=== PATIENT | female | born 1960 | race African-American/Black ===

== ENCOUNTER 2016-11-07 15:07 | Emergency (ER) | payer OTHER ==
[~2016-11-07] VITALS: Ht 157.5 cm; Wt 90.7 kg
[~2016-11-07 15:07] MED LIST: PANT40T PO
[2016-11-07 15:57] VITALS: BP 128/78
[2016-11-07] MEDS ORDERED: methylPREDNISolone SOD SUCC 125 MG/2 ML VL IM ONE (16:45)
[2016-11-07] MEDS ORDERED: KETOROLAC TROMETH 60MG/2ML VIAL IM ONE (16:45)
== END 2016-11-07 17:49 | disposition home or self-care (01) ==
LOC: ER 15:11
DX: M54.16 Radiculopathy, lumbar region (principal); G89.29 Other chronic pain; Z88.1 Allergy status to other antibiotic agents
CPT/HCPCS: 96372; 99284; J1885; J2930

== ENCOUNTER 2016-11-17 03:59 | Emergency (ER) | payer OTHER ==
[~2016-11-17] VITALS: Ht 157.5 cm; Wt 88.5 kg
[2016-11-17] MEDS ORDERED: ACETAMINOPHEN 325 MG TAB PO ONE (04:30)
[2016-11-17] MEDS ORDERED: SODIUM CHLORIDE 0.9% 1,000 ML IV ONE (07:03)
[2016-11-17] MEDS ORDERED: METOCLOPRAMIDE HCL 5MG/ml INJ 2ml VIAL IV ONE (07:15)
[2016-11-17] MEDS ORDERED: KETOROLAC TROMETH 30 MG/ML 1ML VIAL IV ONE (07:15)
[2016-11-17 07:16] LABS: Basophils # (auto) 0.1 uL; Eosinophils # (auto) 0.2 uL; Eosinophils % (auto) 1.8 % (0.0-7.0); Hematocrit 38.5 % (36.0-46.0); Hemoglobin 12.5 g/dL (12.2-16.2); Lymphocytes # (auto) 1.7 uL; Lymphocytes % (auto) 16.2 % (10.0-50.0); Mean Corpuscular Hemoglobin 27.7 pg (28.0-32.0); Mean Corpuscular Hgb Conc. 32.4 g/dL (32.0-36.0); Mean Corpuscular Volume 85.6 fL (80.0-100.0); Mean Platelet Volume 8.7 fL (6.9-10.8); Monocytes # (auto) 1.3 uL; Neutrophils # (auto) 7.3 uL; Platelet Count (auto) 283 10^3/uL (140-450); Red Cell Distribution Width 16.2 % (11.8-14.3); White Blood Cell 10.5 10^3/uL (4.4-10.8)
[2016-11-17 07:27] LABS: Albumin 3.4 g/dL (3.4-5.0); BUN/Creatinine Ratio 22.4; Calcium 9.7 mg/dL (8.5-10.1); Magnesium 2.4 mg/dL (1.6-2.6)
[2016-11-17 07:31] LABS: Bilirubin, Total 0.3 mg/dL (0.2-1.0); Total Protein 7.7 g/dL (6.4-8.2)
[2016-11-17 08:34] LABS: Urine Bilirubin Negative (Negative); Urine Blood Negative /uL (Negative); Urine Color Yellow (Yellow); Urine Glucose Normal (Normal); Urine Ketone Negative (Negative); Urine Nitrite Negative (Negative); Urine RBC <1 /hpf (0 - 4); Urine Squamous Epithelial Cell FEW /hpf (<5); Urine Urobilinogen Normal (Negative)
[2016-11-17 11:17] VITALS: BP 120/77
== END 2016-11-17 12:24 | disposition home or self-care (01) ==
LOC: EDBD 03:59 → ER 03:59 → EDSEX 03:59 → ER 12:24
DX: G89.29 Other chronic pain (principal); M54.5 Low back pain; Z87.442 Personal history of urinary calculi; K21.9 Gastro-esophageal reflux disease without esophagitis; Z88.1 Allergy status to other antibiotic agents
CPT/HCPCS: 36415; 71020; 80053; 81001; 83735; 84443; 85025; 94761; 96361; 96374; 96375; 99285; J1885; J2765

== ENCOUNTER 2017-08-09 23:51 | Emergency (ER) | payer OTHER ==
[~2017-08-09] VITALS: Ht 157.5 cm; Wt 92.5 kg
[2017-08-10 00:58] LABS: Basophils # (auto) 0 uL; Basophils % (auto) 0.4 % (0.0-2.0); Eosinophils # (auto) 0.1 uL; Eosinophils % (auto) 0.5 % (0.0-7.0); Hematocrit 37.2 % (36.0-46.0); Hemoglobin 12.1 g/dL (12.2-16.2); Lymphocytes # (auto) 2.1 uL; Lymphocytes % (auto) 18.1 % (10.0-50.0); Mean Corpuscular Hgb Conc. 32.5 g/dL (32.0-36.0); Mean Corpuscular Volume 86.2 fL (80.0-100.0); Monocytes # (auto) 0.8 uL; Monocytes % (auto) 6.9 % (0.0-12.0); Neutrophils # (auto) 8.5 uL; Neutrophils % (auto) 74.1 % (37.0-80.0); Nucleated Red Blood Cells % 0.1 %; Platelet Count (auto) 356 10^3/uL (140-450); Red Blood Cells 4.32 10^6/uL (4.0-5.20); White Blood Cell 11.5 10^3/uL (4.4-10.8)
[2017-08-10 01:14] LABS: Potassium 3.7 mmol/L (3.5-5.1)
[2017-08-10 01:17] LABS: Albumin 3.5 g/dL (3.4-5.0); BUN/Creatinine Ratio 14.6; Calcium 9.3 mg/dL (8.5-10.1)
[2017-08-10 01:20] LABS: Bilirubin, Total 0.2 mg/dL (0.2-1.0); Total Protein 8.1 g/dL (6.4-8.2)
[2017-08-10 02:28] LABS: Urine Bacteria FEW /hpf (None Seen); Urine Blood Negative /uL (Negative); Urine Mucus FEW (None Seen); Urine Specific Gravity 1.029 (1.001-1.035); Urine WBC 5 /hpf (0 - 5)
[2017-08-10] MEDS ORDERED: MORPHINE SULFATE 4 MG/ML SYR/VIAL IV ONE (02:30)
[2017-08-10] MEDS ORDERED: SODIUM CHLORIDE 0.9% 1,000 ML IV ONE (02:30)
[2017-08-10] MEDS ORDERED: ONDANSETRON HCL 4 MG/2 ML VIAL IV ONE (02:30)
[2017-08-10] MEDS ORDERED: LORazepam 2MG/ML-1ML VIAL IV ONE (02:45)
[2017-08-10 04:59] VITALS: BP 107/69
== END 2017-08-10 03:47 | disposition home or self-care (01) ==
LOC: ER 23:51
DX: N39.0 Urinary tract infection, site not specified (principal); N20.0 Calculus of kidney; M54.9 Dorsalgia, unspecified; G89.29 Other chronic pain; E66.01 Morbid (severe) obesity due to excess calories; Z68.37 Body mass index [BMI] 37.0-37.9, adult; Z79.899 Other long term (current) drug therapy
CPT/HCPCS: 36415; 74176; 80053; 81001; 82150; 83690; 85025; 96361; 96374; 96375; 99285; J2060; J2270; J2405; J7030

== ENCOUNTER → 2018-06-30 | Outpatient (CLI) | payer OTHER | END | disposition home or self-care (01) | LOC: LAB 07:20 | PROVIDERS: ATTEND Urology | DX: N39.0 Urinary tract infection, site not specified (principal) | CPT/HCPCS: 87086 ==

== ENCOUNTER 2018-11-30 13:33 | Emergency (ER) | payer OTHER ==
[~2018-11-30] VITALS: Ht 167.6 cm; Wt 93.0 kg
[2018-11-30 15:46] LABS: Urine Bacteria NONE SEEN /hpf (None Seen); Urine Blood Negative /uL (Negative); Urine Mucus FEW (None Seen); Urine Specific Gravity 1.027 (1.001-1.035); Urine WBC <1 /hpf (0 - 5)
[2018-11-30] MEDS ORDERED: ONDANSETRON HCL 4 MG/2 ML VIAL IV ONE (20:15)
[2018-11-30] MEDS ORDERED: cefTRIAXone 1GM/50ML D5W 50 ML IV ONE (20:15)
[2018-11-30] MEDS ORDERED: PIPERACILLIN-TAZOB 3.375GM 100 ML IV ONE (20:15)
[2018-11-30] MEDS ORDERED: SODIUM CHLORIDE 0.9% 1,000 ML IV ONE (20:15)
[2018-11-30] MEDS ORDERED: MORPHINE SULFATE 4 MG/ML SYR/VIAL IV ONE (20:15)
[2018-11-30 20:33] LABS: Basophils # (auto) 0 uL; Basophils % (auto) 0.3 % (0.0-2.0); Eosinophils # (auto) 0.1 uL; Eosinophils % (auto) 0.6 % (0.0-7.0); Hematocrit 38.7 % (36.0-46.0); Hemoglobin 12.4 g/dL (12.2-16.2); Lymphocytes # (auto) 1.9 uL; Lymphocytes % (auto) 13.7 % (10.0-50.0); Mean Corpuscular Hemoglobin 27.4 pg (28.0-32.0); Mean Corpuscular Volume 85.5 fL (80.0-100.0); Monocytes # (auto) 0.7 uL; Monocytes % (auto) 5.2 % (0.0-12.0); Neutrophils # (auto) 11.3 uL; Neutrophils % (auto) 80.2 % (37.0-80.0); Platelet Count (auto) 313 10^3/uL (140-450); Red Blood Cells 4.52 10^6/uL (4.0-5.20); Red Cell Distribution Width 15.3 % (11.8-14.3); White Blood Cell 14.1 10^3/uL (4.4-10.8)
[2018-11-30 20:56] LABS: Alanine Aminotransferase 14 U/L (13-56); Albumin 3.3 g/dL (3.4-5.0); Anion Gap 5 (5-15); Aspartate Aminotransferase 26 U/L (15-37); BUN/Creatinine Ratio 20.6; Blood Urea Nitrogen 13 mg/dL (7-18); Calcium 9.3 mg/dL (8.5-10.1); Carbon Dioxide 27 mmol/L (21-32); Chloride 103 mmol/L (98-107); GFR African American 126 mL/min; GFR Non-African American 104 mL/min; Glucose 79 mg/dL (74-106); Potassium 4.3 mmol/L (3.5-5.1); Sodium 135 mmol/L (136-145)
[2018-11-30 20:57] LABS: Alkaline Phosphatase 154 U/L (45-117); Bilirubin, Total 0.4 mg/dL (0.2-1.0); Total Protein 8.1 g/dL (6.4-8.2)
[2018-11-30 22:00] VITALS: BP 119/73
== END 2018-12-01 01:09 | disposition home or self-care (01) ==
LOC: ER 13:33
DX: S63.501A Unspecified sprain of right wrist, initial encounter (principal); N20.0 Calculus of kidney; L02.411 Cutaneous abscess of right axilla; Z88.1 Allergy status to other antibiotic agents; W45.8XXA Other foreign body or object entering through skin, initial encounter; Y93.89 Activity, other specified; Y92.89 Other specified places as the place of occurrence of the external cause; Y99.8 Other external cause status
CPT/HCPCS: 36415; 73110; 74176; 80053; 81001; 85025; 96365; 96366; 96367; 96375; 99284; J0696; J2270; J2405; J2543; J7030

== ENCOUNTER 2019-12-20 19:25 | Emergency (ER) | payer MEDICAID, OTHER ==
[~2019-12-20] VITALS: Ht 157.5 cm; Wt 93.0 kg
[2019-12-20 22:19] LABS: Basophils # (auto) 0 10 ^3/uL (0-0.2); Basophils % (auto) 0.4 % (0.0-2.0); Eosinophils # (auto) 0.1 10 ^3/uL (0-0.8); Mean Corpuscular Volume 84.3 fL (80.0-100.0); Nucleated Red Blood Cells % 0.1 %
[2019-12-20 22:21] LABS: Hematocrit 39.3 % (36.0-46.0); Hemoglobin 12.6 g/dL (12.2-16.2); Lymphocytes # (auto) 2.7 10 ^3/uL (0.4-5.4); Lymphocytes % (auto) 24.7 % (10.0-50.0); Mean Corpuscular Hemoglobin 26.9 pg (28.0-32.0); Monocytes # (auto) 0.7 10 ^3/uL (0-1.3); Monocytes % (auto) 6.1 % (0.0-12.0); Neutrophils # (auto) 7.5 10 ^3/uL (1.6-8.6); Neutrophils % (auto) 67.8 % (37.0-80.0); Platelet Count (auto) 318 10^3/uL (140-450); Red Blood Cells 4.66 10^6/uL (4.0-5.20); Red Cell Distribution Width 15.5 % (11.8-14.3); White Blood Cell 11.1 10^3/uL (4.4-10.8)
[2019-12-20 22:27] LABS: Urine Bacteria FEW /hpf (None Seen); Urine Blood Negative /uL (Negative); Urine Specific Gravity 1.021 (1.001-1.035); Urine WBC 4 /hpf (0 - 5)
[2019-12-20 22:38] LABS: Albumin 3.9 g/dL (3.4-5.0); BUN/Creatinine Ratio 19.5; Calcium 9.9 mg/dL (8.5-10.1)
[2019-12-20 22:41] LABS: Bilirubin, Total 0.3 mg/dL (0.2-1.0); Total Protein 8.4 g/dL (6.4-8.2)
[2019-12-20 22:46] LABS: INR 0.97 (0.9-1.15); Partial Thromboplastin Time 29.6 sec (23.0-31.2)
[2019-12-21] MEDS ORDERED: CIPROFLOXACIN 400MG/200ML 200 ML IV ONE (01:45)
[2019-12-21] MEDS ORDERED: MORPHINE SULFATE 4 MG/ML SYR/VIAL IV ONE (01:45)
[2019-12-21] MEDS ORDERED: ONDANSETRON HCL 4 MG/2 ML VIAL IV ONE (01:45)
[2019-12-21] MEDS ORDERED: SODIUM CHLORIDE 0.9% 1,000 ML IV ONE (01:45)
[2019-12-21 02:00] VITALS: BP 97/51
== END 2019-12-21 04:15 | disposition home or self-care (01) ==
LOC: ER 19:25
DX: N20.0 Calculus of kidney (principal); N39.0 Urinary tract infection, site not specified; K80.20 Calculus of gallbladder without cholecystitis without obstruction; T39.1X5A Adverse effect of 4-Aminophenol derivatives, initial encounter; Y92.9 Unspecified place or not applicable
CPT/HCPCS: 36415; 74176; 76705; 80053; 81001; 83690; 84702; 85025; 85610; 85730; 96365; 96375; 99285; J0744; J2270; J2405; J7030

== ENCOUNTER 2020-05-23 13:34 | Emergency (ER) | payer MEDICAID ==
[~2020-05-23] VITALS: Ht 162.6 cm; Wt 88.5 kg
[2020-05-23] MEDS ORDERED: ONDANSETRON HCL 4 MG/2 ML VIAL IV ONE (14:15)
[2020-05-23] MEDS ORDERED: HYDROmorphone HCL 2 MG/ML VL IV ONE (14:15)
[2020-05-23 15:50] LABS: Basophils # (auto) 0 10 ^3/uL (0-0.2); Basophils % (auto) 0.3 % (0.0-2.0); Eosinophils # (auto) 0 10 ^3/uL (0-0.8); Eosinophils % (auto) 0.4 % (0.0-7.0); Hematocrit 36.3 % (36.0-46.0); Hemoglobin 11.8 g/dL (12.2-16.2); Lymphocytes # (auto) 1.3 10 ^3/uL (0.4-5.4); Lymphocytes % (auto) 13.1 % (10.0-50.0); Mean Corpuscular Hemoglobin 27.6 pg (28.0-32.0); Mean Corpuscular Hgb Conc. 32.5 g/dL (32.0-36.0); Mean Corpuscular Volume 85.1 fL (80.0-100.0); Monocytes # (auto) 0.5 10 ^3/uL (0-1.3); Monocytes % (auto) 5.4 % (0.0-12.0); Neutrophils % (auto) 80.8 % (37.0-80.0); Nucleated Red Blood Cells % 0.1 %; Platelet Count (auto) 318 10^3/uL (140-450); Red Blood Cells 4.26 10^6/uL (4.0-5.20); Red Cell Distribution Width 15.5 % (11.8-14.3)
[2020-05-23 16:01] LABS: Albumin 3.6 g/dL (3.4-5.0); Calcium 9.6 mg/dL (8.5-10.1); Potassium 3.7 mmol/L (3.5-5.1)
[2020-05-23 16:02] LABS: Urine Bacteria NONE SEEN /hpf (None Seen); Urine Blood Negative /uL (Negative); Urine Mucus FEW (None Seen); Urine Specific Gravity 1.011 (1.001-1.035); Urine WBC 1 /hpf (0 - 5)
[2020-05-23 16:06] LABS: BUN/Creatinine Ratio 16.4; Bilirubin, Total 0.4 mg/dL (0.2-1.0)
[2020-05-23 18:00] VITALS: BP 113/62
== END 2020-05-23 16:25 | disposition home or self-care (01) ==
LOC: EDBD 13:34 → ER 13:34
DX: R10.31 Right lower quadrant pain (principal); F41.9 Anxiety disorder, unspecified; Z87.442 Personal history of urinary calculi; Z87.440 Personal history of urinary (tract) infections; Z86.2 Personal history of diseases of the blood and blood-forming organs and certain disorders involving the immune mechanism; Z98.890 Other specified postprocedural states; Z79.899 Other long term (current) drug therapy; Z88.1 Allergy status to other antibiotic agents
CPT/HCPCS: 36415; 74176; 80053; 81001; 83690; 85025; 93005; 96374; 96375; 99285; J1170; J2405

== ENCOUNTER 2020-07-08 23:29 | Emergency (ER) | payer MEDICAID ==
[~2020-07-08] VITALS: Ht 167.6 cm; Wt 90.7 kg
[2020-07-09] MEDS ORDERED: ACETAMINOPHEN 500 MG TAB PO ONE (00:15)
[2020-07-09] MEDS ORDERED: SODIUM CHLORIDE 0.9% 1,000 ML IV ONE ×2 (00:15→07:00)
[2020-07-09] MEDS ORDERED: ONDANSETRON HCL 4 MG/2 ML VIAL IV ONE ×2 (00:15→07:00)
[2020-07-09 00:38] LABS: Basophils # (auto) 0 10 ^3/uL (0-0.2); Basophils % (auto) 0.2 % (0.0-2.0); Eosinophils # (auto) 0 10 ^3/uL (0-0.8); Eosinophils % (auto) 0.2 % (0.0-7.0); Hematocrit 40.9 % (36.0-46.0); Lymphocytes # (auto) 0.5 10 ^3/uL (0.4-5.4); Lymphocytes % (auto) 4.4 % (10.0-50.0); Mean Corpuscular Hemoglobin 26.9 pg (28.0-32.0); Mean Corpuscular Hgb Conc. 31.7 g/dL (32.0-36.0); Monocytes # (auto) 0.3 10 ^3/uL (0-1.3); Monocytes % (auto) 2.8 % (0.0-12.0); Neutrophils # (auto) 10.9 10 ^3/uL (1.6-8.6); Neutrophils % (auto) 92.4 % (37.0-80.0); Red Blood Cells 4.82 10^6/uL (4.0-5.20); Red Cell Distribution Width 15.6 % (11.8-14.3); White Blood Cell 11.8 10^3/uL (4.4-10.8)
[2020-07-09 00:55] LABS: Albumin 3.8 g/dL (3.4-5.0); BUN/Creatinine Ratio 18.7; Potassium 3.4 mmol/L (3.5-5.1)
[2020-07-09 00:57] LABS: Bilirubin, Total 0.6 mg/dL (0.2-1.0); Total Protein 8.5 g/dL (6.4-8.2)
[2020-07-09] MEDS ORDERED: IOHEXOL 300 MG/ML 100ML BOTTLE IJ ONE (02:22)
[2020-07-09 06:00] VITALS: BP 127/78
[2020-07-09 06:45] LABS: Urine Bacteria NONE SEEN /hpf (None Seen); Urine Blood Negative /uL (Negative); Urine Mucus FEW (None Seen); Urine WBC 4 /hpf (0 - 5)
[2020-07-09 06:46] LABS: Urine Specific Gravity > 1.050 (1.001-1.035)
== END 2020-07-09 07:37 | disposition home or self-care (01) ==
LOC: EDBD 23:29 → ER 23:29
DX: K52.9 Noninfective gastroenteritis and colitis, unspecified (principal); R11.2 Nausea with vomiting, unspecified; I10 Essential (primary) hypertension; F41.9 Anxiety disorder, unspecified; Z87.442 Personal history of urinary calculi; Z88.1 Allergy status to other antibiotic agents; Z79.899 Other long term (current) drug therapy; Z98.890 Other specified postprocedural states
CPT/HCPCS: 36415; 74177; 80053; 81001; 83605; 83690; 84484; 85025; 87040; 93005; 96361; 96374; 96376; 99285; J2405; J7030; Q9967

== ENCOUNTER 2021-04-07 23:42 | Emergency (ER) | payer MEDICAID ==
[~2021-04-07] VITALS: Ht 157.5 cm; Wt 97.5 kg
[2021-04-08] MEDS ORDERED: KETOROLAC TROMETH 30 MG/ML 1ML VIAL IV ONE
[2021-04-08] MEDS ORDERED: ONDANSETRON HCL 4 MG/2 ML VIAL IV ONE
[2021-04-08] MEDS ORDERED: SODIUM CHLORIDE 0.9% 1,000 ML IV ONE
[2021-04-08 01:43] LABS: Basophils # (auto) 0 10 ^3/uL (0-0.2); Basophils % (auto) 0.4 % (0.0-2.0); Eosinophils # (auto) 0.2 10 ^3/uL (0-0.8); Eosinophils % (auto) 1.8 % (0.0-7.0); Hematocrit 33.5 % (36.0-46.0); Hemoglobin 10.7 g/dL (12.2-16.2); Lymphocytes # (auto) 2.1 10 ^3/uL (0.4-5.4); Lymphocytes % (auto) 23.8 % (10.0-50.0); Mean Corpuscular Hemoglobin 27.6 pg (28.0-32.0); Mean Corpuscular Hgb Conc. 31.9 g/dL (32.0-36.0); Mean Corpuscular Volume 86.4 fL (80.0-100.0); Monocytes # (auto) 0.7 10 ^3/uL (0-1.3); Monocytes % (auto) 7.9 % (0.0-12.0); Neutrophils # (auto) 5.9 10 ^3/uL (1.6-8.6); Neutrophils % (auto) 66.1 % (37.0-80.0); Red Blood Cells 3.88 10^6/uL (4.0-5.20); Red Cell Distribution Width 14.8 % (11.8-14.3); White Blood Cell 8.9 10^3/uL (4.4-10.8)
[2021-04-08 01:55] LABS: Albumin 3.2 g/dL (3.4-5.0); BUN/Creatinine Ratio 18.9; Calcium 9.7 mg/dL (8.5-10.1); Potassium 3.9 mmol/L (3.5-5.1)
[2021-04-08 01:58] LABS: Bilirubin, Total 0.2 mg/dL (0.2-1.0); Total Protein 7.3 g/dL (6.4-8.2)
[2021-04-08 02:26] LABS: Urine Bacteria FEW /hpf (None Seen); Urine Blood Negative /uL (Negative); Urine Mucus FEW (None Seen); Urine WBC 3 /hpf (0 - 5)
[2021-04-08 03:01] VITALS: BP 103/54
[2021-04-08] MEDS ORDERED: NITR-87 PO (18:35)
== END 2021-04-08 05:36 | disposition home or self-care (01) ==
LOC: ER 23:42
DX: N39.0 Urinary tract infection, site not specified (principal); Z88.1 Allergy status to other antibiotic agents
CPT/HCPCS: 36415; 80053; 81001; 83690; 85025; 96361; 96374; 96375; 99284; J1885; J2405; J7030

== ENCOUNTER 2022-01-25 21:29 | Emergency (ER) | payer MEDICAID ==
[~2022-01-25] VITALS: Ht 157.5 cm; Wt 94.6 kg
[~2022-01-25 21:29] MED LIST changes: +NITR-87 PO
[2022-01-25 22:58] LABS: Urine Bacteria NONE SEEN /hpf (None Seen); Urine Blood Negative /uL (Negative); Urine Mucus FEW (None Seen); Urine Specific Gravity 1.031 (1.001-1.035); Urine WBC 4 /hpf (0 - 5)
[2022-01-26 06:49] VITALS: BP 113/66
[2022-01-26] MEDS ORDERED: PHENAZOPYRIDINE HCL 100 MG TAB PO ONE (07:00)
[2022-01-26] MEDS ORDERED: PHEN200T16 PO ×2 (07:21→07:33)
[2022-01-26] MEDS ORDERED: BACDST PO ×2 (07:21→07:33)
== END 2022-01-26 07:36 | disposition home or self-care (01) ==
LOC: ER 21:29
DX: N39.0 Urinary tract infection, site not specified (principal); Z87.442 Personal history of urinary calculi; Z88.1 Allergy status to other antibiotic agents
CPT/HCPCS: 81001

== ENCOUNTER 2022-07-24 18:16 | Emergency (ER) | payer MEDICAID ==
[~2022-07-24] VITALS: Ht 157.5 cm; Wt 95.5 kg
[~2022-07-24 18:16] MED LIST changes: +BACDST PO; +PHEN-922 PO
[2022-07-24 19:23] LABS: Basophils # (auto) 0 10 ^3/uL (0-0.2); Basophils % (auto) 0.5 % (0.0-2.0); Eosinophils # (auto) 0.1 10 ^3/uL (0-0.8); Eosinophils % (auto) 0.9 % (0.0-7.0); Hematocrit 36.8 % (36.0-46.0); Hemoglobin 11.8 g/dL (12.2-16.2); Lymphocytes # (auto) 1.7 10 ^3/uL (0.4-5.4); Lymphocytes % (auto) 17.5 % (10.0-50.0); Mean Corpuscular Hemoglobin 27.1 pg (28.0-32.0); Mean Corpuscular Volume 84.8 fL (80.0-100.0); Monocytes # (auto) 0.6 10 ^3/uL (0-1.3); Monocytes % (auto) 5.8 % (0.0-12.0); Neutrophils # (auto) 7.3 10 ^3/uL (1.6-8.6); Neutrophils % (auto) 75.3 % (37.0-80.0); Nucleated Red Blood Cells % 0.1 %; Red Blood Cells 4.34 10^6/uL (4.0-5.20); Red Cell Distribution Width 14.7 % (11.8-14.3); White Blood Cell 9.7 10^3/uL (4.4-10.8)
[2022-07-24 19:33] LABS: Potassium 4.3 mmol/L (3.5-5.1)
[2022-07-24 19:40] LABS: Albumin 3.7 g/dL (3.4-5.0); BUN/Creatinine Ratio 21.2 (10.0-20.0); Bilirubin, Total 0.3 mg/dL (0.2-1.0); Calcium 9.3 mg/dL (8.5-10.1); Total Protein 7.4 g/dL (6.4-8.2)
[2022-07-25 05:48] VITALS: BP 118/73
== END 2022-07-25 02:07 | disposition home or self-care (01) ==
LOC: ER 18:16 → EDBD 18:16 → ER 07-25 02:07
DX: R10.11 Right upper quadrant pain (principal); M25.572 Pain in left ankle and joints of left foot; Z87.442 Personal history of urinary calculi; Z88.1 Allergy status to other antibiotic agents
CPT/HCPCS: 36415; 73600; 74176; 80053; 83605; 83690; 85025; 93005

== ENCOUNTER 2022-12-28 01:02 | Emergency (ER) | payer MEDICAID ==
[~2022-12-28] VITALS: Ht 157.5 cm; Wt 93.8 kg
[2022-12-28] MEDS ORDERED: MUPI2OIN2 EX (03:26)
[2022-12-28] MEDS ORDERED: CEPH500C PO (03:26)
[2022-12-28] MEDS ORDERED: BACDST PO (03:26)
[2022-12-28] MEDS ORDERED: HYDROcodone-ACET 5/325MG TAB PO ONE (03:30)
[2022-12-28] MEDS ORDERED: cefTRIAXone SOD 1,000 MG VL IM ONE (03:30)
[2022-12-28] MEDS ORDERED: KETOROLAC TROMETH 60MG/2ML VIAL IM ONE (03:30)
[2022-12-28 04:15] VITALS: BP 132/76; PULSE 68; RESP 16; TEMP 97.4; O2SAT 97
== END 2022-12-28 04:30 | disposition home or self-care (01) ==
LOC: ER 01:02
DX: G89.29 Other chronic pain (principal); L60.0 Ingrowing nail; M54.2 Cervicalgia; M25.512 Pain in left shoulder; M79.671 Pain in right foot
CPT/HCPCS: 96372; 99284; J0696; J1885

== ENCOUNTER 2023-11-20 13:46 | Inpatient (IN) | payer MEDICAID ==
[~2023-11-20] VITALS: Ht 157.5 cm; Wt 91.2 kg
[~2023-11-20 13:46] MED LIST changes: +CEPH500C PO; +MUPI2OIN2 EX
[2023-11-20 15:09] LABS: Basophils # (auto) 0.1 10 ^3/uL (0-0.2); Basophils % (auto) 0.5 % (0.0-2.0); Eosinophils # (auto) 0.1 10 ^3/uL (0-0.8); Eosinophils % (auto) 1.1 % (0.0-7.0); Hematocrit 37.6 % (36.0-46.0); Hemoglobin 11.9 g/dL (12.2-16.2); Lymphocytes # (auto) 1.9 10 ^3/uL (0.4-5.4); Lymphocytes % (auto) 17.9 % (10.0-50.0); Mean Corpuscular Hemoglobin 27.5 pg (28.0-32.0); Mean Corpuscular Hgb Conc. 31.7 g/dL (32.0-36.0); Mean Corpuscular Volume 86.9 fL (80.0-100.0); Monocytes # (auto) 0.6 10 ^3/uL (0-1.3); Neutrophils # (auto) 7.9 10 ^3/uL (1.6-8.6); Neutrophils % (auto) 74.5 % (37.0-80.0); Platelet Count (auto) 320 10^3/uL (140-450); Red Blood Cells 4.32 10^6/uL (4.0-5.20); Red Cell Distribution Width 15.8 % (11.8-14.3); White Blood Cell 10.5 10^3/uL (4.4-10.8)
[2023-11-20 15:18] LABS: Urine Bacteria None Seen /hpf (None Seen)
[2023-11-20 15:28] LABS: Alanine Aminotransferase 11 U/L (7-40); Alkaline Phosphatase 137 U/L (46-116); Anion Gap 7 (5-15); Aspartate Aminotransferase 20 U/L (13-40); BUN/Creatinine Ratio 11.2 (10.0-20.0); Blood Urea Nitrogen 10 mg/dL (9-23); Calcium 10.3 mg/dL (8.7-10.4); Carbon Dioxide 24 mmol/L (20-31); Chloride 109 mmol/L (98-107); Glucose 110 mg/dL (74-106); Sodium 140 mmol/L (136-145)
[2023-11-20 15:29] LABS: Albumin 4.3 g/dL (3.2-4.8)
[2023-11-20 15:30] LABS: Bilirubin, Total 0.3 mg/dL (0.2-1.0); Total Protein 7.5 g/dL (5.7-8.2)
[2023-11-20 15:41] LABS: Urine Blood Negative /uL (Negative); Urine Clarity Ex.Turbid (Clear); Urine Color Yellow (Yellow); Urine Mucus FEW (None Seen); Urine Protein, UAD TRACE (Negative); Urine Specific Gravity 1.031 (1.001-1.035); Urine Urobilinogen Normal (Negative); Urine WBC 4 /hpf (0 - 5); Urine pH 5.5 (5.0-9.0)
[2023-11-21] VITALS (7 sets, daily range): BP systolic 100–109; BP diastolic 54–73; PULSE 58–79; RESP 16–18; TEMP 97.8–98; O2SAT 95–100
[2023-11-21] MEDS: SODIUM CHLORIDE 0.9% 1,000 ML IV ONE (00:40)
[2023-11-21] MEDS: levoFLOXacin 500MG 100 ML IV ONE (00:46)
[2023-11-21] MEDS: KETOROLAC TROMETH 30 MG/ML 1ML VIAL IV ONE (00:46)
[2023-11-21] MEDS ORDERED: cefTRIAXone 1GM/50ML D5W 50 ML IV ONE (01:15)
[2023-11-21] MEDS ORDERED: SODIUM CHLORIDE 0.9% 1,000 ML IV SCH (01:15)
[2023-11-21] MEDS ORDERED: hydrALAZINE HCL 20 MG/ML VL IV PRN (04:00)
[2023-11-21] MEDS ORDERED: ONDANSETRON HCL 4 MG/2 ML VIAL IV PRN (04:00)
[2023-11-21] MEDS: LACTATED RINGER'S 1,000 ML IV SCH (06:34)
[2023-11-21 08:12] LABS: Chloride 108 mmol/L (98-107); Potassium 4.2 mmol/L (3.5-5.1); Sodium 137 mmol/L (136-145)
[2023-11-21 08:13] LABS: Anion Gap 6 (5-15); Calcium 9.7 mg/dL (8.7-10.4); Carbon Dioxide 23 mmol/L (20-31)
[2023-11-21 08:17] LABS: Basophils # (auto) 0 10 ^3/uL (0-0.2); Basophils % (auto) 0.5 % (0.0-2.0); Eosinophils # (auto) 0.1 10 ^3/uL (0-0.8); Eosinophils % (auto) 1.4 % (0.0-7.0); Hematocrit 30.7 % (36.0-46.0); Lymphocytes # (auto) 1.3 10 ^3/uL (0.4-5.4); Lymphocytes % (auto) 16.5 % (10.0-50.0); Mean Corpuscular Hemoglobin 28.8 pg (28.0-32.0); Mean Corpuscular Hgb Conc. 32.7 g/dL (32.0-36.0); Mean Corpuscular Volume 87.9 fL (80.0-100.0); Monocytes # (auto) 0.5 10 ^3/uL (0-1.3); Monocytes % (auto) 5.6 % (0.0-12.0); Neutrophils # (auto) 6.2 10 ^3/uL (1.6-8.6); Platelet Count (auto) 224 10^3/uL (140-450); Red Blood Cells 3.49 10^6/uL (4.0-5.20); Red Cell Distribution Width 15.7 % (11.8-14.3); White Blood Cell 8.1 10^3/uL (4.4-10.8)
[2023-11-21 08:18] LABS: BUN/Creatinine Ratio 14.3 (10.0-20.0); Blood Urea Nitrogen 12 mg/dL (9-23); Glucose 95 mg/dL (74-106)
[2023-11-21] MEDS: KETOROLAC TROMETH 30 MG/ML 1ML VIAL IV PRN (10:36)
[2023-11-21 11:35] LABS: Folate (Folic Acid) 15.17 ng/mL (>5.38)
[2023-11-21 11:36] LABS: Ferritin 68.9 ng/mL (10-291)
[2023-11-21 11:46] LABS: % Iron Saturation 25.4 % (15-50)
[2023-11-21] MEDS: PANTOPRAZOLE 40 MG TAB PO SCH (17:15)
[2023-11-21 21:52] LABS: Amphetamine Screen, Urine Neg (NEGATIVE); Barbiturate Scree,Urine Neg (NEGATIVE); Benzodiazephine Screen, Urine Neg (NEGATIVE); Cannabinoid Screen, Urine Neg (NEGATIVE); Cocaine Screen, Urine Neg (NEGATIVE); Opiate Scree,Urine Neg (NEGATIVE); Phencyclidine Screen, Urine Neg (NEGATIVE)
[2023-11-22 01:00] VITALS: BP 121/67; PULSE 60; RESP 17; TEMP 98.2; O2SAT 100
[2023-11-22 05:00] VITALS: BP 107/58; PULSE 69; RESP 17; TEMP 98; O2SAT 99
[2023-11-22 08:24] VITALS: TEMP 36.7
[2023-11-22 09:00] VITALS: BP 107/73; PULSE 76; RESP 18; TEMP 98.1; O2SAT 95
[2023-11-22] MEDS: cefTRIAXone 1GM/50ML D5W 50 ML IV SCH (09:00)
[2023-11-22 12:51] VITALS: BP 123/69; PULSE 80; RESP 16; TEMP 97.8; O2SAT 97
[2023-11-23] MEDS ORDERED: PHEN1TAB38 PO (09:54)
[2023-11-23] MEDS ORDERED: PANT40TA2 PO (09:54)
[2023-11-23] MEDS ORDERED: MUPI2CRE17 EX (09:54)
== END 2023-11-22 15:00 | disposition home or self-care (01) | DRG 463 ==
LOC: ER 13:51 → OVERFLOW 23:57 → CENTRAL 11-21 05:26
PROVIDERS: ADMIT Internal Medicine; ATTEND Internal Medicine
DX: N30.00 Acute cystitis without hematuria (principal); D64.9 Anemia, unspecified; E66.9 Obesity, unspecified; K42.9 Umbilical hernia without obstruction or gangrene; K57.30 Diverticulosis of large intestine without perforation or abscess without bleeding; N20.0 Calculus of kidney; N28.1 Cyst of kidney, acquired; J34.2 Deviated nasal septum; Z87.442 Personal history of urinary calculi; Z68.36 Body mass index [BMI] 36.0-36.9, adult; Z79.899 Other long term (current) drug therapy
CPT/HCPCS: 36415; 71045; 74176; 76775; 80048; 80053; 80307; 80320; 81001; 82306; 82607; 82728; 82746; 83036; 83540; 83550; 83605; 83880; 84443; 84484; 84550; 85025; 87081; 87086; 93005; G0378; J1885; J1956

== ENCOUNTER 2023-12-25 00:43 | Emergency (ER) | payer MEDICAID ==
[~2023-12-25] VITALS: Ht 157.5 cm; Wt 94.7 kg
[~2023-12-25 00:43] MED LIST changes: -BACDST PO; -CEPH500C PO; +MUPI2CRE17 EX; -MUPI2OIN2 EX; -NITR-87 PO; -PANT40T PO; +PANT40TA2 PO; -PHEN-922 PO; +PHEN1TAB38 PO
[2023-12-25 01:00] VITALS: BP 122/78; PULSE 88; RESP 16; O2SAT 97
--- NOTE | 2023-12-25 04:07 | DVH ---
Exam: CT CT AB PEL WO CON-NO ORAL OR IV History: flank pain Comparison Study: 11-20-23 TECHNIQUE: Multidetector CT of the abdomen and pelvis without contrast. Axial, coronal and sagittal multiplanar reformats were performed by the technologist on a separate workstation. Radiation Dose Information: CT Dose: CTDI volume is 22.81 mGy. Dose-length product is 1096.16 mGy*cm FINDINGS: Bibasilar atelectasis. Partially visualized heart is unremarkable. Liver, spleen, gallbladder, pancreas and adrenal glands unremarkable. 1 cm left renal cyst. Additional punctate hypodense left renal upper pole lesion that is too small to characterize. Punctate nonobstructing right renal calculi. Ureters and urinary bladder are unremark able. Uterus and adnexa are unremarkable. Stomach is unremarkable. Small bowel loops are unremarkable. Appendix is unremarkable. Descending co jaswinder diverticulosis without diverticulitis. No evidence of aortic aneurysm. No significant lymphadenopathy. Moderate fat containing periumbilical hernia. Nonspecific 1.5 cm soft tissue density within the left ventral mid to lower abdominal soft tissue. 1.8 cm hemangioma within the right vertebral body of L3. Sclerotic focus of the right superior pubic ramus which may represent a bone island with a blastic lesion not excluded. No destructive osseous le sions are noted. Findings: Lung Bases: No acute or significant lung base finding. Normal heart size. No pleural or pericardial effusion. Liver: The liver is normal in size. No focal lesions. Gallbladder and Biliary Tree: Unremarkable Spleen: Unremarkable Pancreas: The pancreas is grossly normal in appearance. Adrenal Glands: Unremarkable Kidneys: Kidneys are grossly normal without calculi or hydronephrosis. Bladder: Grossly unremarkable for degree of distention. Bowel: The stomach is grossly normal in appearance. Small bowel and colon are normal in caliber and d istribution. The appendix is not visualized; however, no secondary findings of acute appendicitis id entified. Ascites: Absent Lymphadenopathy: No mesenteric, retroperitoneal or periportal lymphadenopathy. Abdominal Wall and Mesentery: Unremarkable. Vasculature: The visualized abdominal aorta is normal in size and caliber. Evaluation of abdominal a nd pelvic vessels is limited due to lack of intravenous contrast. Pelvic Organs: Unremarkable Musculoskeletal: No aggressive focal bony lesions, acute fractures or dislocation. Soft tissues: Unremarkable IMPRESSION: No evidence of acute abdominopelvic abnormalities. 1 cm left renal cysts with additional punctate hypodense left renal lesion that is too small to edgar cterize. Descending colon and sigmoid diverticulosis without diverticulitis. Moderate fat containing periumbilical hernia. Nonobstructing right renal calculi. Nonspecific 1.5 cm soft tissue density within the left ventral mid to lower abdominal soft tissue. Additional findings as above.
[2023-12-25 04:09] LABS: Urine Bacteria FEW /hpf (None Seen); Urine Blood Negative /uL (Negative); Urine Clarity Turbid (Clear); Urine Color Yellow (Yellow); Urine Mucus FEW (None Seen); Urine Protein, UAD TRACE (Negative); Urine Specific Gravity 1.033 (1.001-1.035); Urine Urobilinogen Normal (Negative); Urine WBC 12 /hpf (0 - 5); Urine pH 5.5 (5.0-9.0)
[2023-12-25] MEDS ORDERED: HYDR-4798 PO (04:12)
[2023-12-25] MEDS ORDERED: LEVO500T91 PO (04:19)
--- NOTE | 2023-12-25 04:26 | ED.PDOC ---
General HPI Comments A 63 year old female presents to the ED with a chief complaint of RT flank pain onset today. Patient states she began experiencing RT flank pain that radiates to her back as well as hematuria. Patient was recently seen at Urgent Care, was prescribed Cipro but has not taken it. She has a past medical history of UTI's, kidney stones, anemia and anxiety. No other symptoms or modifying factors present at this time. Chief Complaint: Flank Pain Time Seen by MD: 04:14 Primary Care Provider: JERAD Chaparro notes: Medications, Allergies Allergies: Coded Allergies: Erythromycin (Verified Allergy, Unknown, 05/23/20) Tetracyclines & Related (Verified Allergy, Unknown, 05/23/20) SKIN RASH Home Meds Active Scripts Hydrocodone-Acetaminophen (Hydrocodone Bitartrate/AC 10-325 mg) 1 Tab Tab, 1 TAB PO QIDPRN, #20 TAB Prov:BROOKLYNN YOUNG MD 12/25/23 Phenazopyridine HCl (Phenazopyridine Hydrochlo 100 mg) 1 Tab Tab, 1 TAB PO TID for 3 Days, #9 TAB Prov:FINA BRITO RESIDENT 11/23/23 Pantoprazole Sodium Sesquihydr (Protonix) 40 Mg Tab, 40 MG PO BID for 30 Days, #60 TAB Prov:FINA BRITO 11/23/23 Mupirocin Calcium (Topical) (MUPIROCIN) 2 % Cre, 2 % EX BID for 7 Days, #1 CRE Prov:FINA BRITO RESIDENT 11/23/23 Information Source: Patient Mode of Arrival: Ambulatory Severity: Moderate Timing: Days Duration: Since onset Prehospital treatment: None Symptoms: Hematuria History of: UTI, Kidney stone associated signs and symptoms: Flank Pain, Back Pain, Hematuria Past Medical History PAST MEDICAL HISTORY: Anemia, Anxiety, Kidney Stones, Liver, UTI'S 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 History: 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: No Pertinent TURF 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 Family History Family History: Reviewed,noncontributory to illness Social History Smoker: Non-Smoker Alcohol: Denies ETOH Use Drugs: Denies Drug Use Lives In: Home Constitutional: denies: chills, diaphoresis, fatigue, fever, malaise, sweats, weakness, others EENTM: denies: blurred vision, double vision, ear bleeding, ear discharge, ear drainage, ear pain, ear ringing, eye pain, eye redness, hearing loss, mouth pain, mouth swelling, nasal discharge, nose bleeding, nose congestion, nose pain, photophobia, tearing, throat pain, throat swelling, voice changes, others Respiratory: denies: cough, hemoptysis, orthopnea, SOB at rest, shortness of breath, SOB with excertion, stridor, wheezing, others Cardiovascular: denies: chest pain, dizzy spells, diaphoresis, Dyspnea on exertion, edema, irregular heart beat, left arm pain, lightheadedness, palpitations, PND, syncope, others Gastrointestinal: denies: abdomen distended, abdominal pain, blood streaked bowels, constipated, diarrhea, dysphagia, difficulty swallowing, hematemesis, melena, nausea, poor appetite, poor fluid intake, rectal bleeding, rectal pain, vomiting, others Genitourinary: reports: flank pain, hematuria; denies: abnormal vagina bleeding , burning, dyspareunia, dysuria, frequency, incontinence, pain, , vagina discharge, urgency, others Neurological: denies: dizziness, fainting, headache, left sided numbness, left sided weakness, numbness, paresthesia, pre-existing deficit, right sided numbness, right sided weakness, seizure, speech problems, tingling, tremors, weakness, others Musculoskeletal: reports: back pain; denies: gout, joint pain, joint swelling, muscle pain, muscle stiffness, neck pain, others Integumetry: denies: bruises, change in color, change in hair/nails, dryness, laceration, lesions, lumps, rash, wounds, others Allergic/Immunocompromised: denies: Difficulty Healing, Frequent Infections, Hives, Itching, others Hematologic/Lymphatic: denies: anemia, blood clots, easy bleeding, easy bruising, swollen glands, others Endocrine: denies: excessive hunger, excessive sweating, excessive thirst, excessive urination, flushing, intolerance to cold, intolerance to heat, unexplained weight gain, unexplained weight loss, others Psychiatric: denies: anxiety, bipolar disorder, depression, hopeless, panic disorder, schizophrenia, sleepless, suicidal, others All Other Systems: Reviewed and Negative Physical Exam General Appearance: Mild Distress, Normal HEENT: Normal ENT Inspection, Pharynx Normal, TMs Normal Neck: Full Range of Motion, Non-Tender, Normal, Normal Inspection Respiratory: Chest Non-Tender, Lungs Clear, No Accessory Muscle Use, No Respiratory Distress, Normal Breath Sounds Cardiovascular: No Edema, No JVD, No Murmur, No Gallop, Normal Peripheral Pulses, Regular Rate/Rhythm Breast Exam: Deferred Gastrointestinal: No Organomegaly, Non Tender, No Pulsatile Mass, Normal Bowel Sounds, Soft Genitalia: Deferred Pelvic: Deferred Rectal: Deferred Extremities: No calf tenderness, Normal capillary refill, Normal inspection, Normal range of motion, Non-tender, No pedal edema Musculoskeletal : Apperance: Normal Neurologic: Alert, management consulting II-XII nml as Tested, No Motor Deficits, Normal Affect, Normal Mood, No Sensory Deficits Cerebellar Function: Normal Reflexes: Normal Skin: Dry, Normal Color, Warm Lymphatic: No Adenopathy Was a procedure done? Was a procedure done?: No Differential Diagnosis Kidney stone (Female): Urinary obstruction, Urolithiasis, Other (UTI) X-Ray, Labs, Meds, VS Vital Signs Date Time Temp Pulse Resp B/P (MAP) Pulse Ox O2 Delivery O2 Flow Rate FiO2 12/25/23 01:00 98.0 88 16 122/78 (93) 97 Lab Test 12/25/23 01:04 Range/Units Urine Color Yellow Yellow Urine Clarity Turbid H Clear Urine pH 5.5 5.0-9.0 Urine Specific [place] 1.033 1.001-1.035 Urine Protein Trace H Negative Urine Ketones Trace Negative Urine Blood Negative Negative /uL Urine Nitrite Negative Negative Urine Bilirubin Negative Negative Urine Urobilinogen Normal Negative mg/dL Urine Leukocyte Esterase 2+ Negative /uL Urine RBC 4 0 - 4 /hpf Urine WBC 12 0 - 5 /hpf Urine Squamous Epithelial Cells Many <5 /hpf Urine Calcium Oxalate Crystals Mod None Seen Urine Bacteria Few H None Seen /hpf Urine Mucus Few None Seen Urine Glucose Normal Normal mg/dL [address] [address] Ph: [phone] DIAGNOSTIC IMAGING Diagnostic Imaging Report : [id number] Signed PATIENT: DANIELA OMNTAGUE ACCT: [id number] UNIT: [id number] : 1960 LOC: ER ROOM / BED: / AGE / SEX: 63 / F ADM STATUS: REG ER SERVICE [id number] ORDERING PHYSICIAN: BROOKLYNN YOUNG MD PROCEDURE(s): ABPL - CT AB PEL WO CON-NO ORAL OR IV REASON: flank pain ORDER NUMBER(s): [id number], ACCESSION NUMBER(s): [id number] Exam: CT CT AB PEL WO CON-NO ORAL OR IV History: flank pain Comparison Study: 11-20-23 TECHNIQUE: Multidetector CT of the abdomen and pelvis without contrast. Axial, coronal and sagittal multiplanar reformats were performed by the technologist on a separate workstation. Radiation Dose Information: CT Dose: CTDI volume is 22.81 mGy. Dose-length product is 1096.16 mGy*cm FINDINGS: Bibasilar atelectasis. Partially visualized heart is unremarkable. Liver, spleen, gallbladder, pancreas and adrenal glands unremarkable. 1 cm left renal cyst. Additional punctate hypodense left renal upper pole lesion that is too small to characterize. Punctate nonobstructing right renal calculi. Ureters and urinary bladder are unremarkable. Uterus and adnexa are unremarkable. Stomach is unremarkable. Small bowel loops are unremarkable. Appendix is unremarkable. Descending colon diverticulosis without diverticulitis. No evidence of aortic aneurysm. No significant lymphadenopathy. Moderate fat containing periumbilical hernia. Nonspecific 1.5 cm soft tissue density within the left ventral mid to lower abdominal soft tissue. 1.8 cm hemangioma within the right vertebral body of L3. Sclerotic focus of the right superior pubic ramus which may represent a bone island with a blastic lesion not excluded. No destructive osseous lesions are noted. Findings: Lung Bases: No acute or significant lung base finding. Normal heart size. No pleural or pericardial effusion. Liver: The liver is normal in size. No focal lesions. Gallbladder and Biliary Tree: Unremarkable Spleen: Unremarkable Pancreas: The pancreas is grossly normal in appearance. Adrenal Glands: Unremarkable Kidneys: Kidneys are grossly normal without calculi or hydronephrosis. Bladder: Grossly unremarkable for degree of distention. Bowel: The stomach is grossly normal in appearance. Small bowel and colon are normal in caliber and distribution. The appendix is not visualized; however, no secondary findings of acute appendicitis identified. Ascites: Absent Lymphadenopathy: No mesenteric, retroperitoneal or periportal lymphadenopathy. Abdominal Wall and Mesentery: Unremarkable. Vasculature: The visualized abdominal aorta is normal in size and caliber. Evaluation of abdominal and pelvic vessels is limited due to lack of intravenous contrast. Pelvic Organs: Unremarkable Musculoskeletal: No aggressive focal bony lesions, acute fractures or dislocation. Soft tissues: Unremarkable IMPRESSION: No evidence of acute abdominopelvic abnormalities. 1 cm left renal cysts with additional punctate hypodense left renal lesion that is too small to characterize. Descending colon and sigmoid diverticulosis without diverticulitis. Moderate fat containing periumbilical hernia. Nonobstructing right renal calculi. Nonspecific 1.5 cm soft tissue density within the left ventral mid to lower abdominal soft tissue. Additional findings as above. ATED BY: RHIANNA MILLER MD DICTATED DATE/TIME: 12/25/23404 SIGNED BY: RHIANNA MILLER MD SIGNED DATE/TIME: 12/25/23404 CC: UA reveals urinary tract infection. The patient will be discharged with [place] and Levaquin. Time of 1ST Reevaluation: 04:44 Reevaluation 1ST: Unchanged Patient Education/Counseling: Diagnosis, Treatment, Prognosis Family Education/Counseling: No Family Present Departure 1 Departure Time of Disposition: 04:43 Impression: Primary Impression: Acute UTI (urinary tract infection) Additional Impressions: Calculus of right kidney Diverticulosis of sigmoid colon Renal cysts and diabetes syndrome Periumbilical hernia Disposition: 01 HOME / SELF CARE / HOMELESS Condition: Stable Additional Instructions: Reassessed patient, vital signs stable. Denies any new symptoms. Patient is able to tolerate PO and ambulate/be mobile at their baseline without concern. Risks and benefits of all medications given or prescribed, if any, discussed. All lab work, imaging and diagnostic studies were reviewed by me. The patient was counseled extensively on my clinical impression, diagnosis, expected course of the disease, and plan, including their follow-up care. Will discharge patient. Patient instructed to follow up with Primary Care Physician within 24-48 hours. Strict return precautions given for further exacerbation of symptoms or for new symptoms. The patient was given the opportunity to ask questions and all questions were answered by myself and the nursing/tech staff. Patient is in agreement with the care plan. The patient verbally expressed understanding of the discharge instructions, including the reasons to return to the Emergency Department. e-Prescriptions Levofloxacin Hemihydrate (LEVAQUIN 500 MG) 500 Mg Tab 500 MG PO DAILY for 7 Days, #7 TAB Prov: BROOKLYNN YOUNG MD 12/25/23 Hydrocodone-Acetaminophen (Hydrocodone Bitartrate/AC 10-325 mg) 1 Tab Tab 1 TAB PO QIDPRN, #20 TAB Prov: BROOKLYNN YOUNG MD 12/25/23 Critical Care Note Critical Care Time?: No Stability Stability form required: No I personally scribed for BROOKLYNN YOUNG MD ([email or web address]) on 12/25/23 at 04:26. Electronically submitted by Sultana Villela ([email or web address]). I personally scribed for BROOKLYNN YOUNG MD ([email or web address]) on 12/25/23 at 04:27. Electronically submitted by Sultana Villela ([email or web address]). BROOKLYNN YOUNG MD Dec 25, 2023 04:26
== END 2023-12-25 06:17 | disposition home or self-care (01) ==
LOC: ER 00:43
DX: N20.0 Calculus of kidney (principal); K57.30 Diverticulosis of large intestine without perforation or abscess without bleeding; N39.0 Urinary tract infection, site not specified; K42.9 Umbilical hernia without obstruction or gangrene; E11.9 Type 2 diabetes mellitus without complications; Z88.1 Allergy status to other antibiotic agents
CPT/HCPCS: 74176; 81001

== ENCOUNTER 2024-01-06 19:53 | Emergency (ER) | payer MEDICAID ==
[~2024-01-06] VITALS: Ht 157.5 cm; Wt 95.0 kg
[~2024-01-06 19:53] MED LIST changes: +HYDR-4798 PO; +LEVO500T91 PO
[2024-01-06 20:19] LABS: Basophils # (auto) 0 10 ^3/uL (0-0.2); Basophils % (auto) 0.4 % (0.0-2.0); Eosinophils # (auto) 0.1 10 ^3/uL (0-0.8); Eosinophils % (auto) 1.1 % (0.0-7.0); Hematocrit 38.8 % (36.0-46.0); Hemoglobin 12.6 g/dL (12.2-16.2); Lymphocytes # (auto) 1.9 10 ^3/uL (0.4-5.4); Lymphocytes % (auto) 20.6 % (10.0-50.0); Mean Corpuscular Hemoglobin 27.8 pg (28.0-32.0); Mean Corpuscular Hgb Conc. 32.4 g/dL (32.0-36.0); Monocytes # (auto) 0.6 10 ^3/uL (0-1.3); Monocytes % (auto) 6.8 % (0.0-12.0); Neutrophils # (auto) 6.7 10 ^3/uL (1.6-8.6); Neutrophils % (auto) 71.1 % (37.0-80.0); Nucleated Red Blood Cells % 0.1 %; Platelet Count (auto) 300 10^3/uL (140-450); Red Blood Cells 4.52 10^6/uL (4.0-5.20); Red Cell Distribution Width 15.2 % (11.8-14.3); White Blood Cell 9.4 10^3/uL (4.4-10.8)
[2024-01-06 20:37] LABS: Albumin 4.6 g/dL (3.2-4.8); Alkaline Phosphatase 126 U/L (46-116); Anion Gap 6 (5-15); Aspartate Aminotransferase 16 U/L (13-40); BUN/Creatinine Ratio 14.9 (10.0-20.0); Blood Urea Nitrogen 10 mg/dL (9-23); Calcium 10.3 mg/dL (8.7-10.4); Carbon Dioxide 28 mmol/L (20-31); Chloride 106 mmol/L (98-107); Glucose 90 mg/dL (74-106); Lipase 30 U/L (12-53); Sodium 140 mmol/L (136-145)
[2024-01-06 20:38] LABS: Bilirubin, Total 0.3 mg/dL (0.2-1.0); Total Protein 7.4 g/dL (5.7-8.2)
[2024-01-06 20:39] LABS: Alanine Aminotransferase < 9 U/L (7-40)
[2024-01-06 20:50] LABS: Urine Bacteria None Seen /hpf (None Seen)
--- NOTE | 2024-01-06 20:55 | DVH ---
Exam: CT CT AB PEL WO CON-NO ORAL OR IV History: flank pain Comparison Study: None available at time of dictation. TECHNIQUE: Multidetector CT of the abdomen was performed from lung bases to pubic symphysis. Imaging was performed without IV contrast. Axial, coronal and sagittal multiplanar reformats were obtained fr om the axial data set by the technologist. Radiation Dose Information: CT Dose: CTDI volume is 21.62 mGy. Dose-length product is 1070.74 mGy*cm FINDINGS: Evaluation of solid organs is limited due to lack of intravenous contrast use. Findings: Lung Bases: No acute or significant lung base finding. Normal heart size. No pleural or pericardial effusion. Liver: The liver is normal in size. No focal lesions. Gallbladder and Biliary Tree: Unremarkable Spleen: Unremarkable Pancreas: The pancreas is grossly normal in appearance. Adrenal Glands: Unremarkable Kidneys: Several nonobstructing right renal calculi largest measures 4 mm.. . No significant change from 12/15/2023 Bladder: Grossly unremarkable for degree of distention. Bowel: The stomach is grossly normal in appearance. Small bowel and colon are normal in caliber and d istribution. The appendix is not visualized; however, no secondary findings of acute appendicitis id entified. Ascites: Absent Lymphadenopathy: No mesenteric, retroperitoneal or periportal lymphadenopathy. Abdominal Wall and Mesentery: 3.2 cm fat containing umbilical hernia unchanged from 12/25/2023 Vasculature: The visualized abdominal aorta is normal in size and caliber. Evaluation of abdominal a nd pelvic vessels is limited due to lack of intravenous contrast. Pelvic Organs: Unremarkable Musculoskeletal: No aggressive focal bony lesions, acute fractures or dislocation. Stable osseous hem angioma of L3. Soft tissues: Unremarkable IMPRESSION: 1. 4 mm right renal calculus unchanged from prior study of December 25, 2023 2. Fat containing ventral hernia unchanged from 12/25/2023 3. Pelvic calcifications unchanged from 12/25/2023 Radiation optimization: All CT scans at this facility use at least one of these dose optimization colleen hniques: automated exposure control mA and/or kV adjustment per patient size (includes targeted exam s where dose is matched to clinical indication) or iterative reconstruction.
[2024-01-06 20:57] LABS: Urine Blood Negative /uL (Negative); Urine Clarity Clear (Clear); Urine Color Light-Yellow (Yellow); Urine Mucus FEW (None Seen); Urine Protein, UAD Negative (Negative); Urine Specific Gravity 1.023 (1.001-1.035); Urine Urobilinogen Normal (Negative); Urine WBC 1 /hpf (0 - 5); Urine pH 5.5 (5.0-9.0)
--- NOTE | 2024-01-06 21:52 | ED.PDOC ---
General HPI Comments 63-year-old female presented for complaints of burning micturition and concerns for sepsis. Patient was recently in [facility] ED for UTI, was discharged with antibiotics but still has burning pain and is concerned that she might have sepsis. She finished her course of antibiotics. She denied any symptoms of fever, chills, chest pain, shortness of breath, diarrhea, nausea, vomiting, headache, dizziness. Past medical history Chronic neck pain, chronic back pain, multiple UTIs, umbilical hernia, kidney stones, diverticulosis, periumbilical hernia, nasal septal deviation, nasal polyps, postnasal drip, IBS, GERD, bulging spinal disc Past surgical history C6-C7 fusion Surgery for spine lumbar spine surgery Family history Noncontributory Social history Denied smoking, alcohol, marijuana, any other drug intake Medication history pain medication including Percocet, Robaxin, pantoprazole, tamsulosin Allergic history Erythromycin, tetracyclines ROS Constitutional: No: Fever, Chills, Sweats, Weakness, Malaise, Other Eyes: No: Pain, Vision change, Conjunctivae inflammation, Eyelid inflammation, Other, Redness Respiratory: No: Cough, Dry, Shortness of breath, SOB with excertion, Wheezing, Hemoptysis, Pleuritic Pain, Sputum, Wheezing, Other Cardiovascular: No: Chest Pain, Palpitations, Orthopnea, Paroxysmal Noc. Dyspnea, Edema, Lt Headedness, Other Gastrointestinal: No: Nausea, Vomiting, Abdominal Pain, Diarrhea, Constipation, Melena, Hematochezia, Other Neurological:; No: Weakness, Numbness, Incoordination, Change in speech, Confusion, Seizures Examination General Appearance: Alert, Oriented X3, Cooperative, No acute distress, patient is on wheelchair but uses cane at home, was able to walk with a cane without any distress/motor deficit. oral cavity : no erythema, no swelling Respiratory: Clear to auscultation, Normal air movement, no wheezing, crackles Cardiovascular: Regular rate, Normal S1, Normal S2, no S3, no S4, no murmurs Abdominal: Normal bowel sounds, brace present for ventral hernia per patient, no guarding, no rigidity Extremities: No cyanosis, No edema, Normal pulses, No tenderness/swelling Skin: No rashes, No breakdown Musculoskeletal : no central cervical spinal tenderness, no neck erythema. no neck pain on changing neck posture. mild bilateral tenderness left greater than right over trapezius muscle and mild bilateral lumbosacral tenderness left greater than right, mild lumbar spine central tenderness. pt was wearing an abdominal brace. Neuro: Normal gait, Normal speech, Normal tone, Sensation intact, no motor deficit on walking, no feeling of tingling sensation/numbness in the extremities on walking, no cauda equina like symptoms, no signs of any neurological deficits Attestation note: Dr. Dee: I was the supervising attending for this ED encounter. Please see the resident's notes. I was available for questions and consultations. Differential diagnosis: DDX included but not limited to Cauda Equina syndrome, lumbar radiculopathy, arthritis, disk herniation, sciatica, muscle strain, epidural abscess, transverse myelitis. Cord compression, spinal foraminal stenosis, spinal fractures, spondylosis, central canal stenosis, trauma, muscle sprain/strain, aneurysm/dissection, kidney stones, shingles, arthritis, Gu[place]an [place], neoplasm. MDM: Patient presented with the above HPI.---urinary symptoms---workup was initiated. patient was found with the above mentioned diagnosis. pt was given IM dexamethasone 20mg once and norco 5/325 mg once Patient ED course and VS have been stabilized. Patient has been reassessed in the ED and remained in a stable condition. Pertinent incidental findings were discussed with the patient and/or family. Patient/family voices understanding and is agreeable with plan. Patient has been observed in the ED adequate length of time to insure improvement/stability. patient was discharged home in a stable condition. All the reports of any imaging studies that were ordered by myself were reviewed by myself. Patient stated having chronic neck pain and back pain. Patient wanted evaluation for her neck pain as well. No abnormal emergent findings on physical exam of her neck. Chief Complaint: Flank Pain Time Seen by MD: 20:10 Primary Care Provider: JERAD Reviewed notes: Nurses Notes, Allergies Allergies: Coded Allergies: Erythromycin (Verified Allergy, Unknown, 05/23/20) Tetracyclines & Related (Verified Allergy, Unknown, 05/23/20) SKIN RASH Home Meds Active Scripts Levofloxacin Hemihydrate (LEVAQUIN 500 MG) 500 Mg Tab, 500 MG PO DAILY for 7 Days, #7 TAB Prov:BROOKLYNN YOUNG MD 12/25/23 Levofloxacin Hemihydrate (LEVAQUIN 500 MG) 500 Mg Tab, 500 MG PO DAILY for 7 Days, #7 TAB Prov:BROOKLYNN YOUNG MD 12/25/23 Hydrocodone-Acetaminophen (Hydrocodone Bitartrate/AC 10-325 mg) 1 Tab Tab, 1 TAB PO QIDPRN, #20 TAB Prov:BROOKLYNN YOUNG MD 12/25/23 Phenazopyridine HCl (Phenazopyridine Hydrochlo 100 mg) 1 Tab Tab, 1 TAB PO TID for 3 Days, #9 TAB Prov:FINA BRITO RESIDENT 11/23/23 Pantoprazole Sodium Sesquihydr (Protonix) 40 Mg Tab, 40 MG PO BID for 30 Days, #60 TAB Prov:FINA BRITO RESIDENT 11/23/23 Mupirocin Calcium (Topical) (MUPIROCIN) 2 % Cre, 2 % EX BID for 7 Days, #1 CRE Prov:FINA BRITO RESIDENT 11/23/23 Information Source: Patient Mode of Arrival: Ambulatory Was a procedure done? Was a procedure done?: No Differential Diagnosis Kidney stone (Female): Appendicitis, Cholelithiasis, Musculoskeletal pain, Pyelonephritis, Urinary obstruction, Urolithiasis Kidney stone (Male): Pyelonephritis Urinary Problem (Male): N/A Urinary Problem (Female): Post-op complication, Pyelonephritis, Urinary retention, Urolithiasis, UTI, Vaginitis X-Ray, Labs, Meds, VS Vital Signs Date Time Temp Pulse Resp B/P (MAP) Pulse Ox O2 Delivery O2 Flow Rate FiO2 01/06/24 22:50 90 16 98 Room Air* 0 21 01/06/24 22:49 98.1 90 18 132/71 (91) 98 98.1 01/06/24 20:07 98.1 90 16 120/71 (87) 98 Lab Test 01/06/24 20:11 01/06/24 20:09 Range/Units Urine Color Light-yellow Yellow Urine Clarity Clear Clear Urine pH 5.5 5.0-9.0 Urine Specific [place] 1.023 1.001-1.035 Urine Protein Negative Negative Urine Ketones Negative Negative Urine Blood Negative Negative /uL Urine Nitrite Negative Negative Urine Bilirubin Negative Negative Urine Urobilinogen Normal Negative mg/dL Urine Leukocyte Esterase Negative Negative /uL Urine RBC <1 0 - 4 /hpf Urine WBC 1 0 - 5 /hpf Urine Squamous Epithelial Cells Few <5 /hpf Urine Bacteria None seen None Seen /hpf Urine Mucus Few None Seen Urine Glucose Normal Normal mg/dL White Blood Count 9.4 4.4-10.8 10^3/uL Red Blood Count 4.52 4.0-5.20 10^6/uL Hemoglobin 12.6 12.2-16.2 g/dL Hematocrit 38.8 36.0-46.0 % Mean Corpuscular Volume 86.0 80.0-100.0 fL Mean Corpuscular Hemoglobin 27.8 L 28.0-32.0 pg Mean Corpuscular Hemoglobin Concent 32.4 32.0-36.0 g/dL Red Cell Distribution Width 15.2 H 11.8-14.3 % Platelet Count 300 140-450 10^3/uL Mean Platelet Volume 8.2 6.9-10.8 fL Neutrophils (%) (Auto) 71.1 37.0-80.0 % Lymphocytes (%) (Auto) 20.6 10.0-50.0 % Monocytes (%) (Auto) 6.8 0.0-12.0 % Eosinophils (%) (Auto) 1.1 0.0-7.0 % Basophils (%) (Auto) 0.4 0.0-2.0 % Neutrophils # (Auto) 6.7 1.6-8.6 10 ^3/uL Lymphocytes # (Auto) 1.9 0.4-5.4 10 ^3/uL Monocytes # (Auto) 0.6 0-1.3 10 ^3/uL Eosinophils # (Auto) 0.1 0-0.8 10 ^3/uL Basophils # (Auto) 0 0-0.2 10 ^3/uL Nucleated Red Blood Cells 0.1 % Sodium Level 140 136-145 mmol/L Potassium Level 4.0 3.5-5.1 mmol/L Chloride Level 106 98-107 mmol/L Carbon Dioxide Level 28 20-31 mmol/L Anion Gap 6 5-15 Blood Urea Nitrogen 10 9-23 mg/dL Creatinine 0.67 0.550-1.02 mg/dL Glomerular Filtration Rate Calc 99 >90 mL/min BUN/Creatinine Ratio 14.9 10.0-20.0 Serum Glucose 90 74-106 mg/dL Lactic Acid Level 0.9 0.4-2.0 mmol/L Calcium Level 10.3 8.7-10.4 mg/dL Total Bilirubin 0.3 0.2-1.0 mg/dL Aspartate Amino Transferase (AST) 16 13-40 U/L Alanine Aminotransferase (ALT) < 9 7-40 U/L Alkaline Phosphatase 126 H 46-116 U/L Troponin I High Sensitivity < 3 L </=34 ng/L Total Protein 7.4 5.7-8.2 g/dL Albumin 4.6 3.2-4.8 g/dL Lipase 30 12-53 U/L Current Medications Medications (Trade) Dose Ordered Sig/Miguel Route Start Time Stop Time Status Last Admin Dexamethasone Sodium Phosphate (Decadron Injection) 20 mg ONCE ONCE IM 01/06/24 23:00 01/06/24 23:01 DC 01/06/24 22:57 Acetaminophen/ Hydrocodone Bitart ([place] 5/325MG Tab) 1 tab ONCE ONCE PO 01/06/24 23:00 01/06/24 23:01 DC 01/06/24 22:58 [place] [address] Ph: [phone] DIAGNOSTIC IMAGING Diagnostic Imaging Report : [id number] Signed PATIENT: DANIELA MONTAGUE ACCT: [id number] UNIT: [id number] : 1960 LOC: ER ROOM / BED: / AGE / SEX: 63 / F ADM STATUS: REG ER SERVICE 02 ORDERING PHYSICIAN: GENNY DEE DO PROCEDURE(s): ABPL - CT AB PEL WO CON-NO ORAL OR IV REASON: flank pain ORDER NUMBER(s): [id number], ACCESSION NUMBER(s): [id number] Exam: CT CT AB PEL WO CON-NO ORAL OR IV History: flank pain Comparison Study: None available at time of dictation. TECHNIQUE: Multidetector CT of the abdomen was performed from lung bases to pubic symphysis. Imaging was performed without IV contrast. Axial, coronal and sagittal multiplanar reformats were obtained from the axial data set by the technologist. Radiation Dose Information: CT Dose: CTDI volume is 21.62 mGy. Dose-length product is 1070.74 mGy*cm FINDINGS: Evaluation of solid organs is limited due to lack of intravenous contrast use. Findings: Lung Bases: No acute or significant lung base finding. Normal heart size. No pleural or pericardial effusion. Liver: The liver is normal in size. No focal lesions. Gallbladder and Biliary Tree: Unremarkable Spleen: Unremarkable Pancreas: The pancreas is grossly normal in appearance. Adrenal Glands: Unremarkable Kidneys: Several nonobstructing right renal calculi largest measures 4 mm.. . No significant change from 12/15/2023 Bladder: Grossly unremarkable for degree of distention. Bowel: The stomach is grossly normal in appearance. Small bowel and colon are normal in caliber and distribution. The appendix is not visualized; however, no secondary findings of acute appendicitis identified. Ascites: Absent Lymphadenopathy: No mesenteric, retroperitoneal or periportal lymphadenopathy. Abdominal Wall and Mesentery: 3.2 cm fat containing umbilical hernia unchanged from 12/25/2023 Vasculature: The visualized abdominal aorta is normal in size and caliber. E valuation of abdominal and pelvic vessels is limited due to lack of intravenous contrast. Pelvic Organs: Unremarkable Musculoskeletal: No aggressive focal bony lesions, acute fractures or dislocation. Stable osseous hemangioma of L3. Soft tissues: Unremarkable IMPRESSION: 1. 4 mm right renal calculus unchanged from prior study of December 25, 2023 2. Fat containing ventral hernia unchanged from 12/25/2023 3. Pelvic calcifications unchanged from 12/25/2023 Radiation optimization: All CT scans at this facility use at least one of these dose optimization techniques: automated exposure control mA and/or kV adjustment per patient size (includes targeted exams where dose is matched to clinical indication) or iterative reconstruction. ATED BY: SHARONDA JULIO Jr., DO DICTATED DATE/TIME: 01/06/242052 SIGNED BY: SHARONDA JULIO Jr., DO SIGNED DATE/TIME: 01/06/242052 CC: Time of 1ST Reevaluation: 22:10 Reevaluation 1ST: Unchanged Patient Education/Counseling: Diagnosis, Treatment Family Education/Counseling: No Family Present Departure 1 Departure Time of Disposition: 22:10 Impression: Primary Impression: Dysuria Additional Impressions: Chronic neck pain Low back pain Disposition: HOME / SELF CARE / HOMELESS Condition: Stable Additional Instructions: Additional discharge instructions: You MUST follow-up with your primary care/family doctor in 1 to 2 days. If you are unable to see your primary care/family doctor, please return to our emergency room for re-assessment and re-evaluation in 1 to 2 days. Return to the emergency room here in our facility or to the nearest ER [facility] if your symptoms change or worsen. CONSULTATIONS: you MUST Follow-up for consultation as soon as possible with: -urology in 1-2 days. Please call for appointment. Follow up with your spine doctor regarding your chronic back and neck pain. You MUST call the consultants office yourself to make an appointment. You may need to arrange that through your insurance and/or your primary/family doctor. If you are unable to see the healthcare consultant in 1 to 2 days, you must return to our emergency room (or any other ER of your choice) for re-assessment and re- evaluation. Adequate fluid hydration. You have opiates and Robaxin at home for your chronic low back pain. Please use it carefully. Below is a copy of your radiological report for follow up: [place] [address] Ph: [phone] DIAGNOSTIC IMAGING Diagnostic Imaging Report : [id number] Signed PATIENT: DANIELA MONTAGUE ACCT: [id number] UNIT: [id number] : 1960 LOC: ER ROOM / BED: / AGE / SEX: 63 / F ADM STATUS: REG ER SERVICE 02 ORDERING PHYSICIAN: GENNY DEE DO PROCEDURE(s): ABPL - CT AB PEL WO CON-NO ORAL OR IV REASON: flank pain ORDER NUMBER(s): [id number], ACCESSION NUMBER(s): [id number] Exam: CT CT AB PEL WO CON-NO ORAL OR IV History: flank pain Comparison Study: None available at time of dictation. TECHNIQUE: Multidetector CT of the abdomen was performed from lung bases to pubi c symphysis. Imaging was performed without IV contrast. Axial, coronal and sagittal multiplanar reformats were obtained from the axial data set by the technologist. Radiation Dose Information: CT Dose: CTDI volume is 21.62 mGy. Dose-length product is 1070.74 mGy*cm FINDINGS: Evaluation of solid organs is limited due to lack of intravenous contrast use. Findings: Lung Bases: No acute or significant lung base finding. Normal heart size. No pleural or pericardial effusion. Liver: The liver is normal in size. No focal lesions. Gallbladder and Biliary Tree: Unremarkable Spleen: Unremarkable Pancreas: The pancreas is grossly normal in appearance. Adrenal Glands: Unremarkable Kidneys: Several nonobstructing right renal calculi largest measures 4 mm.. . No significant change from 12/15/2023 Bladder: Grossly unremarkable for degree of distention. Bowel: The stomach is grossly normal in appearance. Small bowel and colon are normal in caliber and distribution. The appendix is not visualized; however, no secondary findings of acute appendicitis identified. Ascites: Absent Lymphadenopathy: No mesenteric, retroperitoneal or periportal lymphadenopathy. Abdominal Wall and Mesentery: 3.2 cm fat containing umbilical hernia unchanged from 12/25/2023 Vasculature: The visualized abdominal aorta is normal in size and caliber. Evaluation of abdominal and pelvic vessels is limited due to lack of intravenous contrast. Pelvic Organs: Unremarkable Musculoskeletal: No aggressive focal bony lesions, acute fractures or dislocation. Stable osseous hemangioma of L3. Soft tissues: Unremarkable IMPRESSION: 1. 4 mm right renal calculus unchanged from prior study of December 25, 2023 2. Fat containing ventral hernia unchanged from 12/25/2023 3. Pelvic calcifications unchanged from 12/25/2023 Radiation optimization: All CT scans at this facility use at least one of these dose optimization techniques: automated exposure control mA and/or kV adjustment per patient size (includes targeted exams where dose is matched to clinical indication) or iterative reconstruction. ATED BY: SHARONDA JULIO Jr., DO DICTATED DATE/TIME: 01/06/242052 SIGNED BY: SHARONDA JULIO Jr., DO SIGNED DATE/TIME: 01/06/242052 CC: Discharged With: Self Critical Care Note Critical Care Time?: No I personally scribed for GENNY DEE DO ([email or web address]) on 01/06/24 at 22:15. Electronically submitted by Ariel Ruiz ([email or web address]). SB BADILLO Jan 06, 2024 21:52 GENNY DEE DO Jan 06, 2024 22:15
[2024-01-06 22:49] VITALS: TEMP 98.1
[2024-01-06 22:50] VITALS: PULSE 90; RESP 16; O2SAT 98
[2024-01-06] MEDS: DexAMETHasone SOD PHOS 10MG/1ML VIAL INJ IM ONE (22:57)
[2024-01-06] MEDS: HYDROcodone-ACET 5/325MG TAB PO ONE (22:58)
--- NOTE | 2024-01-07 00:22 | DVH ---
CT OF THE CERVICAL SPINE WITHOUT CONTRAST HISTORY: right sided paraspinal lower neck pain COMPARISON: none TECHNIQUE: Helical images through the cervical spine were obtained without contrast. Sagittal and cor onal reformats were obtained. One or more of the following radiation dose reduction techniques were u sed for this examination: automated exposure control, adjustment of the mA and/or kV according to pat ient size, use of iterative reconstruction technique. FINDINGS: Straightening of the cervical curvature. Patient is status post anterior fusion at C6-C7. No definit e evidence of hardware displacement. No grossly displaced fractures or subluxations are evident. Vertebral body heights are maintained. T he bony spinal canal is grossly patent. Prevertebral soft tissues appear within normal limits. IMPRESSION: No grossly displaced fractures or subluxations identified. Status post anterior fusion at C6-C7 with grossly intact appearing orthopedic hardware. Straightening of the cervical curvature may be in part related to patient positioning and/or muscular spasm. HS:Y
[2024-01-07 00:48] VITALS: BP 128/70; PULSE 88; RESP 16; O2SAT 98
== END 2024-01-07 00:52 | disposition home or self-care (01) ==
LOC: ER 19:53
DX: R30.0 Dysuria (principal); G89.29 Other chronic pain; M54.2 Cervicalgia; M54.50 Low back pain, unspecified; K21.9 Gastro-esophageal reflux disease without esophagitis; Z79.899 Other long term (current) drug therapy; Z87.440 Personal history of urinary (tract) infections; Z88.1 Allergy status to other antibiotic agents; Z88.8 Allergy status to other drugs, medicaments and biological substances
CPT/HCPCS: 36415; 72125; 74176; 80053; 81001; 83605; 83690; 84484; 85025; 96372; 99285; J1100

== ENCOUNTER 2024-01-21 02:23 | Emergency (ER) | payer MEDICAID ==
[~2024-01-21] VITALS: Ht 157.5 cm; Wt 95.0 kg
[2024-01-21] MEDS ORDERED: PRED20TA2 PO (03:11)
[2024-01-21] MEDS ORDERED: AMOX875T4 PO (03:11)
--- NOTE | 2024-01-21 03:12 | ED.PDOC ---
SOB-HPI HPI Comments 63-year-old female presents to ER with complaints of cough x 1.5 weeks. Patient reports she has been experiencing productive cough with yellow phlegm, intermittent frontal headache and sinus congestion x 1.5 weeks. Denies any current pain. Reports she has been using [id number] "cold and flu medications" without relief. States that others in her household have also been experiencing similar symptoms. Patient presents to ER afebrile, in no distress. Denies fever, body aches, chills, chest pain, hemoptysis, shortness of breath, sore throat or any further symptoms/complaints Chief Complaint: Cough Time Seen by MD: 02:42 Primary Care Provider: JERAD Reviewed notes: Nurses Notes, Medications, Allergies Information Source: Patient Past Medical History PAST MEDICAL HISTORY: Anemia, Anxiety, Kidney Stones, Liver, UTI'S Past Medical History (Other): Chronic back pain Surgical History: Surgical History (Other): Cervical spinal surgery RECREATION ENGINEER History: No Pertinent RECREATION ENGINEER History Family History Family History: Unknown Social History Smoker: Non-Smoker Alcohol: Denies ETOH Use Drugs: Denies Drug Use Lives In: Home Constitutional: denies: chills, diaphoresis, fatigue, fever, malaise, sweats, weakness, others EENTM: reports: others (As stated in HPI) Respiratory: reports: others (As stated in HPI) Cardiovascular: denies: chest pain, dizzy spells, diaphoresis, Dyspnea on exertion, edema, irregular heart beat, left arm pain, lightheadedness, palpitations, PND, syncope, others Gastrointestinal: denies: abdomen distended, abdominal pain, blood streaked bowels, constipated, diarrhea, dysphagia, difficulty swallowing, hematemesis, melena, nausea, poor appetite, poor fluid intake, rectal bleeding, rectal pain, vomiting, others Genitourinary: denies: abnormal vagina bleeding, burning, dyspareunia, dysuria, flank pain, frequency, hematuria, incontinence, pain, , vagina discharge, urgency, others Neurological: reports: others (As stated in HPI) Musculoskeletal: denies: back pain, gout, joint pain, joint swelling, muscle pain, muscle stiffness, neck pain, others Integumetry: denies: bruises, change in color, change in hair/nails, dryness, laceration, lesions, lumps, rash, wounds, others Allergic/Immunocompromised: denies: Difficulty Healing, Frequent Infections, Hives, Itching, others Hematologic/Lymphatic: denies: anemia, blood clots, easy bleeding, easy bruising, swollen glands, others Endocrine: denies: excessive hunger, excessive sweating, excessive thirst, excessive urination, flushing, intolerance to cold, intolerance to heat, unexplained weight gain, unexplained weight loss, others Psychiatric: denies: anxiety, bipolar disorder, depression, hopeless, panic disorder, schizophrenia, sleepless, suicidal, others Physical Exam General Appearance: No Apparent Distress HEENT: Normal ENT Inspection, PERRL/EOMI, Pharynx Normal, TMs Normal Neck: Full Range of Motion, Non-Tender, Normal Respiratory: Chest Non-Tender, Lungs Clear, No Accessory Muscle Use, No Respiratory Distress, Normal Breath Sounds Cardiovascular: No Murmur, No Gallop, Regular Rate/Rhythm Breast Exam: Deferred Gastrointestinal: Non Tender, No Pulsatile Mass, Soft Genitalia: Deferred Pelvic: Deferred Rectal: Deferred Extremities: Normal capillary refill, Normal range of motion Neurologic: Alert, balancing machine set up worker II-XII nml as Tested, No Motor Deficits, Normal Affect, Normal Mood, No Sensory Deficits Cerebellar Function: Normal Reflexes: Normal Skin: Dry, Normal Color, Warm Peripheral Pulses: 2+ Radial (R), 2+ Radial (L), 2+ Brachial (R), 2+ Brachial (L) Lymphatic: No Adenopathy Was a procedure done? Was a procedure done?: No Sedation Sedation?: No Differential Dx Differential Diagnosis: Pneumonia, Pulmonary Embolism, Respiratory Distress, Other (covid-19, influenza) X-Ray, Labs, Meds, VS Vital Signs Date Time Temp Pulse Resp B/P (MAP) Pulse Ox O2 Delivery O2 Flow Rate FiO2 01/21/24 02:59 98.5 79 18 121/26 (57) 98 Lab Test 01/21/24 03:07 Range/Units Influenza Type A Antigen Negative Negative Influenza Type B Antigen Negative Negative SARS-CoV-2 Antigen (Rapid) Negative NEGATIVE PATIENT: DANIELA MONTAGUE ACCT: [id number] UNIT: [id number] : 1960 LOC: ER ROOM / BED: / AGE / SEX: 63 / F ADM STATUS: REG ER SERVICE 0300 ORDERING PHYSICIAN: CHRIS DIXON PROCEDURE(s): CXR1 - CHEST XRAY 1 VIEW REASON: cough ORDER NUMBER(s): [id number], ACCESSION NUMBER(s): [id number] CHEST RADIOGRAPH Indication: cough Technique: Single frontal view of the chest was obtained Comparison: XY CHEST PORTABLE on DOS: 11/20/23 IMPRESSION: Low lung volumes. Cardiomediastinal silhouette appears unremarkable. Hkhc-rx-njjgwjwu pulmonary vascular congestion. No focal airspace opacity, effusion, or pneumothorax. Cervical fusion hardware. ATED BY: WERNER ACUÑA MD DICTATED DATE/TIME: 01/21/24401 SIGNED BY: WERNER ACUÑA MD SIGNED DATE/TIME: 01/21/24401 CC: Influenza a and B reviewed-negative Kay reviewed-negative Chest x-ray reviewed Patient in no distress during ER visit/prior to discharge Advised to drink plenty of fluids Advised to follow up with PCP in 1-2 days Patient verbalized understanding and agreeable with current plan of care Advised to return to ER immediately if symptoms worsen Images Reviewed?: Images reviewed and evaluated by me Time of 1ST Reevaluation: 02:44 Reevaluation 1ST: N/A Patient Education/Counseling: Diagnosis, Treatment, Prognosis, Need For Follow Up Family Education/Counseling: No Family Present Departure 1 Departure Time of Disposition: 03:02 Impression: Primary Impression: Acute bronchitis Qualified Codes: J20.9 - Acute bronchitis, unspecified Disposition: 01 HOME / SELF CARE / HOMELESS Condition: Stable e-Prescriptions Prednisone (Prednisone) 20 Mg Tab 20 MG PO BID for 5 Days, #10 TAB 0 Refills Prov: CHRIS DIXON 01/21/24 Amoxicillin & Pot Clavulanate (Amoxicillin/Potassium Cla) 875 Mg Tab 1 TAB PO BID for 7 Days, #14 TAB 0 Refills Prov: CHRIS DIXON 01/21/24 Discharged With: Self Critical Care Note Critical Care Time?: No Stability Stability form required: No Heart Score Heart Score: Heart Score Response (Comments) Value History N/A 0 EKG N/A 0 Age N/A 0 Risk Factors N/A 0 Troponin N/A 0 Total 0 CHRIS DIXON Jan 21, 2024 03:12
--- NOTE | 2024-01-21 04:02 | DVH ---
CHEST RADIOGRAPH Indication: cough Technique: Single frontal view of the chest was obtained Comparison: XY CHEST PORTABLE on DOS: 11/20/23 IMPRESSION: Low lung volumes. Cardiomediastinal silhouette appears unremarkable. Aqyx-[id number]-bauvyqmw pulmonary vasc ular congestion. No focal airspace opacity, effusion, or pneumothorax. Cervical fusion hardware.
[2024-01-21 04:10] LABS: Rapid Influenza A Negative (Negative); Rapid Influenza B Negative (Negative)
[2024-01-21 04:11] LABS: COVID19 ANTIGEN SOFIA FIA NEGATIVE (NEGATIVE)
[2024-01-21 04:20] VITALS: BP 123/68; PULSE 78; RESP 18; TEMP 98.4; O2SAT 96
[2024-01-21] MEDS ORDERED: METH4PAK PO (10:40)
== END 2024-01-21 04:30 | disposition home or self-care (01) ==
LOC: ER 02:23
DX: J20.9 Acute bronchitis, unspecified (principal); Z87.442 Personal history of urinary calculi; Z98.890 Other specified postprocedural states; Z20.822 Contact with and (suspected) exposure to COVID-19
CPT/HCPCS: 36415; 71045; 87426; 87804

== ENCOUNTER 2024-01-21 08:18 | Emergency (ER) | payer MEDICAID ==
[~2024-01-21] VITALS: Ht 157.5 cm; Wt 95.2 kg
[~2024-01-21 08:18] MED LIST changes: +AMOX875T4 PO; +PRED20TA2 PO
[2024-01-21 08:55] VITALS: TEMP 98.2
--- NOTE | 2024-01-21 09:32 | ED.PDOC ---
Back pain HPI HPI Comments 63-year-old female complaining of neck pain and mid and lower back pain. Patient reports a history of prior fusion in his cervical spine. States two weeks ago she was at a automotive shop when the cartilage came down hitting her in the back. Patient states her chronic pain has been much worse over the last two weeks to the injury at the car shop. She also noticed some mild swelling in bilateral feet. Patient denies any loss of weakness in her legs. Denies any paresthesia in her upper extremities. Patient states she was currently on OxyContin and Robaxin for her chronic pain. Chief Complaint: Neck Pain Time Seen by MD: 09:05 Primary Care Provider: JERAD Reviewed Notes: Nurses Notes Allergies: Coded Allergies: Erythromycin (Verified Allergy, Unknown, 05/23/20) Tetracyclines & Related (Verified Allergy, Unknown, 05/23/20) SKIN RASH Home Meds Active Scripts Prednisone (Prednisone) 20 Mg Tab, 20 MG PO BID for 5 Days, #10 TAB 0 Refills Prov:CHRIS DIXON 01/21/24 Amoxicillin & Pot Clavulanate (Amoxicillin/Potassium Cla) 875 Mg Tab, 1 TAB PO BID for 7 Days, #14 TAB 0 Refills Prov:CHRIS DIXON 01/21/24 Levofloxacin Hemihydrate (LEVAQUIN 500 MG) 500 Mg Tab, 500 MG PO DAILY for 7 Days, #7 TAB Prov:BROOKLYNN YOUNG MD 12/25/23 Levofloxacin Hemihydrate (LEVAQUIN 500 MG) 500 Mg Tab, 500 MG PO DAILY for 7 Days, #7 TAB Prov:BROOKLYNN YOUNG MD 12/25/23 Hydrocodone-Acetaminophen (Hydrocodone Bitartrate/AC 10-325 mg) 1 Tab Tab, 1 TAB PO QIDPRN, #20 TAB Prov:BROOKLYNN YOUNG MD 12/25/23 Phenazopyridine HCl (Phenazopyridine Hydrochlo 100 mg) 1 Tab Tab, 1 TAB PO TID for 3 Days, #9 TAB Prov:FINA BRITO 11/23/23 Pantoprazole Sodium Sesquihydr (Protonix) 40 Mg Tab, 40 MG PO BID for 30 Days, #60 TAB Prov:FINA BRITO RESIDENT 11/23/23 Mupirocin Calcium (Topical) (MUPIROCIN) 2 % Cre, 2 % EX BID for 7 Days, #1 CRE Prov:JOY REICHQUIRINO SULLIVANIS RESIDENT 11/23/23 Information Source: Patient Mode of Arrival: Ambulatory Past Medical History PAST MEDICAL HISTORY: Anemia, Anxiety, Kidney Stones, Liver, UTI'S Surgical History: MOBILE THERAPIST History: No Pertinent MOBILE THERAPIST History Family History Family History: Unknown Social History Smoker: Non-Smoker Alcohol: Denies ETOH Use Drugs: Denies Drug Use Lives In: Home Constitutional: denies: chills, diaphoresis, fatigue, fever, malaise, sweats, weakness, others EENTM: denies: blurred vision, double vision, ear bleeding, ear discharge, ear drainage, ear pain, ear ringing, eye pain, eye redness, hearing loss, mouth pain, mouth swelling, nasal discharge, nose bleeding, nose congestion, nose pain, photophobia, tearing, throat pain, throat swelling, voice changes, others Respiratory: denies: cough, hemoptysis, orthopnea, SOB at rest, shortness of breath, SOB with excertion, stridor, wheezing, others Cardiovascular: denies: chest pain, dizzy spells, diaphoresis, Dyspnea on exertion, edema, irregular heart beat, left arm pain, lightheadedness, palpitations, PND, syncope, others Gastrointestinal: denies: abdomen distended, abdominal pain, blood streaked bowels, constipated, diarrhea, dysphagia, difficulty swallowing, hematemesis, melena, nausea, poor appetite, poor fluid intake, rectal bleeding, rectal pain, vomiting, others Genitourinary: denies: abnormal vagina bleeding, burning, dyspareunia, dysuria, flank pain, frequency, hematuria, incontinence, pain, , vagina discharge, urgency, others Neurological: denies: dizziness, fainting, headache, left sided numbness, left sided weakness, numbness, paresthesia, pre-existing deficit, right sided numbness, right sided weakness, seizure, speech problems, tingling, tremors, weakness, others Musculoskeletal: reports: back pain, muscle pain, muscle stiffness, neck pain; denies: gout, joint pain, joint swelling, others Integumetry: denies: bruises, change in color, change in hair/nails, dryness, laceration, lesions, lumps, rash, wounds, others Allergic/Immunocompromised: denies: Difficulty Healing, Frequent Infections, Hives, Itching, others Hematologic/Lymphatic: denies: anemia, blood clots, easy bleeding, easy bruising, swollen glands, others Endocrine: denies: excessive hunger, excessive sweating, excessive thirst, excessive urination, flushing, intolerance to cold, intolerance to heat, unexplained weight gain, unexplained weight loss, others Physical Exam General Appearance: Moderate Distress, Normal HEENT: Normal ENT Inspection, Pharynx Normal, TMs Normal Neck: Full Range of Motion, Non-Tender, Normal, Normal Inspection Respiratory: Chest Non-Tender, Lungs Clear, No Accessory Muscle Use, No Respiratory Distress, Normal Breath Sounds Cardiovascular: No Edema, No JVD, No Murmur, No Gallop, Normal Peripheral Pulses, Regular Rate/Rhythm Breast Exam: Deferred Gastrointestinal: No Organomegaly, Non Tender, No Pulsatile Mass, Normal Bowel Sounds, Soft Genitalia: Deferred Pelvic: Deferred Rectal: Deferred Extremities: No calf tenderness, Normal capillary refill, Normal inspection, Normal range of motion, Non-tender, No pedal edema Musculoskeletal : Location: Bilateral Extremity Location: Other (Cervical thoracic and lumbar paraspinous muscles tender to palpation, patient able to stand bear weight on her own. 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 Was a procedure done?: No Back Pain Differential Dx Differential Diagnosis: Fracture, Musculoskeletal Pain X-Ray, Labs, Meds, VS Vital Signs Date Time Temp Pulse Resp B/P (MAP) Pulse Ox O2 Delivery O2 Flow Rate FiO2 01/21/24 10:35 80 18 115/61 (79) 96 01/21/24 08:55 96 18 98 Room Air 01/21/24 08:55 98.2 96 18 105/70 (82) 98 98.2 01/21/24 08:35 98.2 96 18 105/70 (82) 98 Current Medications Medications (Trade) Dose Ordered Sig/Miguel Route Start Time Stop Time Status Last Admin Methylprednisolone Sodium Succinate (Solu Medrol) 125 mg ONCE ONCE IM 01/21/24 09:15 01/21/24 09:16 DC 12/11/24 09:39 Ketorolac Tromethamine (Toradol Injection) 30 mg ONCE ONCE IM 01/21/24 09:15 01/21/24 09:16 DC 01/21/24 09:39 X-Ray, Labs, Meds, VS Comment Imaging: X-rays and CT scans were reviewed and interpreted by this provider, imaging shows no fractures and no pathological disease. Pending radiology review. Laboratory: Labs reviewed and interpreted by this provider. No significant abnormalities noted. Patient has prior medical visits reviewed. Med reconciliation performed Vital signs reviewed Time of 1ST Reevaluation: :31 Reevaluation 1ST: Improved Patient Education/Counseling: Diagnosis, Treatment, Need For Follow Up (Patient advised to follow-up in the emergency room in the next 24 to 48 hours if symptoms do not improve. Advised follow-up with PCP in the next 3 to 5 days. Patient verbalized understanding. ) Family Education/Counseling: Diagnosis, No Family Present Departure 1 Departure Time of Disposition: :31 Impression: Primary Impression: Cervical pain (neck) Additional Impression: Back pain Qualified Codes: M54.50 - Low back pain, unspecified Disposition: HOME / SELF CARE / HOMELESS Condition: Stable e-Prescriptions Methylprednisolone (Medrol Dosepak) 4 Mg Malcolm 4 MG PO UD, #21 TAB UAD Prov: DAVID SARAH 01/21/24 Discharged With: Self Critical Care Note Critical Care Time?: No Stability Stability form required: No Heart Score Heart Score: Heart Score Response (Comments) Value History N/A 0 EKG N/A 0 Age N/A 0 Risk Factors N/A 0 Troponin N/A 0 Total 0 DAVID SARAH Jan 21, 2024 09:32
[2024-01-21] MEDS: KETOROLAC TROMETH 30 MG/ML 1ML VIAL IM ONE (09:39)
[2024-01-21] MEDS: methylPREDNISolone SOD SUCC 125 MG/2 ML VL IM ONE (09:39)
--- NOTE | 2024-01-21 10:21 | DVH ---
INDICATION: Pain COMPARISON: None TECHNIQUE: 3 views of the lumbar spine were obtained. FINDINGS: The lumbar vertebral alignment is normal. The intervertebral disc spaces are well-maintained. No significant facet arthropathy is noted. No acute fracture, vertebral compression deformity or aggressive osseous lesions. The paravertebral soft tissues are grossly unremarkable. IMPRESSION: No acute fracture.
--- NOTE | 2024-01-21 10:22 | DVH ---
INDICATION: Pain COMPARISON: None TECHNIQUE:4 views of the thoracic spine were obtained. FINDINGS: The thoracic vertebral alignment is normal. The intervertebral disc spaces are well-maintained. No significant facet arthropathy is noted. No acute fracture, vertebral compression deformity or aggressive osseous lesions. The imaged thorax and abdomen are grossly unremarkable. IMPRESSION: No acute fracture.
--- NOTE | 2024-01-21 10:24 | DVH ---
INDICATION: Pain COMPARISON: None TECHNIQUE: 3 views of the cervical spine were obtained. FINDINGS: The cervical vertebral alignment is normal. The predental space is normal. Anterior cervical hardware at C6-C7.. No acute fracture, vertebral compression deformity or aggressive osseous lesions. The imaged lung apices are unremarkable. IMPRESSION: No acute fracture.
[2024-01-21 10:35] VITALS: BP 115/61; PULSE 80; RESP 18; O2SAT 96
[2024-01-21] MEDS ORDERED: METH4PAK PO (10:40)
== END 2024-01-21 10:50 | disposition home or self-care (01) ==
LOC: ER 08:18
DX: M54.2 Cervicalgia (principal); M54.50 Low back pain, unspecified; M54.6 Pain in thoracic spine; G89.29 Other chronic pain; Z79.52 Long term (current) use of systemic steroids; Z87.440 Personal history of urinary (tract) infections; Z88.1 Allergy status to other antibiotic agents; Z98.1 Arthrodesis status
CPT/HCPCS: 72040; 72070; 72100; 96372; 99284; J1885; J2919

== ENCOUNTER 2024-03-13 02:18 | Emergency (ER) | payer MEDICAID ==
[~2024-03-13] VITALS: Ht 157.5 cm; Wt 96.6 kg
[~2024-03-13 02:18] MED LIST changes: +METH4PAK PO
--- NOTE | 2024-03-13 04:06 | DVH ---
CLINICAL INDICATION: great toe injury TECHNIQUE: XY L FOOT 3 VIEW XRAY Comparison: None FINDINGS/IMPRESSION: : 1. No acute fracture or dislocation of the left foot. 2. 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 3. Incidental findings include plantar calcaneal bone spur, Achilles insertion enthesophyte, os peron eum, and os trigonum.
[2024-03-13 04:18] VITALS: BP 118/75; PULSE 102; RESP 7; TEMP 98.2; O2SAT 97
--- NOTE | 2024-03-13 04:18 | ED.PDOC ---
Back pain HPI HPI Comments Pt reports to the ER due to lft foot pain. Pt reports after being discharged from this facility she was walking and "hit her toe on the wheelchair." Pt states she hit her lft great big toe and now "puss is oozing from it." Pt noted to have redness and flakey skin to lft great big toe, no puss noted from site. CSM intact. Pt ambulatory with steady gait. Chief Complaint: Lower Extremity Time Seen by MD: 02:53 Primary Care Provider: Dr. Maria Reviewed Notes: Nurses Notes, Medications, Allergies Allergies: Coded Allergies: Erythromycin (Verified Allergy, Unknown, 05/23/20) Tetracyclines & Related (Verified Allergy, Unknown, 05/23/20) SKIN RASH Home Meds Active Scripts Methylprednisolone (Medrol Dosepak) 4 Mg Malcolm, 4 MG PO UD, #21 TAB UAD Prov:DAVID SARAH 01/21/24 Prednisone (Prednisone) 20 Mg Tab, 20 MG PO BID for 5 Days, #10 TAB 0 Refills Prov:CHRIS DIXON 01/21/24 Amoxicillin & Pot Clavulanate (Amoxicillin/Potassium Cla) 875 Mg Tab, 1 TAB PO BID for 7 Days, #14 TAB 0 Refills Prov:CHRIS DIXON 01/21/24 Levofloxacin Hemihydrate (LEVAQUIN 500 MG) 500 Mg Tab, 500 MG PO DAILY for 7 Days, #7 TAB Prov:BROOKLYNN YOUNG MD 12/25/23 Levofloxacin Hemihydrate (LEVAQUIN 500 MG) 500 Mg Tab, 500 MG PO DAILY for 7 Days, #7 TAB Prov:BROOKLYNN YOUNG MD 12/25/23 Hydrocodone-Acetaminophen (Hydrocodone Bitartrate/AC 10-325 mg) 1 Tab Tab, 1 TAB PO QIDPRN, #20 TAB Prov:BROOKLYNN YOUNG MD 12/25/23 Phenazopyridine HCl (Phenazopyridine Hydrochlo 100 mg) 1 Tab Tab, 1 TAB PO TID for 3 Days, #9 TAB Prov:FINA BRITO RESIDENT 11/23/23 Pantoprazole Sodium Sesquihydr (Protonix) 40 Mg Tab, 40 MG PO BID for 30 Days, #60 TAB Prov:FINA BRITO RESIDENT 11/23/23 Mupirocin Calcium (Topical) (MUPIROCIN) 2 % Cre, 2 % EX BID for 7 Days, #1 CRE Prov:QUIRINO BRITOIS RESIDENT 11/23/23 Mode of Arrival: Ambulatory Past Medical History Immunizations: Current Medical History: Denies Operations: Denies Family History Family History: Unknown Social History Smoking: Non-Smoker Alcohol: Denies ETOH Use Drugs: Denies Drug Use Lives In: Home Constitutional: denies: chills, diaphoresis, fatigue, fever, malaise, sweats, weakness, others EENTM: denies: blurred vision, double vision, ear bleeding, ear discharge, ear drainage, ear pain, ear ringing, eye pain, eye redness, hearing loss, mouth pain, mouth swelling, nasal discharge, nose bleeding, nose congestion, nose pain, photophobia, tearing, throat pain, throat swelling, voice changes, others Respiratory: denies: cough, hemoptysis, orthopnea, SOB at rest, shortness of breath, SOB with excertion, stridor, wheezing, others Cardiovascular: denies: chest pain, dizzy spells, diaphoresis, Dyspnea on exertion, edema, irregular heart beat, left arm pain, lightheadedness, palpit ations, PND, syncope, others Gastrointestinal: denies: abdomen distended, abdominal pain, blood streaked b owels, constipated, diarrhea, dysphagia, difficulty swallowing, hematemesis, melena, nausea, poor appetite, poor fluid intake, rectal bleeding, rectal pain, vomiting, others Genitourinary: denies: abnormal vagina bleeding, burning, dyspareunia, dysuria, flank pain, frequency, hematuria, incontinence, pain, , vagina discharge, urgency, others Neurological: denies: dizziness, fainting, headache, left sided numbness, left sided weakness, numbness, paresthesia, pre-existing deficit, right sided numbness, right sided weakness, seizure, speech problems, tingling, tremors, weakness, others Musculoskeletal: denies: back pain, gout, joint pain, joint swelling, muscle pain, muscle stiffness, neck pain, others Integumetry: reports: wounds (left great toe); denies: bruises, change in color, change in hair/nails, dryness, laceration, lesions, lumps, rash, others Allergic/Immunocompromised: denies: Difficulty Healing, Frequent Infections, Hives, Itching, others Hematologic/Lymphatic: denies: anemia, blood clots, easy bleeding, easy bruising, swollen glands, others Endocrine: denies: excessive hunger, excessive sweating, excessive thirst, excessive urination, flushing, intolerance to cold, intolerance to heat, unexplained weight gain, unexplained weight loss, others Psychiatric: denies: anxiety, bipolar disorder, depression, hopeless, panic disorder, schizophrenia, sleepless, suicidal, others Physical Exam General Appearance: No Apparent Distress, Normal HEENT: Pharynx Normal Neck: Full Range of Motion, Non-Tender Respiratory: Chest Non-Tender, Lungs Clear, No Accessory Muscle Use, No Respiratory Distress, Normal Breath Sounds Cardiovascular: No Edema, No JVD, No Murmur, No Gallop, Normal Peripheral Pulses, Regular Rate/Rhythm Breast Exam: Deferred Gastrointestinal: No Organomegaly, Non Tender, No Pulsatile Mass, Normal Bowel Sounds, Soft Genitalia: Deferred Pelvic: Deferred Rectal: Deferred Extremities: Normal capillary refill, Normal inspection, Normal range of motion, Non-tender, No pedal edema Musculoskeletal : Location: Left Extremity Location: Great Toe (Without edema, ecchymosis, lesions, abrasions or lacerations no noted open wounds or drainage strength sensory and motion intact cap refill greater than 3 seconds.) Apperance: Normal 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 Was a procedure done?: No Back Pain Differential Dx Differential Diagnosis: Fracture X-Ray, Labs, Meds, VS Vital Signs Date Time Temp Pulse Resp B/P (MAP) Pulse Ox O2 Delivery O2 Flow Rate FiO2 03/13/24 02:52 97.6 103 16 110/73 (85) 96 X-Ray, Labs, Meds, VS Comment FINDINGS/IMPRESSION: : 1. No acute fracture or dislocation of the left foot. 2. 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 3. Incidental findings include plantar calcaneal bone spur, Achilles insertion enthesophyte, os peroneum, and os trigonum Advised patient to rest elevate ice [id number] Tylenol or Motrin no noted acute findings to left toe without signs and symptoms of infection or open wounds. Follow up with her PCP in 2-3 days as necessary ER return precautions given patient agrees with discharge plan of care. Time of 1ST Reevaluation: 04:17 Reevaluation 1ST: Improved Patient Education/Counseling: Diagnosis, Treatment, Prognosis, Need For Follow Up Family Education/Counseling: No Family Present Departure 1 Departure Time of Disposition: 04:17 Impression: Primary Impression: Contusion of great toe of left foot Qualified Codes: S90.112A - Contusion of left great toe without damage to nail, initial encounter Disposition: HOME / SELF CARE / HOMELESS Condition: Stable Discharged With: Self Critical Care Note Critical Care Time?: No Stability Stability form required: CLARE Tee Mar 13, 2024 04:18
[2024-03-13] MEDS ORDERED: AUG875T PO (04:35)
[2024-03-13] MEDS ORDERED: CLOTCRE3 EX (04:35)
== END 2024-03-13 04:45 | disposition home or self-care (01) ==
LOC: ER 02:18
DX: S90.112A Contusion of left great toe without damage to nail, initial encounter (principal); Z88.1 Allergy status to other antibiotic agents; Z79.52 Long term (current) use of systemic steroids; Z79.899 Other long term (current) drug therapy; W22.8XXA Striking against or struck by other objects, initial encounter; Y93.01 Activity, walking, marching and hiking; Y92.89 Other specified places as the place of occurrence of the external cause; Y99.8 Other external cause status
CPT/HCPCS: 73630

== ENCOUNTER 2024-03-22 01:46 | Inpatient (IN) | payer MEDICAID ==
[~2024-03-22] VITALS: Ht 157.5 cm; Wt 104.2 kg
--- NOTE | 2024-03-22 04:09 | ED.PDOC ---
History of Present Illness HPI Comments 63 y/o F presents with c/o right-sided flank and back pain, blood-streaked stools, and diarrhea, today. Patient is a poor historian and endorses on noticing blood in her stool, earlier, this morning, after dealing with flank pain that wraps around to her back and diarrhea for 4 day and 1 week, respectively. Patient comments on pain being burning and stabbing in quality and having a history of kidney stones, diverticulosis, and hernia. She reports no recent injuries, strenuous activities, spoiled food intake, or other relevant history at time of assessment. Patient denies having any nausea, vomiting, weakness, lightheadedness, fever, chills, or other associated symptoms or modifiers at this time. Chief Complaint: Flank Pain Time Seen by MD: 03:20 Primary Care Provider: LAINE MONTEZ Reviewed Notes: Nurses Notes, Medications, Allergies Allergies: Coded Allergies: Erythromycin (Verified Allergy, Unknown, 05/23/20) Tetracyclines & Related (Verified Allergy, Unknown, 05/23/20) SKIN RASH Home Meds Active Scripts Methylprednisolone (Medrol Dosepak) 4 Mg Malcolm, 4 MG PO UD, #21 TAB UAD Prov:DAVID SARAH 01/21/24 Prednisone (Prednisone) 20 Mg Tab, 20 MG PO BID for 5 Days, #10 TAB 0 Refills Prov:CHRIS DIXON 01/21/24 Amoxicillin & Pot Clavulanate (Amoxicillin/Potassium Cla) 875 Mg Tab, 1 TAB PO BID for 7 Days, #14 TAB 0 Refills Prov:CHRIS DIXON 01/21/24 Levofloxacin Hemihydrate (LEVAQUIN 500 MG) 500 Mg Tab, 500 MG PO DAILY for 7 Days, #7 TAB Prov:BROOKLYNN YOUNG MD 12/25/23 Levofloxacin Hemihydrate (LEVAQUIN 500 MG) 500 Mg Tab, 500 MG PO DAILY for 7 Days, #7 TAB Prov:BROOKLYNN YOUNG MD 12/25/23 Hydrocodone-Acetaminophen (Hydrocodone Bitartrate/AC 10-325 mg) 1 Tab Tab, 1 TAB PO QIDPRN, #20 TAB Prov:BROOKLYNN YOUNG MD 12/25/23 Phenazopyridine HCl (Phenazopyridine Hydrochlo 100 mg) 1 Tab Tab, 1 TAB PO TID for 3 Days, #9 TAB Prov:FINA BRITO RESIDENT 11/23/23 Pantoprazole Sodium Sesquihydr (Protonix) 40 Mg Tab, 40 MG PO BID for 30 Days, #60 TAB Prov:FINA BRITO RESIDENT 11/23/23 Mupirocin Calcium (Topical) (MUPIROCIN) 2 % Cre, 2 % EX BID for 7 Days, #1 CRE Prov:FINA BRITO 11/23/23 Discontinued Scripts Clotrimazole W/ Betamethasone (Clotrimazole/Betamethason 1-0.05 %) 1 Cre Cre, 1 CRE EX BID for 7 Days, #28 GRAMS Prov:CLARE WALL SECURITY INTERN 03/13/24 Amoxicillin & Pot Clavulanate (AUGMENTIN TABLET) 875 Mg Tb, 875 MG PO BID for 7 Days, #14 TAB Prov:CLARE WALL SECURITY INTERN 03/13/24 Information Source: Patient Mode of Arrival: Ambulatory Severity: Moderate Timing: Days Duration: Since onset Prehospital treatment: None Vital Signs Vital Signs Date Time Temp Pulse Resp B/P (MAP) Pulse Ox O2 Delivery O2 Flow Rate FiO2 03/22/24 05:55 84 18 130/90 03/22/24 05:27 97 Room Air* 0 21 03/22/24 05:27 98.0 98.0 Physical Exam General: Awake, alert and oriented. No acute distress. Skin: Skin in warm, dry and intact. Appropriate color for ethnicity. HEENT: The head is normocephalic and atraumatic. Conjunctivae are clear without exudates or hemorrhage. Sclera is non-icteric. EOM are intact. No signs of nystagmus. Eyelids are normal in appearance without swelling or lesions. Oral mucosa is pink and moist Neck: The neck is supple with normal range of motion. No JVD. Cardiac: Heart rate and rhythm are normal. No murmurs, gallops, or rubs are auscultated. Respiratory: No signs of respiratory distress. Lung sounds are clear in all lobes bilaterally without rales, ronchi, or wheezes. Abdominal: Abdomen is soft, generalized tenderness without distention. Bowel sounds are present and normoactive in all four quadrants. Extremities: Upper and lower extremities are atraumatic in appearance without deformity or edema. Neurological: The patient is awake, alert and oriented to person, place, and time with normal speech. Speech is clear. There is no facial asymmetry. Psychiatric: Appropriate mood and affect. Good judgement and insight. No visual or auditory hallucinations. Past Medical History PAST MEDICAL HISTORY: Anemia, Anxiety, Arthritis, Kidney Stones, Liver, UTI'S Surgical History: ELEVATORS INSPECTOR History: No Pertinent ELEVATORS INSPECTOR History Family History Family History: Unknown Social History Smoker: Non-Smoker Alcohol: Denies ETOH Use Drugs: Denies Drug Use Lives In: Home Was a procedure done? Was a procedure done?: No Differential Dx Considerations may include: diverticulitis, bowel obstruction, nephrolithiasis, pyelonephritis, cystitis, gastritis, gastroenteritis, viral syndrome, spoiled food X-Ray, Labs, Meds, VS Vital Signs Date Time Temp Pulse Resp B/P (MAP) Pulse Ox O2 Delivery O2 Flow Rate FiO2 03/22/24 05:55 84 18 130/90 03/22/24 05:27 90 18 97 Room Air* 0 21 03/22/24 05:27 98.0 90 16 137/96 (110) 97 98.0 03/22/24 02:05 98.0 94 18 106/67 (80) 98 03/22/24 02:05 94 18 Lab Test 03/22/24 04:26 03/22/24 03:47 Range/Units White Blood Count 9.5 4.4-10.8 10^3/uL Red Blood Count 4.46 4.0-5.20 10^6/uL Hemoglobin 12.2 12.2-16.2 g/dL Hematocrit 38.0 36.0-46.0 % Mean Corpuscular Volume 85.3 80.0-100.0 fL Mean Corpuscular Hemoglobin 27.5 L 28.0-32.0 pg Mean Corpuscular Hemoglobin Concent 32.2 32.0-36.0 g/dL Red Cell Distribution Width 15.4 H 11.8-14.3 % Platelet Count 270 140-450 10^3/uL Mean Platelet Volume 8.8 6.9-10.8 fL Neutrophils (%) (Auto) 71.9 37.0-80.0 % Lymphocytes (%) (Auto) 20.1 10.0-50.0 % Monocytes (%) (Auto) 6.3 0.0-12.0 % Eosinophils (%) (Auto) 1.1 0.0-7.0 % Basophils (%) (Auto) 0.6 0.0-2.0 % Neutrophils # (Auto) 6.8 1.6-8.6 10 ^3/uL Lymphocytes # (Auto) 1.9 0.4-5.4 10 ^3/uL Monocytes # (Auto) 0.6 0-1.3 10 ^3/uL Eosinophils # (Auto) 0.1 0-0.8 10 ^3/uL Basophils # (Auto) 0.1 0-0.2 10 ^3/uL Nucleated Red Blood Cells 0.0 % Prothrombin Time 10.2 9.3-11.8 sec Prothrombin Time INR 0.96 0.9-1.15 Sodium Level 138 136-145 mmol/L Potassium Level 3.6 3.5-5.1 mmol/L Chloride Level 104 98-107 mmol/L Carbon Dioxide Level 24 20-31 mmol/L Anion Gap 10 5-15 Blood Urea Nitrogen 8 L 9-23 mg/dL Creatinine 0.61 0.550-1.02 mg/dL Glomerular Filtration Rate Calc 102 >90 mL/min BUN/Creatinine Ratio 13.1 10.0-20.0 Serum Glucose 94 74-106 mg/dL Lactic Acid Level 1.0 0.4-2.0 mmol/L Calcium Level 10.6 H 8.7-10.4 mg/dL Total Bilirubin 0.4 0.2-1.0 mg/dL Aspartate Amino Transferase (AST) 18 13-40 U/L Alanine Aminotransferase (ALT) < 9 7-40 U/L Alkaline Phosphatase 119 H 46-116 U/L Total Protein 7.4 5.7-8.2 g/dL Albumin 4.6 3.2-4.8 g/dL Lipase 33 12-53 U/L Urine Color Yellow Yellow Urine Clarity Clear Clear Urine pH 5.5 5.0-9.0 Urine Specific Lindsay 1.029 1.001-1.035 Urine Protein Negative Negative Urine Ketones Negative Negative Urine Blood Negative Negative /uL Urine Nitrite Negative Negative Urine Bilirubin Negative Negative Urine Urobilinogen Normal Negative mg/dL Urine Leukocyte Esterase 1+ Negative /uL Urine RBC 3 0 - 4 /hpf Urine Microscopic WBC 3 0-5 /HPF Urine Squamous Epithelial Cells Few <5 /hpf Urine Bacteria Few H None Seen /hpf Urine Mucus Few None Seen Urine Glucose Normal Normal mg/dL Current Medications Medications (Trade) Dose Ordered Sig/Miguel Route Start Time Stop Time Status Last Admin Morphine Sulfate 4 mg ONCE ONCE IM 03/22/24 03:30 03/22/24 03:31 DC 03/22/24 05:55 Time of 1ST Reevaluation: 03:50 Reevaluation 1ST: Unchanged Patient Education/Counseling: Diagnosis, Treatment Family Education/Counseling: No Family Present Departure 1 Departure Time of Disposition: 05:57 Impression: Primary Impression: Abdominal pain Additional Impression: Blood in stool Disposition: 30 STILL A PATIENT Condition: Stable Comments 63-year-old female who presents to the emergency department with right flank pain and bloody diarrhea. Signed out to oncoming provider pending lab and imaging results and disposition. Critical Care Note Critical Care Time?: No Stability Stability form required: No Heart Score Heart Score: Heart Score Response (Comments) Value History N/A 0 EKG N/A 0 Age N/A 0 Risk Factors N/A 0 Troponin N/A 0 Total 0 I personally scribed for BALJIT LEZAMA MD ([email or web address]) on 03/22/24 at 04:09. Electronically submitted by Theodore Arshad ([email or web address]). BALJIT LEZAMA MD Mar 22, 2024 04:09
[2024-03-22 04:19] LABS: Urine Bacteria FEW /hpf (None Seen); Urine Blood Negative /uL (Negative); Urine Clarity Clear (Clear); Urine Color Yellow (Yellow); Urine Mucus FEW (None Seen); Urine Protein, UAD Negative (Negative); Urine Specific Gravity 1.029 (1.001-1.035); Urine Squamous Epithelial Cell FEW /hpf (<5); Urine Urobilinogen Normal (Negative); Urine WBC 3 /HPF (0-5); Urine pH 5.5 (5.0-9.0)
[2024-03-22 04:58] LABS: Basophils # (auto) 0.1 10 ^3/uL (0-0.2); Basophils % (auto) 0.6 % (0.0-2.0); Eosinophils # (auto) 0.1 10 ^3/uL (0-0.8); Eosinophils % (auto) 1.1 % (0.0-7.0); Hemoglobin 12.2 g/dL (12.2-16.2); Lymphocytes # (auto) 1.9 10 ^3/uL (0.4-5.4); Lymphocytes % (auto) 20.1 % (10.0-50.0); Mean Corpuscular Hemoglobin 27.5 pg (28.0-32.0); Mean Corpuscular Hgb Conc. 32.2 g/dL (32.0-36.0); Mean Corpuscular Volume 85.3 fL (80.0-100.0); Monocytes # (auto) 0.6 10 ^3/uL (0-1.3); Monocytes % (auto) 6.3 % (0.0-12.0); Neutrophils # (auto) 6.8 10 ^3/uL (1.6-8.6); Neutrophils % (auto) 71.9 % (37.0-80.0); Platelet Count (auto) 270 10^3/uL (140-450); Red Blood Cells 4.46 10^6/uL (4.0-5.20); Red Cell Distribution Width 15.4 % (11.8-14.3); White Blood Cell 9.5 10^3/uL (4.4-10.8)
[2024-03-22 05:12] LABS: INR 0.96 (0.9-1.15); Prothrombin Time 10.2 sec (9.3-11.8)
[2024-03-22 05:16] LABS: Anion Gap 10 (5-15); Aspartate Aminotransferase 18 U/L (13-40); BUN/Creatinine Ratio 13.1 (10.0-20.0); Carbon Dioxide 24 mmol/L (20-31); Chloride 104 mmol/L (98-107); Glucose 94 mg/dL (74-106); Lipase 33 U/L (12-53); Potassium 3.6 mmol/L (3.5-5.1); Sodium 138 mmol/L (136-145)
[2024-03-22 05:17] LABS: Albumin 4.6 g/dL (3.2-4.8); Total Protein 7.4 g/dL (5.7-8.2)
[2024-03-22 05:21] LABS: Alanine Aminotransferase < 9 U/L (7-40); Alkaline Phosphatase 119 U/L (46-116); Blood Urea Nitrogen 8 mg/dL (9-23); Calcium 10.6 mg/dL (8.7-10.4)
[2024-03-22 05:27] VITALS: PULSE 90; RESP 18; O2SAT 97
[2024-03-22 05:36] LABS: Bilirubin, Total 0.4 mg/dL (0.2-1.0)
[2024-03-22] MEDS: MORPHINE SULFATE 4 MG/ML SYR/VIAL IM ONE (05:55)
--- NOTE | 2024-03-22 09:19 | DVH ---
Exam: CT CT AB PEL WO CON-NO ORAL OR IV History: Right flank pain, diarrhea, blood in stool Comparison Study: 01/06/2024. Technique: Multidetector spiral CT of the abdomen was performed from lung bases to pubic symphysis. Imaging was performed without IV contrast. Axial, coronal and sagittal multiplanar reformats were ob tained from the axial data set by the technologist. Radiation Dose : 1. Abdomen/Pelvis: CTDIvol 24.8 mGy, DLP 1339.28 mGy*cm. Findings: Evaluation of solid organs is limited due to lack of intravenous contrast use. Lung Bases: Rockwell dependent change is noted. Liver: The liver is normal in size. No focal lesions. Gallbladder and Biliary Tree: Partially contracted gallbladder. Spleen: Unremarkable Pancreas: The pancreas is grossly normal in appearance. Adrenal Glands: Unremarkable Kidneys: The kidneys are normal in overall size and general contour without hydronephrosis. Nonobstr ucting right nephrolithiasis is noted measuring up to 4 mm in the anterior midportion. A cortical cys t is noted in the lateral left upper midportion measuring 10 x 12 mm. Bladder: Contracted. Bowel: The stomach is grossly normal in appearance. No evidence for small bowel obstruction. Stool an d diverticula are noted in the colon. The appendix is not visualized; however, no secondary findings of acute appendicitis identified. Ascites: Absent Lymphadenopathy: No mesenteric, retroperitoneal or periportal lymphadenopathy. Abdominal Wall and Mesentery: There is a small complex fat containing umbilical hernia. No free intra peritoneal air. Vasculature: The visualized abdominal aorta is normal in size and caliber. Evaluation of abdominal a nd pelvic vessels is limited due to lack of intravenous contrast. Pelvic Organs: Unremarkable Musculoskeletal: A hemangioma is noted within the L3 vertebral body. IMPRESSION: 1. Nonobstructing right nephrolithiasis. No hydronephrosis. 2. Diverticulosis. 3. Left renal cyst for which no further imaging follow-up is necessary. 4. Small complex fat containing umbilical hernia. Radiation optimization: All CT scans at this facility use at least one of these dose optimization colleen hniques: automated exposure control mA and/or kV adjustment per patient size (includes targeted exam s where dose is matched to clinical indication) or iterative reconstruction.
--- NOTE | 2024-03-22 09:30 | ED.PDOC ---
Departure 1 Departure Time of Disposition: 09:29 Impression: Primary Impression: Abdominal pain Qualified Codes: R10.84 - Generalized abdominal pain Additional Impressions: Blood in stool Renal colic Bright red blood per rectum Disposition: ADMITTED INPATIENT Admit to: Med Surg Condition: Serious NIKOLAS TOPETE MD Mar 22, 2024 09:30
[2024-03-22] MEDS ORDERED: ONDANSETRON HCL 4 MG/2 ML VIAL IV PRN (15:00)
[2024-03-22] MEDS ORDERED: ACETAMINOPHEN 325 MG TAB PO PRN (15:00)
--- NOTE | 2024-03-22 16:25 | DVHHP2 ---
History of Present Illness Reason for Visit: Abdominal pain History of Present Illness The patient is a 63-year-old female with multiple past medical history including kidney stones, liver disease, and anemia who presented to [facility] ED with complaint of right-sided flank pain. Patient reports symptoms progress ively get worse with blood-streaked stool, diarrhea, radiating pain to her back, rating 7/10 numeric scale, getting worse that prompted this visit. Patient was seen and evaluated in the ED, laboratory data shows WBC 9.5, platelets 270, sodium 138, potassium 3.6, BUN 8, creatinine 0.61, GFR 102, glucose 94, calcium 10.6, lipase 33. Abdomen/pelvis CT revealing nonobstructing right ne phrolithiasis, no hydronephrosis, small complex fat containing umbilical hernia. Patient was given IV morphine sulfate 4 mg x 1, please see medication orders section in the computer. On my assessment, patient denied chest pain, no headache, no dizziness, no nausea, no vomiting, no fever, no chills. Patient was admitted for further evaluation and medical management. Past Medical History Anemia, Anxiety, Arthritis, Kidney Stones, Liver, UTI'S Past Surgical History Family History Reviewed, noncontributory to the management of this case. Past Social History The patient lives at home, denies smoking, alcohol or illicit drugs abuse. Review of Systems Constitutional: No: Fever, Chills, Sweats, Weakness, Malaise, Other Eyes: No: Pain, Vision change, Conjunctivae inflammation, Eyelid inflammation, Other, Redness ENT: No: Ear pain, Ear discharge, Nose pain, Nose discharge, Nose congestion, Mouth pain, Mouth swelling, Throat pain, Throat swelling, Other Respiratory: No: Cough, Dry, Shortness of breath, SOB with excertion, Wheezing, Hemoptysis, Pleuritic Pain, Sputum, Wheezing, Other Cardiovascular: No: Chest Pain, Palpitations, Orthopnea, Paroxysmal Noc. Dyspnea, Edema, Lt Headedness, Other Gastrointestinal: Nausea, Vomiting, Abdominal Pain, Diarrhea; No: Constipation, Melena, Hematochezia, Other Genitourinary: No Dysuria, No Frequency, No Incontinence, No Hematuria, No Retention, No Other Musculoskeletal: No: other, neck pain, shoulder pain, arm pain, back pain, hand pain, leg pain, foot pain Skin: No: Rash, Lesions, Jaundice, Bruising, Other Neurological: No: Weakness, Numbness, Incoordination, Change in speech, Confusion, Seizures, Other Allergies: Coded Allergies: Erythromycin (Verified Allergy, Unknown, 05/23/20) Tetracyclines & Related (Verified Allergy, Unknown, 05/23/20) SKIN RASH Medications Current Medications Medications Dose Ordered Sig/Miguel Route Start Time Stop Time Status Last Admin Dose Admin Pantoprazole Sodium 40 mg DAILY IV 03/23/24 10:00 Ceftriaxone Sodium 50 ml @ 100 mls/hr DAILY@09 IV 03/23/24 09:00 Sodium Chloride 1,000 ml @ 60 mls/hr [id number] IV 03/22/24 15:00 Acetaminophen/ Hydrocodone Bitart 1 tab Q4HP PRN PO 03/22/24 15:00 Ondansetron HCl 4 mg Q4HP PRN IV 03/22/24 15:00 Docusate Sodium 100 mg BIDPRN PRN PO 03/22/24 15:00 Acetaminophen 650 mg Q6HP PRN PO 03/22/24 15:00 Morphine Sulfate 2 mg Q4HPRN PRN IV 03/22/24 15:00 Exam Vital Signs Vital Signs Date Time Temp Pulse Resp B/P (MAP) Pulse Ox O2 Delivery O2 Flow Rate FiO2 03/22/24 12:35 97.3 92 18 118/63 (81) 97 97.3 03/22/24 08:37 Room Air 03/22/24 05:27 0 21 General Appearance: Alert, Oriented X3, Cooperative, No acute distress HEENT: Atraumatic, PERRLA, EOMI, Mucous membr. moist/pink Respiratory: Clear to auscultation, Normal air movement Cardiovascular: Regular rate, Normal S1, Normal S2, No murmurs Abdominal: Normal bowel sounds, Soft, No hepatospenomegaly, No masses, Other (Reports tenderness) Extremities: No clubbing, No cyanosis, No edema, Normal pulses, No tenderness/swelling Skin: No rashes, No breakdown, No significant lesion Neuro: Normal gait, Normal speech, Strength at 5/5 X4 ext, Normal tone, Sensation intact, Cranial nerves 3-12 NL, Reflexes 2+ Psych/Mental Status: Mental status NL, Mood NL Labs/Xrays Labs Test 03/22/24 08:27 03/22/24 04:26 03/22/24 03:47 Range/Units Stool Occult Blood Sample #3 Negative Negative White Blood Count 9.5 4.4-10.8 10^3/uL Red Blood Count 4.46 4.0-5.20 10^6/uL Hemoglobin 12.2 12.2-16.2 g/dL Hematocrit 38.0 36.0-46.0 % Mean Corpuscular Volume 85.3 80.0-100.0 fL Mean Corpuscular Hemoglobin 27.5 L 28.0-32.0 pg Mean Corpuscular Hemoglobin Concent 32.2 32.0-36.0 g/dL Red Cell Distribution Width 15.4 H 11.8-14.3 % Platelet Count 270 140-450 10^3/uL Mean Platelet Volume 8.8 6.9-10.8 fL Neutrophils (%) (Auto) 71.9 37.0-80.0 % Lymphocytes (%) (Auto) 20.1 10.0-50.0 % Monocytes (%) (Auto) 6.3 0.0-12.0 % Eosinophils (%) (Auto) 1.1 0.0-7.0 % Basophils (%) (Auto) 0.6 0.0-2.0 % Neutrophils # (Auto) 6.8 1.6-8.6 10 ^3/uL Lymphocytes # (Auto) 1.9 0.4-5.4 10 ^3/uL Monocytes # (Auto) 0.6 0-1.3 10 ^3/uL Eosinophils # (Auto) 0.1 0-0.8 10 ^3/uL Basophils # (Auto) 0.1 0-0.2 10 ^3/uL Nucleated Red Blood Cells 0.0 % Prothrombin Time 10.2 9.3-11.8 sec Prothrombin Time INR 0.96 0.9-1.15 Sodium Level 138 136-145 mmol/L Potassium Level 3.6 3.5-5.1 mmol/L Chloride Level 104 98-107 mmol/L Carbon Dioxide Level 24 20-31 mmol/L Anion Gap 10 5-15 Blood Urea Nitrogen 8 L 9-23 mg/dL Creatinine 0.61 0.550-1.02 mg/dL Glomerular Filtration Rate Calc 102 >90 mL/min BUN/Creatinine Ratio 13.1 10.0-20.0 Serum Glucose 94 74-106 mg/dL Lactic Acid Level 1.0 0.4-2.0 mmol/L Calcium Level 10.6 H 8.7-10.4 mg/dL Total Bilirubin 0.4 0.2-1.0 mg/dL Aspartate Amino Transferase (AST) 18 13-40 U/L Alanine Aminotransferase (ALT) < 9 7-40 U/L Alkaline Phosphatase 119 H 46-116 U/L Total Protein 7.4 5.7-8.2 g/dL Albumin 4.6 3.2-4.8 g/dL Lipase 33 12-53 U/L Urine Color Yellow Yellow Urine Clarity Clear Clear Urine pH 5.5 5.0-9.0 Urine Specific Evans 1.029 1.001-1.035 Urine Protein Negative Negative Urine Ketones Negative Negative Urine Blood Negative Negative /uL Urine Nitrite Negative Negative Urine Bilirubin Negative Negative Urine Urobilinogen Normal Negative mg/dL Urine Leukocyte Esterase 1+ Negative /uL Urine RBC 3 0 - 4 /hpf Urine Microscopic WBC 3 0-5 /HPF Urine Squamous Epithelial Cells Few <5 /hpf Urine Bacteria Few H None Seen /hpf Urine Mucus Few None Seen Urine Glucose Normal Normal mg/dL PATIENT: DANIELA ST DACCT: [id number] UNIT: [id number] : 1960 LOC: ER ROOM / BED: / AGE / SEX: 63 / F ADM STATUS: REG ER SERVICE ORDERING PHYSICIAN: BALJIT LEZAMA MD PROCEDURE(s): ABPL - CT AB PEL WO CON-NO ORAL OR IV REASON: Right flank pain, diarrhea, blood in stool ORDER NUMBER(s): [id number], ACCESSION NUMBER(s): [id number] Exam: CT CT AB PEL WO CON-NO ORAL OR IV History: Right flank pain, diarrhea, blood in stool Comparison Study: 01/06/2024. Technique: Multidetector spiral CT of the abdomen was performed from lung bases to pubic symphysis. Imaging was performed without IV contrast. Axial, coronal and sagittal multiplanar reformats were obtained from the axial data set by the technologist. Radiation Dose : 1. Abdomen/Pelvis: CTDIvol 24.8 mGy, DLP 1339.28 mGy*cm. Findings: Evaluation of solid organs is limited due to lack of intravenous contrast use. Lung Bases: Evans dependent change is noted. Liver: The liver is normal in size. No focal lesions. Gallbladder and Biliary Tree: Partially contracted gallbladder. Spleen: Unremarkable Pancreas: The pancreas is grossly normal in appearance. Adrenal Glands: Unremarkable Kidneys: The kidneys are normal in overall size and general contour without hyd ronephrosis. Nonobstructing right nephrolithiasis is noted measuring up to 4 mm in the anterior midportion. A cortical cyst is noted in the lateral left upper midportion measuring 10 x 12 mm. Bladder: Contracted. Bowel: The stomach is grossly normal in appearance. No evidence for small bowel obstruction. Stool and diverticula are noted in the colon. The appendix is not visualized; however, no secondary findings of acute appendicitis identified. Ascites: Absent Lymphadenopathy: No mesenteric, retroperitoneal or periportal lymphadenopathy. Abdominal Wall and Mesentery: There is a small complex fat containing umbilical hernia. No free intraperitoneal air. Vasculature: The visualized abdominal aorta is normal in size and caliber. Evaluation of abdominal and pelvic vessels is limited due to lack of intravenous contrast. Pelvic Organs: Unremarkable Musculoskeletal: A hemangioma is noted within the L3 vertebral body. IMPRESSION: 1. Nonobstructing right nephrolithiasis. No hydronephrosis. 2. Diverticulosis. 3. Left renal cyst for which no further imaging follow-up is necessary. 4. Small complex fat containing umbilical hernia. Assessment/Plan Assessment/Plan Acute abdominal pain Blood in stool Flank pain Urinary tract infection Plan 1. Admit to med surge unit 2. Breathing treatment 3. Pain control management 4. IV antibiotic management 5. Management of fluids and electrolytes 6. Consultation for hospitalist 7. Diagnostic test abdomen/pelvis CT 8. DVT prophylaxis-on SCDs 9. Repeat labs CBC, CMP in a.m. 10. Home medication reviewed and reconciled 11. Continue with current medical management 12. Treatment plan discussed with patient and RN. Patient verbalized understanding. Plan discussed with: Patient, Other (RN) My Orders Orders - SHELBY SIDHU DNP Procedure Category Date Status Time Pantoprazole PHA 03/23/24 In Process (Protonix) 10:00 Ceftriaxone 1gm/50ml PHA 03/23/24 In Process D5w (Rocephin) 09:00 Allergies LOIS 03/22/24 In Process 14:59 Code Status CODE 03/22/24 Transmitted 14:59 Sodium Chloride 0.9% PHA 03/22/24 In Process 15:00 Oxygen Per Hour RT 03/22/24 Transmitted 14:59 Hydrocodone-Acet PHA 03/22/24 In Process 5/325mg Tab ([place] 15:00 Ondansetron Hcl PHA 03/22/24 In Process (Zofran) 15:00 Docusate Sodium PHA 03/22/24 In Process Capsule (Colace 15:00 Complete Blood Count LAB 03/23/24 Verified 04:00 Comprehensive LAB 03/23/24 Verified Metabolic Panel 04:00 Cardiac DIET 03/22/24 Transmitted Diet-2gna,Lofat,Lochol Dinner Condition: Serious LOIS 03/22/24 In Process 14:59 Acetaminophen Tablet PHA 03/22/24 In Process (Tylenol Tablet) 15:00 Bedrest With Bathroom LOIS 03/22/24 In Process Privileg 14:59 Morphine Sulfate PHA 03/22/24 In Process Injection 15:00 Sequential LOIS 03/22/24 In Process Compression Device Urine Bacterial NEREYDA 03/22/24 In Process Culture 15:30 Admit ADMIT 03/22/24 Verified 16:24 Nitroglycerin PHA 03/22/24 Verified Sublingual (Ntrostat 16:30 Morphine Sulfate PHA 03/22/24 Verified Injection 16:30 Notify Md Of Changes LOIS 03/22/24 Verified From Base 16:24 Tamale Maker For LOIS 03/22/24 Verified 24 Hours 16:24 Emergency Dysrhythmia LOIS 03/22/24 Verified Protocol 16:24 Rhythm Strips Once LOIS 03/22/24 Verified Every Shift 16:24 Oxygen By Nasal RT 03/22/24 Verified Cannula 16:24 Problem List: (1) Acute abdominal pain (2) Flank pain (3) Blood in stool (4) Urinary tract infection Date of Service: Mar 22, 2024 Billing Provider: SHELBY SIDHU DNP Common Visit Codes: [id number] INP/OBS CARE (HIGH) SHELBY SIDHU DNP Mar 22, 2024 16:25
[2024-03-22] MEDS ORDERED: MORPHINE SULFATE INJ 2 MG/ml SYRG IV PRN (16:30)
[2024-03-22] MEDS ORDERED: NITROGLYCERIN 0.4 MG SL TAB SL PRN (16:30)
[2024-03-22 18:30] VITALS: BP 140/80; PULSE 83; RESP 22; TEMP 97.5; O2SAT 97
[2024-03-22] MEDS: cefTRIAXone 1GM/50ML D5W 50 ML IV ONE (20:30)
[2024-03-22] MEDS: SODIUM CHLORIDE 0.9% 1,000 ML IV SCH (20:33)
[2024-03-22 21:00] VITALS: BP 117/75; PULSE 100; RESP 21; TEMP 97.3; O2SAT 97
[2024-03-23] MEDS: MORPHINE SULFATE INJ 2 MG/ml SYRG IV PRN (01:03)
[2024-03-23 01:25] VITALS: BP 104/60; PULSE 82; RESP 19; TEMP 98.2; O2SAT 95
[2024-03-23 05:00] VITALS: BP 99/53; PULSE 80; RESP 19; TEMP 98.2; O2SAT 96
[2024-03-23] MEDS ORDERED: METH-1181 PO (06:23)
[2024-03-23] MEDS ORDERED: PANT40T PO (06:23)
[2024-03-23] MEDS ORDERED: TAMS0.4C39 PO (06:23)
[2024-03-23] MEDS ORDERED: HYDR-3682 PO (06:23)
[2024-03-23 09:00] VITALS: BP 98/48; PULSE 76; RESP 18; TEMP 98.3; O2SAT 95
[2024-03-23] MEDS: cefTRIAXone 1GM/50ML D5W 50 ML IV SCH (10:44)
[2024-03-23] MEDS: PANTOPRAZOLE 40 MG/10 ML VIAL INJ IV SCH (10:44)
[2024-03-23 10:45] LABS: Basophils # (auto) 0 10 ^3/uL (0-0.2); Basophils % (auto) 0.3 % (0.0-2.0); Eosinophils # (auto) 0.1 10 ^3/uL (0-0.8); Eosinophils % (auto) 0.9 % (0.0-7.0); Hematocrit 39.1 % (36.0-46.0); Hemoglobin 12.8 g/dL (12.2-16.2); Lymphocytes # (auto) 1.4 10 ^3/uL (0.4-5.4); Lymphocytes % (auto) 15.7 % (10.0-50.0); Mean Corpuscular Hemoglobin 27.8 pg (28.0-32.0); Mean Corpuscular Hgb Conc. 32.8 g/dL (32.0-36.0); Mean Corpuscular Volume 84.9 fL (80.0-100.0); Monocytes # (auto) 0.4 10 ^3/uL (0-1.3); Monocytes % (auto) 4.1 % (0.0-12.0); Neutrophils # (auto) 6.8 10 ^3/uL (1.6-8.6); Platelet Count (auto) 295 10^3/uL (140-450); Red Blood Cells 4.61 10^6/uL (4.0-5.20); Red Cell Distribution Width 15.1 % (11.8-14.3); White Blood Cell 8.7 10^3/uL (4.4-10.8)
[2024-03-23] MEDS: HYDROcodone-ACET 5/325MG TAB PO PRN (11:00)
[2024-03-23 11:38] LABS: Anion Gap 7 (5-15); BUN/Creatinine Ratio 11.7 (10.0-20.0); Carbon Dioxide 26 mmol/L (20-31); Chloride 106 mmol/L (98-107); Potassium 3.8 mmol/L (3.5-5.1); Sodium 139 mmol/L (136-145)
[2024-03-23 11:39] LABS: Aspartate Aminotransferase 18 U/L (13-40)
[2024-03-23 11:40] LABS: Albumin 4.6 g/dL (3.2-4.8); Bilirubin, Total 0.3 mg/dL (0.2-1.0)
[2024-03-23 11:41] LABS: Total Protein 7.3 g/dL (5.7-8.2)
[2024-03-23 11:42] LABS: Alanine Aminotransferase < 9 U/L (7-40); Blood Urea Nitrogen 7 mg/dL (9-23); Calcium 10.5 mg/dL (8.7-10.4); Glucose 112 mg/dL (74-106)
[2024-03-23 12:28] LABS: Alkaline Phosphatase 108 U/L (46-116)
[2024-03-23 13:00] VITALS: BP 106/53; PULSE 76; RESP 18; TEMP 98.2; O2SAT 96
[2024-03-23] MEDS: TAMSULOSIN HYDROCHLORIDE 0.4 MG CAP PO ONE (15:00)
[2024-03-23] MEDS: SODIUM CHLORIDE 0.9% 1,000 ML IV SCH (15:45)
--- NOTE | 2024-03-23 16:04 | DVHPNRES ---
Progress Note Date Seen: Mar 23, 2024 Resident Creating Document: AMY CRENSHAW RESIDENT Medical Necessity Reason Pt with a Central, PICC or Fol: No Subjective Review of Systems Shanell Sutton is a 63 year old female who presented to the ED with chief complaints persistent stabbing abdominal pain predominantly umbilical area, right upper and lower quadrant and right flank consider which started the day of her admission, associated with nausea, vomiting, chills and soft stools with red blood seen after wiping. Patient reports similar symptoms when she had nephrolithiasis. Denies palpitation, syncope, chest pain, dyspnea, fever, constipation, recent travel, sick contacts and motor or sensory deficits. Past medical history: Obesity, Multiple UTIs, umbilical hernia (planning eventual repair surgery), nephrolithiasis status post lithotripsy, diverticulosis, anemia, IBS, bulging disc status postop from C6-C7 fusion currently with chronic back pain evaluated by pain management doctor, sinus polyp. Surgical history: Lithotripsy Family history: Noncontributory Social history: Denies current tobacco, alcohol and other drug abuse Allergies: Erythromycin, tetracycline Home medication: Hydroxyzine, methocarbamol, med pantoprazole, tamsulosin, Patient seen and examined at bedside. Currently presents exquisite abdominal pain and umbilical and right upper and lower quadrant, and also right flank tenderness. Objective vital signs Vital Sign Date Time Temp Pulse Resp B/P (MAP) Pulse Ox O2 Delivery O2 Flow Rate FiO2 03/23/24 13:00 98.2 76 18 106/53 (70) 96 98.2 03/23/24 08:00 Room Air* 0 21 Total Intake and Output 03/22/24 03/22/24 03/23/24 15:00 23:00 07:00 Intake Total 725 ml Balance 725 ml medications Current Medications Medications Dose Ordered Sig/Miguel Route Start Time Stop Time Status Last Admin Dose Admin Pantoprazole Sodium 40 mg DAILY IV 03/23/24 10:00 03/23/24 10:44 40 MG Ceftriaxone Sodium 50 ml @ 100 mls/hr DAILY@09 IV 03/23/24 09:00 03/23/24 10:44 100 MLS/HR Sodium Chloride 1,000 ml @ 60 mls/hr [id number] IV 03/22/24 15:00 03/23/24 07:40 60 MLS/HR Acetaminophen/ Hydrocodone Bitart 1 tab Q4HP PRN PO 03/22/24 15:00 03/23/24 11:00 1 TAB Ondansetron HCl 4 mg Q4HP PRN IV 03/22/24 15:00 Docusate Sodium 100 mg BIDPRN PRN PO 03/22/24 15:00 Acetaminophen 650 mg Q6HP PRN PO 03/22/24 15:00 Morphine Sulfate 2 mg Q4HPRN PRN IV 03/22/24 15:00 03/23/24 01:03 2 MG Nitroglycerin 0.4 mg Q5MINP PRN SL 03/22/24 16:30 Morphine Sulfate 2 mg Q30M PRN IV 03/22/24 16:30 Tamsulosin HCl 0.4 mg QPM PO 03/23/24 18:00 Examination Patient lying in bed, in no acute distress General: Lucid, afebrile, mucosae are moist Cardiovascular: Normal S1 and S2. No murmurs, gallops or rubs Respiratory: Normal ventilation mechanics. Clear lung sounds on auscultation Abdomen: Soft, severe tenderness with superficial palpation, no organomegaly, normal bowel sounds MSK/skin: Mobilizes 4 limbs. Skin is dry and warm : Right costovertebral tenderness. Neurological: Oriented in 3 spheres. No motor no sensitive deficits. Pupils are isocoric and reactive laboratory and microbiology Laboratory Tests 03/23/24 10:00 Test 03/23/24 10:00 Range/Units Serum Glucose 112 H 74-106 mg/dL Problem List/Assessment/Plan Problem List/Assessment/Plan # Probable nephrolithiasis Indicated IV fluids and tamsulosin Completed abdomen and pelvis CT which evidence nonobstructive nephrolithiasis with no hydronephrosis. Diverticulosis. Left renal cyst. Small complex fat containing umbilical hernia Manage pain with IV analgesics # Lower GI bleed Describes observing blood after wiping, with no associated pain. Probably secondary to hemorrhoids. Patient has never completed colonoscopy, was planning to completed as outpatient. #Questionable UTI - history of multiple UTIs Urine analysis presents few bacteria and esterase +1 Currently under empiric IV antibiotic (ceftriaxone) # Morbid obesity Gave her advice on healthy lifestyle habits # Diverticulosis Patient was noncompliant with colonoscopy completion as outpatient. # Umbilical hernia Completed abdomen and pelvis CT which evidence nonobstructive nephrolithiasis with no hydronephrosis. Diverticulosis. Left renal cyst. Small complex fat containing umbilical hernia Patient is planning on eventual elective surgery as outpatient. Goals of care discussed with patient for over 23 minutes: Full code status Discussed plan with Dr. Broussard, patient and nurses: Laboratory findings and imaging showed no acute abnormalities. Patient was treated for probable nephrolithiasis and UTI, indicating pain management, IV fluids, empiric IV antibiotics and tamsulosin at this point. Patient persists admitted due to intractable abdominal pain. Plan discussed with: Patient, Other (Nurses) My Orders My Orders Orders - AMY CRENSHAW Procedure Category Date Status Time Tamsulosin PHA 03/23/24 In Process Hydrochloride (Flomax) 18:00 Date of Service: Mar 23, 2024 Billing Provider: HEIDI BROUSSARD MD Common Visit Codes: [id number] INP/OBS CARE(HIGH) AMY CRENSHAW RESIDENT Mar 23, 2024 16:04 HEIDI BROUSSARD MD Mar 24, 2024 15:41
[2024-03-23 17:00] VITALS: BP 110/65; PULSE 74; RESP 18; TEMP 98.8; O2SAT 97
[2024-03-23] MEDS: TAMSULOSIN HYDROCHLORIDE 0.4 MG CAP PO SCH (18:17)
[2024-03-23 21:00] VITALS: BP 92/53; PULSE 82; RESP 19; TEMP 97.5; O2SAT 99
[2024-03-23] MEDS: SIMETHICONE 80 MG CHEWABLE TABLET PO PRN (21:26)
[2024-03-23] MEDS ORDERED: SIMETHICONE 80 MG CHEWABLE TABLET PO SCH (22:00)
[2024-03-24] VITALS (7 sets, daily range): BP systolic 99–120; BP diastolic 55–76; PULSE 69–101; RESP 16–20; TEMP 97.5–98.3; O2SAT 95–99
[2024-03-24 06:19] LABS: Basophils # (auto) 0 10 ^3/uL (0-0.2); Basophils % (auto) 0.5 % (0.0-2.0); Eosinophils # (auto) 0.1 10 ^3/uL (0-0.8); Eosinophils % (auto) 1.3 % (0.0-7.0); Hematocrit 36.5 % (36.0-46.0); Hemoglobin 11.8 g/dL (12.2-16.2); Lymphocytes # (auto) 1.7 10 ^3/uL (0.4-5.4); Mean Corpuscular Hemoglobin 27.5 pg (28.0-32.0); Mean Corpuscular Hgb Conc. 32.3 g/dL (32.0-36.0); Mean Corpuscular Volume 85.1 fL (80.0-100.0); Monocytes # (auto) 0.6 10 ^3/uL (0-1.3); Monocytes % (auto) 7.7 % (0.0-12.0); Neutrophils # (auto) 5.3 10 ^3/uL (1.6-8.6); Neutrophils % (auto) 68.5 % (37.0-80.0); Nucleated Red Blood Cells % 0.1 %; Platelet Count (auto) 270 10^3/uL (140-450); Red Blood Cells 4.29 10^6/uL (4.0-5.20); White Blood Cell 7.8 10^3/uL (4.4-10.8)
[2024-03-24 06:55] LABS: Chloride 105 mmol/L (98-107); Sodium 138 mmol/L (136-145)
[2024-03-24 06:56] LABS: Anion Gap 7 (5-15); Carbon Dioxide 26 mmol/L (20-31)
[2024-03-24 06:57] LABS: Calcium 10.1 mg/dL (8.7-10.4)
[2024-03-24 07:01] LABS: BUN/Creatinine Ratio 14.5 (10.0-20.0); Blood Urea Nitrogen 9 mg/dL (9-23); Glucose 96 mg/dL (74-106)
--- NOTE | 2024-03-24 14:55 | DVHPNRES ---
Progress Note Date Seen: Mar 24, 2024 Resident Creating Document: AMY CRENSHAW RESIDENT Medical Necessity Reason Pt with a Central, PICC or Fol: No Subjective Review of Systems Shanell Sutton is a 63 year old female who presented to the ED with chief complaints persistent stabbing abdominal pain predominantly umbilical area, right upper and lower quadrant and right flank consider which started the day of her admission, associated with nausea, vomiting, chills and soft stools with red blood seen after wiping. Patient reports similar symptoms when she had nephrolithiasis. Denies palpitation, syncope, chest pain, dyspnea, fever, constipation, recent travel, sick contacts and motor or sensory deficits. Past medical history: Obesity, Multiple UTIs, umbilical hernia (planning eventual repair surgery), nephrolithiasis status post lithotripsy, diverticulosis, anemia, IBS, bulging disc status postop from C6-C7 fusion currently with chronic back pain evaluated by pain management doctor, sinus polyp. Surgical history: Lithotripsy Family history: Noncontributory Social history: Denies current tobacco, alcohol and other drug abuse Allergies: Erythromycin, tetracycline Home medication: Hydroxyzine, methocarbamol, med pantoprazole, tamsulosin, Patient seen and examined at bedside. Currently presents exquisite abdominal pain in umbilical and right upper and lower quadrant, and also right flank tenderness. Objective vital signs Vital Sign Date Time Temp Pulse Resp B/P (MAP) Pulse Ox O2 Delivery O2 Flow Rate FiO2 03/24/24 12:20 98.0 74 17 116/64 (81) 99 98.0 03/24/24 08:00 Room Air* 0 21 Total Intake and Output 03/23/24 03/23/24 03/24/24 15:00 23:00 07:00 Intake Total 360 ml 3510 ml 600 ml Balance 360 ml 3510 ml 600 ml medications Current Medications Medications Dose Ordered Sig/Miguel Route Start Time Stop Time Status Last Admin Dose Admin Pantoprazole Sodium 40 mg DAILY IV 03/23/24 10:00 03/24/24 09:14 40 MG Ceftriaxone Sodium 50 ml @ 100 mls/hr DAILY@09 IV 03/23/24 09:00 03/24/24 09:15 100 MLS/HR Acetaminophen/ Hydrocodone Bitart 1 tab Q4HP PRN PO 03/22/24 15:00 03/24/24 05:04 1 TAB Ondansetron HCl 4 mg Q4HP PRN IV 03/22/24 15:00 Docusate Sodium 100 mg BIDPRN PRN PO 03/22/24 15:00 Acetaminophen 650 mg Q6HP PRN PO 03/22/24 15:00 Morphine Sulfate 2 mg Q4HPRN PRN IV 03/22/24 15:00 03/23/24 01:03 2 MG Tamsulosin HCl 0.4 mg QPM PO 03/23/24 18:00 03/23/24 18:17 0.4 MG Sodium Chloride 1,000 ml @ 100 mls/hr Q10H IV 03/23/24 15:45 03/23/24 15:45 100 MLS/HR Dimethicone 80 mg Q8HP PRN PO 03/23/24 22:00 03/24/24 05:04 80 MG Examination Patient lying in bed, in no acute distress General: Lucid, afebrile, mucosae are moist Cardiovascular: Normal S1 and S2. No murmurs, gallops or rubs Respiratory: Normal ventilation mechanics. Clear lung sounds on auscultation Abdomen: Soft, severe tenderness with superficial palpation, no organomegaly, normal bowel sounds MSK/skin: Mobilizes 4 limbs. Skin is dry and warm : Right costovertebral tenderness. Neurological: Oriented in 3 spheres. No motor no sensitive deficits. Pupils are isocoric and reactive laboratory and microbiology Laboratory Tests 03/24/24 05:46 Test 03/24/24 05:46 Range/Units Serum Glucose 96 74-106 mg/dL Problem List/Assessment/Plan Problem List/Assessment/Plan # Probable nephrolithiasis Indicated IV fluids and tamsulosin Completed abdomen and pelvis CT which evidence nonobstructive nephrolithiasis with no hydronephrosis. Diverticulosis. Left renal cyst. Small complex fat containing umbilical hernia Manage pain with IV and PO analgesics Have ordered new MRI # Lower GI bleed Describes observing blood after wiping, with no associated pain. Probably secondary to hemorrhoids. Patient has never completed colonoscopy, was planning to completed as outpatient. # Questionable UTI - history of multiple UTIs Urine analysis presents few bacteria and esterase +1 Currently under empiric IV antibiotic (ceftriaxone) # Morbid obesity Gave her advice on healthy lifestyle habits # Diverticulosis Patient was noncompliant with colonoscopy completion as outpatient. # Umbilical hernia Completed abdomen and pelvis CT which evidence nonobstructive nephrolithiasis with no hydronephrosis. Diverticulosis. Left renal cyst. Small complex fat containing umbilical hernia Patient is planning on eventual elective surgery as outpatient. Goals of care discussed with patient for over 23 minutes: Full code status Discussed plan with Dr. Broussard, patient and nurses: Laboratory findings and CT showed no acute abnormalities, ordered abdomen MRI with contrast. Patient was treated for probable nephrolithiasis and UTI, indicating pain management, IV fluids, empiric IV antibiotics and tamsulosin at this point. Patient persists admitted due to intractable abdominal pain. Plan discussed with: Patient, Other (Nurses) My Orders My Orders Orders - AMY CRENSHAW Procedure Category Date Status Time Tamsulosin PHA 03/23/24 In Process Hydrochloride (Flomax) 18:00 Sodium Chloride 0.9% PHA 03/23/24 In Process 15:45 Abdomen With Contrast MRI 03/24/24 Taken 11:17 Cardiac DIET 03/24/24 Transmitted Diet-2gna,Lofat,Lochol Dinner Oxycodone W/ Acet PHA 03/24/24 Transmitted 5/325mg Tab (Percocet 18:00 Date of Service: Mar 24, 2024 Billing Provider: HEIDI BROUSSARD MD Common Visit Codes: [id number] INP/OBS CARE(HIGH) AMY CRENSHAW RESIDENT Mar 24, 2024 14:55 HEIDI BROUSSARD MD Mar 24, 2024 15:56
--- NOTE | 2024-03-24 15:33 | DVH ---
EXAM: MRI ABDOMEN WITH CONTRAST COMPARISON: CT scan dated 03/22/2024 INDICATION: Abdominal pain TECHNIQUE: MRI abdomen was performed with and without intravenous contrast. FINDINGS: Visualized lower thorax: Limited imaging of the thorax demonstrates no suspicious pleural or parenchy mal disease. Liver: Normal and liver morphology and signal intensity. No hepatic lesions. Gallbladder: No evidence of cholelithiasis or gallbladder wall thickening. Biliary system: There is no intrahepatic or extrahepatic bile duct dilatation. Spleen: Normal in morphology and signal intensity. Pancreas: Normal in morphology and signal intensity. Adrenal glands: Normal in morphology and signal intensity. Kidneys: The kidneys are symmetric in size and appearance with no suspicious lesions. A subcentimeter simple appearing, Bosniak category 1 left renal cyst noted No hydronephrosis. Urinary tract: The ureters, as visualized, are normal in course and caliber. The bladder is within no rmal limits. GI tract: No evidence of small-bowel obstruction. Descending and sigmoid colon diverticulosis without diverticulitis. The appendix is normal Pelvis: Unremarkable pelvic organs. Peritoneum: No ascites. Lymph nodes: No enlarged lymph nodes. Vascular: Normal caliber of the abdominal aorta. Musculoskeletal: The bone marrow signal intensity is within normal limits. Moderate-sized fat contain ing right paraumbilical hernia. Small fat containing umbilical and left paraumbilical hernias. IMPRESSION: 1. No acute or suspicious abnormality is identified in the abdomen. 2. Descending and sigmoid diverticulosis without diverticulitis.
[2024-03-24] MEDS: OXYCODONE W/ ACETAMINOPHEN 5/325MG TABLET PO SCH (16:38)
[2024-03-24] MEDS: DOCUSATE SOD 100 MG CAP PO PRN (18:05)
[2024-03-25 01:00] VITALS: BP 102/63; PULSE 79; RESP 18; TEMP 97.8; O2SAT 95
[2024-03-25 05:00] VITALS: BP 98/53; PULSE 69; RESP 18; TEMP 97.5; O2SAT 96
[2024-03-25] MEDS: diphenhdrAMINE HCL 50 MG/1 ML VL IV ONE (05:40)
[2024-03-25 08:00] VITALS: PULSE 73; RESP 17; O2SAT 97
[2024-03-25 09:00] VITALS: BP 112/64; PULSE 73; RESP 17; TEMP 97.7; O2SAT 97
[2024-03-25] MEDS ORDERED: DOCU-265 PO (10:23)
[2024-03-25] MEDS ORDERED: ACET-1882 PO (10:23)
[2024-03-25] MEDS ORDERED: CEPH250C PO (10:23)
[2024-03-25] MEDS ORDERED: SIME80CH13 PO (10:23)
[2024-03-25] MEDS ORDERED: PERCOT PO (11:07)
[2024-03-25 11:14] VITALS: BP 112/64; PULSE 73; RESP 17; TEMP 97.7; O2SAT 97
--- NOTE | 2024-03-25 11:17 | DVHDSRES ---
Discharge Summary Date of Admission Resident Creating Document: AMY CRENSHAW RESIDENT Mar 22, 2024 at 16:24 Date of Discharge: Mar 25, 2024 Labs/Diagnostic Data: Laboratory Results Test 03/24/24 05:46 03/23/24 10:00 03/22/24 08:27 03/22/24 04:26 White Blood Count 7.8 10^3/uL (4.4-10.8) Red Blood Count 4.29 10^6/uL (4.0-5.20) Hemoglobin 11.8 g/dL (12.2-16.2) Hematocrit 36.5 % (36.0-46.0) Mean Corpuscular Volume 85.1 fL (80.0-100.0) Mean Corpuscular Hemoglobin 27.5 pg (28.0-32.0) Mean Corpuscular Hemoglobin Concent 32.3 g/dL (32.0-36.0) Red Cell Distribution Width 15.0 % (11.8-14.3) Platelet Count 270 10^3/uL (140-450) Mean Platelet Volume 8.7 fL (6.9-10.8) Neutrophils (%) (Auto) 68.5 % (37.0-80.0) Lymphocytes (%) (Auto) 22.0 % (10.0-50.0) Monocytes (%) (Auto) 7.7 % (0.0-12.0) Eosinophils (%) (Auto) 1.3 % (0.0-7.0) Basophils (%) (Auto) 0.5 % (0.0-2.0) Neutrophils # (Auto) 5.3 10 ^3/uL (1.6-8.6) Lymphocytes # (Auto) 1.7 10 ^3/uL (0.4-5.4) Monocytes # (Auto) 0.6 10 ^3/uL (0-1.3) Eosinophils # (Auto) 0.1 10 ^3/uL (0-0.8) Basophils # (Auto) 0 10 ^3/uL (0-0.2) Nucleated Red Blood Cells 0.1 % Sodium Level 138 mmol/L (136-145) Potassium Level 4.0 mmol/L (3.5-5.1) Chloride Level 105 mmol/L (98-107) Carbon Dioxide Level 26 mmol/L (20-31) Anion Gap 7 (5-15) Blood Urea Nitrogen 9 mg/dL (9-23) Creatinine 0.62 mg/dL (0.550-1.02) Glomerular Filtration Rate Calc 101 mL/min (>90) BUN/Creatinine Ratio 14.5 (10.0-20.0) Serum Glucose 96 mg/dL (74-106) Calcium Level 10.1 mg/dL (8.7-10.4) Total Bilirubin 0.3 mg/dL (0.2-1.0) Aspartate Amino Transferase (AST) 18 U/L (13-40) Alanine Aminotransferase (ALT) < 9 U/L (7-40) Alkaline Phosphatase 108 U/L (46-116) Total Protein 7.3 g/dL (5.7-8.2) Albumin 4.6 g/dL (3.2-4.8) Stool Occult Blood Sample #3 Negative (Negative) Prothrombin Time 10.2 sec (9.3-11.8) Prothrombin Time INR 0.96 (0.9-1.15) Lactic Acid Level 1.0 mmol/L (0.4-2.0) Lipase 33 U/L (12-53) Test 03/22/24 03:47 Urine Color Yellow (Yellow) Urine Clarity Clear (Clear) Urine pH 5.5 (5.0-9.0) Urine Specific Blanco 1.029 (1.001-1.035) Urine Protein Negative (Negative) Urine Ketones Negative (Negative) Urine Blood Negative /uL (Negative) Urine Nitrite Negative (Negative) Urine Bilirubin Negative (Negative) Urine Urobilinogen Normal mg/dL (Negative) Urine Leukocyte Esterase 1+ /uL (Negative) Urine RBC 3 /hpf (0 - 4) Urine Microscopic WBC 3 /HPF (0-5) Urine Squamous Epithelial Cells Few /hpf (<5) Urine Bacteria Few /hpf (None Seen) Urine Mucus Few (None Seen) Urine Glucose Normal mg/dL (Normal) Other Laboratory Tests 03/24/24 05:46 Brief Hx & Hospital Course: Shanell Sutton is a 63 year old female who presented to the ED with chief complaints persistent stabbing abdominal pain predominantly umbilical area, right upper and lower quadrant and right flank consider which started the day of her admission, associated with nausea, vomiting, chills and soft stools with red blood seen after wiping. Patient reports similar symptoms when she had nephrolithiasis. Denies palpitation, syncope, chest pain, dyspnea, fever, constipation, recent travel, sick contacts and motor or sensory deficits. Past medical history: Obesity, Multiple UTIs, umbilical hernia (planning eventual repair surgery), nephrolithiasis status post lithotripsy, diverticulosis, anemia, IBS, bulging disc status postop from C6-C7 fusion currently with chronic back pain evaluated by pain management doctor, sinus polyp. Surgical history: Lithotripsy Family history: Noncontributory Social history: Denies current tobacco, alcohol and other drug abuse Allergies: Erythromycin, tetracycline Home medication: Hydroxyzine, methocarbamol, med pantoprazole, tamsulosin, Brief hospital course: Questionable UTI associated with probable nephrolithiasis symptomatic by abdominal pain, responding to IV pain medication, IV antibiotic (ceftriaxone), IV fluids and tamsulosin. Completed CT and MRI of abdomen which showed no acute pathology at the moment ( nonobstructive nephrolithiasis with no hydronephrosis. Diverticulosis. Left renal cyst. Small complex fat containing umbilical hernia). Optimize medical pain medication, but patient will benefit from pain management as outpatient. Patient did complaint on admission of lower GI bleed, completed stool occult blood which was negative, patient needs to follow up with GI specialist for eventual colonoscopy as outpatient. Patient hemodynamically stable, asymptomatic, in condition to be discharged home. Was granted under optimal medical therapy (we will continue with Keflex for three more days), gave advice on healthy lifestyle habits and follow-up with PCP, GI specialist, urologist in pain management doctor as outpatient. DIAGNOSIS # Probable nephrolithiasis # Ruled out Lower GI bleed # Questionable UTI - history of multiple UTIs # Morbid obesity # Diverticulosis # Umbilical hernia Goals of care discussed with patient for over 23 minutes: Full code status Discussed plan with Dr. Nguyen, patient and nurses: Laboratory findings and CT showed no acute abnormalities, ordered abdomen MRI with contrast. Patient was treated for probable nephrolithiasis and UTI, indicating pain management, IV fluids, empiric IV antibiotics and tamsulosin at this point. Patient persists admitted due to intractable abdominal pain. Examination Patient lying in bed, in no acute distress General: Lucid, afebrile, mucosae are moist Cardiovascular: Normal S1 and S2. No murmurs, gallops or rubs Respiratory: Normal ventilation mechanics. Clear lung sounds on auscultation Abdomen: Soft, severe tenderness with superficial palpation, no organomegaly, normal bowel sounds MSK/skin: Mobilizes 4 limbs. Skin is dry and warm : Right costovertebral tenderness. Neurological: Oriented in 3 spheres. No motor no sensitive deficits. Pupils are isocoric and reactive Operations or Procedures Exam: CT CT AB PEL WO CON-NO ORAL OR IV History: Right flank pain, diarrhea, blood in stool Comparison Study: 01/06/2024. Technique: Multidetector spiral CT of the abdomen was performed from lung bases to pubic symphysis. Imaging was performed without IV contrast. Axial, coronal and sagittal multiplanar reformats were obtained from the axial data set by the technologist. Radiation Dose : 1. Abdomen/Pelvis: CTDIvol 24.8 mGy, DLP 1339.28 mGy*cm. Findings: Evaluation of solid organs is limited due to lack of intravenous contrast use. Lung Bases: Blanco dependent change is noted. Liver: The liver is normal in size. No focal lesions. Gallbladder and Biliary Tree: Partially contracted gallbladder. Spleen: Unremarkable Pancreas: The pancreas is grossly normal in appearance. Adrenal Glands: Unremarkable Kidneys: The kidneys are normal in overall size and general contour without hydronephrosis. Nonobstructing right nephrolithiasis is noted measuring up to 4 mm in the anterior midportion. A cortical cyst is noted in the lateral left upper midportion measuring 10 x 12 mm. Bladder: Contracted. Bowel: The stomach is grossly normal in appearance. No evidence for small bowel obstruction. Stool and diverticula are noted in the colon. The appendix is not visualized; however, no secondary findings of acute appendicitis identified. Ascites: Absent Lymphadenopathy: No mesenteric, retroperitoneal or periportal lymphadenopathy. Abdominal Wall and Mesentery: There is a small complex fat containing umbilical hernia. No free intraperitoneal air. Vasculature: The visualized abdominal aorta is normal in size and caliber. Evaluation of abdominal and pelvic vessels is limited due to lack of intravenous contrast. Pelvic Organs: Unremarkable Musculoskeletal: A hemangioma is noted within the L3 vertebral body. IMPRESSION: 1. Nonobstructing right nephrolithiasis. No hydronephrosis. 2. Diverticulosis. 3. Left renal cyst for which no further imaging follow-up is necessary. 4. Small complex fat containing umbilical hernia. Radiation optimization: All CT scans at this facility use at least one of these dose optimization techniques: automated exposure control mA and/or kV adjustment per patient size (includes targeted exams where dose is matched to clinical indication) or iterative reconstruction. ATED BY: MITZI CEVALLOS MD DICTATED DATE/TIME: 03/22/24 0400 EXAM: MRI ABDOMEN WITH CONTRAST COMPARISON: CT scan dated 03/22/2024 INDICATION: Abdominal pain TECHNIQUE: MRI abdomen was performed with and without intravenous contrast. FINDINGS: Visualized lower thorax: Limited imaging of the thorax demonstrates no suspicious pleural or parenchymal disease. Liver: Normal and liver morphology and signal intensity. No hepatic lesions. Gallbladder: No evidence of cholelithiasis or gallbladder wall thickening. Biliary system: There is no intrahepatic or extrahepatic bile duct dilatation. Spleen: Normal in morphology and signal intensity. Pancreas: Normal in morphology and signal intensity. Adrenal glands: Normal in morphology and signal intensity. Kidneys: The kidneys are symmetric in size and appearance with no suspicious lesions. A subcentimeter simple appearing, Bosniak category 1 left renal cyst noted No hydronephrosis. Urinary tract: The ureters, as visualized, are normal in course and caliber. The bladder is within normal limits. GI tract: No evidence of small-bowel obstruction. Descending and sigmoid colon diverticulosis without diverticulitis. The appendix is normal Pelvis: Unremarkable pelvic organs. Peritoneum: No ascites. Lymph nodes: No enlarged lymph nodes. Vascular: Normal caliber of the abdominal aorta. Musculoskeletal: The bone marrow signal intensity is within normal limits. Moderate-sized fat containing right paraumbilical hernia. Small fat containing umbilical and left paraumbilical hernias. IMPRESSION: 1. No acute or suspicious abnormality is identified in the abdomen. 2. Descending and sigmoid diverticulosis without diverticulitis. ATED BY: YAMINI CRUZ MD DICTATED DATE/TIME: 03/24/24 1531 Condition at Discharge: Good Final Diagnosis/Problems List # Probable nephrolithiasis # Ruled out Lower GI bleed # Questionable UTI - history of multiple UTIs # Morbid obesity # Diverticulosis # Umbilical hernia Discharge Disposition: Home SNF Discharge Will this Physician continue t: No Discharge Instruct/Medications Diet: Regular Activity: No Restrictions, As Tolerated Follow Up/Referral: PCP PAin management GI Urology Medications: Per EMR Discharge Statement: "Patient was advised to return to the ER or call 911 if any headaches, dizziness, shortness of breath, chest pain, abdominal pain, bleeding, fevers, or worsening of medical condition. Patient was counseled about treatment plan, medications, possible side effects, patientverbalized understanding. All questions were answered to the best of my ability. This discharge took greater then 30 minutes in planning, reviewing documentation, counseling the patient, and discussing with other team members." ASSESSMENT ASSESSMENT Assessment Questionable UTI Date of Service: Mar 25, 2024 Billing Provider: HEIDI NGUYEN MD Common Visit Codes: [id number] DISCH DAY >30min AMY CRENSHAW RESIDENT Mar 25, 2024 11:17 HEIDI NGUYEN MD Mar 25, 2024 20:43
== END 2024-03-25 12:36 | disposition home or self-care (01) | DRG 465 ==
LOC: ER 01:46 → OVERFLOW 16:24 → EAST 16:25 → OVERFLOW 03-24 12:58 → EAST 03-24 13:04
PROVIDERS: ADMIT Student in an Organized Health Care Education/Training Program; ATTEND Student in an Organized Health Care Education/Training Program
DX: N20.0 Calculus of kidney (principal); E66.01 Morbid (severe) obesity due to excess calories; N39.0 Urinary tract infection, site not specified; K42.9 Umbilical hernia without obstruction or gangrene; F41.9 Anxiety disorder, unspecified; K57.90 Diverticulosis of intestine, part unspecified, without perforation or abscess without bleeding; N28.1 Cyst of kidney, acquired; K57.30 Diverticulosis of large intestine without perforation or abscess without bleeding; Z88.1 Allergy status to other antibiotic agents; Z68.41 Body mass index [BMI] 40.0-44.9, adult; Z79.899 Other long term (current) drug therapy
CPT/HCPCS: 36415; 74176; 74181; 80048; 80053; 81001; 82270; 83605; 83690; 85025; 85610; 87086; 96372; G0378; J2470

== ENCOUNTER 2024-04-19 23:31 | Emergency (ER) | payer MEDICAID, OTHER ==
[~2024-04-19] VITALS: Ht 157.5 cm; Wt 94.5 kg
[~2024-04-19 23:31] MED LIST changes: +ACET-1882 PO; -AMOX875T4 PO; +CEPH250C PO; +DOCU-265 PO; +HYDR-3682 PO; -HYDR-4798 PO; -LEVO500T91 PO; +METH-1181 PO; -METH4PAK PO; -MUPI2CRE17 EX; +PANT40T PO; -PANT40TA2 PO; +PERCOT PO; -PHEN1TAB38 PO; -PRED20TA2 PO; +SIME80CH13 PO; +TAMS0.4C39 PO
[2024-04-20 01:11] LABS: Urine Bacteria None Seen /hpf (None Seen)
[2024-04-20 01:19] LABS: Basophils # (auto) 0.1 10 ^3/uL (0-0.2); Basophils % (auto) 0.6 % (0.0-2.0); Eosinophils # (auto) 0.1 10 ^3/uL (0-0.8); Eosinophils % (auto) 1.2 % (0.0-7.0); Hematocrit 37.7 % (36.0-46.0); Hemoglobin 12.3 g/dL (12.2-16.2); Lymphocytes # (auto) 2.3 10 ^3/uL (0.4-5.4); Lymphocytes % (auto) 24.2 % (10.0-50.0); Mean Corpuscular Hemoglobin 27.6 pg (28.0-32.0); Mean Corpuscular Hgb Conc. 32.6 g/dL (32.0-36.0); Mean Corpuscular Volume 84.7 fL (80.0-100.0); Monocytes # (auto) 0.6 10 ^3/uL (0-1.3); Monocytes % (auto) 6.9 % (0.0-12.0); Neutrophils # (auto) 6.3 10 ^3/uL (1.6-8.6); Neutrophils % (auto) 67.1 % (37.0-80.0); Nucleated Red Blood Cells % 0.1 %; Platelet Count (auto) 272 10^3/uL (140-450); Red Blood Cells 4.45 10^6/uL (4.0-5.20); Red Cell Distribution Width 14.7 % (11.8-14.3); White Blood Cell 9.4 10^3/uL (4.4-10.8)
[2024-04-20 01:34] LABS: Urine Blood Negative /uL (Negative); Urine Clarity Turbid (Clear); Urine Color Light-Yellow (Yellow); Urine Mucus FEW (None Seen); Urine Protein, UAD Negative (Negative); Urine Specific Gravity 1.024 (1.001-1.035); Urine Squamous Epithelial Cell MOD /hpf (<5); Urine Urobilinogen Normal (Negative); Urine WBC 5 /HPF (0-5); Urine pH 5.5 (5.0-9.0)
[2024-04-20 01:38] LABS: Albumin 4.6 g/dL (3.2-4.8); Alkaline Phosphatase 115 U/L (46-116); Anion Gap 9 (5-15); Aspartate Aminotransferase 15 U/L (13-40); BUN/Creatinine Ratio 11.6 (10.0-20.0); Bilirubin, Total 0.4 mg/dL (0.2-1.0); Carbon Dioxide 24 mmol/L (20-31); Chloride 106 mmol/L (98-107); Glucose 90 mg/dL (74-106); Lipase 34 U/L (12-53); Potassium 3.7 mmol/L (3.5-5.1); Sodium 139 mmol/L (136-145); Total Protein 7.7 g/dL (5.7-8.2)
[2024-04-20 01:39] LABS: Alanine Aminotransferase < 9 U/L (7-40); Blood Urea Nitrogen 8 mg/dL (9-23); Calcium 10.7 mg/dL (8.7-10.4)
[2024-04-20 01:49] VITALS: TEMP 98.1
[2024-04-20 02:05] VITALS: PULSE 87; RESP 14; O2SAT 100
[2024-04-20] MEDS: MORPHINE SULFATE INJ 2 MG/ml SYRG IV ONE (02:18)
[2024-04-20] MEDS: ONDANSETRON HCL 4 MG/2 ML VIAL IV ONE (02:18)
--- NOTE | 2024-04-20 02:19 | ED.PDOC ---
History of Present Illness HPI Comments 63 y/o F, with a history of diverticulosis, nephrolithiasis, current umbilical hernia, and UTI's, presents with c/o right-sided abdominal pain, nausea, diarrhea, constipation, and numbness sensation to her entire abdomen and bilateral legs, today. Patient reports on still having persisting symptoms following previous encounter with admission at [facility] on March 22 2024 for abdominal pain. She reports symptoms worsened after possibly ingesting dairy. She also reports concerns for blood she noticed after wiping 1x only when using her bathroom, yesterday. She comments on still awaiting on GI and outpatient consult appointments following said admission discharge. She denies having any vomiting, fever, chills, urinary symptoms, or other associated symptoms or modifiers at this time. Chief Complaint: Flank Pain Time Seen by MD: 00:15 Reviewed Notes: Nurses Notes, Medications, Allergies Allergies: Coded Allergies: Erythromycin (Verified Allergy, Unknown, 05/23/20) Tetracycline (Unverified Allergy, Unknown, 04/20/24) Tetracyclines & Related (Verified Allergy, Unknown, 05/23/20) SKIN RASH Home Meds Active Scripts Ibuprofen (Ibuprofen) 600 Mg Tab, 1 TAB PO TID PRN for 5 Days, #15 TAB Prov:BALJIT LEZAMA MD 04/20/24 Acetaminophen (Acetaminophen Er) 650 Mg Tab, 650 MG PO TIDPRN PRN for 5 Days, #15 TAB Prov:BALJIT LEZAMA MD 04/20/24 Oxycodone W/ Acetaminophen (Percocet 5/325MG) 1 Tab Tb, 1 TAB PO QID PRN for 5 Days, #20 TAB Prov:HEIDI BROUSSARD MD 03/25/24 Cephalexin (KEFLEX CAPSULE) 250 Mg Cp, 1 CAP PO QID for 3 Days, #28 CAP Prov:AMY CRENSHAW 03/25/24 Simethicone (Simethicone) 80 Mg Chw, 80 MG PO Q8HP PRN for 10 Days, #30 TAB.CHEW Prov:AMY CRENSHAW 03/25/24 Docusate Sodium (Docusate Sodium) 100 Mg Cap, 100 MG PO BIDPRN PRN for 30 Days, #60 CAP Prov:AMY CRENSHAW 03/25/24 Acetaminophen (Acetaminophen) 325 Mg Tab, 650 MG PO Q6HP PRN for 10 Days, #80 TAB Prov:AMY CRENSHAW RESIDENT 03/25/24 Reported Medications Hydroxyzine Hcl (Hydroxyzine Hcl) 25 Mg Tab, 1 TAB PO TID 03/23/24 Methocarbamol (Methocarbamol) 500 Mg Tab, 1 TAB PO Q8H 03/23/24 Pantoprazole Sodium Sesquihydr (Pantoprazole Sodium) 40 Mg Tab, 1 TAB PO DAILY 03/23/24 Tamsulosin Hcl (Tamsulosin Hcl) 0.4 Mg Cap, 1 CAP PO DAILY 03/23/24 Information Source: Patient Mode of Arrival: Ambulatory Severity: Moderate Timing: Days Duration: Since onset Prehospital treatment: None Review of Systems: REVIEW OF SYSTEMS: No fever, no chills, or fatigue HEENT: No sore throat, no earache, no congestion, no neck pain. Cardiac: No chest pain. No palpitations. Lungs: No shortness of breath, no cough. GI: Abdominal pain, nausea diarrhea, constipation. No vomiting : No dysuria, frequency, or urgency. No hematuria. Musculoskeletal: No joint pain , no joint swelling, no extremity edema. Skin: No rash, no itching. Neuro: Numbness to bilateral legs and abdomen. No headache, no dizziness, no weakness Vital Signs Vital Signs Date Time Temp Pulse Resp B/P (MAP) Pulse Ox O2 Delivery O2 Flow Rate FiO2 04/20/24 02:48 86 12 119/87 04/20/24 02:05 100 Room Air* 0 21 04/20/24 01:49 98.1 98.1 Physical Exam General: Awake, alert and oriented. No acute distress. Skin: Skin in warm, dry and intact. Appropriate color for ethnicity. HEENT: The head is normocephalic and atraumatic. Conjunctivae are clear without exudates or hemorrhage. Sclera is non-icteric. EOM are intact. No signs of nystagmus. Eyelids are normal in appearance without swelling or lesions. Oral mucosa is pink and moist Neck: The neck is supple with normal range of motion. No JVD. Cardiac: Heart rate and rhythm are normal. No murmurs, gallops, or rubs are auscultated. Respiratory: No signs of respiratory distress. Lung sounds are clear in all lobes bilaterally without rales, ronchi, or wheezes. Abdominal: Right lower quadrant, Right flank tenderness tenderness. Abdomen is soft, without distention. Bowel sounds are present and normoactive in all four quadrants. Extremities: Upper and lower extremities are atraumatic in appearance without deformity or edema. Neurological: The patient is awake, alert and oriented to person, place, and time with normal speech. Speech is clear. There is no facial asymmetry. Psychiatric: Appropriate mood and affect. Good judgement and insight. No visual or auditory hallucinations. 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 Was a procedure done?: No Differential Dx Considerations may include: Differential diagnoses considered include: Abdominal aortic aneurysm, [place], esophageal rupture, intestinal obstruction, mesenteric ischemia, perforated viscus or solid organ rupture, CHF with hepatomegaly, pneumonia, abscess, appendicitis, biliary disease, diverticulitis, gastritis, gastroenteritis, hepatitis, hernia, inflammatory bowel disease, pancreatitis, peptic ulcer disease, urinary tract infection, ureteral colic, constipation, GERD, irritable syndrome, abdominal wall pain, nonspecific abdominal pain, herpes zoster. X-Ray, Labs, Meds, VS Vital Signs Date Time Temp Pulse Resp B/P (MAP) Pulse Ox O2 Delivery O2 Flow Rate FiO2 04/20/24 02:48 86 12 119/87 04/20/24 02:18 87 19 127/87 04/20/24 02:05 87 14 100 Room Air* 0 21 04/20/24 01:49 98.1 83 17 121/71 (88) 100 98.1 04/19/24 23:50 97.9 92 12 135/83 (100) 97 Lab Test 04/20/24 01:00 04/19/24 23:55 Range/Units White Blood Count 9.4 4.4-10.8 10^3/uL Red Blood Count 4.45 4.0-5.20 10^6/uL Hemoglobin 12.3 12.2-16.2 g/dL Hematocrit 37.7 36.0-46.0 % Mean Corpuscular Volume 84.7 80.0-100.0 fL Mean Corpuscular Hemoglobin 27.6 L 28.0-32.0 pg Mean Corpuscular Hemoglobin Concent 32.6 32.0-36.0 g/dL Red Cell Distribution Width 14.7 H 11.8-14.3 % Platelet Count 272 140-450 10^3/uL Mean Platelet Volume 8.9 6.9-10.8 fL Neutrophils (%) (Auto) 67.1 37.0-80.0 % Lymphocytes (%) (Auto) 24.2 10.0-50.0 % Monocytes (%) (Auto) 6.9 0.0-12.0 % Eosinophils (%) (Auto) 1.2 0.0-7.0 % Basophils (%) (Auto) 0.6 0.0-2.0 % Neutrophils # (Auto) 6.3 1.6-8.6 10 ^3/uL Lymphocytes # (Auto) 2.3 0.4-5.4 10 ^3/uL Monocytes # (Auto) 0.6 0-1.3 10 ^3/uL Eosinophils # (Auto) 0.1 0-0.8 10 ^3/uL Basophils # (Auto) 0.1 0-0.2 10 ^3/uL Nucleated Red Blood Cells 0.1 % Sodium Level 139 136-145 mmol/L Potassium Level 3.7 3.5-5.1 mmol/L Chloride Level 106 98-107 mmol/L Carbon Dioxide Level 24 20-31 mmol/L Anion Gap 9 5-15 Blood Urea Nitrogen 8 L 9-23 mg/dL Creatinine 0.69 0.550-1.02 mg/dL Glomerular Filtration Rate Calc 99 >90 mL/min BUN/Creatinine Ratio 11.6 10.0-20.0 Serum Glucose 90 74-106 mg/dL Lactic Acid Level 1.2 0.4-2.0 mmol/L Calcium Level 10.7 H 8.7-10.4 mg/dL Total Bilirubin 0.4 0.2-1.0 mg/dL Aspartate Amino Transferase (AST) 15 13-40 U/L Alanine Aminotransferase (ALT) < 9 7-40 U/L Alkaline Phosphatase 115 46-116 U/L Total Protein 7.7 5.7-8.2 g/dL Albumin 4.6 3.2-4.8 g/dL Lipase 34 12-53 U/L Urine Color Light-yellow Yellow Urine Clarity Turbid H Clear Urine pH 5.5 5.0-9.0 Urine Specific [place] 1.024 1.001-1.035 Urine Protein Negative Negative Urine Ketones Negative Negative Urine Blood Negative Negative /uL Urine Nitrite Negative Negative Urine Bilirubin Negative Negative Urine Urobilinogen Normal Negative mg/dL Urine Leukocyte Esterase 1+ Negative /uL Urine RBC 3 0 - 4 /hpf Urine Microscopic WBC 5 0-5 /HPF Urine Squamous Epithelial Cells Mod <5 /hpf Urine Bacteria None seen None Seen /hpf Urine Mucus Few None Seen Urine Glucose Normal Normal mg/dL Current Medications Medications (Trade) Dose Ordered Sig/Miguel Route Start Time Stop Time Status Last Admin Morphine Sulfate 4 mg ONCE ONCE IV 04/20/24 00:30 04/20/24 00:31 DC 04/20/24 02:18 Ondansetron HCl (Zofran) 4 mg ONCE ONCE IV 04/20/24 00:30 04/20/24 00:31 DC 04/20/24 02:18 Time of 1ST Reevaluation: 00:45 Reevaluation 1ST: Unchanged Patient Education/Counseling: Diagnosis, Treatment Family Education/Counseling: No Family Present Departure 1 Departure Time of Disposition: 04:02 Impression: Primary Impression: ABDOMINAL PAIN Disposition: 01 HOME / SELF CARE / HOMELESS Condition: Stable Additional Instructions: ED DISCHARGE INSTRUCTIONS Instructions: Please read all instructions provided in this packet carefully. Although you have been discharged from the Emergency Department, this does not mean that you have a "clean bill of health". No definitive diagnosis for your symptoms has been made today. It is possible that you are in the process of developing a serious illness. This is why you must return to the ED without fail if any new or worsening symptoms (especially if your symptoms include chest pain, trouble breathing, abdominal pain, fever, headache, confusion, trouble seeing, or trouble walking) It is also very important that you see a primary care doctor within the next 3-5 days to follow up. If you are unable to get an appointment, return to the ED for re-evaluation. Abdominal Pain: Care Instructions Overview Abdominal pain has many possible causes. Some aren't serious and get better on their own in a few days. Others need more testing and treatment. If your pain continues or gets worse, you need to be rechecked and may need more tests to find out what is wrong. You may need surgery to correct the problem. Don't ignore new symptoms, such as fever, nausea and vomiting, urination problems, pain that gets worse, and dizziness. These may be signs of a more serious problem. If you are not getting better, you may need more tests or treatment. The doctor has checked you carefully, but problems can develop later. If you notice any problems or new symptoms, get medical treatment right away. Follow-up care is a cordoba part of your treatment and safety. Be sure to make and go to all appointments, and call your doctor if you are having problems. It's also a good idea to know your test results and keep a list of the medicines you take. How can you care for yourself at home? Rest until you feel better. To prevent dehydration, drink plenty of fluids. Choose water and other clear liquids until you feel better. If you have kidney, heart, or liver disease and have to limit fluids, talk with your doctor before you increase the amount of fluids you drink. When you feel like eating, start with small amounts. Do not have alcohol, c affeine, or spicy, hot, or high-fat foods for a day or two. Avoid anti-inflammatory medicines such as aspirin, ibuprofen (Advil, Motrin), and naproxen (Aleve). These can cause stomach upset. Talk to your doctor if you take daily aspirin for another health problem. When should you call for help? Call 911 anytime you think you may need emergency care. For example, call if: You passed out (lost consciousness). You pass maroon or very bloody stools. You vomit blood or what looks like coffee grounds. You have severe belly pain. Call your doctor now or seek immediate medical care if: Your pain gets worse, especially if it becomes focused in one area of your belly. You have a new or higher fever. Your stools are black and look like tar, or they have streaks of blood. You have unexpected vaginal bleeding. You have symptoms of a urinary tract infection. These may include: Pain when you urinate. Urinating more often than usual. Blood in your urine. You are dizzy or lightheaded, or you feel like you may faint. Watch closely for changes in your health, and be sure to contact your doctor if: You are not getting better as expected. Credits for Abdominal Pain: Care Instructions Current as of: November 28, 2022 Author: [email or web address] Staff Clinical Review Board All [employer] education is reviewed by a team that includes physicians, nurses, advanced practitioners, registered dieticians, and other healthcare professionals. e-Prescriptions Ibuprofen (Ibuprofen) 600 Mg Tab 1 TAB PO TID PRN for 5 Days, #15 TAB Prov: BALJIT LEZAMA MD 04/20/24 Acetaminophen (Acetaminophen Er) 650 Mg Tab 650 MG PO TIDPRN PRN for 5 Days, #15 TAB Prov: BALJIT LEZAMA MD 04/20/24 Comments 63-year-old female presented with abdominal pain. No peritoneal signs on abdominal exam. No evidence of acute abdomen at this time. patient is well appearing. Labs show no leukocytosis or elevation of LFTs. Imaging [ ] Patient is afebrile. Patient is not hypotensive. Low suspicion for acute hepatobiliary disease (including acute cholecystitis, acute pancreatitis, PUD (including perforation), acute infectious process (pneumonia, hepatitis, pyelonephritis), acute appendicitis, vascular catastrophe, bowel obstructions, viscous perforatio n. Presentation not consistent with other acute, emergent causes of abdominal pain at this time. Extensive evaluation was performed in attempt to identify or rule out: (See differential diagnosis section) The following tests were ordered, and results were reviewed by me: (See diagnostic results section) The following test were independently interpreted by me: N/A I reviewed and agreed with the following test results read by other providers: N/A I reviewed the following notes from the pt's past medical encounters: March/2024 encounter for abdominal pain Additional information was gathered from interviewing the following independent historians: N/A Discussion of management or test interpretation with external physician/other qualified health manager intensive care unit: N/A Drug therapy requiring intensive monitoring for toxicity: N/A Parenteral controlled substances: IV morphine Decision regarding elective major surgery with identified patient or procedure risk factors: N/A Decision regarding emergency major surgery: N/A Decision not to resuscitate or to de-escalate care because of poor prognosis: N/A Diagnosis or treatment significantly limited by social determinants of health: N/A Decision regarding hospitalization or escalation of hospital level of care: Risks and benefits of admission for further treatment of patient's condition was considered however due to patient's stable condition patient will be discharged to follow up closely or return to care for worsening of condition or inability to follow up. Critical Care Note Critical Care Time?: No Stability Stability form required: No Heart Score Heart Score: Heart Score Response (Comments) Value History N/A 0 EKG N/A 0 Age N/A 0 Risk Factors N/A 0 Troponin N/A 0 Total 0 I personally scribed for BALJIT LEZAMA MD ([email or web address]) on 04/20/24 at 02:19. [place] ctronically submitted by Theodore Arshad ([email or web address]). BALJIT LEZAMA MD Apr 20, 2024 02:19
[2024-04-20 02:48] VITALS: BP 119/87; PULSE 86; RESP 12
[2024-04-20] MEDS: IOHEXOL 300 MG/ML 100ML BOTTLE IJ ONE (03:29)
--- NOTE | 2024-04-20 03:29 | DVH ---
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 During the uneventful, intravenous administration of c ontrast material, multislice data acquisition was obtained through the abdomen and pelvis. The data s et was subsequently reconstructed into axial images. Images were reviewed on a work station using a c ombination of axial and multiplanar using a variety of window levels and settings. All CT scans at this medical facility are performed using dose modulation techniques as appropriate t o a performed exam including the following: Automated exposure control was utilized; adjustment of th e MA and/or KV according to patient size; and use of iterative reconstruction technique. Radiation Dose Information: CT Dose: CTDI volume is 21.38 mGy. Dose-length product is 1005.05 mGy*cm FINDINGS: Imaged portions of the lung bases appear unremarkable. There is diffuse hepatic steatosis. The gallbladder, spleen, pancreas and adrenal glands appear unre markable. The kidneys enhance symmetrically without hydronephrosis. Few nonobstructing right renal ca lculi are present. No evidence of bowel obstruction or focal bowel wall thickening. Scattered colonic diverticulosis. T he appendix appears normal. No free fluid, free air, or adenopathy. Complex fat containing umbilical hernia measuring 4.8 cm. No suspicious osseous lesion. IMPRESSION: 1. No acute abnormality in the abdomen or pelvis. 2. Possible Hepatic steatosis.
[2024-04-20] MEDS ORDERED: IBUP-1454 PO (04:04)
[2024-04-20] MEDS ORDERED: ACET650T12 PO (04:04)
== END 2024-04-20 04:20 | disposition home or self-care (01) ==
LOC: EDUNIT# 23:31 → ER 23:31
DX: R10.11 Right upper quadrant pain (principal); R10.31 Right lower quadrant pain; R11.0 Nausea; Z87.440 Personal history of urinary (tract) infections; Z87.442 Personal history of urinary calculi; Z79.899 Other long term (current) drug therapy; Z88.1 Allergy status to other antibiotic agents
CPT/HCPCS: 36415; 74177; 80053; 81001; 83605; 83690; 85025; 96374; 96375; 99285; J2270; J2405; Q9967

== ENCOUNTER 2024-08-29 08:16 | Emergency (ER) | payer MEDICAID ==
[~2024-08-29] VITALS: Ht 157.5 cm; Wt 91.0 kg
[~2024-08-29 08:16] MED LIST changes: +ACET650T12 PO; +IBUP-1454 PO; +LEVO500T91 PO
[2024-08-29 08:29] VITALS: PULSE 98
[2024-08-29] MEDS: ONDANSETRON HCL 4 MG/2 ML VIAL IV ONE (09:23)
[2024-08-29] MEDS: SODIUM CHLORIDE 0.9% 1,000 ML IVB ONE (09:24)
[2024-08-29] MEDS: MORPHINE SULFATE 4 MG/ML SYR/VIAL IV ONE (09:25)
--- NOTE | 2024-08-29 09:28 | ED.PDOC ---
General HPI Comments 64 year old female presents to the ED with a chief complaint of bilateral flank pain onset 1 week. Patient states she has been experiencing bilateral flank pain for the past week, was prescribed antibiotics but states she lost them. For the past week, she has noticed bilateral feet swelling, slight improvement this morning after using compression socks. PMHx UTIs. Denies chest pain, shortness of breath, hematuria, dizziness, headache. No other symptoms or modifying factors present at this time. Chief Complaint: Flank Pain Time Seen by MD: 09:10 Primary Care Provider: LAINE MONTEZ Reviewed notes: Medications, Allergies Allergies: Coded Allergies: Erythromycin (Verified Allergy, Unknown, 05/23/20) Tetracycline (Unverified Allergy, Unknown, 04/20/24) Tetracyclines & Related (Verified Allergy, Unknown, 05/23/20) SKIN RASH Home Meds Active Scripts Nitrofurantoin Monohydrate Mac (Macrobid) 100 Mg Cap, 100 MG PO BID for 10 Days, #10 CAP Prov:BRIAN CELESTIN MD 08/29/24 Ibuprofen (Ibuprofen) 600 Mg Tab, 1 TAB PO TID PRN for 5 Days, #15 TAB Prov:BALJIT LEZAMA MD 04/20/24 Acetaminophen (Acetaminophen Er) 650 Mg Tab, 650 MG PO TIDPRN PRN for 5 Days, #15 TAB Prov:BALJIT LEZAMA MD 04/20/24 Oxycodone W/ Acetaminophen (Percocet 5/325MG) 1 Tab Tb, 1 TAB PO QID PRN for 5 Days, #20 TAB Prov:HEIDI BROUSSARD MD 03/25/24 Cephalexin (KEFLEX CAPSULE) 250 Mg Cp, 1 CAP PO QID for 3 Days, #28 CAP Prov:AMY CRENSHAW 03/25/24 Simethicone (Simethicone) 80 Mg Chw, 80 MG PO Q8HP PRN for 10 Days, #30 TAB.CHEW Prov:AMY CRENSHAW 03/25/24 Docusate Sodium (Docusate Sodium) 100 Mg Cap, 100 MG PO BIDPRN PRN for 30 Days, #60 CAP Prov:AMY CRENSHAW 03/25/24 Acetaminophen (Acetaminophen) 325 Mg Tab, 650 MG PO Q6HP PRN for 10 Days, #80 TAB Prov:AMY CRENSHAW RESIDENT 03/25/24 Hydroxyzine Hcl (Hydroxyzine Hcl) 25 Mg Tab, 1 TAB PO TID, #20 TAB Prov:OCTAVIO MOODY PAC 03/12/24 Levofloxacin Hemihydrate (LEVAQUIN 500 MG) 500 Mg Tab, 500 MG PO DAILY for 7 Days, #7 TAB Prov:BROOKLYNN YOUNG MD 02/17/24 Reported Medications Hydroxyzine Hcl (Hydroxyzine Hcl) 25 Mg Tab, 1 TAB PO TID 03/23/24 Methocarbamol (Methocarbamol) 500 Mg Tab, 1 TAB PO Q8H 03/23/24 Pantoprazole Sodium Sesquihydr (Pantoprazole Sodium) 40 Mg Tab, 1 TAB PO DAILY 03/23/24 Tamsulosin Hcl (Tamsulosin Hcl) 0.4 Mg Cap, 1 CAP PO DAILY 03/23/24 Information Source: Patient Mode of Arrival: Ambulatory Severity: Moderate Timing: Weeks Duration: Since onset Prehospital treatment: None Onset: Spontaneous Symptoms: Other History of: UTI Location: (R) Flank, (L)Flank associated signs and symptoms: Flank Pain Past Medical History PAST MEDICAL HISTORY: UTI'S Surgical History: Denies all surgeries RN TRANSFER History: Denies all RN TRANSFER Hx Family History Family History: Unknown Social History Smoker: Non-Smoker Alcohol: Denies ETOH Use Drugs: Denies Drug Use Lives In: Home Constitutional: denies: chills, diaphoresis, fatigue, fever, malaise, sweats, weakness, others EENTM: denies: blurred vision, double vision, ear bleeding, ear discharge, ear drainage, ear pain, ear ringing, eye pain, eye redness, hearing loss, mouth pain, mouth swelling, nasal discharge, nose bleeding, nose congestion, nose pain, photophobia, tearing, throat pain, throat swelling, voice changes, others Respiratory: denies: cough, hemoptysis, orthopnea, SOB at rest, shortness of breath, SOB with excertion, stridor, wheezing, others Cardiovascular: denies: chest pain, dizzy spells, diaphoresis, Dyspnea on exertion, edema, irregular heart beat, left arm pain, lightheadedness, palpitations, PND, syncope, others Gastrointestinal: denies: abdomen distended, abdominal pain, blood streaked bowels, constipated, diarrhea, dysphagia, difficulty swallowing, hematemesis, melena, nausea, poor appetite, poor fluid intake, rectal bleeding, rectal pain, vomiting, others Genitourinary: reports: flank pain; denies: abnormal vagina bleeding, burning, dyspareunia, dysuria, frequency, hematuria, incontinence, pain, , vagina discharge, urgency, others Neurological: denies: dizziness, fainting, headache, left sided numbness, left sided weakness, numbness, paresthesia, pre-existing deficit, right sided numbness, right sided weakness, seizure, speech problems, tingling, tremors, weakness, others Musculoskeletal: reports: others (bilateral feet swelling); denies: back pain, gout, joint pain, joint swelling, muscle pain, muscle stiffness, neck pain Integumetry: denies: bruises, change in color, change in hair/nails, dryness, laceration, lesions, lumps, rash, wounds, others Allergic/Immunocompromised: denies: Difficulty Healing, Frequent Infections, Hives, Itching, others Hematologic/Lymphatic: denies: anemia, blood clots, easy bleeding, easy bruising, swollen glands, others Endocrine: denies: excessive hunger, excessive sweating, excessive thirst, excessive urination, flushing, intolerance to cold, intolerance to heat, unexplained weight gain, unexplained weight loss, others Psychiatric: denies: anxiety, bipolar disorder, depression, hopeless, panic disorder, schizophrenia, sleepless, suicidal, others All Other Systems: Reviewed and Negative Physical Exam General Appearance: Moderate Distress, Normal HEENT: Normal ENT Inspection, Pharynx Normal, TMs Normal Neck: Full Range of Motion, Non-Tender, Normal, Normal Inspection Respiratory: Chest Non-Tender, Lungs Clear, No Accessory Muscle Use, No Respiratory Distress, Normal Breath Sounds Cardiovascular: No Edema, No JVD, No Murmur, No Gallop, Normal Peripheral Pulses, Regular Rate/Rhythm Breast Exam: Deferred Gastrointestinal: No Organomegaly, Non Tender, No Pulsatile Mass, Normal Bowel Sounds, Soft Genitalia: Deferred Pelvic: Deferred Rectal: Deferred Extremities: No calf tenderness, Normal capillary refill, Normal inspection, Normal range of motion, Non-tender, No pedal edema Musculoskeletal : Apperance: Normal Neurologic: Alert, pattern developer II-XII nml as Tested, No Motor Deficits, Normal Affect, Normal Mood, No Sensory Deficits Cerebellar Function: Normal Reflexes: Normal Skin: Dry, Normal Color, Warm Peripheral Pulses: 3+ Radial (R), 3+ Radial (L) Lymphatic: No Adenopathy Was a procedure done? Was a procedure done?: No Differential Diagnosis Kidney stone (Female): Musculoskeletal pain, Urinary obstruction, Urolithiasis X-Ray, Labs, Meds, VS Vital Signs Date Time Temp Pulse Resp B/P (MAP) Pulse Ox O2 Delivery O2 Flow Rate FiO2 08/29/24 10:08 80 14 125/89 08/29/24 09:25 80 18 125/89 08/29/24 08:29 98.4 16 98 128/68 (88) 98 98.4 08/29/24 08:29 98 08/29/24 08:20 98.4 98 16 128/68 (88) 98 98.4 Lab Test 08/29/24 09:12 08/29/24 08:41 Range/Units White Blood Count 9.3 4.4-10.8 10^3/uL Red Blood Count 4.44 4.0-5.20 10^6/uL Hemoglobin 12.1 L 12.2-16.2 g/dL Hematocrit 38.2 36.0-46.0 % Mean Corpuscular Volume 86.1 80.0-100.0 fL Mean Corpuscular Hemoglobin 27.3 L 28.0-32.0 pg Mean Corpuscular Hemoglobin Concent 31.8 L 32.0-36.0 g/dL Red Cell Distribution Width 14.8 H 11.8-14.3 % Platelet Count 299 140-450 10^3/uL Mean Platelet Volume 9.0 6.9-10.8 fL Neutrophils (%) (Auto) 77.6 37.0-80.0 % Lymphocytes (%) (Auto) 14.9 10.0-50.0 % Monocytes (%) (Auto) 5.8 0.0-12.0 % Eosinophils (%) (Auto) 1.3 0.0-7.0 % Basophils (%) (Auto) 0.4 0.0-2.0 % Neutrophils # (Auto) 7.2 1.6-8.6 10 ^3/uL Lymphocytes # (Auto) 1.4 0.4-5.4 10 ^3/uL Monocytes # (Auto) 0.5 0-1.3 10 ^3/uL Eosinophils # (Auto) 0.1 0-0.8 10 ^3/uL Basophils # (Auto) 0 0-0.2 10 ^3/uL Nucleated Red Blood Cells 0.0 % Urine Color Light-yellow Yellow Urine Clarity Turbid H Clear Urine pH 5.5 5.0-9.0 Urine Specific [place] 1.020 1.001-1.035 Urine Protein Negative Negative Urine Ketones Negative Negative Urine Blood 1+ H Negative /uL Urine Nitrite Negative Negative Urine Bilirubin Negative Negative Urine Urobilinogen Normal Negative mg/dL Urine Leukocyte Esterase 1+ Negative /uL Urine RBC 11 0 - 4 /hpf Urine Microscopic WBC 6 H 0-5 /HPF Urine Squamous Epithelial Cells Mod <5 /hpf Urine Bacteria Few H None Seen /hpf Urine Mucus Few None Seen Urine Glucose Normal Normal mg/dL Current Medications Medications (Trade) Dose Ordered Sig/Miguel Route Start Time Stop Time Status Last Admin Ondansetron HCl (Zofran) 4 mg ONCE ONCE IV 08/29/24 08:45 08/29/24 09:26 DC 08/29/24 09:23 Sodium Chloride 1,000 ml @ 1,000 mls/hr Q1H ONCE IVB 08/29/24 08:45 08/29/24 09:26 DC 08/29/24 09:24 Morphine Sulfate 4 mg ONCE ONCE IV 08/29/24 08:45 08/29/24 09:26 DC 08/29/24 09:25 Famotidine (Pepcid Tablet) 20 mg ONCE ONCE PO 08/29/24 09:45 08/29/24 09:46 DC 08/29/24 09:47 Patient alert. No sign of distress. Vitals stable. Answering questions. Pristine physical examination. No new symptoms. Was seen at [facility] few days ago. She lost a prescription for possible urinary tract infection. Possible dehydration. She was given pain medication. Establish intravenous access. Was given fluids. Reviewed her previous visit. UA shows UTI. Was given prescription of Macrobid antibiotic. Explained to the patient. Was told to follow up with her primary care physician. Was told to come back if there is any problem. Time of 1ST Reevaluation: 09:40 Reevaluation 1ST: Improved Patient Education/Counseling: Diagnosis, Treatment, Prognosis Family Education/Counseling: No Family Present SEPSIS Sepsis Screen Date sepsis recognized/suspect: Aug 29, 2024 Time Sepsis recognized/suspect: 0816 Recent Procedure: No On Antibiotic Therapy: No Respiratory Rate >20: No Heart Rate >90: No Temp<36 C (96.8 F) or >38.3 C: No SBP <90 or MAP <65 mmHG: No New Acute Mental Status Change: No Is the patient on CPAP, BIPAP,: No Vital Signs Date Time Temp Pulse Resp B/P (MAP) Pulse Ox O2 Delivery O2 Flow Rate FiO2 08/29/24 10:08 80 14 125/89 08/29/24 09:25 80 18 125/89 08/29/24 08:29 98.4 16 98 128/68 (88) 98 98.4 08/29/24 08:29 98 08/29/24 08:20 98.4 98 16 128/68 (88) 98 98.4 Laboratory Tests Test 08/29/24 09:12 White Blood Count 9.3 10^3/uL (4.4-10.8) Medications Medications Dose Ordered Sig/Miguel Route Start Time Stop Time Status Last Admin Dose Admin Famotidine 20 mg ONCE ONCE PO 08/29/24 09:45 08/29/24 09:46 DC 08/29/24 09:47 Morphine Sulfate 4 mg ONCE ONCE IV 08/29/24 08:45 08/29/24 09:26 DC 08/29/24 09:25 Ondansetron HCl 4 mg ONCE ONCE IV 08/29/24 08:45 08/29/24 09:26 DC 08/29/24 09:23 Sodium Chloride 1,000 ml @ 1,000 mls/hr Q1H ONCE IVB 08/29/24 08:45 08/29/24 09:26 DC 08/29/24 09:24 Departure 1 Departure Time of Disposition: 09:39 Impression: Primary Impression: Dehydration Additional Impression: UTI (urinary tract infection) Qualified Codes: N30.01 - Acute cystitis with hematuria Disposition: HOME / SELF CARE / HOMELESS Condition: Good e-Prescriptions Nitrofurantoin Monohydrate Mac (Macrobid) 100 Mg Cap 100 MG PO BID for 10 Days, #10 CAP Prov: BRIAN CELESTIN MD 08/29/24 Discharged With: Self Critical Care Note Critical Care Time?: No Stability Stability form required: No Heart Score Heart Score: Heart Score Response (Comments) Value History N/A 0 EKG N/A 0 Age N/A 0 Risk Factors N/A 0 Troponin N/A 0 Total 0 I personally scribed for BRIAN CELESTIN MD ([email or web address]) on 08/29/24 at 09:28. Electronically submitted by Sultana Villela ([email or web address]). BRIAN CELESTIN MD Aug 29, 2024 09:28
[2024-08-29 09:37] LABS: Urine Protein, UAD Negative (Negative)
[2024-08-29] MEDS: FAMOTIDINE 20 MG TAB PO ONE (09:47)
[2024-08-29 09:58] LABS: Hematocrit 38.2 % (36.0-46.0); Hemoglobin 12.1 g/dL (12.2-16.2); Mean Corpuscular Hemoglobin 27.3 pg (28.0-32.0); Mean Corpuscular Volume 86.1 fL (80.0-100.0); Nucleated Red Blood Cells % 0.0 %
[2024-08-29] MEDS ORDERED: NITR-87 PO (10:37)
[2024-08-29 11:01] VITALS: BP 127/66; PULSE 78; RESP 16; TEMP 97.7; O2SAT 98
== END 2024-08-29 11:03 | disposition home or self-care (01) ==
LOC: ER 08:16
DX: N39.0 Urinary tract infection, site not specified (principal); E86.0 Dehydration; Z87.440 Personal history of urinary (tract) infections; Z88.1 Allergy status to other antibiotic agents; Z79.899 Other long term (current) drug therapy
CPT/HCPCS: 36415; 81001; 85025; 96361; 96374; 96375; 99284; J2270; J2405; J7030

== ENCOUNTER 2024-09-06 01:34 | Emergency (ER) | payer MEDICAID ==
[~2024-09-06] VITALS: Ht 157.5 cm; Wt 91.9 kg
[~2024-09-06 01:34] MED LIST changes: +NITR-87 PO
--- NOTE | 2024-09-06 02:10 | ED.PDOC ---
History of Present Illness(SKN HPI Comments 64 y/o F presents with c/c left thigh pain and swelling s/p insect bite. Patient reports on developing symptoms after being bitten by an ant at around 1200, yesterday. Denies any numbness, tingling, or further associated symptoms. Patient also complaining of bilateral ankle swelling notes history of in termittent ankle swelling in his requesting "a water pill". She denies chest pain, difficulty breathing, shortness of breath, fever or chills. Chief Complaint: Insect Bite Time Seen by MD: 02:00 Primary Care Provider: LAINE MONTEZ History of Present Illness: Nurses Notes, Medications, Allergies Allergies: Coded Allergies: Erythromycin (Verified Allergy, Unknown, 05/23/20) Tetracycline (Unverified Allergy, Unknown, 04/20/24) Tetracyclines & Related (Verified Allergy, Unknown, 05/23/20) SKIN RASH Home Meds Active Scripts Potassium Chloride (POTASSIUM CHLORIDE CR) 10 Meq Tb, 1 TAB PO DAILY for 7 Days, #7 TAB Prov:CLARE WALL 09/06/24 Furosemide (Lasix) 20 Mg Tb, 1 TAB PO DAILY for 7 Days, #7 TAB Prov:CLARE WALL 09/06/24 Nitrofurantoin Monohydrate Mac (Macrobid) 100 Mg Cap, 100 MG PO BID for 10 Days, #10 CAP Prov:BRIAN CELESTIN MD 08/29/24 Ibuprofen (Ibuprofen) 600 Mg Tab, 1 TAB PO TID PRN for 5 Days, #15 TAB Prov:BALJIT LEZAMA MD 04/20/24 Acetaminophen (Acetaminophen Er) 650 Mg Tab, 650 MG PO TIDPRN PRN for 5 Days, #15 TAB Prov:BALJIT LEZAMA MD 04/20/24 Oxycodone W/ Acetaminophen (Percocet 5/325MG) 1 Tab Tb, 1 TAB PO QID PRN for 5 Days, #20 TAB Prov:HEIDI BROUSSARD MD 03/25/24 Cephalexin (KEFLEX CAPSULE) 250 Mg Cp, 1 CAP PO QID for 3 Days, #28 CAP Prov:AMY CRENSHAW 03/25/24 Simethicone (Simethicone) 80 Mg Chw, 80 MG PO Q8HP PRN for 10 Days, #30 TAB.CHEW Prov:AMY CRENSHAW RESIDENT 03/25/24 Docusate Sodium (Docusate Sodium) 100 Mg Cap, 100 MG PO BIDPRN PRN for 30 Days, #60 CAP Prov:AMY CRENSHAW RESIDENT 03/25/24 Acetaminophen (Acetaminophen) 325 Mg Tab, 650 MG PO Q6HP PRN for 10 Days, #80 TAB Prov:AMY CRENSHAW RESIDENT 03/25/24 Hydroxyzine Hcl (Hydroxyzine Hcl) 25 Mg Tab, 1 TAB PO TID, #20 TAB Prov:OCTAVIO MOODY PAC 03/12/24 Levofloxacin Hemihydrate (LEVAQUIN 500 MG) 500 Mg Tab, 500 MG PO DAILY for 7 Days, #7 TAB Prov:BROOKLYNN YOUNG MD 02/17/24 Reported Medications Hydroxyzine Hcl (Hydroxyzine Hcl) 25 Mg Tab, 1 TAB PO TID 03/23/24 Methocarbamol (Methocarbamol) 500 Mg Tab, 1 TAB PO Q8H 03/23/24 Pantoprazole Sodium Sesquihydr (Pantoprazole Sodium) 40 Mg Tab, 1 TAB PO DAILY 03/23/24 Tamsulosin Hcl (Tamsulosin Hcl) 0.4 Mg Cap, 1 CAP PO DAILY 03/23/24 Information Source: Patient Mode of Arrival: Ambulatory Severity: Moderate Timing: Hours Duration: Since onset Prehospital treatment: None Location: Leg (left) Mechanism: Insect Developed: Other (swelling and pain) Occurence: Outdoors Object: None Condition of Object: None Retained Foreign Body: Unknown Wound Type: None Immunization Status of Animal: NA Tetanus: Unknown Associated Signs and Symptoms: None Past Medical History PAST MEDICAL HISTORY: Kidney Stones, UTI'S Surgical History: Denies all surgeries RESOURCE TEACHER History: Denies all RESOURCE TEACHER Hx Family History Family History: Unknown Social History Smoker: Non-Smoker Alcohol: Denies ETOH Use Drugs: Denies Drug Use Lives In: Home All Other Systems: Reviewed and Negative (Comprehensive review of systems are negative unless stated in HPI) Physical Exam General Appearance: No Apparent Distress, Obese HEENT: Normal ENT Inspection, Pharynx Normal, TMs Normal Neck: Full Range of Motion, Non-Tender, Normal, Normal Inspection Respiratory: Chest Non-Tender, Lungs Clear, No Accessory Muscle Use, No Respiratory Distress, Normal Breath Sounds Cardiovascular: No Edema, No JVD, No Murmur, No Gallop, Normal Peripheral P ulses, Regular Rate/Rhythm Breast Exam: Deferred Gastrointestinal: No Organomegaly, Non Tender, No Pulsatile Mass, Normal Bowel Sounds, Soft Genitalia: Deferred Pelvic: Deferred Rectal: Deferred Extremities: Normal capillary refill, Normal range of motion, Pedal edema (Nonpitting edema bilateral ankles), Tender (left proximal, medial thigh) Musculoskeletal : Apperance: Normal Neurologic: Alert, mophead sewer II-XII nml as Tested, No Motor Deficits, Normal Affect, Normal Mood, No Sensory Deficits Cerebellar Function: Normal Reflexes: Normal Skin: Dry, Normal Color, Warm Lymphatic: No Adenopathy Was a procedure done? Was a procedure done?: No Differential Diagnosis (INTG) Differential Diagnosis: Insect Envenomation X-Ray, Labs, Meds, VS Vital Signs Date Time Temp Pulse Resp B/P (MAP) Pulse Ox O2 Delivery O2 Flow Rate FiO2 09/06/24 01:56 97.7 90 16 120/79 (93) 97 97.7 X-Ray, Labs, Meds, VS Comment Likely local Allergic response. Patient given Decadron 10 mg p.o., Toradol 60 mg IM, Pepcid 40 mg p.o. reports improvement in symptoms requesting discharge at this time.. Patient currently on Cipro 500 mg b.i.d. for UTI per PT. Advised to continue medications as prescribed. Trial of Lasix 20 mg once daily and potassium 10 mEq p.o. x7 days. Advised to use compression stockings elevate lower extremities. Monitor sodium intake. Advised to follow up with her PCP in 2-3 days. ER return precautions given patient indicates understanding and agrees with discharge plan of care. Time of 1ST Reevaluation: 02:00 Reevaluation 1ST: Unchanged Time of 2ND Reevaluation: 02:16 Reevaluation 2ND: Improved Patient Education/Counseling: Diagnosis, Treatment, Need For Follow Up Family Education/Counseling: No Family Present SEPSIS Sepsis Screen Date sepsis recognized/suspect: Sep 06, 2024 Time Sepsis recognized/suspect: 015 Recent Procedure: No On Antibiotic Therapy: No Respiratory Rate >20: No Heart Rate >90: No Temp<36 C (96.8 F) or >38.3 C: No SBP <90 or MAP <65 mmHG: No New Acute Mental Status Change: No Is the patient on CPAP, BIPAP,: No Vital Signs Date Time Temp Pulse Resp B/P (MAP) Pulse Ox O2 Delivery O2 Flow Rate FiO2 09/06/24 01:56 97.7 90 16 120/79 (93) 97 97.7 Departure 1 Departure Time of Disposition: 02:15 Impression: Primary Impression: Ant sting Additional Impression: Bilateral lower extremity edema Disposition: 01 HOME / SELF CARE / HOMELESS Condition: Stable e-Prescriptions Potassium Chloride (POTASSIUM CHLORIDE CR) 10 Meq Tb 1 TAB PO DAILY for 7 Days, #7 TAB Prov: CLARE WALL 09/06/24 Furosemide (Lasix) 20 Mg Tb 1 TAB PO DAILY for 7 Days, #7 TAB Prov: CLARE WALL 09/06/24 Discharged With: Self Critical Care Note Critical Care Time?: No Stability Stability form required: No Heart Score Heart Score: Heart Score Response (Comments) Value History N/A 0 EKG N/A 0 Age N/A 0 Risk Factors N/A 0 Troponin N/A 0 Total 0 I personally scribed for ER ([email or web address]) on 09/06/24 at 02:10. Electronically submitted by Theodore Arshad ([email or web address]). ER Sep 06, 2024 02:10 CLARE WALL [facility] Sep 06, 2024 02:17
[2024-09-06] MEDS ORDERED: POTA-36 PO (04:57)
[2024-09-06] MEDS ORDERED: FURO1TAB33 PO (04:57)
[2024-09-06] MEDS: FAMOTIDINE 20 MG TAB PO ONE (05:00)
[2024-09-06] MEDS: KETOROLAC TROMETH 60MG/2ML VIAL IM ONE (05:00)
[2024-09-06 05:17] VITALS: BP 104/65; PULSE 84; RESP 17; TEMP 98.2; O2SAT 97
== END 2024-09-06 05:17 | disposition home or self-care (01) ==
LOC: ER 01:34
DX: R22.43 Localized swelling, mass and lump, lower limb, bilateral (principal); Z88.1 Allergy status to other antibiotic agents; Z79.899 Other long term (current) drug therapy; W57.XXXA Bitten or stung by nonvenomous insect and other nonvenomous arthropods, initial encounter; Y93.89 Activity, other specified; Y92.89 Other specified places as the place of occurrence of the external cause; Y99.8 Other external cause status
CPT/HCPCS: 96372; 99283; J1100; J1885

== ENCOUNTER 2024-09-22 08:16 | Emergency (ER) | payer MEDICAID ==
[~2024-09-22] VITALS: Ht 157.5 cm; Wt 89.0 kg
[2024-09-22 08:17] VITALS: BP 111/81; PULSE 91; RESP 15; TEMP 98; O2SAT 98
--- NOTE | 2024-09-22 08:50 | ED.PDOC ---
General HPI Comments A 64 YEAR OLD FEMALE PRESENTS TO THE ED WITH COMPLAINT OF UTI SYMPTOMS AND HEMATURIA. PATIENT STATES THAT SHE HAS A CONSISTENT UTI AND FINISHED CIPRO ON FRIDAY. PATIENT STATES THAT THERE IS BLOOD PRESENT WHEN SHE WIPES AFTER USING THE RESTROOM. ALSO, PT C/O LEFT GREAT TOE REDNESS AND MILD SWELLING DUE TO HX OF INGROWN TOENAIL. PATIENT DENIES FEVER, CHILLS, SHORTNESS OF BREATH, CHEST PAIN, ABDOMINAL PAIN, NAUSEA, VOMITING, HEADACHE, OR OTHER COMPLAINTS. NO OTHER SYMPTOMS OR MODIFYING FACTORS AT THIS TIME. PATIENT IS ALERT, ORIENTED X 4, AND HAS STEADY GAIT. Chief Complaint: Urinary Time Seen by MD: 08:40 Primary Care Provider: LAINE MONTEZ Reviewed notes: Nurses Notes, Medications, Allergies Allergies: Coded Allergies: Erythromycin (Verified Allergy, Unknown, 05/23/20) Tetracycline (Unverified Allergy, Unknown, 04/20/24) Tetracyclines & Related (Verified Allergy, Unknown, 05/23/20) SKIN [facility]ASH Home Meds Active Scripts Sulfamethoxazole W/Trimethopri (Bactrim Ds Tablet) 1 Tab Tb, 1 TAB PO BID for 10 Days, #20 TAB Prov:LO CROSS 09/22/24 Nitrofurantoin Monohydrate Mac (Macrobid) 100 Mg Cap, 100 MG PO BID for 10 Days, #10 CAP Prov:BRIAN CELESTIN MD 08/29/24 Ibuprofen (Ibuprofen) 600 Mg Tab, 1 TAB PO TID PRN for 5 Days, #15 TAB Prov:BALJIT LEZAMA MD 04/20/24 Acetaminophen (Acetaminophen Er) 650 Mg Tab, 650 MG PO TIDPRN PRN for 5 Days, #15 TAB Prov:BALJIT LEZAMA MD 04/20/24 Oxycodone W/ Acetaminophen (Percocet 5/325MG) 1 Tab Tb, 1 TAB PO QID PRN for 5 Days, #20 TAB Prov:HEIDI BROUSSARD MD 03/25/24 Cephalexin (KEFLEX CAPSULE) 250 Mg Cp, 1 CAP PO QID for 3 Days, #28 CAP Prov:AMY CRENSHAW 03/25/24 Simethicone (Simethicone) 80 Mg Chw, 80 MG PO Q8HP PRN for 10 Days, #30 TAB.CHEW Prov:AMY CRENSHAW RESIDENT 03/25/24 Docusate Sodium (Docusate Sodium) 100 Mg Cap, 100 MG PO BIDPRN PRN for 30 Days, #60 CAP Prov:AMY CRENSHAW RESIDENT 03/25/24 Acetaminophen (Acetaminophen) 325 Mg Tab, 650 MG PO Q6HP PRN for 10 Days, #80 TAB Prov:AMY CRENSHAW RESIDENT 03/25/24 Hydroxyzine Hcl (Hydroxyzine Hcl) 25 Mg Tab, 1 TAB PO TID, #20 TAB Prov:OCTAVIO MOODY PAC 03/12/24 Levofloxacin Hemihydrate (LEVAQUIN 500 MG) 500 Mg Tab, 500 MG PO DAILY for 7 Days, #7 TAB Prov:BROOKLYNN YOUNG MD 02/17/24 Reported Medications Hydroxyzine Hcl (Hydroxyzine Hcl) 25 Mg Tab, 1 TAB PO TID 03/23/24 Methocarbamol (Methocarbamol) 500 Mg Tab, 1 TAB PO Q8H 03/23/24 Pantoprazole Sodium Sesquihydr (Pantoprazole Sodium) 40 Mg Tab, 1 TAB PO DAILY 03/23/24 Tamsulosin Hcl (Tamsulosin Hcl) 0.4 Mg Cap, 1 CAP PO DAILY 03/23/24 Information Source: Patient Mode of Arrival: Ambulatory Severity: Moderate Inability to void: None Timing: Days Duration: Since onset, Days Prehospital treatment: None Onset: Spontaneous Symptoms: Dysuria, Hematuria History of: UTI, Kidney stone Location: None Modifying factors: None associated signs and symptoms: Dysuria, Hematuria Past Medical History PAST MEDICAL HISTORY: Kidney Stones, UTI'S Surgical History: Denies all surgeries [employer] History: Denies all [employer] Hx Family History Family History: Unknown Social History Smoker: Non-Smoker Alcohol: Denies ETOH Use Drugs: Denies Drug Use Lives In: Home Constitutional: denies: chills, diaphoresis, fatigue, fever, malaise, sweats, weakness, others EENTM: denies: blurred vision, double vision, ear bleeding, ear discharge, ear drainage, ear pain, ear ringing, eye pain, eye redness, hearing loss, mouth pain, mouth swelling, nasal discharge, nose bleeding, nose congestion, nose pain, photophobia, tearing, throat pain, throat swelling, voice changes, others Respiratory: denies: cough, hemoptysis, orthopnea, SOB at rest, shortness of breath, SOB with excertion, stridor, wheezing, others Cardiovascular: denies: chest pain, dizzy spells, diaphoresis, Dyspnea on exertion, edema, irregular heart beat, left arm pain, lightheadedness, palpitations, PND, syncope, others Gastrointestinal: denies: abdomen distended, abdominal pain, blood streaked bowels, constipated, diarrhea, dysphagia, difficulty swallowing, hematemesis, melena, nausea, poor appetite, poor fluid intake, rectal bleeding, rectal pain, vomiting, others Genitourinary: reports: burning, dysuria, hematuria; denies: abnormal vagina bleeding, dyspareunia, flank pain, frequency, incontinence, pain, , vagina discharge, urgency, others Neurological: denies: dizziness, fainting, headache, left sided numbness, left sided weakness, numbness, paresthesia, pre-existing deficit, right sided numbness, right sided weakness, seizure, speech problems, tingling, tremors, weakness, others Musculoskeletal: denies: back pain, gout, joint pain, joint swelling, muscle pain, muscle stiffness, neck pain, others Integumetry: reports: others (REDNESS AND MILD SWELLING ON LEFT GREAT TOENAIL. ); denies: bruises, change in color, change in hair/nails, dryness, laceration, lesions, lumps, rash, wounds Allergic/Immunocompromised: denies: Difficulty Healing, Frequent Infections, Hives, Itching, others Hematologic/Lymphatic: denies: anemia, blood clots, easy bleeding, easy bruising, swollen glands, others Endocrine: denies: excessive hunger, excessive sweating, excessive thirst, excessive urination, flushing, intolerance to cold, intolerance to heat, unexplained weight gain, unexplained weight loss, others Psychiatric: denies: anxiety, bipolar disorder, depression, hopeless, panic disorder, schizophrenia, sleepless, suicidal, others All Other Systems: Reviewed and Negative Physical Exam General Appearance: No Apparent Distress, Obese HEENT: Normal ENT Inspection, PERRL/EOMI, Pharynx Normal, TMs Normal Neck: Full Range of Motion, Non-Tender, Normal, Normal Inspection Respiratory: Chest Non-Tender, Lungs Clear, No Accessory Muscle Use, No Respiratory Distress, Normal Breath Sounds Cardiovascular: No Edema, No JVD, No Murmur, No Gallop, Normal Peripheral Pulses, Regular Rate/Rhythm Breast Exam: Deferred Gastrointestinal: No Organomegaly, Non Tender, No Pulsatile Mass, Normal Bowel Sounds, Soft Genitalia: Deferred Pelvic: Deferred Rectal: Deferred Extremities: No calf tenderness, Normal capillary refill, Normal range of motion, No pedal edema, Tender (AND REDNESS ON LEFT GREAT TOENAIL, NO OPEN WOUND SEEN, +INGROWN TOENAIL. ) Musculoskeletal : Apperance: Normal Neurologic: Alert, editor house organ II-XII nml as Tested, No Motor Deficits, Normal Affect, Normal Mood, No Sensory Deficits Cerebellar Function: Normal Reflexes: Normal Skin: Dry, Normal Color, Warm Peripheral Pulses: 2+ carotid (R), 2+ carotid (L), 2+ dorsalis pedis (R), 2+ dorsalis pedis (L) Lymphatic: No Adenopathy Was a procedure done? Was a procedure done?: No Differential Diagnosis Kidney stone (Female): Pyelonephritis, Strain, Urolithiasis Urinary Problem (Female): Pyelonephritis, Urolithiasis, UTI, Vaginitis X-Ray, Labs, Meds, VS Vital Signs Date Time Temp Pulse Resp B/P (MAP) Pulse Ox O2 Delivery O2 Flow Rate FiO2 09/22/24 08:17 98.0 91 15 111/81 98 98.0 Lab Test 09/22/24 09:32 Range/Units Urine Color Light-yellow Yellow Urine Clarity Turbid H Clear Urine pH 5.0 5.0-9.0 Urine Specific [place] 1.023 1.001-1.035 Urine Protein Negative Negative Urine Ketones Negative Negative Urine Blood 3+ H Negative /uL Urine Nitrite Negative Negative Urine Bilirubin Negative Negative Urine Urobilinogen Normal Negative mg/dL Urine Leukocyte Esterase Negative Negative /uL Urine RBC None seen 0 - 4 /hpf Urine Microscopic WBC < 1 0-5 /HPF Urine Squamous Epithelial Cells None seen <5 /hpf Urine Bacteria None seen None Seen /hpf Urine Glucose Normal Normal mg/dL Current Medications Medications (Trade) Dose Ordered Sig/Miguel Route Start Time Stop Time Status Last Admin Ketorolac Tromethamine (Toradol Injection) 60 mg ONCE ONCE IM 09/22/24 09:15 09/22/24 09:16 DC 09/22/24 09:34 X-Ray, Labs, Meds, VS Comment EXTERNAL MEDICAL RECORDS REVIEWED: [NONE] INDEPENDENT HISTORIANS: [NONE] SOCIAL DETERMINANTS OF HEALTH: [NONE] LABS ORDERED: NONE REVIEWED AND INTERPRETED RESULTS: NONE IMAGING ORDERED: NONE TREATMENTS ORDERED: TORADOL 60MG PROCEDURES PERFORMED: NONE CRITICAL CARE TIME: NONE I HAVE DISCUSSED THE PATIENT WITH THE ATTENDING PHYSICIAN DR. TOPETE AND HE AGREES WITH THE PATIENT'S PLAN OF CARE AND DISPOSITION. BASED ON HISTORY OF PRESENT ILLNESS, AND PHYSICAL EXAM, PATIENT WILL BE DISCHARG ED HOME. DISCUSSED PLAN FOR DISCHARGE HOME WITH RX [[facility] DS]. MEDICATION WARNINGS GIVEN. SHARED DECISION MAKING: DISCUSSED WITH PATIENT THAT THEIR WORKUP WAS NORMAL. PATIENT INSTRUCTED TO FOLLOW UP WITH PRIMARY CARE PROVIDER IN 1-2 DAYS FOR RE-EVALUATION OF SYMPTOMS. PATIENT VERBALIZES UNDERSTANDING TO RETURN TO ED FOR NEW OR WORSENING SYMPTOMS OR IF FOLLOW UP WITH PCP CANNOT BE OBTAINED. PATIENT FEELS COMFORTABLE GOING HOME AT THIS TIME. ALL QUESTIONS ADDRESSED AT TIME OF DISCHARGE. Time of 1ST Reevaluation: 09:10 Reevaluation 1ST: Improved Patient Education/Counseling: Diagnosis, Treatment, Need For Follow Up Family Education/Counseling: Diagnosis, Treatment, Need For Follow Up Medical Screening: No EMC Exist At This Time SEPSIS Sepsis Screen Date sepsis recognized/suspect: Sep 22, 2024 Time Sepsis recognized/suspect: 819 Recent Procedure: No On Antibiotic Therapy: No Respiratory Rate >20: No Heart Rate >90: No Temp<36 C (96.8 F) or >38.3 C: No SBP <90 or MAP <65 mmHG: No New Acute Mental Status Change: No Is the patient on CPAP, BIPAP,: No Vital Signs Date Time Temp Pulse Resp B/P (MAP) Pulse Ox O2 Delivery O2 Flow Rate FiO2 09/22/24 08:17 98.0 91 15 111/81 98 98.0 Medications Medications Dose Ordered Sig/Miguel Route Start Time Stop Time Status Last Admin Dose Admin Ketorolac Tromethamine 60 mg ONCE ONCE IM 09/22/24 09:15 09/22/24 09:16 DC 09/22/24 09:34 Departure 1 Departure Time of Disposition: 10:16 Impression: Primary Impression: Symptoms of urinary tract infection Additional Impression: Ingrown left greater toenail Disposition: 01 HOME / SELF CARE / HOMELESS Condition: Stable Additional Instructions: FOLLOW-UP WITH PCP IN 1 TO 2 DAYS. TAKE MEDICATIONS PRESCRIBED. RETURN TO ED FOR ANY NEW OR WORSENING SYMPTOMS. e-Prescriptions Sulfamethoxazole W/Trimethopri (Bactrim Ds Tablet) 1 Tab Tb 1 TAB PO BID for 10 Days, #20 TAB Prov: LO CROSS 09/22/24 Discharged With: Self Critical Care Note Critical Care Time?: No Stability Stability form required: No Heart Score Heart Score: Heart Score Response (Comments) Value History N/A 0 EKG N/A 0 Age N/A 0 Risk Factors N/A 0 Troponin N/A 0 Total 0 I personally scribed for LO CROSS ([email or web address]) on 09/22/24 at 08:50. Electronically submitted by Homer Aden ([email or web address]). LO CROSS Sep 22, 2024 08:50
[2024-09-22] MEDS: KETOROLAC TROMETH 60MG/2ML VIAL IM ONE (09:34)
[2024-09-22 09:51] LABS: Urine Protein, UAD Negative (Negative)
[2024-09-22] MEDS ORDERED: BACDST PO (10:14)
== END 2024-09-22 10:22 | disposition home or self-care (01) ==
LOC: ER 08:16
DX: N39.0 Urinary tract infection, site not specified (principal); L60.0 Ingrowing nail; Z88.1 Allergy status to other antibiotic agents; Z87.440 Personal history of urinary (tract) infections; Z79.899 Other long term (current) drug therapy
CPT/HCPCS: 81001; 96372; 99283; J1885

== ENCOUNTER 2024-09-24 18:27 | Inpatient (IN) | payer MEDICAID ==
[~2024-09-24] VITALS: Ht 157.5 cm; Wt 91.2 kg
[~2024-09-24 18:27] MED LIST changes: +BACDST PO
--- NOTE | 2024-09-24 18:46 | ED.PDOC ---
History of Present Illness HPI Comments 64-year-old female with a history of UTIs, kidney stones, diverticular disease brought in by EMS from home complaining of diffuse abdominal pain, generalized weakness, diarrhea, nausea and vomiting for the past 2 days, associated with fever and a syncopal episode yesterday. She denies any dysuria. Patient was seen here 09/22/24, diagnosed with UTI and was prescribed Bactrim. Patient states she has not started taking the Bactrim. Chief Complaint: General Weakness Time Seen by MD: 18:29 Primary Care Provider: LAINE MONTEZ Reviewed Notes: Nurses Notes, Medications, Allergies Allergies: Coded Allergies: Erythromycin (Verified Allergy, Unknown, 05/23/20) Tetracycline (Unverified Allergy, Unknown, 04/20/24) Tetracyclines & Related (Verified Allergy, Unknown, 05/23/20) SKIN RASH Home Meds Active Scripts Sulfamethoxazole W/Trimethopri (Bactrim Ds Tablet) 1 Tab Tb, 1 TAB PO BID for 10 Days, #20 TAB Prov:LO CROSS 09/22/24 Nitrofurantoin Monohydrate Mac (Macrobid) 100 Mg Cap, 100 MG PO BID for 10 Days, #10 CAP Prov:BRIAN CELESTIN MD 08/29/24 Ibuprofen (Ibuprofen) 600 Mg Tab, 1 TAB PO TID PRN for 5 Days, #15 TAB Prov:BALJIT LEZAMA MD 04/20/24 Acetaminophen (Acetaminophen Er) 650 Mg Tab, 650 MG PO TIDPRN PRN for 5 Days, #15 TAB Prov:BALJIT LEZAMA MD 04/20/24 Oxycodone W/ Acetaminophen (Percocet 5/325MG) 1 Tab Tb, 1 TAB PO QID PRN for 5 Days, #20 TAB Prov:HEIDI BROUSSARD MD 03/25/24 Cephalexin (KEFLEX CAPSULE) 250 Mg Cp, 1 CAP PO QID for 3 Days, #28 CAP Prov:AMY CRENSHAW 03/25/24 Simethicone (Simethicone) 80 Mg Chw, 80 MG PO Q8HP PRN for 10 Days, #30 TAB.CHEW Prov:AMY CRENSHAW 03/25/24 Docusate Sodium (Docusate Sodium) 100 Mg Cap, 100 MG PO BIDPRN PRN for 30 Days, #60 CAP Prov:FLOWERHERNANAMY RESIDENT 03/25/24 Acetaminophen (Acetaminophen) 325 Mg Tab, 650 MG PO Q6HP PRN for 10 Days, #80 TAB Prov:AMY CRENSHAW RESIDENT 03/25/24 Hydroxyzine Hcl (Hydroxyzine Hcl) 25 Mg Tab, 1 TAB PO TID, #20 TAB Prov:OCTAVIO MOODY PAC 03/12/24 Levofloxacin Hemihydrate (LEVAQUIN 500 MG) 500 Mg Tab, 500 MG PO DAILY for 7 Days, #7 TAB Prov:BROOKLYNN YOUNG MD 02/17/24 Reported Medications Hydroxyzine Hcl (Hydroxyzine Hcl) 25 Mg Tab, 1 TAB PO TID 03/23/24 Methocarbamol (Methocarbamol) 500 Mg Tab, 1 TAB PO Q8H 03/23/24 Pantoprazole Sodium Sesquihydr (Pantoprazole Sodium) 40 Mg Tab, 1 TAB PO DAILY 03/23/24 Tamsulosin Hcl (Tamsulosin Hcl) 0.4 Mg Cap, 1 CAP PO DAILY 03/23/24 Information Source: Patient, Emergency Med Personnel Mode of Arrival: EMS Severity: Moderate Timing: Days Duration: Since onset Prehospital treatment: 12 Lead EKG, Accucheck, Electrical Logger Past Medical History PAST MEDICAL HISTORY: Kidney Stones, UTI'S Past Medical History (Other): Diverticular disease Surgical History (Other): Lithotripsy, C6-7 fusion [employer] History: No Pertinent [employer] History Family History Family History: Reviewed,noncontributory to illness Social History Smoker: Non-Smoker Alcohol: Denies ETOH Use Drugs: Denies Drug Use Lives In: Home All Other Systems: Reviewed and Negative (Comprehensive systems review obtained and negative except for what is stated in the HPI.) Physical Exam General Appearance: Moderate Distress, Obese HEENT: Other (Pupils and face symmetric. Moist mucous membranes.) Neck: Full Range of Motion, Normal Inspection Respiratory: Lungs Clear, No Accessory Muscle Use, No Respiratory Distress, Normal Breath Sounds Cardiovascular: No Edema, No JVD, Regular Rate/Rhythm Breast Exam: Deferred Gastrointestinal: Diffuse, Soft, Tenderness Genitalia: Deferred Pelvic: Deferred Rectal: Deferred Extremities: Normal inspection, Normal range of motion, Non-tender, No pedal edema Neurologic: Alert (Oriented x4), Normal Affect, Normal Mood, Other (No gross focal deficit) Cerebellar Function: NOT DONE Reflexes: NOT DONE Skin: Dry, Normal Color, Warm Lymphatic: NOT DONE Was a procedure done? Was a procedure done?: No EKG EKG : Comments Sinus rhythm, rate 87, normal intervals, normal axis, possible incomplete right bundle-branch block, no ST/T change. Differential Dx Considerations may include: UTI, sepsis, kidney stone, diverticulitis, colitis, enteritis, among others X-Ray, Labs, Meds, VS Vital Signs Date Time Temp Pulse Resp B/P (MAP) Pulse Ox O2 Delivery O2 Flow Rate FiO2 09/24/24 22:00 98.8 85 16 96/63 (74) 95 98.8 09/24/24 22:00 98.8 09/24/24 19:14 102.1 93 20 110/75 (87) 97 102.1 09/24/24 19:14 93 20 97 Room Air 09/24/24 19:11 93 19 110/75 09/24/24 18:51 102.2 09/24/24 18:32 102.2 86 20 109/63 98 102.2 Lab Test 09/24/24 20:21 09/24/24 20:11 09/24/24 19:15 Range/Units Urine Color Light-yellow Yellow Urine Clarity Clear Clear Urine pH 6.0 5.0-9.0 Urine Specific [place] 1.014 1.001-1.035 Urine Protein Negative Negative Urine Ketones Negative Negative Urine Blood 1+ H Negative /uL Urine Nitrite Negative Negative Urine Bilirubin Negative Negative Urine Urobilinogen Normal Negative mg/dL Urine Leukocyte Esterase Negative Negative /uL Urine RBC 15 0 - 4 /hpf Urine Microscopic WBC 1 0-5 /HPF Urine Squamous Epithelial Cells Few <5 /hpf Urine Bacteria Few H None Seen /hpf Urine Mucus Few None Seen Urine Glucose Normal Normal mg/dL Troponin I High Sensitivity < 3 L < 3 L </=34 ng/L White Blood Count 4.0 L 4.4-10.8 10^3/uL Red Blood Count 4.45 4.0-5.20 10^6/uL Hemoglobin 12.3 12.2-16.2 g/dL Hematocrit 37.4 36.0-46.0 % Mean Corpuscular Volume 84.0 80.0-100.0 fL Mean Corpuscular Hemoglobin 27.7 L 28.0-32.0 pg Mean Corpuscular Hemoglobin Concent 33.0 32.0-36.0 g/dL Red Cell Distribution Width 14.7 H 11.8-14.3 % Platelet Count 229 140-450 10^3/uL Mean Platelet Volume 8.8 6.9-10.8 fL Neutrophils (%) (Auto) 67.6 37.0-80.0 % Lymphocytes (%) (Auto) 18.6 10.0-50.0 % Monocytes (%) (Auto) 12.9 H 0.0-12.0 % Eosinophils (%) (Auto) 0.2 0.0-7.0 % Basophils (%) (Auto) 0.7 0.0-2.0 % Neutrophils # (Auto) 2.7 1.6-8.6 10 ^3/uL Lymphocytes # (Auto) 0.7 0.4-5.4 10 ^3/uL Monocytes # (Auto) 0.5 0-1.3 10 ^3/uL Eosinophils # (Auto) 0 0-0.8 10 ^3/uL Basophils # (Auto) 0 0-0.2 10 ^3/uL Nucleated Red Blood Cells 0.2 % Prothrombin Time 10.8 9.3-11.8 sec Prothrombin Time INR 1.02 0.9-1.15 Activated Partial Thromboplast Time 34.8 H 24.5-34.5 SEC Sodium Level 138 136-145 mmol/L Potassium Level 3.7 3.5-5.1 mmol/L Chloride Level 103 98-107 mmol/L Carbon Dioxide Level 27 20-31 mmol/L Anion Gap 8 5-15 Blood Urea Nitrogen 9 9-23 mg/dL Creatinine 0.76 0.550-1.02 mg/dL Glomerular Filtration Rate Calc 89 >90 mL/min BUN/Creatinine Ratio 11.8 10.0-20.0 Serum Glucose 88 74-106 mg/dL Lactic Acid Level 0.8 0.4-2.0 mmol/L Calcium Level 9.6 8.7-10.4 mg/dL Total Bilirubin 0.3 0.2-1.0 mg/dL Aspartate Amino Transferase (AST) 39 13-40 U/L Alanine Aminotransferase (ALT) 15 7-40 U/L Alkaline Phosphatase 122 H 46-116 U/L B-Type Natriuretic Peptide 29.55 0-100 pg/mL Total Protein 7.4 5.7-8.2 g/dL Albumin 4.5 3.2-4.8 g/dL Current Medications Medications (Trade) Dose Ordered Sig/Miguel Route Start Time Stop Time Status Last Admin Acetaminophen (Tylenol Tablet) 1,000 mg ONCE ONCE PO 09/24/24 18:45 09/24/24 18:46 DC 09/24/24 18:51 Morphine Sulfate 4 mg ONCE ONCE IV 09/24/24 18:45 09/24/24 18:46 DC 09/24/24 19:11 Ondansetron HCl (Zofran) 4 mg ONCE ONCE IV 09/24/24 18:45 09/24/24 18:46 DC 09/24/24 19:09 Lactated Ringer's 1,900 ml @ 1,900 mls/hr ONCE ONCE IV 09/24/24 19:30 09/24/24 20:29 DC 09/24/24 19:30 Cefepime HCl 50 ml @ 50 mls/hr ONCE ONCE IV 09/24/24 19:30 09/24/24 20:29 DC 09/24/24 19:41 PROCEDURE(s): CXRP - CHEST PORTABLE REASON: fever poss sepsis ORDER NUMBER(s): [id number], ACCESSION NUMBER(s): [id number] CHEST RADIOGRAPH REASON FOR EXAM: fever poss sepsis COMPARISON: XY CHEST XRAY 1 VIEW on DOS: 01/21/24, XY CHEST PORTABLE on DOS: 11/20/23 TECHNIQUE: One view of the chest is provided FINDINGS: The cardiomediastinal silhouette is within normal limits for technique. There is no focal airspace disease. There is no significant pleural effusion. No acute bony abnormality is identified. IMPRESSION: No radiographic evidence of acute cardiopulmonary process. EDURE(s): ABPL - CT AB PEL WO CON-NO ORAL OR IV REASON: diffuse abd pain, fever ORDER NUMBER(s): [id number], ACCESSION NUMBER(s): [id number] Exam: CT CT AB PEL WO CON-NO ORAL OR IV History: diffuse abd pain, fever Comparison Study: CT CT AB PEL WO CON-NO ORAL OR IV on DOS: 2/10/25, CT CT AB PEL WO CON-NO ORAL OR IV on DOS: 01/06/24, CT CT AB PEL WO CON-NO ORAL OR IV on DOS: 12/25/23 TECHNIQUE: Multidetector CT of the abdomen and pelvis without IV contrast. Axial, coronal and sagittal multiplanar reformats were obtained from the axial data set by the technologist. Radiation Dose Information: CT Dose: CTDI volume is 21.28 mGy. Dose-length product is 3.92 mGy*cm FINDINGS: Right basilar atelectasis. Partially visualized heart is unremarkable. Liver, spleen, gallbladder, pancreas and adrenal glands unremarkable. Nonobstructing right renal calculi measuring up to 0.6 cm. 1.9 cm left renal cyst. Otherwise, kidneys, ureters and urinary bladder unremarkable. Uterus and adnexa unremarkable. Mild gastric wall thickening which is most likely from inadequate distension. Mild wall thickening of proximal small bowel segment which may be due to inadequate distention. Submucosal fatty infiltration of the terminal ileum. The remainder of the small bowel loops unremarkable. Appendix is unremarkable. Scattered colonic diverticulosis without diverticulitis. Moderate to large amount of fecal material within the ascending and transverse colons with small to moderate amount of fecal material within the remainder of the colon. No evidence of intraperitoneal free air or free fluid. No evidence of aortic aneurysm. Right atherosclerotic calcification of the right internal iliac artery. No significant lymphadenopathy. Moderate size fat containing periumbilical hernia. Small fat containing umbilical hernia with additional small fat containing periumbilical hernia small bilateral Lateral abdominal and pelvic subcutaneous fatty edema. Cm hemangioma within the L3 vertebral body. Additional 0.8 cm hemangioma within the T12 vertebral body. No acute osseous abnormalities. Sclerotic focus of the right superior pubic ramus which may represent a bone island with a blastic lesion not excluded. 1.2 cm hemangioma within the S1 vertebral body. Mild diffuse demineralization. IMPRESSION: Mild wall thickening of the stomach and proximal small bowel which may be due to inadequate distention with mild gastroenteritis not excluded. Nonobstructing right renal lower pole calculi. Small left renal cyst. Submucosal fatty infiltration of the terminal ileum which may be associated with body habitus / chronic inflammatory bowel disease. Scattered colonic diverticulosis without diverticulitis. Additional findings as above. X-Ray, Labs, Meds, VS Comment 64-year-old female with a history of UTIs, kidney stones, diverticular disease brought in by EMS from home complaining of diffuse abdominal pain, generalized weakness, diarrhea, nausea and vomiting for the past 2 days, associated with fever and a syncopal episode yesterday. Vitals remarkable for temperature 102.2 Exam remarkable for diffuse abdominal tenderness to palpation Rhythm strip independently interpreted by me: Sinus rhythm, rate 87, no ectopy. CT abdomen and pelvis IMPRESSION: Mild wall thickening of the stomach and proximal small bowel which may be due to inadequate distention with mild gastroenteritis not excluded. Nonobstructing right renal lower pole calculi. Small left renal cyst. Submucosal fatty infiltration of the terminal ileum which may be associated with body habitus / chronic inflammatory bowel disease. Scattered colonic diverticulosis without diverticulitis. Additional findings as above. Chest x-ray unremarkable CBC remarkable for WBC 4, CMP unremarkable, lactate normal, troponin and BNP negative, UA positive for blood, RBCs and bacteria, possibly representing partially treated UTI Patient treated with the following in the ED: Cefepime 2 g IV, 30 cc/kilogram LR bolus, morphine 4 mg IV, Zofran 4 mg IV Re-evaluation, pain has improved. Vitals were stable. Plan is to admit the patient for IV antibiotics and pain control. Time of 1ST Reevaluation: 19:09 Reevaluation 1ST: Unchanged Patient Education/Counseling: Diagnosis, Treatment, Need For Follow Up Family Education/Counseling: No Family Present SEPSIS Sepsis Screen Physician Orders Chest Portable (09/24/24 18:39) Accucheck (09/24/24 18:39) Blood Culture (09/24/24 18:39) Notify Md If Map <65 Or Bp<90 (09/24/24 18:39) If Map<65 Start Vasopressor (09/24/24 18:39) Sepsis Reassesment After Fluid (09/24/24 19:39) Ct Ab Pel Wo Con-No Oral Or Iv (09/24/24 18:39) Electrocardigram (09/24/24 18:39) Saline Lock (09/24/24 18:51) Cefepime 1gm/ 50ml (Maxipime 1gm/50ml) (09/25/24 06:00) Vital Signs Date Time Temp Pulse Resp B/P (MAP) Pulse Ox O2 Delivery O2 Flow Rate FiO2 09/24/24 22:00 98.8 85 16 96/63 (74) 95 98.8 09/24/24 22:00 98.8 09/24/24 19:14 102.1 93 20 110/75 (87) 97 102.1 09/24/24 19:14 93 20 97 Room Air 09/24/24 19:11 93 19 110/75 09/24/24 18:51 102.2 09/24/24 18:32 102.2 86 20 109/63 98 102.2 Laboratory Tests Test 09/24/24 19:15 Lactic Acid Level 0.8 mmol/L (0.4-2.0) White Blood Count 4.0 10^3/uL (4.4-10.8) L Medications Medications Dose Ordered Sig/Miguel Route Start Time Stop Time Status Last Admin Dose Admin Acetaminophen 1,000 mg ONCE ONCE PO 09/24/24 18:45 09/24/24 18:46 DC 09/24/24 18:51 Cefepime HCl 50 ml @ 50 mls/hr ONCE ONCE IV 09/24/24 19:30 09/24/24 20:29 DC 09/24/24 19:41 Lactated Ringer's 1,900 ml @ 1,900 mls/hr ONCE ONCE IV 09/24/24 19:30 09/24/24 20:29 DC 09/24/24 19:30 Morphine Sulfate 4 mg ONCE ONCE IV 09/24/24 18:45 09/24/24 18:46 DC 09/24/24 19:11 Ondansetron HCl 4 mg ONCE ONCE IV 09/24/24 18:45 09/24/24 18:46 DC 09/24/24 19:09 Reassessment Post Fluid SEPSIS FOCUS EXAM(REASSESSMENT Sepsis reassessment focused exam completed. Date: 09/24/24 Time 21:17 Departure 1 Departure Time of Disposition: 21:18 Impression: Primary Impression: Abdominal pain Qualified Codes: R10.84 - Generalized abdominal pain Additional Impressions: Febrile illness UTI (urinary tract infection) Disposition: ADMITTED INPATIENT Admit to: Med Surg Condition: Guarded Critical Care Note Critical Care Time?: No Stability Stability form required: No Heart Score Heart Score: Heart Score Response (Comments) Value History N/A 0 EKG N/A 0 Age N/A 0 Risk Factors N/A 0 Troponin N/A 0 Total 0 I personally scribed for MINOO HEREDIA MD ([email or web address]) on 09/24/24 at 19:22. Electronically submitted by Theodore Arshad [email or web address]). MINOO HEREDIA MD Sep 24, 2024 18:46
[2024-09-24] MEDS: ACETAMINOPHEN 325 MG TAB PO ONE (18:51)
[2024-09-24] MEDS: ONDANSETRON HCL 4 MG/2 ML VIAL IV ONE (19:09)
[2024-09-24] MEDS: MORPHINE SULFATE 4 MG/ML SYR/VIAL IV ONE (19:11)
[2024-09-24] MEDS: LACTATED RINGER'S 1,900 ML IV ONE (19:30)
[2024-09-24 19:31] LABS: Hematocrit 37.4 % (36.0-46.0); Hemoglobin 12.3 g/dL (12.2-16.2); Mean Corpuscular Hemoglobin 27.7 pg (28.0-32.0); Mean Corpuscular Volume 84.0 fL (80.0-100.0); Nucleated Red Blood Cells % 0.2 %
[2024-09-24] MEDS: CEFEPIME 1GM/ 50ML 50 ML IV ONE (19:41)
[2024-09-24 19:43] LABS: Alanine Aminotransferase 15 U/L (7-40); Albumin 4.5 g/dL (3.2-4.8); Anion Gap 8 (5-15); BUN/Creatinine Ratio 11.8 (10.0-20.0); Calcium 9.6 mg/dL (8.7-10.4); Carbon Dioxide 27 mmol/L (20-31); Chloride 103 mmol/L (98-107); Glucose 88 mg/dL (74-106); Potassium 3.7 mmol/L (3.5-5.1); Sodium 138 mmol/L (136-145); Total Protein 7.4 g/dL (5.7-8.2)
[2024-09-24 19:44] LABS: Alkaline Phosphatase 122 U/L (46-116); Bilirubin, Total 0.3 mg/dL (0.2-1.0); Blood Urea Nitrogen 9 mg/dL (9-23)
[2024-09-24 19:45] LABS: INR 1.02 (0.9-1.15); Partial Thromboplastin Time 34.8 SEC (24.5-34.5); Prothrombin Time 10.8 sec (9.3-11.8)
[2024-09-24 20:42] LABS: Urine Protein, UAD Negative (Negative)
--- NOTE | 2024-09-24 20:55 | DVH ---
Exam: CT CT AB PEL WO CON-NO ORAL OR IV History: diffuse abd pain, fever Comparison Study: CT CT AB PEL WO CON-NO ORAL OR IV on DOS: 03/22/24, CT CT AB PEL WO CON-NO ORAL OR I V on DOS: 01/06/24, CT CT AB PEL WO CON-NO ORAL OR IV on DOS: 12/25/23 TECHNIQUE: Multidetector CT of the abdomen and pelvis without IV contrast. Axial, coronal and sagitta l multiplanar reformats were obtained from the axial data set by the technologist. Radiation Dose Information: CT Dose: CTDI volume is 21.28 mGy. Dose-length product is 3.92 mGy*cm FINDINGS: Right basilar atelectasis. Partially visualized heart is unremarkable. Liver, spleen, gallbladder, pancreas and adrenal glands unremarkable. Nonobstructing right renal calculi measuring up to 0.6 cm. 1.9 cm left renal cyst. Otherwise, kidneys , ureters and urinary bladder unremarkable. Uterus and adnexa unremarkable. Mild gastric wall thickening which is most likely from inadequate distension. Mild wall thickening of proximal small bowel segment which may be due to inadequate distention. Submucosal fatty infiltratio n of the terminal ileum. The remainder of the small bowel loops unremarkable. Appendix is unremarkab le. Scattered colonic diverticulosis without diverticulitis. Moderate to large amount of fecal materi al within the ascending and transverse colons with small to moderate amount of fecal material within the remainder of the colon. No evidence of intraperitoneal free air or free fluid. No evidence of aortic aneurysm. Right atherosclerotic calcification of the right internal iliac nargis ry. No significant lymphadenopathy. Moderate size fat containing periumbilical hernia. Small fat containing umbilical hernia with additio nal small fat containing periumbilical hernia small bilateral Lateral abdominal and pelvic subcutaneo us fatty edema. Cm hemangioma within the L3 vertebral body. Additional 0.8 cm hemangioma within the T 12 vertebral body. No acute osseous abnormalities. Sclerotic focus of the right superior pubic ramus which may represent a bone island with a blastic lesion not excluded. 1.2 cm hemangioma within the S1 vertebral body. Mild diffuse demineralization. IMPRESSION: Mild wall thickening of the stomach and proximal small bowel which may be due to inadequate distentio n with mild gastroenteritis not excluded. Nonobstructing right renal lower pole calculi. Small left renal cyst. Submucosal fatty infiltration of the terminal ileum which may be associated with body habitus / chron ic inflammatory bowel disease. Scattered colonic diverticulosis without diverticulitis. Additional findings as above.
--- NOTE | 2024-09-24 21:00 | DVH ---
CHEST RADIOGRAPH REASON FOR EXAM: fever poss sepsis COMPARISON: XY CHEST XRAY 1 VIEW on DOS: 01/21/24, XY CHEST PORTABLE on DOS: 11/20/23 TECHNIQUE: One view of the chest is provided FINDINGS: The cardiomediastinal silhouette is within normal limits for technique. There is no focal a irspace disease. There is no significant pleural effusion. No acute bony abnormality is identified. IMPRESSION: No radiographic evidence of acute cardiopulmonary process.
[2024-09-24] MEDS: SODIUM CHLORIDE 0.9% 1,000 ML IV SCH (23:45)
[2024-09-24] MEDS ORDERED: MORPHINE SULFATE INJ 2 MG/ml SYRG IV PRN (23:45)
[2024-09-24] MEDS ORDERED: NITROGLYCERIN 0.4 MG SL TAB SL PRN (23:45)
--- NOTE | 2024-09-24 23:52 | DVHHP2 ---
History of Present Illness Reason for Visit: Abdominal pain History of Present Illness The patient is a 64-year-old female with past medical history of kidney stones, UTIs, and diverticular disease presented to [facility] ED with complaint of diffuse abdominal pain. Patient reports symptoms progressively get worse with generalized weakness, nausea, vomiting, and diarrhea for the past 2 days, fever, and syncopal episode. Patient was seen here 09/22/24, diagnosed with UTI and was prescribed Bactrim. Patient was seen and evaluated in the ED, laboratory data shows WBC 4.0, platelets 229, sodium 138, potassium 3.7, BUN 9, creatinine 0.76, GFR 89, glucose 88, calcium 9.6, BNP 29.55, troponin 3, blood pressure 96/63, heart rate 85, temperature 102.2 F trending down to 98.8 F, O2 saturation 97% on room air. Abdomen/pelvis CT revealing mild wall thickening of the stomach and proximal small bowel which may be due to inadequate distention with mild gastro enteritis not excluded; nonobstructing right renal lower pole calculi, small left renal cysts; submucosal fatty infiltration of the terminal ileum which may be associated with body habitus/chronic inflammatory bowel dis ease. Please see medication orders section in the computer. On my assessment, patient denied chest pain, no dizziness, no headache, no shortness of breaths, no abdominal pain, nausea, vomiting, or diarrhea at this moment, no fever, no chills. Patient was admitted for further evaluation and medical management. Past Medical History Kidney Stones, UTI'S, Diverticular disease Past Surgical History Lithotripsy, C6-7 fusion Family History Reviewed, noncontributory to the management of this case. Past Social History The patient lives at home, denies smoking, alcohol or illicit drugs abuse. Review of Systems Constitutional: No: Fever, Chills, Sweats, Weakness, Malaise, Other Eyes: No: Pain, Vision change, Conjunctivae inflammation, Eyelid inflammation, Other, Redness ENT: No: Ear pain, Ear discharge, Nose pain, Nose discharge, Nose congestion, Mouth pain, Mouth swelling, Throat pain, Throat swelling, Other Respiratory: No: Cough, Dry, Shortness of breath, SOB with excertion, Wheezing, Hemoptysis, Pleuritic Pain, Sputum, Wheezing, Other Cardiovascular: No: Chest Pain, Palpitations, Orthopnea, Paroxysmal Noc. Dyspnea, Edema, Lt Headedness, Other Gastrointestinal: Nausea, Vomiting, Abdominal Pain, Diarrhea; No: Constipation, Melena, Hematochezia, Other Genitourinary: No Dysuria, No Frequency, No Incontinence, No Hematuria, No Re tention, No Other Musculoskeletal: No: other, neck pain, shoulder pain, arm pain, back pain, hand pain, leg pain, foot pain Skin: No: Rash, Lesions, Jaundice, Bruising, Other Neurological: No: Weakness, Numbness, Incoordination, Change in speech, Confusion, Seizures, Other Allergies: Coded Allergies: Erythromycin (Verified Allergy, Unknown, 05/23/20) Tetracycline (Unverified Allergy, Unknown, 04/20/24) Tetracyclines & Related (Verified Allergy, Unknown, 05/23/20) SKIN RASH Medications Current Medications Medications Dose Ordered Sig/Miguel Route Start Time Stop Time Status Last Admin Dose Admin Cefepime HCl 50 ml @ 12.5 mls/hr Q8HR IV 09/25/24 06:00 Exam Vital Signs Vital Signs Date Time Temp Pulse Resp B/P (MAP) Pulse Ox O2 Delivery O2 Flow Rate FiO2 09/24/24 22:00 98.8 85 16 96/63 (74) 95 98.8 09/24/24 19:14 Room Air General Appearance: Alert, Oriented X3, Cooperative, No acute distress HEENT: Atraumatic, PERRLA, EOMI, Mucous membr. moist/pink Respiratory: Clear to auscultation, Normal air movement Cardiovascular: Regular rate, Normal S1, Normal S2, No murmurs Abdominal: Normal bowel sounds, Soft, No hepatospenomegaly, No masses, Other (Reports tenderness) Extremities: No clubbing, No cyanosis, No edema, Normal pulses, No tenderness/swelling Skin: No rashes, No breakdown, No significant lesion Neuro: Normal gait, Normal speech, Strength at 5/5 X4 ext, Normal tone, Sensation intact, Cranial nerves 3-12 NL, Reflexes 2+ Psych/Mental Status: Mental status NL, Mood NL Labs/Xrays Labs Test 09/24/24 20:21 09/24/24 20:11 09/24/24 19:15 Range/Units Urine Color Light-yellow Yellow Urine Clarity Clear Clear Urine pH 6.0 5.0-9.0 Urine Specific [place] 1.014 1.001-1.035 Urine Protein Negative Negative Urine Ketones Negative Negative Urine Blood 1+ H Negative /uL Urine Nitrite Negative Negative Urine Bilirubin Negative Negative Urine Urobilinogen Normal Negative mg/dL Urine Leukocyte Esterase Negative Negative /uL Urine RBC 15 0 - 4 /hpf Urine Microscopic WBC 1 0-5 /HPF Urine Squamous Epithelial Cells Few <5 /hpf Urine Bacteria Few H None Seen /hpf Urine Mucus Few None Seen Urine Glucose Normal Normal mg/dL Troponin I High Sensitivity < 3 L </=34 ng/L White Blood Count 4.0 L 4.4-10.8 10^3/uL Red Blood Count 4.45 4.0-5.20 10^6/uL Hemoglobin 12.3 12.2-16.2 g/dL Hematocrit 37.4 36.0-46.0 % Mean Corpuscular Volume 84.0 80.0-100.0 fL Mean Corpuscular Hemoglobin 27.7 L 28.0-32.0 pg Mean Corpuscular Hemoglobin Concent 33.0 32.0-36.0 g/dL Red Cell Distribution Width 14.7 H 11.8-14.3 % Platelet Count 229 140-450 10^3/uL Mean Platelet Volume 8.8 6.9-10.8 fL Neutrophils (%) (Auto) 67.6 37.0-80.0 % Lymphocytes (%) (Auto) 18.6 10.0-50.0 % Monocytes (%) (Auto) 12.9 H 0.0-12.0 % Eosinophils (%) (Auto) 0.2 0.0-7.0 % Basophils (%) (Auto) 0.7 0.0-2.0 % Neutrophils # (Auto) 2.7 1.6-8.6 10 ^3/uL Lymphocytes # (Auto) 0.7 0.4-5.4 10 ^3/uL Monocytes # (Auto) 0.5 0-1.3 10 ^3/uL Eosinophils # (Auto) 0 0-0.8 10 ^3/uL Basophils # (Auto) 0 0-0.2 10 ^3/uL Nucleated Red Blood Cells 0.2 % Prothrombin Time 10.8 9.3-11.8 sec Prothrombin Time INR 1.02 0.9-1.15 Activated Partial Thromboplast Time 34.8 H 24.5-34.5 SEC Sodium Level 138 136-145 mmol/L Potassium Level 3.7 3.5-5.1 mmol/L Chloride Level 103 98-107 mmol/L Carbon Dioxide Level 27 20-31 mmol/L Anion Gap 8 5-15 Blood Urea Nitrogen 9 9-23 mg/dL Creatinine 0.76 0.550-1.02 mg/dL Glomerular Filtration Rate Calc 89 >90 mL/min BUN/Creatinine Ratio 11.8 10.0-20.0 Serum Glucose 88 74-106 mg/dL Lactic Acid Level 0.8 0.4-2.0 mmol/L Calcium Level 9.6 8.7-10.4 mg/dL Total Bilirubin 0.3 0.2-1.0 mg/dL Aspartate Amino Transferase (AST) 39 13-40 U/L Alanine Aminotransferase (ALT) 15 7-40 U/L Alkaline Phosphatase 122 H 46-116 U/L B-Type Natriuretic Peptide 29.55 0-100 pg/mL Total Protein 7.4 5.7-8.2 g/dL Albumin 4.5 3.2-4.8 g/dL PATIENT: DANIELA ST DACCT: [id number] UNIT: [id number] : 1960 LOC: ER ROOM / BED: / AGE / SEX: 64 / F ADM STATUS: REG ER SERVICE 38 ORDERING PHYSICIAN: MINOO HEREDIA MD PROCEDURE(s): ABPL - CT AB PEL WO CON-NO ORAL OR IV REASON: diffuse abd pain, fever ORDER NUMBER(s): [id number], ACCESSION NUMBER(s): [id number] Exam: CT CT AB PEL WO CON-NO ORAL OR IV History: diffuse abd pain, fever Comparison Study: CT CT AB PEL WO CON-NO ORAL OR IV on DOS: 03/22/24, CT CT AB PEL WO CON-NO ORAL OR IV on DOS: 01/06/24, CT CT AB PEL WO CON-NO ORAL OR IV on DOS: 12/25/23 TECHNIQUE: Multidetector CT of the abdomen and pelvis without IV contrast. Axial, coronal and sagittal multiplanar reformats were obtained from the axial data set by the technologist. Radiation Dose Information: CT Dose: CTDI volume is 21.28 mGy. Dose-length product is 3.92 mGy*cm FINDINGS: Right basilar atelectasis. Partially visualized heart is unremarkable. Liver, spleen, gallbladder, pancreas and adrenal glands unremarkable. Nonobstructing right renal calculi measuring up to 0.6 cm. 1.9 cm left renal cyst. Otherwise, kidneys, ureters and urinary bladder unremarkable. Uterus and adnexa unremarkable. Mild gastric wall thickening which is most likely from inadequate distension. Mild wall thickening of proximal small bowel segment which may be due to inadequate distention. Submucosal fatty infiltration of the terminal ileum. The remainder of the small bowel loops unremarkable. Appendix is unremarkable. Scattered colonic diverticulosis without diverticulitis. Moderate to large amount of fecal material within the ascending and transverse colons with small to moderate amount of fecal material within the remainder of the colon. No evidence of intraperitoneal free air or free fluid. No evidence of aortic aneurysm. Right atherosclerotic calcification of the right internal iliac artery. No significant lymphadenopathy. Moderate size fat containing periumbilical hernia. Small fat containing umbilical hernia with additional small fat containing periumbilical hernia small bilateral Lateral abdominal and pelvic subcutaneous fatty edema. Cm hemangioma within the L3 vertebral body. Additional 0.8 cm hemangioma within the T12 vertebral body. No acute osseous abnormalities. Sclerotic focus of the right superior pubic ramus which may represent a bone island with a blastic lesion not excluded. 1.2 cm hemangioma within the S1 vertebral body. Mild diffuse demineralization. IMPRESSION: Mild wall thickening of the stomach and proximal small bowel which may be due to inadequate distention with mild gastroenteritis not excluded. Nonobstructing right renal lower pole calculi. Small left renal cyst. Submucosal fatty infiltration of the terminal ileum which may be associated with body habitus / chronic inflammatory bowel disease. Scattered colonic diverticulosis without diverticulitis. Additional findings as above. ORDERING PHYSICIAN: MINOO HEREDIA MD PROCEDURE(s): CXRP - CHEST PORTABLE REASON: fever poss sepsis ORDER NUMBER(s): [id number], ACCESSION NUMBER(s): [id number] CHEST RADIOGRAPH REASON FOR EXAM: fever poss sepsis COMPARISON: XY CHEST XRAY 1 VIEW on DOS: 01/21/24, XY CHEST PORTABLE on DOS: 11/20/23 TECHNIQUE: One view of the chest is provided FINDINGS: The cardiomediastinal silhouette is within normal limits for technique. There is no focal airspace disease. There is no significant pleural effusion. No acute bony abnormality is identified. IMPRESSION: No radiographic evidence of acute cardiopulmonary process. SEPSIS Sepsis Screen Date sepsis recognized/suspect: Sep 24, 2024 Time Sepsis recognized/suspect: 1918 Recent Procedure: No On Antibiotic Therapy: No Respiratory Rate >20: No Heart Rate >90: Yes Temp<36 C (96.8 F) or >38.3 C: Yes SBP <90 or MAP <65 mmHG: No New Acute Mental Status Change: No Is the patient on CPAP, BIPAP,: No Physician Orders Chest Portable (09/24/24 18:39) Accucheck (09/24/24 18:39) Blood Culture (09/24/24 18:39) Notify Md If Map <65 Or Bp<90 (09/24/24 18:39) If Map<65 Start Vasopressor (09/24/24 18:39) Sepsis Reassesment After Fluid (09/24/24 19:39) Ct Ab Pel Wo Con-No Oral Or Iv (09/24/24 18:39) Electrocardigram (09/24/24 18:39) Saline Lock (09/24/24 18:51) Cefepime 1gm/ 50ml (Maxipime 1gm/50ml) (09/25/24 06:00) Tamsulosin Hydrochloride (Flomax) (09/25/24 18:00) Pantoprazole (Protonix) (09/25/24 10:00) Admit (09/24/24 23:45) Allergies (09/24/24 23:45) Code Status (09/24/24 23:45) 0.9% Ns 1000 Ml (09/24/24 23:45) Oxygen Per Hour (09/24/24 23:45) Hydrocodone-Acet 5/325mg Tab ([place] 5/32 (09/24/24 23:45) Ondansetron Hcl (Zofran) (09/24/24 23:45) Docusate Sodium Capsule (Colace Capsule) (09/24/24 23:45) Complete Blood Count (09/25/24 04:00) Comprehensive Metabolic Panel (09/25/24 04:00) Cardiac Diet-2gna,Lofat,Lochol (09/25/24 Breakfast) Condition: Serious (09/24/24 23:45) Acetaminophen Tablet (Tylenol Tablet) (09/24/24 23:45) Bedrest With Bathroom Privileg (09/24/24 23:45) Sequential Compression Device (09/24/24 ) Nitroglycerin Sublingual (Ntrostat Subli (09/24/24 23:45) Morphine Sulfate Injection (09/24/24 23:45) Notify Md Of Changes From Base (09/24/24 23:45) Emergency Dysrhythmia Protocol (09/24/24 23:45) Oxygen By Nasal Cannula (09/24/24 23:45) Vital Signs Date Time Temp Pulse Resp B/P (MAP) Pulse Ox O2 Delivery O2 Flow Rate FiO2 09/24/24 22:00 98.8 85 16 96/63 (74) 95 98.8 09/24/24 22:00 98.8 09/24/24 19:14 102.1 93 20 110/75 (87) 97 102.1 09/24/24 19:14 93 20 97 Room Air 09/24/24 19:11 93 19 110/75 09/24/24 18:51 102.2 09/24/24 18:32 102.2 86 20 109/63 98 102.2 Laboratory Tests Test 09/24/24 19:15 Lactic Acid Level 0.8 mmol/L (0.4-2.0) White Blood Count 4.0 10^3/uL (4.4-10.8) L Medications Medications Dose Ordered Sig/Miguel Route Start Time Stop Time Status Last Admin Dose Admin Acetaminophen 1,000 mg ONCE ONCE PO 09/24/24 18:45 09/24/24 18:46 DC 09/24/24 18:51 1,000 MG Cefepime HCl 50 ml @ 50 mls/hr ONCE ONCE IV 09/24/24 19:30 09/24/24 20:29 DC 09/24/24 19:41 50 MLS/HR Lactated Ringer's 1,900 ml @ 1,900 mls/hr ONCE ONCE IV 09/24/24 19:30 09/24/24 20:29 DC 09/24/24 19:30 1,900 MLS/HR Morphine Sulfate 4 mg ONCE ONCE IV 09/24/24 18:45 09/24/24 18:46 DC 09/24/24 19:11 4 MG Ondansetron HCl 4 mg ONCE ONCE IV 09/24/24 18:45 09/24/24 18:46 DC 09/24/24 19:09 4 MG Assessment/Plan Assessment/Plan Abdominal pain Febrile illness UTI (urinary tract infection) Generalized abdominal pain Plan 1. Admit to med surge unit 2. Breathing treatment 3. Pain control management 4. IV antibiotic management 5. Management of fluids and electrolytes 6. Consultation for hospitalist 7. Diagnostic test abdomen/pelvis CT 8. DVT prophylaxis on SCDs 9. Repeat labs CBC, CMP in a.m. 10. Home medication reviewed and reconciled 11. Continue with current medical management 12. Treatment plan discussed with patient and RN. Patient verbalized understanding. Plan discussed with: Patient, Other (RN) My Orders Orders - SHELBY SIDHU DNP Procedure Category Date Status Time Tamsulosin PHA 09/25/24 Verified Hydrochloride (Flomax) 18:00 Pantoprazole PHA 09/25/24 Verified (Protonix) 10:00 Admit ADMIT 09/24/24 Verified 23:45 Allergies [facility] 09/24/24 Verified 23:45 Code Status CODE 09/24/24 Verified 23:45 0.9% Ns 1000 Ml PHA 09/24/24 Verified 23:45 Oxygen Per Hour RT 09/24/24 Verified 23:45 Hydrocodone-Acet PHA 09/24/24 Verified 5/325mg Tab ([place] 23:45 Ondansetron Hcl PHA 09/24/24 Verified (Zofran) 23:45 Docusate Sodium PHA 09/24/24 Verified Capsule (Colace 23:45 Complete Blood Count LAB 09/25/24 Verified 04:00 Comprehensive LAB 09/25/24 Verified Metabolic Panel 04:00 Cardiac DIET 09/25/24 Verified Diet-2gna,Lofat,Lochol Breakfast Condition: Serious LOIS 09/24/24 Verified 23:45 Acetaminophen Tablet PHA 09/24/24 Verified (Tylenol Tablet) 23:45 Bedrest With Bathroom LOIS 09/24/24 Verified Privileg 23:45 Sequential LOIS 09/24/24 Verified Compression Device Nitroglycerin PHA 09/24/24 Verified Sublingual (Ntrostat 23:45 Morphine Sulfate PHA 09/24/24 Verified Injection 23:45 Notify Of Changes [facility] 09/24/24 Verified From Base 23:45 Emergency Dysrhythmia LOIS 09/24/24 Verified Protocol 23:45 Oxygen By Nasal RT 09/24/24 Verified Cannula 23:45 Problem List: (1) Abdominal pain (2) Febrile illness (3) UTI (urinary tract infection) (4) Generalized abdominal pain Date of Service: Sep 24, 2024 Billing Provider: SHELBY SIDHU DNP Common Visit Codes: [id number] INP/OBS CARE (HIGH) SHELBY SIDHU DNP Sep 24, 2024 23:52
[2024-09-25] MEDS: HYDROcodone-ACET 5/325MG TAB PO PRN (02:16)
[2024-09-25 03:16] VITALS: PULSE 71; RESP 18; O2SAT 99
[2024-09-25] MEDS ORDERED: DIPH25CA66 PO (04:01)
[2024-09-25 05:00] VITALS: BP 109/71; PULSE 77; RESP 20; TEMP 98; O2SAT 93
[2024-09-25] MEDS ORDERED: ASPITAB34 OR (05:46)
[2024-09-25] MEDS ORDERED: MUPI2CRE17 EX (05:46)
[2024-09-25] MEDS ORDERED: FAMO20TA10 GT (05:46)
[2024-09-25] MEDS ORDERED: HYD25TP TOP (05:46)
[2024-09-25] MEDS ORDERED: ACET-1079 PO (05:46)
[2024-09-25] MEDS ORDERED: LIDO5DIS21 TOP (05:46)
[2024-09-25] MEDS: CEFEPIME 1GM/ 50ML 50 ML IV SCH (06:12)
[2024-09-25 08:06] LABS: Alanine Aminotransferase 13 U/L (7-40); Albumin 4.0 g/dL (3.2-4.8); Alkaline Phosphatase 100 U/L (46-116); Anion Gap 7 (5-15); BUN/Creatinine Ratio 10.9 (10.0-20.0); Calcium 8.9 mg/dL (8.7-10.4); Carbon Dioxide 27 mmol/L (20-31); Chloride 106 mmol/L (98-107); Glucose 84 mg/dL (74-106); Potassium 3.9 mmol/L (3.5-5.1); Sodium 140 mmol/L (136-145); Total Protein 6.4 g/dL (5.7-8.2)
[2024-09-25 08:08] LABS: Bilirubin, Total 0.3 mg/dL (0.2-1.0); Blood Urea Nitrogen 7 mg/dL (9-23)
[2024-09-25 08:40] LABS: Hematocrit 33.8 % (36.0-46.0); Hemoglobin 11.1 g/dL (12.2-16.2); Mean Corpuscular Hemoglobin 27.7 pg (28.0-32.0); Mean Corpuscular Volume 84.1 fL (80.0-100.0)
[2024-09-25 09:00] VITALS: BP 108/71; PULSE 69; RESP 17; TEMP 98; O2SAT 99
[2024-09-25 09:40] LABS: Total Cells Counted 100.0 (100)
[2024-09-25] MEDS: PANTOPRAZOLE 40 MG/10 ML VIAL INJ IV SCH (10:03)
[2024-09-25] MEDS: DOCUSATE SOD 100 MG CAP PO PRN (10:08)
[2024-09-25 12:49] VITALS: BP 108/67; PULSE 74; RESP 18; TEMP 98.2; O2SAT 100
[2024-09-25] MEDS ORDERED: IBUPROFEN 600 MG TAB PO SCH (14:00)
[2024-09-25] MEDS: EXCEDRIN PO SCH (15:40)
--- NOTE | 2024-09-25 16:57 | DVHPN2 ---
Subjective I am assuming the care of the patient from today onwards. Patient also complained of abdominal pain nausea and vomiting and currently resolving also patient is complaining of migraine headaches. Patient does take Excedrin at home. Changes from previous H/P or p: No Changes Eyes: No Pain, No Vision change, No Conjunctivae inflammation, No Eyelid inflammation, No Other, No Redness ENT: No Ear pain, No Ear discharge, No Nose pain, No Nose discharge, No Nose congestion, No Mouth pain, No Mouth swelling, No Throat pain, No Throat swelling, No Other Cardiovascular: No Chest Pain, No Palpitations, No Orthopnea, No Paroxysmal Noc. Dyspnea, No Edema, No Lt Headedness, No Other Respiratory: No Cough, No Dry, No Shortness of breath, No SOB with excertion, No Wheezing, No Hemoptysis, No Pleuritic Pain, No Sputum, No Other Gastrointestinal: Nausea, Vomiting, Abdominal Pain, Diarrhea; No Constipation, No Melena, No Hematochezia, No Other Genitourinary: No Dysuria, No Frequency, No Incontinence, No Hematuria, No Retention, No Other Musculoskeletal: No other, No neck pain, No shoulder pain, No arm pain, No back pain, No hand pain, No leg pain, No foot pain Skin: No Rash, No Lesions, No Jaundice, No Bruising, No Other Objective Vitals Vital Signs Date Time Temp Pulse Resp B/P (MAP) Pulse Ox O2 Delivery O2 Flow Rate FiO2 09/25/24 12:49 98.2 74 18 108/67 (81) 100 98.2 09/25/24 08:00 Nasal Cannula* 2 28 Intake/Output Intake and Output 09/25/24 07:00 Intake Total 300 ml Balance 300 ml Intake Oral 300 ml Exam HEENT pupils are reactive Neck is supple CV is S1-S2 regular rate and rhythm Respiratory diminished breath sounds bases GI positive bowel sound Extremity no edema [employer] no motor deficit Medications Current Medications Medications Dose Ordered Sig/Miguel Route Start Time Stop Time Status Last Admin Dose Admin Cefepime HCl 50 ml @ 12.5 mls/hr Q8HR IV 09/25/24 06:00 09/25/24 14:08 12.5 MLS/HR Tamsulosin HCl 0.4 mg QPM PO 09/25/24 18:00 Pantoprazole Sodium 40 mg DAILY IV 09/25/24 10:00 09/25/24 10:03 40 MG Sodium Chloride 1,000 ml @ 60 mls/hr [id number] IV 09/24/24 23:45 09/24/24 23:45 60 MLS/HR Acetaminophen/ Hydrocodone Bitart 1 tab Q4HP PRN PO 09/24/24 23:45 09/25/24 02:16 1 TAB Ondansetron HCl 4 mg Q4HP PRN IV 09/24/24 23:45 Docusate Sodium 100 mg BIDPRN PRN PO 09/24/24 23:45 09/25/24 10:08 100 MG Acetaminophen 650 mg Q6HP PRN PO 09/24/24 23:45 Nitroglycerin 0.4 mg Q5MINP PRN SL 09/24/24 23:45 Morphine Sulfate 2 mg Q30M PRN IV 09/24/24 23:45 Patient Own Medication 1 TID PO 09/25/24 14:00 09/25/24 15:40 1 Laboratory Results Laboratory Tests 09/25/24 05:01 Chemistry Test 09/24/24 19:15 09/25/24 05:01 Albumin 4.5 g/dL (3.2-4.8) 4.0 g/dL (3.2-4.8) Calcium Level 9.6 mg/dL (8.7-10.4) 8.9 mg/dL (8.7-10.4) Total Protein 7.4 g/dL (5.7-8.2) 6.4 g/dL (5.7-8.2) Coagulation Test 09/24/24 19:15 Prothrombin Time 10.8 sec (9.3-11.8) Prothrombin Time INR 1.02 (0.9-1.15) Activated Partial Thromboplast Time 34.8 SEC (24.5-34.5) H Cardiac Markers Test 09/24/24 19:15 B-Type Natriuretic Peptide 29.55 pg/mL (0-100) LFT Test 09/24/24 19:15 09/25/24 05:01 Alanine Aminotransferase (ALT) 15 U/L (7-40) 13 U/L (7-40) Alkaline Phosphatase 122 U/L (46-116) H 100 U/L (46-116) Aspartate Amino Transferase (AST) 39 U/L (13-40) 33 U/L (13-40) Total Bilirubin 0.3 mg/dL (0.2-1.0) 0.3 mg/dL (0.2-1.0) Urinalysis Test 09/24/24 20:21 Urine Color Light-yellow (Yellow) Urine Clarity Clear (Clear) Urine pH 6.0 (5.0-9.0) Urine Specific [place] 1.014 (1.001-1.035) Urine Protein Negative (Negative) Urine Ketones Negative (Negative) Urine Blood 1+ /uL (Negative) H Urine Nitrite Negative (Negative) Urine Bilirubin Negative (Negative) Urine Urobilinogen Normal mg/dL (Negative) Urine Leukocyte Esterase Negative /uL (Negative) Urine RBC 15 /hpf (0 - 4) Urine Microscopic WBC 1 /HPF (0-5) Urine Squamous Epithelial Cells Few /hpf (<5) Urine Bacteria Few /hpf (None Seen) H Urine Mucus Few (None Seen) Urine Glucose Normal mg/dL (Normal) Microbiology Microbiology Date/Time Source Procedure Growth Status 09/25/24 03:41 Nose MRSA Screen - Final Complete Assessment/Plan Assessment/Plan 64-year-old female with a known history of kidney stones, diverticular disease, morbid obesity classII 62 presented to the hospital with the abdominal pain nausea and vomiting diarrhea found to have 1. Acute viral gastroenteritis 2. Nausea and vomiting, abdominal pain currently resolved 3. Migraine headaches 4. Diverticular disease by history 5. Nonobstructing kidney stones 6. Morbid obesity classII -diet as tolerated, pain meds as needed,- Discharge plan Plan discussed with: Patient My Orders Orders - NISH CARIAS MD Procedure Category Date Status Time Patients Own PHA 09/25/24 In Process Medication 14:00 Date of Service: Sep 25, 2024 Billing Provider: NISH CARIAS MD Common Visit Codes: [id number] INP/OBS CARE(MOD) NISH CARIAS MD Sep 25, 2024 16:57
[2024-09-25 17:26] VITALS: BP 115/69; PULSE 77; RESP 18; TEMP 97.8; O2SAT 97
[2024-09-25] MEDS: TAMSULOSIN HYDROCHLORIDE 0.4 MG CAP PO SCH (17:46)
[2024-09-25 21:00] VITALS: BP 112/67; PULSE 89; RESP 12; TEMP 98.7; O2SAT 95
[2024-09-25] MEDS: CALCIUM CARB 500 MG CHEW TAB PO PRN (22:03)
[2024-09-26 01:00] VITALS: BP 114/74; PULSE 83; RESP 20; TEMP 98.7; O2SAT 97
[2024-09-26] MEDS: ACETAMINOPHEN 325 MG TAB PO PRN (03:36)
[2024-09-26 05:00] VITALS: BP 124/80; PULSE 92; RESP 12; TEMP 98.5; O2SAT 96
[2024-09-26] MEDS: ONDANSETRON HCL 4 MG/2 ML VIAL IV PRN (11:58)
[2024-09-26 12:58] VITALS: BP 119/77; PULSE 82; RESP 17; TEMP 98.6; O2SAT 96
--- NOTE | 2024-09-26 16:23 | DVH ---
EXAM: CT HEAD WITHOUT CONTRAST INDICATION: possible polyps TECHNIQUE: CT of the head without intravenous contrast. Radiation Dose Information: CT Dose: CTDI volume is 50.56 mGy. Dose-length product is 810.74 mGy*cm The dose indicators for CT are the volume Computed Tomography (CT) Dose Index (CTDIvol) and the Dose Length Product (DLP), and are measured in units of mGy and mGy-cm, respectively. These indicators are not patient dose, but values generated from the CT scanner acquisition factors. The report includes radiation exposure data for exposures received during this examination. COMPARISON: CT CERVICAL WITHOUT CONTRAST on DOS: 01/06/24 FINDINGS: There is no evidence of acute intracranial hemorrhage, extra-axial collection, mass effect, midline s hift, herniation or hydrocephalus. The ventricles, sulci and cisterns are age appropriate. The kent-white differentiation is intact. Patchy periventricular and subcortical white matter hypoattenuation is nonspecific but may be related to small vessel ischemic disease. Small inclusion cyst right maxillary sinus. Can not rule out solitary polyp. Mastoid air cells are clear. IMPRESSION: No acute intracranial abnormality. Small round soft tissue density in the right maxillary sinus may represent inclusion cyst or small so litary polyp. HS:Y
--- NOTE | 2024-09-26 16:47 | DVHPN2 ---
Subjective Patient is still complaining of headache, CT head noncontrast was done which shows no evidence of acute pathology besides right-sided maxillary inclusion cyst or solitary polyp. Changes from previous H/P or p: No Changes Eyes: No Pain, No Vision change, No Conjunctivae inflammation, No Eyelid inflammation, No Other, No Redness ENT: No Ear pain, No Ear discharge, No Nose pain, No Nose discharge, No Nose congestion, No Mouth pain, No Mouth swelling, No Throat pain, No Throat swelling, No Other Cardiovascular: No Chest Pain, No Palpitations, No Orthopnea, No Paroxysmal Noc. Dyspnea, No Edema, No Lt Headedness, No Other Respiratory: No Cough, No Dry, No Shortness of breath, No SOB with excertion, No Wheezing, No Hemoptysis, No Pleuritic Pain, No Sputum, No Other Gastrointestinal: Nausea, Vomiting, Abdominal Pain, Diarrhea; No Constipation, No Melena, No Hematochezia, No Other Genitourinary: No Dysuria, No Frequency, No Incontinence, No Hematuria, No Retention, No Other Musculoskeletal: No other, No neck pain, No shoulder pain, No arm pain, No back pain, No hand pain, No leg pain, No foot pain Skin: No Rash, No Lesions, No Jaundice, No Bruising, No Other Objective Vitals Vital Signs Date Time Temp Pulse Resp B/P (MAP) Pulse Ox O2 Delivery O2 Flow Rate FiO2 09/26/24 12:58 98.6 82 17 119/77 (91) 96 98.6 09/26/24 07:30 Nasal Cannula* 2 28 Intake/Output Intake and Output 09/26/24 07:00 Intake Total 1430 ml Output Total 1800 ml Balance -370 ml Intake Oral 1100 ml IV Total 330 ml Output Urine Total 1800 ml # Voids 3 # Bowel Movements 2 Exam HEENT pupils are reactive Neck is supple CV is S1-S2 regular rate and rhythm Respiratory diminished breath sounds bases GI positive bowel sound Extremity no edema [employer] no motor deficit Medications Current Medications Medications Dose Ordered Sig/Miguel Route Start Time Stop Time Status Last Admin Dose Admin Tamsulosin HCl 0.4 mg QPM PO 09/25/24 18:00 09/25/24 17:46 0.4 MG Pantoprazole Sodium 40 mg DAILY IV 09/25/24 10:00 09/26/24 09:15 40 MG Sodium Chloride 1,000 ml @ 60 mls/hr [id number] IV 09/24/24 23:45 09/26/24 09:15 60 MLS/HR Acetaminophen/ Hydrocodone Bitart 1 tab Q4HP PRN PO 09/24/24 23:45 09/25/24 20:06 1 TAB Ondansetron HCl 4 mg Q4HP PRN IV 09/24/24 23:45 09/26/24 11:58 4 MG Docusate Sodium 100 mg BIDPRN PRN PO 09/24/24 23:45 09/25/24 10:08 100 MG Acetaminophen 650 mg Q6HP PRN PO 09/24/24 23:45 09/26/24 11:58 650 MG Nitroglycerin 0.4 mg Q5MINP PRN SL 09/24/24 23:45 Morphine Sulfate 2 mg Q30M PRN IV 09/24/24 23:45 Patient Own Medication 1 TID PO 09/25/24 14:00 09/25/24 15:40 1 Calcium Carbonate 500 mg Q6HP PRN PO 09/25/24 20:30 09/26/24 11:59 500 MG Fluticasone Propionate 50 mcg BIDPRN EACHNOSTRI 09/26/24 22:00 Ceftriaxone Sodium 50 ml @ 100 mls/hr DAILY@09 IV 09/27/24 09:00 Laboratory Results Laboratory Tests 09/25/24 05:01 Urinalysis Test 09/24/24 20:21 Urine Color Light-yellow (Yellow) Urine Clarity Clear (Clear) Urine pH 6.0 (5.0-9.0) Urine Specific [place] 1.014 (1.001-1.035) Urine Protein Negative (Negative) Urine Ketones Negative (Negative) Urine Blood 1+ /uL (Negative) H Urine Nitrite Negative (Negative) Urine Bilirubin Negative (Negative) Urine Urobilinogen Normal mg/dL (Negative) Urine Leukocyte Esterase Negative /uL (Negative) Urine RBC 15 /hpf (0 - 4) Urine Microscopic WBC 1 /HPF (0-5) Urine Squamous Epithelial Cells Few /hpf (<5) Urine Bacteria Few /hpf (None Seen) H Urine Mucus Few (None Seen) Urine Glucose Normal mg/dL (Normal) Microbiology Microbiology Date/Time Source Procedure Growth Status 09/25/24 03:41 Nose MRSA Screen - Final Complete 09/24/24 19:15 Blood Blood Culture - Preliminary NO GROWTH AFTER 24 HOURS OF INCUBATION. Resulted Assessment/Plan Assessment/Plan 64-year-old female with a known history of kidney stones, diverticular disease, morbid obesity classII 62 presented to the hospital with the abdominal pain nausea and vomiting diarrhea found to have 1. Acute viral gastroenteritis 2. Nausea and vomiting, abdominal pain currently resolved 3. Migraine headaches 4. Diverticular disease by history 5. Nonobstructing kidney stones 6. Morbid obesity classII 7. Maxillary sinus inclusion cyst/solitary polyp -CT head noncontrast reviewed which shows no evidence of acute pathology -diet as tolerated, pain meds as needed,- --Discharge plan Plan discussed with: Patient My Orders Orders - NISH CARIAS MD Procedure Category Date Status Time Head Without Contrast CT 09/26/24 Resulted 11:52 Fluticasone Nasal PHA 09/26/24 In Process [place] (Flonase [place]) 22:00 Ceftriaxone 1gm/50ml PHA 09/27/24 In Process D5w (Rocephin) 09:00 Date of Service: Sep 26, 2024 Billing Provider: NISH CARIAS MD Common Visit Codes: [id number] INP/OBS CARE(MOD) NISH CARIAS MD Sep 26, 2024 16:47
[2024-09-26 17:00] VITALS: BP 111/76; PULSE 70; RESP 17; TEMP 98.5; O2SAT 100
[2024-09-26 20:00] VITALS: PULSE 82; RESP 15; O2SAT 94
[2024-09-26 21:00] VITALS: BP 102/61; PULSE 82; RESP 15; TEMP 99; O2SAT 94
[2024-09-26] MEDS: FLUTICASONE PROP NASAL SPR 0.05 % (50MCG) 16GM EACHNOSTRI SCH (21:13)
[2024-09-27] VITALS (9 sets, daily range): BP systolic 98–119; BP diastolic 61–81; PULSE 68–98; RESP 15–20; TEMP 97.3–98.5; O2SAT 95–99
[2024-09-27] MEDS: cefTRIAXone 1GM/50ML D5W 50 ML IV SCH (08:56)
[2024-09-27 10:22] LABS: Hepatitis B Surface Antigen Negative (Negative); Hepatitis C Antibody Negative (Negative)
--- NOTE | 2024-09-27 10:28 | ECG ---
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
[2024-09-27] MEDS ORDERED: AUG875T PO (14:31)
--- NOTE | 2024-09-27 14:45 | DVHDS2 ---
Discharge Summary Date of Admission Sep 24, 2024 at 22:45 Date of Discharge: Sep 27, 2024 Labs/Diagnostic Data: Laboratory Results Test 09/25/24 05:01 09/24/24 20:21 09/24/24 20:11 09/24/24 19:15 White Blood Count 3.0 10^3/uL (4.4-10.8) Red Blood Count 4.02 10^6/uL (4.0-5.20) Hemoglobin 11.1 g/dL (12.2-16.2) Hematocrit 33.8 % (36.0-46.0) Mean Corpuscular Volume 84.1 fL (80.0-100.0) Mean Corpuscular Hemoglobin 27.7 pg (28.0-32.0) Mean Corpuscular Hemoglobin Concent 32.9 g/dL (32.0-36.0) Red Cell Distribution Width 14.9 % (11.8-14.3) Platelet Count 202 10^3/uL (140-450) Mean Platelet Volume 9.7 fL (6.9-10.8) Neutrophils (%) (Auto) % (37.0-80.0) Lymphocytes (%) (Auto) % (10.0-50.0) Monocytes (%) (Auto) % (0.0-12.0) Basophils (%) (Auto) % (0.0-2.0) Neutrophils # (Auto) 10 ^3/uL (1.6-8.6) Lymphocytes # (Auto) 10 ^3/uL (0.4-5.4) Monocytes # (Auto) 10 ^3/uL (0-1.3) Differential Total Cells Counted 100.0 (100) Neutrophils % (Manual) 47 (37.0-80.0) Band Neutrophils % (Manual) 5 Lymphocytes % (Manual) 40 (10.0-50.0) Monocytes % (Manual) 8 (0-12) Eosinophils % (Manual) 0 (0-7) Basophils % (Manual) 0 (0.0-2.0) Metamyelocytes % (manual) 0 Myelocytes % (Manual) 0 Promyelocytes % (Manual) 0 Blast Cells % (Manual) 0 Reactive Lymphocytes 0 Platelet Estimate Adequate Sodium Level 140 mmol/L (136-145) Potassium Level 3.9 mmol/L (3.5-5.1) Chloride Level 106 mmol/L (98-107) Carbon Dioxide Level 27 mmol/L (20-31) Anion Gap 7 (5-15) Blood Urea Nitrogen 7 mg/dL (9-23) Creatinine 0.64 mg/dL (0.550-1.02) Glomerular Filtration Rate Calc 100 mL/min (>90) BUN/Creatinine Ratio 10.9 (10.0-20.0) Serum Glucose 84 mg/dL (74-106) Calcium Level 8.9 mg/dL (8.7-10.4) Total Bilirubin 0.3 mg/dL (0.2-1.0) Aspartate Amino Transferase (AST) 33 U/L (13-40) Alanine Aminotransferase (ALT) 13 U/L (7-40) Alkaline Phosphatase 100 U/L (46-116) Total Protein 6.4 g/dL (5.7-8.2) Albumin 4.0 g/dL (3.2-4.8) Hepatitis B Surface Antigen Negative (Negative) Hepatitis C Antibody Negative (Negative) Urine Color Light-yellow (Yellow) Urine Clarity Clear (Clear) Urine pH 6.0 (5.0-9.0) Urine Specific [place] 1.014 (1.001-1.035) Urine Protein Negative (Negative) Urine Ketones Negative (Negative) Urine Blood 1+ /uL (Negative) Urine Nitrite Negative (Negative) Urine Bilirubin Negative (Negative) Urine Urobilinogen Normal mg/dL (Negative) Urine Leukocyte Esterase Negative /uL (Negative) Urine RBC 15 /hpf (0 - 4) Urine Microscopic WBC 1 /HPF (0-5) Urine Squamous Epithelial Cells Few /hpf (<5) Urine Bacteria Few /hpf (None Seen) Urine Mucus Few (None Seen) Urine Glucose Normal mg/dL (Normal) Troponin I High Sensitivity < 3 ng/L (</=34) Eosinophils (%) (Auto) 0.2 % (0.0-7.0) Eosinophils # (Auto) 0 10 ^3/uL (0-0.8) Basophils # (Auto) 0 10 ^3/uL (0-0.2) Nucleated Red Blood Cells 0.2 % Prothrombin Time 10.8 sec (9.3-11.8) Prothrombin Time INR 1.02 (0.9-1.15) Activated Partial Thromboplast Time 34.8 SEC (24.5-34.5) Lactic Acid Level 0.8 mmol/L (0.4-2.0) B-Type Natriuretic Peptide 29.55 pg/mL (0-100) Other Laboratory Tests 09/25/24 05:01 Brief Hx & Hospital Course: 64-year-old female with a known history of kidney stones, diverticular disease, morbid obesity classII who initially presented to the hospital with the abdominal pain nausea and vomiting diarrhea found to have acute viral gastroenteritis. Patient is also complaining of migraine headaches which was treated. Patient's UTI was treated as well with the IV antibiotics. Patient does complaining of sinus issues. Patient's CT head was done which shows maxillary sinus inclusion cyst versus solitary polyp. Patient was being discharged under stable condition. Condition at Discharge: Stable Final Diagnosis/Problems List 64-year-old female with a known history of kidney stones, diverticular disease, morbid obesity classII 62 presented to the hospital with the abdominal pain nausea and vomiting diarrhea found to have 1. Acute viral gastroenteritis 2. Nausea and vomiting, abdominal pain currently resolved 3. Migraine headaches 4. Diverticular disease by history 5. Nonobstructing kidney stones 6. Morbid obesity classII 7. Maxillary sinus inclusion cyst/solitary polyp Discharge Disposition: Home with [facility] Discharge Will this Physician continue t: No Discharge Instruct/Medications Diet: Cardiac 2g Na,low cholest Activity: See Comment Activity comment: No driving, no signing legal documents, no playing on machinery if you are using any narcotics or pain medications. New Medications: Amoxicillin & Pot Clavulanate (Augmentin Tablet) 875 Mg Tb 875 MG PO BID for 5 Days, #10 TAB Continued Medications: Acetaminophen (Tylenol) 325 Mg Tb 325 MG PO, TAB Kctykpg-Zcaojacwyfxsd-Dmlxchnz (Excedrin Migraine) Migraine Tab 1 OR, TAB Diphenhydramine Hcl (Benadryl Allergy) 25 Mg Cap 1 CAP PO QPM, #30 CAP 1 Refill Docusate Sodium (Docusate Sodium) 100 Mg Cap 100 MG PO BIDPRN PRN for 30 Days, #60 CAP Famotidine (Pepcid Tablet) 20 Mg Tb 20 MG GT, TAB Hydrocortone (Hydrocortisone 2.5%) 1 Applic Ap 1 APPLIC TOP BIDP, #30 GRAMS Hydroxyzine Hcl (Hydroxyzine Hcl) 25 Mg Tab 1 TAB PO TID Lidocaine (Lidoderm 5% Topical Patch) 1 Patch Ph 1 PATCH TOP DAILY, #30 PATCH 1 Refill Methocarbamol (Methocarbamol) 500 Mg Tab 1 TAB PO Q8H Mupirocin Calcium (Topical) (Mupirocin) 2 % Cre 2 % EX, CRE Pantoprazole Sodium Sesquihydr (Pantoprazole Sodium) 40 Mg Tab 1 TAB PO DAILY Tamsulosin Hcl (Tamsulosin Hcl) 0.4 Mg Cap 1 CAP PO DAILY Scheduled Amoxicillin & Pot Clavulanate (Augmentin Tablet), 875 MG PO BID Diphenhydramine Hcl (Benadryl Allergy), 1 CAP PO QPM, (Reported) Hydrocortone (Hydrocortisone 2.5%), 1 APPLIC TOP BIDP, (Reported) Hydroxyzine Hcl (Hydroxyzine Hcl), 1 TAB PO TID, (Reported) Lidocaine (Lidoderm 5% Topical Patch), 1 PATCH TOP DAILY, (Reported) Methocarbamol (Methocarbamol), 1 TAB PO Q8H, (Reported) Pantoprazole Sodium Sesquihydr (Pantoprazole Sodium), 1 TAB PO DAILY, (Reported) Tamsulosin Hcl (Tamsulosin Hcl), 1 CAP PO DAILY, (Reported) Scheduled PRN Docusate Sodium (Docusate Sodium), 100 MG PO BIDPRN PRN Miscellaneous Medications Acetaminophen (Tylenol), 325 MG PO, (Reported) Ojciiap-Oxnrrfhhgbbms-Jawmgyml (Excedrin Migraine), 1 OR, (Reported) Famotidine (Pepcid Tablet), 20 MG GT, (Reported) Mupirocin Calcium (Topical) (Mupirocin), 2 % EX, (Reported) Discharge Statement: "Patient was advised to return to the ER or call 911 if any headaches, dizziness, shortness of breath, chest pain, abdominal pain, bleeding, fevers, or worsening of medical condition. Patient was counseled about treatment plan, medications, possible side effects, patientverbalized understanding. All questions were answered to the best of my ability. This discharge took greater then 30 minutes in planning, reviewing documentation, counseling the patient, and discussing with other team members." ASSESSMENT ASSESSMENT Assessment 64-year-old female with a known history of kidney stones, diverticular disease, morbid obesity classII 62 presented to the hospital with the abdominal pain nausea and vomiting diarrhea found to have 1. Acute viral gastroenteritis 2. Nausea and vomiting, abdominal pain currently resolved 3. Migraine headaches 4. Diverticular disease by history 5. Nonobstructing kidney stones 6. Morbid obesity classII 7. Maxillary sinus inclusion cyst/solitary polyp Date of Service: Sep 27, 2024 Billing Provider: NISH CARIAS MD Common Visit Codes: 10171-[id number] DISCH DAY >30min NISH CARIAS MD Sep 27, 2024 14:45
[2024-09-27] MEDS: AMOXICILLIN/CLAVUL 875 MG TAB PO ONE (18:23)
[2024-09-29] MEDS ORDERED: PANT40TA2 PO (17:01)
[2024-09-29] MEDS ORDERED: DOCU-94 PO (17:01)
== END 2024-09-27 21:50 | disposition home health service (06) | DRG 249 ==
LOC: EDUNIT# 18:27 → EDBD 18:27 → ER 18:27 → OVERFLOW 22:45 → WEST WING 09-25 02:01
PROVIDERS: ADMIT Internal Medicine; ATTEND Internal Medicine
DX: A08.4 Viral intestinal infection, unspecified (principal); R65.10 Systemic inflammatory response syndrome (SIRS) of non-infectious origin without acute organ dysfunction; E66.01 Morbid (severe) obesity due to excess calories; G43.909 Migraine, unspecified, not intractable, without status migrainosus; N20.0 Calculus of kidney; N39.0 Urinary tract infection, site not specified; L72.0 Epidermal cyst; J33.8 Other polyp of sinus; Z87.442 Personal history of urinary calculi; Z88.1 Allergy status to other antibiotic agents; Z68.36 Body mass index [BMI] 36.0-36.9, adult; Z79.899 Other long term (current) drug therapy
CPT/HCPCS: 36415; 70450; 71045; 74176; 80053; 81001; 83605; 83880; 84484; 85007; 85025; 85027; 85610; 85730; 86803; 87040; 87081; 87340; 93005; 96361; 96374; 96375; G0378; J2405; J2470

== ENCOUNTER 2024-10-27 03:16 | Inpatient (IN) | payer MEDICAID ==
[~2024-10-27] VITALS: Ht 157.5 cm; Wt 90.0 kg
[~2024-10-27 03:16] MED LIST changes: +ACET-1079 PO; -ACET-1882 PO; -ACET650T12 PO; +ASPITAB34 OR; +AUG875T PO; -BACDST PO; -CEPH250C PO; +DIPH25CA66 PO; +DOCU-94 PO; +HYD25TP TOP; -IBUP-1454 PO; -LEVO500T91 PO; +LIDO5DIS21 TOP; +MUPI2CRE17 EX; -NITR-87 PO; -PANT40T PO; +PANT40TA2 PO; -PERCOT PO; -SIME80CH13 PO
--- NOTE | 2024-10-27 04:05 | ED.PDOC ---
General HPI Comments This is a 64-year-old female, with a Hx of kidney stones, who presents to the ED via EMS with a chief complaint of right-sided flank pain with associated N/V and R sided back pain as of x5 days ago. Patient reports she was diagnosed with x2 kidney stones to the right side X5 days ago by her PCP. Patient additionally reports a cyst to her left abdomen, but is not concerned at this time. Patient reports taking azithromycin daily, as prescribed. Patient has no further complaints at this time and otherwise denies dysuria, hematuria, abdominal pain, hematemesis, fever, or chills. REVIEW OF SYSTEMS: General: No fever, no chills, no fatigue HEENT: No sore throat, no earache, no congestion, no neck pain. Cardiac: No chest pain. No palpitations. Lungs: No shortness of breath, no cough. GI: Positive emesis. Positive nausea. no diarrhea, no constipation, no abdominal pain : Positive Right flank pain. No dysuria, frequency, or urgency. Musculoskeletal: Positive Lumbar back pain. no joint swelling, no extremity edema. Skin: No rash, no itching. Neuro: No headache, dizziness, or weakness PHYSICAL EXAM: General: Awake, alert and oriented. No acute distress. Skin: Skin in warm, dry and intact. Appropriate color for ethnicity. HEENT: The head is normocephalic and atraumatic. Conjunctivae are clear without exudates or hemorrhage. Sclera is non-icteric. EOM are intact. No signs of nystagmus. Eyelids are normal in appearance without swelling or lesions. Oral mucosa is pink and moist Neck: The neck is supple with painful range of motion. No JVD. Cardiac: Heart rate and rhythm are normal. No murmurs, gallops, or rubs are auscultated. Respiratory: No signs of respiratory distress. Lung sounds are clear in all lobes bilaterally without rales, rhonchi, or wheezes. Abdominal: Positive Right flank tenderness. Abdomen is soft, without distention, guarding or rigidity. Bowel sounds are present and normoactive in all four quadrants. Extremities: Upper and lower extremities are atraumatic in appearance without deformity or edema. Neurological: The patient is awake, alert and oriented to person, place, and time with normal speech. Speech is clear. There is no facial asymmetry. Psychiatric: Appropriate mood and affect. Good judgement and insight. Chief Complaint: Abdominal Pain Time Seen by MD: 03:49 Primary Care Provider: LAINE MONTEZ Reviewed notes: Nurses Notes, Gill Box Tender Notes, Medications, Allergies Allergies: Coded Allergies: Erythromycin (Verified Allergy, Unknown, 05/23/20) Tetracycline (Unverified Allergy, Unknown, 04/20/24) Tetracyclines & Related (Verified Allergy, Unknown, 05/23/20) SKIN RASH Home Meds Active Scripts Pantoprazole Sodium Sesquihydr (Protonix) 40 Mg Tab, 40 MG PO DAILY, #60 TAB Prov:NISH CARIAS MD 09/29/24 Docusate Sodium (Docusate Sodium) 100 Mg Cap, 100 MG PO BIDPRN PRN for 30 Days, #60 CAP Prov:AMY CRENSHAW RESIDENT 03/25/24 Reported Medications Hydrocortone (Hydrocortisone 2.5%) 1 Applic Ap, 1 APPLIC TOP BIDP, #30 GRAMS 09/25/24 Mupirocin Calcium (Topical) (MUPIROCIN) 2 % Cre, 2 % EX, CRE 09/25/24 Acetaminophen (Tylenol) 325 Mg Tb, 325 MG PO, TAB 09/25/24 Kvmcwpy-Leezrcgkjtkqs-Hvfefwho (Excedrin Migraine) Migraine Tab, 1 OR, TAB 09/25/24 Lidocaine (LIDODERM 5% TOPICAL PATCH) 1 Patch Ph, 1 PATCH TOP DAILY, #30 PATCH 1 Refill 09/25/24 Diphenhydramine Hcl (Benadryl Allergy) 25 Mg Cap, 1 CAP PO QPM, #30 CAP 1 Refill 09/25/24 Hydroxyzine Hcl (Hydroxyzine Hcl) 25 Mg Tab, 1 TAB PO TID 03/23/24 Methocarbamol (Methocarbamol) 500 Mg Tab, 1 TAB PO Q8H 03/23/24 Tamsulosin Hcl (Tamsulosin Hcl) 0.4 Mg Cap, 1 CAP PO DAILY 03/23/24 Discontinued Scripts Docusate Sodium (Colace) 100 Mg Cap, 1 CAP PO BID PRN, #60 CAP Prov:NISH CARIAS MD 09/29/24 Amoxicillin & Pot Clavulanate (AUGMENTIN TABLET) 875 Mg Tb, 875 MG PO BID for 5 Days, #10 TAB Prov:NISH CARIAS MD 09/27/24 Information Source: Patient, Emergency Med Personnel Mode of Arrival: EMS Severity: Moderate Timing: Days Duration: Since onset Onset: Spontaneous History of: Kidney stone Location: (R) Flank associated signs and symptoms: Nausea, Vomiting, Flank Pain, Back Pain Past Medical History PAST MEDICAL HISTORY: Kidney Stones, UTI'S Past Medical History (Other): Diverticulitis Surgical History: Denies all surgeries GROUP WORK PROGRAM AIDE History: No Pertinent GROUP WORK PROGRAM AIDE History Family History Family History: Reviewed,noncontributory to illness Social History Smoker: Non-Smoker Alcohol: Denies ETOH Use Drugs: Denies Drug Use Lives In: Home Was a procedure done? Was a procedure done?: No EKG EKG : Pulse Rate (adult): 91 [place]: Normal Cardiac Rhythm: NSR Block: RBBB Hypertrophy: None ST: Normal Differential Diagnosis Kidney stone (Female): Other Urinary Problem (Female): Other Other Differential Diagnosis Differential diagnosis includes but is not limited to pyelonephritis, nephrolithiasis, AAA, musculoskeletal pain, urinary tract infection, cholecystitis, appendicitis, other X-Ray, Labs, Meds, VS Vital Signs Date Time Temp Pulse Resp B/P (MAP) Pulse Ox O2 Delivery O2 Flow Rate FiO2 10/27/24 06:06 98.0 103 16 113/71 (85) 96 98.0 10/27/24 04:08 91 10/27/24 03:38 91 10/27/24 03:33 98.8 88 17 143/85 96 98.8 Lab Test 10/27/24 04:05 10/27/24 03:53 Range/Units Urine Color Light-orange Yellow Urine Clarity Turbid H Clear Urine pH 6.0 5.0-9.0 Urine Specific [place] 1.028 1.001-1.035 Urine Protein Trace H Negative Urine Ketones Negative Negative Urine Blood 3+ H Negative /uL Urine Nitrite Negative Negative Urine Bilirubin Negative Negative Urine Urobilinogen Normal Negative mg/dL Urine Leukocyte Esterase 3+ Negative /uL Urine RBC 1326 0 - 4 /hpf Urine Microscopic WBC 63 H 0-5 /HPF Urine Squamous Epithelial Cells Few <5 /hpf Urine Bacteria Few H None Seen /hpf Urine Mucus Few None Seen Urine Glucose Normal Normal mg/dL White Blood Count 8.5 4.4-10.8 10^3/uL Red Blood Count 4.49 4.0-5.20 10^6/uL Hemoglobin 12.4 12.2-16.2 g/dL Hematocrit 38.2 36.0-46.0 % Mean Corpuscular Volume 85.1 80.0-100.0 fL Mean Corpuscular Hemoglobin 27.7 L 28.0-32.0 pg Mean Corpuscular Hemoglobin Concent 32.5 32.0-36.0 g/dL Red Cell Distribution Width 15.1 H 11.8-14.3 % Platelet Count 266 140-450 10^3/uL Mean Platelet Volume 9.0 6.9-10.8 fL Neutrophils (%) (Auto) 71.6 37.0-80.0 % Lymphocytes (%) (Auto) 18.8 10.0-50.0 % Monocytes (%) (Auto) 7.0 0.0-12.0 % Eosinophils (%) (Auto) 2.2 0.0-7.0 % Basophils (%) (Auto) 0.4 0.0-2.0 % Neutrophils # (Auto) 6.1 1.6-8.6 10 ^3/uL Lymphocytes # (Auto) 1.6 0.4-5.4 10 ^3/uL Monocytes # (Auto) 0.6 0-1.3 10 ^3/uL Eosinophils # (Auto) 0.2 0-0.8 10 ^3/uL Basophils # (Auto) 0 0-0.2 10 ^3/uL Nucleated Red Blood Cells 0.1 % Sodium Level 142 136-145 mmol/L Potassium Level 3.7 3.5-5.1 mmol/L Chloride Level 103 98-107 mmol/L Carbon Dioxide Level 30 20-31 mmol/L Anion Gap 9 5-15 Blood Urea Nitrogen 10 9-23 mg/dL Creatinine 0.84 0.550-1.02 mg/dL Glomerular Filtration Rate Calc 79 >90 mL/min BUN/Creatinine Ratio 11.9 10.0-20.0 Serum Glucose 108 H 74-106 mg/dL Calcium Level 10.2 8.7-10.4 mg/dL Current Medications Medications (Trade) Dose Ordered Sig/Miguel Route Start Time Stop Time Status Last Admin Ketorolac Tromethamine (Toradol Injection) 30 mg ONCE ONCE IM 10/27/24 03:45 10/27/24 03:46 DC 10/27/24 09:20 Tramadol HCl (Ultram) 50 mg ONCE ONCE PO 10/27/24 03:45 10/27/24 03:46 DC 10/27/24 09:21 Acetaminophen (Tylenol Tablet) 650 mg ONCE ONCE PO 10/27/24 03:45 10/27/24 03:46 DC 10/27/24 09:20 Sodium Chloride 1,000 ml @ 1,000 mls/hr Q1H ONCE IV 10/27/24 05:30 10/27/24 06:29 DC 10/27/24 11:08 [place] [id number] Ph: [phone] DIAGNOSTIC IMAGING Diagnostic Imaging Report : [id number] Signed PATIENT: DANIELA ST DACCT: [id number] UNIT: [id number] : 1960 LOC: ER ROOM / BED: / AGE / SEX: 64 / F ADM STATUS: REG ER SERVICE [id number] ORDERING PHYSICIAN: BALJIT LEZAMA MD PROCEDURE(s): ABPL - CT AB PEL WO CON-NO ORAL OR IV REASON: Right flank pain history of kidney stone ORDER NUMBER(s): [id number], ACCESSION NUMBER(s): [id number] Exam: CT CT AB PEL WO CON-NO ORAL OR IV History: Right flank pain history of kidney stone Comparison Study: CT CT AB PEL WO CON-NO ORAL OR IV on DOS: 09/24/24 Technique: Multidetector spiral CT of the abdomen and pelvis was performed from lung bases to pubic symphysis. Imaging was performed without intravenous contrast. Coronal and sagittal multiplanar reformats were obtained from the axial data set by the technologist. Radiation Dose : 1. Abdomen/Pelvis: CTDIvol 9.12 mGy, DLP 471.6 mGy*cm. Findings: Evaluation of vasculature and solid organs is limited due to lack of intravenous contrast use. Lung Bases: Lung bases are clear. Visualized portions of the heart and pericardium are unremarkable. Liver: The liver is normal in size. No focal lesions. Gallbladder and Biliary Tree: The gallbladder is unremarkable. No intrahepatic or extrahepatic biliary ductal dilatation. Spleen: Unremarkable Pancreas: The pancreas is grossly unremarkable. Adrenal Glands: Unremarkable Kidneys: There is mild right hydronephrosis due to 5 mm proximal ureteral calculus. Additional nonobstructive calculus in the lower pole of the right kidney measures 3 mm. The left kidney is unremarkable. GI tract: The stomach is grossly normal in appearance. No evidence of small bowel wall thickening or abnormal dilatation to suggest bowel obstruction. There is colonic diverticulosis without acute diverticulitis. No evidence of acute appendicitis. Peritoneum/mesentery/retroperitoneum. No evidence of free intraperitoneal air. No ascites. No evidence of suspicious lymphadenopathy. Abdominal Wall: Unremarkable. Vasculature: The visualized abdominal aorta is normal in size and caliber. Evaluation of abdominal and pelvic vessels is limited due to lack of intravenous contrast. Urinary Bladder: Grossly unremarkable for degree of distention. Pelvic Organs: Unremarkable Musculoskeletal: No aggressive focal bony lesions, acute fractures or dislocation. IMPRESSION: 1. Mild right hydronephrosis due to 5 mm proximal ureteral calculus. 2. Additional nonobstructive calculus in the lower pole of the right kidney measures 3 mm. 3. Colonic diverticulosis without acute diverticulitis. Images Reviewed?: Images reviewed and evaluated by me Time of 1ST Reevaluation: 04:22 Reevaluation 1ST: Unchanged Patient Education/Counseling: Diagnosis, Treatment Family Education/Counseling: No Family Present Medical Screening: No EMC Exist At This Time SEPSIS Sepsis Screen Date sepsis recognized/suspect: Oct 27, 2024 Time Sepsis recognized/suspect: 0336 Recent Procedure: No On Antibiotic Therapy: No Respiratory Rate >20: No Heart Rate >90: No Temp<36 C (96.8 F) or >38.3 C: No SBP <90 or MAP <65 mmHG: No New Acute Mental Status Change: No Is the patient on CPAP, BIPAP,: No Physician Orders Ct Ab Pel Wo Con-No Oral Or Iv (10/27/24 03:35) Electrocardigram (10/27/24 03:46) Vital Signs Date Time Temp Pulse Resp B/P (MAP) Pulse Ox O2 Delivery O2 Flow Rate FiO2 10/27/24 06:06 98.0 103 16 113/71 (85) 96 98.0 10/27/24 04:08 91 10/27/24 03:38 91 10/27/24 03:33 98.8 88 17 143/85 96 98.8 Laboratory Tests Test 10/27/24 03:53 White Blood Count 8.5 10^3/uL (4.4-10.8) Departure 1 Departure Time of Disposition: 05:26 Impression: Primary Impression: Right nephrolithiasis Additional Impression: Hydronephrosis Disposition: ADMITTED INPATIENT Condition: Stable Comments MDM: 64-year-old female with right-sided nephrolithiasis hydronephrosis Pain uncontrolled Patient admitted to hospitalist service for further treatment, evaluation and monitoring. Urinalysis pending Extensive evaluation was performed in attempt to identify or rule out: (See differential diagnosis section) The following tests were ordered, and results were reviewed by me and discussed with patient: (See diagnostic results section) The following test were independently interpreted by me: N/A I reviewed and agreed with the following test results read by other providers: CT abdomen and pelvis without contrast I reviewed the following notes from the pt's past medical encounters: Encounter September 24, 2024 for abdominal pain Additional information was gathered from interviewing the following independent historians: EMS personnel Decision regarding hospitalization or escalation of hospital level of care: Risk and benefits of admission for further treatment of patient's condition was considered. Due to patient's current clinical condition, high risk of decline and poor outcome if discharged and need for further inpatient management and monitoring, patient will be admitted to the hospital. Critical Care Note Critical Care Time?: No Stability Stability form required: No Heart Score Heart Score: Heart Score Response (Comments) Value History N/A 0 EKG N/A 0 Age N/A 0 Risk Factors N/A 0 Troponin N/A 0 Total 0 I personally scribed for BALJIT LEZAMA MD ([employer]) on 10/27/24 at 04:05. Electronically submitted by Cheryl Eddy ([email or web address]). I personally scribed for BALJIT LEZAMA MD ([employer]) on 10/27/24 at 04:08. Electronically submitted by Cheryl Eddy ([email or web address]). I personally scribed for BALJIT LEZAMA MD ([employer]) on 10/27/24 at 04:19. Electronically submitted by Cheryl Eddy ([email or web address]). BALJIT LEZAMA MD Oct 27, 2024 04:05
--- NOTE | 2024-10-27 04:15 | DVH ---
Exam: CT CT AB PEL WO CON-NO ORAL OR IV History: Right flank pain history of kidney stone Comparison Study: CT CT AB PEL WO CON-NO ORAL OR IV on DOS: 09/24/24 Technique: Multidetector spiral CT of the abdomen and pelvis was performed from lung bases to pubic s ymphysis. Imaging was performed without intravenous contrast. Coronal and sagittal multiplanar reform ats were obtained from the axial data set by the technologist. Radiation Dose : 1. Abdomen/Pelvis: CTDIvol 9.12 mGy, DLP 471.6 mGy*cm. Findings: Evaluation of vasculature and solid organs is limited due to lack of intravenous contrast use. Lung Bases: Lung bases are clear. Visualized portions of the heart and pericardium are unremarkable. Liver: The liver is normal in size. No focal lesions. Gallbladder and Biliary Tree: The gallbladder is unremarkable. No intrahepatic or extrahepatic biliar y ductal dilatation. Spleen: Unremarkable Pancreas: The pancreas is grossly unremarkable. Adrenal Glands: Unremarkable Kidneys: There is mild right hydronephrosis due to 5 mm proximal ureteral calculus. Additional nonob structive calculus in the lower pole of the right kidney measures 3 mm. The left kidney is unremarka ble. GI tract: The stomach is grossly normal in appearance. No evidence of small bowel wall thickening or abnormal dilatation to suggest bowel obstruction. There is colonic diverticulosis without acute diver ticulitis. No evidence of acute appendicitis. Peritoneum/mesentery/retroperitoneum. No evidence of free intraperitoneal air. No ascites. No evidenc e of suspicious lymphadenopathy. Abdominal Wall: Unremarkable. Vasculature: The visualized abdominal aorta is normal in size and caliber. Evaluation of abdominal a nd pelvic vessels is limited due to lack of intravenous contrast. Urinary Bladder: Grossly unremarkable for degree of distention. Pelvic Organs: Unremarkable Musculoskeletal: No aggressive focal bony lesions, acute fractures or dislocation. IMPRESSION: 1. Mild right hydronephrosis due to 5 mm proximal ureteral calculus. 2. Additional nonobstructive calculus in the lower pole of the right kidney measures 3 mm. 3. Colonic diverticulosis without acute diverticulitis.
[2024-10-27 04:28] LABS: Chloride 103 mmol/L (98-107); Potassium 3.7 mmol/L (3.5-5.1); Sodium 142 mmol/L (136-145)
[2024-10-27 04:29] LABS: Anion Gap 9 (5-15); Calcium 10.2 mg/dL (8.7-10.4); Carbon Dioxide 30 mmol/L (20-31)
[2024-10-27 04:33] LABS: Hematocrit 38.2 % (36.0-46.0); Hemoglobin 12.4 g/dL (12.2-16.2); Mean Corpuscular Hemoglobin 27.7 pg (28.0-32.0); Mean Corpuscular Volume 85.1 fL (80.0-100.0); Nucleated Red Blood Cells % 0.1 %
[2024-10-27 04:34] LABS: BUN/Creatinine Ratio 11.9 (10.0-20.0); Blood Urea Nitrogen 10 mg/dL (9-23); Glucose 108 mg/dL (74-106)
[2024-10-27 06:45] LABS: Urine Protein, UAD TRACE (Negative)
[2024-10-27] MEDS: ACETAMINOPHEN 325 MG TAB PO ONE (09:20)
[2024-10-27] MEDS: KETOROLAC TROMETH 30 MG/ML 1ML VIAL IM ONE (09:20)
[2024-10-27] MEDS: SODIUM CHLORIDE 0.9% 1,000 ML IV ONE ×3 (11:08→14:16)
--- NOTE | 2024-10-27 12:48 | ECG ---
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
[2024-10-27] MEDS ORDERED: ONDANSETRON HCL 4 MG/2 ML VIAL IV PRN (13:15)
--- NOTE | 2024-10-27 13:55 | DVHHP2 ---
History of Present Illness Reason for Visit: Abdominal pain, right flank pain History of Present Illness Shanell Sue is a 64-year-old female with past medical history of arthritis, GERD, and diverticulitis, who came to the hospital for abdominal pain and right flank pain. Patient states she was recently seen by her urologist and told she has 2 kidney stones in her right side and a left kidney cyst. She states she came to the hospital today due to the pain increasing. She states EMS had to be called due to the increase in pain with associated nausea, vomiting, dizziness, and near syncope due to pain. GI: GERD Past Surgical History: (x 1), Other (DNC) Smoke: No ALCOHOL: none Drugs: None Lives: with Family Domestic Violence: Neg Review of Systems Constitutional: Yes: Weakness; No: Fever, Chills, Sweats, Malaise, Other Eyes: No: Pain, Vision change, Conjunctivae inflammation, Eyelid inflammation, Other, Redness ENT: No: Ear pain, Ear discharge, Nose pain, Nose discharge, Nose congestion, Mouth pain, Mouth swelling, Throat pain, Throat swelling, Other Respiratory: No: Cough, Dry, Shortness of breath, SOB with excertion, Wheezing, Hemoptysis, Pleuritic Pain, Sputum, Wheezing, Other Cardiovascular: No: Chest Pain, Palpitations, Orthopnea, Paroxysmal Noc. Dyspnea, Edema, Lt Headedness, Other Gastrointestinal: Nausea, Vomiting, Abdominal Pain; No: Diarrhea, Constipation, Melena, Hematochezia, Other Genitourinary: No Dysuria, No Frequency, No Incontinence, No Hematuria, No Retention, No Other Musculoskeletal: back pain (right flank pain); No: other, neck pain, shoulder pain, arm pain, hand pain, leg pain, foot pain Skin: No: Rash, Lesions, Jaundice, Bruising, Other Neurological: Other (dizziness ); No: Weakness, Numbness, Incoordination, Change in speech, Confusion, Seizures Allergies: Coded Allergies: Erythromycin (Verified Allergy, Unknown, 05/23/20) Tetracycline (Unverified Allergy, Unknown, 04/20/24) Tetracyclines & Related (Verified Allergy, Unknown, 05/23/20) SKIN RASH Exam Vital Signs Vital Signs Date Time Temp Pulse Resp B/P (MAP) Pulse Ox O2 Delivery O2 Flow Rate FiO2 10/27/24 06:06 98.0 103 16 113/71 (40) 08 98.0 General Appearance: Alert, Oriented X3, Cooperative, mild distress HEENT: Atraumatic, PERRLA Respiratory: Clear to auscultation, Normal air movement Cardiovascular: Regular rate, Normal S1, Normal S2, No murmurs Abdominal: Normal bowel sounds, Soft, Other (Tenderness to RLQ and pelvic) Extremities: No clubbing, No cyanosis, Normal pulses, No tenderness/swelling Skin: No rashes, No breakdown, No significant lesion Neuro: Normal gait, Normal speech, Strength at 5/5 X4 ext Psych/Mental Status: Mental status NL, Mood NL Labs/Xrays Labs Test 10/27/24 04:05 10/27/24 03:53 Range/Units Urine Color Light-orange Yellow Urine Clarity Turbid H Clear Urine pH 6.0 5.0-9.0 Urine Specific [place] 1.028 1.001-1.035 Urine Protein Trace H Negative Urine Ketones Negative Negative Urine Blood 3+ H Negative /uL Urine Nitrite Negative Negative Urine Bilirubin Negative Negative Urine Urobilinogen Normal Negative mg/dL Urine Leukocyte Esterase 3+ Negative /uL Urine RBC 1326 0 - 4 /hpf Urine Microscopic WBC 63 H 0-5 /HPF Urine Squamous Epithelial Cells Few <5 /hpf Urine Bacteria Few H None Seen /hpf Urine Mucus Few None Seen Urine Glucose Normal Normal mg/dL White Blood Count 8.5 4.4-10.8 10^3/uL Red Blood Count 4.49 4.0-5.20 10^6/uL Hemoglobin 12.4 12.2-16.2 g/dL Hematocrit 38.2 36.0-46.0 % Mean Corpuscular Volume 85.1 80.0-100.0 fL Mean Corpuscular Hemoglobin 27.7 L 28.0-32.0 pg Mean Corpuscular Hemoglobin Concent 32.5 32.0-36.0 g/dL Red Cell Distribution Width 15.1 H 11.8-14.3 % Platelet Count 266 140-450 10^3/uL Mean Platelet Volume 9.0 6.9-10.8 fL Neutrophils (%) (Auto) 71.6 37.0-80.0 % Lymphocytes (%) (Auto) 18.8 10.0-50.0 % Monocytes (%) (Auto) 7.0 0.0-12.0 % Eosinophils (%) (Auto) 2.2 0.0-7.0 % Basophils (%) (Auto) 0.4 0.0-2.0 % Neutrophils # (Auto) 6.1 1.6-8.6 10 ^3/uL Lymphocytes # (Auto) 1.6 0.4-5.4 10 ^3/uL Monocytes # (Auto) 0.6 0-1.3 10 ^3/uL Eosinophils # (Auto) 0.2 0-0.8 10 ^3/uL Basophils # (Auto) 0 0-0.2 10 ^3/uL Nucleated Red Blood Cells 0.1 % Sodium Level 142 136-145 mmol/L Potassium Level 3.7 3.5-5.1 mmol/L Chloride Level 103 98-107 mmol/L Carbon Dioxide Level 30 20-31 mmol/L Anion Gap 9 5-15 Blood Urea Nitrogen 10 9-23 mg/dL Creatinine 0.84 0.550-1.02 mg/dL Glomerular Filtration Rate Calc 79 >90 mL/min BUN/Creatinine Ratio 11.9 10.0-20.0 Serum Glucose 108 H 74-106 mg/dL Calcium Level 10.2 8.7-10.4 mg/dL Exam: CT CT AB PEL WO CON-NO ORAL OR IV Findings: Evaluation of vasculature and solid organs is limited due to lack of intravenous contrast use. Lung Bases: Lung bases are clear. Visualized portions of the heart and pericardium are unremarkable. Liver: The liver is normal in size. No focal lesions. Gallbladder and Biliary Tree: The gallbladder is unremarkable. No intrahepatic or extrahepatic biliary ductal dilatation. Spleen: Unremarkable Pancreas: The pancreas is grossly unremarkable. Adrenal Glands: Unremarkable Kidneys: There is mild right hydronephrosis due to 5 mm proximal ureteral calculus. Additional nonobstructive calculus in the lower pole of the right kidney measures 3 mm. The left kidney is unremarkable. GI tract: The stomach is grossly normal in appearance. No evidence of small bowel wall thickening or abnormal dilatation to suggest bowel obstruction. There is colonic diverticulosis without acute diverticulitis. No evidence of acute appendicitis. Peritoneum/mesentery/retroperitoneum. No evidence of free intraperitoneal air. No ascites. No evidence of suspicious lymphadenopathy. Abdominal Wall: Unremarkable. Vasculature: The visualized abdominal aorta is normal in size and caliber. Evaluation of abdominal and pelvic vessels is limited due to lack of intravenous contrast. Urinary Bladder: Grossly unremarkable for degree of distention. Pelvic Organs: Unremarkable Musculoskeletal: No aggressive focal bony lesions, acute fractures or dislocation. IMPRESSION: 1. Mild right hydronephrosis due to 5 mm proximal ureteral calculus. 2. Additional nonobstructive calculus in the lower pole of the right kidney measures 3 mm. 3. Colonic diverticulosis without acute diverticulitis. SEPSIS Sepsis Screen Date sepsis recognized/suspect: Oct 27, 2024 Time Sepsis recognized/suspect: 335 Recent Procedure: No On Antibiotic Therapy: No Respiratory Rate >20: No Heart Rate >90: No Temp<36 C (96.8 F) or >38.3 C: No SBP <90 or MAP <65 mmHG: No New Acute Mental Status Change: No Is the patient on CPAP, BIPAP,: No Physician Orders Admit (10/27/24 13:13) Code Status (10/27/24 13:13) Ondansetron Hcl (Zofran) (10/27/24 13:15) Docusate Sodium Capsule (Colace Capsule) (10/27/24 13:15) Complete Blood Count (10/28/24 04:00) Comprehensive Metabolic Panel (10/28/24 04:00) Condition: Serious (10/27/24 13:13) Acetaminophen Tablet (Tylenol Tablet) (10/27/24 13:15) NS (10/27/24 13:15) NS (10/27/24 13:15) Ketorolac Injection (Toradol Injection) (10/27/24 13:15) Tamsulosin Hydrochloride (Flomax) (10/27/24 18:00) Methocarbamol (Robaxin) (10/27/24 13:15) Pantoprazole Tablet (Protonix Tablet) (10/28/24 10:00) Vital Signs Date Time Temp Pulse Resp B/P (MAP) Pulse Ox O2 Delivery O2 Flow Rate FiO2 10/27/24 06:06 98.0 103 16 113/71 (85) 96 98.0 Laboratory Tests Test 10/27/24 03:53 White Blood Count 8.5 10^3/uL (4.4-10.8) Medications Medications Dose Ordered Sig/Miguel Route Start Time Stop Time Status Last Admin Dose Admin Acetaminophen 650 mg ONCE ONCE PO 10/27/24 03:45 10/27/24 03:46 DC 10/27/24 09:20 650 MG Ketorolac Tromethamine 30 mg ONCE ONCE IM 10/27/24 03:45 10/27/24 03:46 DC 10/27/24 09:20 30 MG Sodium Chloride 1,000 ml @ 1,000 mls/hr Q1H ONCE IV 10/27/24 05:30 10/27/24 06:29 DC 10/27/24 11:08 1,000 MLS/HR Tramadol HCl 50 mg ONCE ONCE PO 10/27/24 03:45 10/27/24 03:46 DC 10/27/24 09:21 50 MG Assessment/Plan Assessment/Plan Assessment: Right nephrolithiasis, Renal calculi, UTI, GERD, Diverticulitis, Plan: Admit to Med-Surg, Consider urology consult, IV hydration, IV antibiotics, Regular diet, Home medications reconciled, Plan discussed with: Patient My Orders Orders - HELLEN BARTON Procedure Category Date Status Time Admit ADMIT 10/27/24 Transmitted 13:13 Code Status CODE 10/27/24 Transmitted 13:13 Ondansetron Hcl PHA 10/27/24 Transmitted (Zofran) 13:15 Docusate Sodium PHA 10/27/24 Transmitted Capsule (Colace 13:15 Complete Blood Count LAB 10/28/24 Verified 04:00 Comprehensive LAB 10/28/24 Verified Metabolic Panel 04:00 Condition: Serious LOIS 10/27/24 Transmitted 13:13 Acetaminophen Tablet PHA 10/27/24 Transmitted (Tylenol Tablet) 13:15 NS PHA 10/27/24 Transmitted 13:15 NS PHA 10/27/24 Transmitted 13:15 Ketorolac Injection PHA 10/27/24 Transmitted (Toradol Injection) 13:15 Tamsulosin PHA 10/27/24 Transmitted Hydrochloride (Flomax) 18:00 Methocarbamol PHA 10/27/24 Transmitted (Robaxin) 13:15 Pantoprazole Tablet PHA 10/28/24 Verified (Protonix Tablet) 10:00 Date of Service: Oct 27, 2024 Billing Provider: HELLEN BARTON Common Visit Codes: [id number] INP/OBS CARE (MOD) HELLEN BARTON Oct 27, 2024 13:55
[2024-10-27] MEDS: METHOCARBAMOL 500 MG TAB PO SCH (14:16)
[2024-10-27 17:01] VITALS: PULSE 70; RESP 14; O2SAT 97
[2024-10-27] MEDS: TAMSULOSIN HYDROCHLORIDE 0.4 MG CAP PO SCH (18:00)
[2024-10-27] MEDS: KETOROLAC TROMETH 30 MG/ML 1ML VIAL IV PRN (20:40)
[2024-10-27 22:20] VITALS: BP 118/61; PULSE 85; RESP 18; TEMP 98.7; O2SAT 94
[2024-10-27 23:04] VITALS: BP 118/61; PULSE 85; RESP 18; TEMP 97.8; O2SAT 98
[2024-10-28 05:00] VITALS: BP 105/69; PULSE 65; RESP 17; TEMP 98.1; O2SAT 95
[2024-10-28 06:27] LABS: Hematocrit 34.1 % (36.0-46.0); Hemoglobin 11.2 g/dL (12.2-16.2); Mean Corpuscular Hemoglobin 27.8 pg (28.0-32.0); Mean Corpuscular Volume 84.1 fL (80.0-100.0); Nucleated Red Blood Cells % 0.0 %
[2024-10-28 06:35] LABS: Alkaline Phosphatase 98 U/L (46-116); Calcium 9.0 mg/dL (8.7-10.4); Carbon Dioxide 26 mmol/L (20-31)
[2024-10-28 06:36] LABS: Albumin 3.6 g/dL (3.2-4.8); Anion Gap 9 (5-15); BUN/Creatinine Ratio 16.9 (10.0-20.0); Bilirubin, Total 0.4 mg/dL (0.2-1.0); Blood Urea Nitrogen 10 mg/dL (9-23); Glucose 92 mg/dL (74-106); Potassium 3.8 mmol/L (3.5-5.1); Sodium 142 mmol/L (136-145); Total Protein 6.5 g/dL (5.7-8.2)
[2024-10-28 06:37] LABS: Alanine Aminotransferase < 9 U/L (7-40); Chloride 107 mmol/L (98-107)
[2024-10-28] MEDS: PANTOPRAZOLE 40 MG TAB PO SCH (08:46)
[2024-10-28 09:00] VITALS: BP 110/70; PULSE 74; RESP 18; TEMP 96.8; O2SAT 97
--- NOTE | 2024-10-28 13:39 | DVHPN2 ---
Reviewed: Care Plan, H&P, Labs, Medications, Previous Orders, Radiology Changes from previous H/P or p: No Changes Eyes: No Pain, No Vision change, No Conjunctivae inflammation, No Eyelid inflammation, No Other, No Redness ENT: No Ear pain, No Ear discharge, No Nose pain, No Nose discharge, No Nose congestion, No Mouth pain, No Mouth swelling, No Throat pain, No Throat swelling, No Other Cardiovascular: No Chest Pain, No Palpitations, No Orthopnea, No Paroxysmal Noc. Dyspnea, No Edema, No Lt Headedness, No Other Respiratory: No Cough, No Dry, No Shortness of breath, No SOB with excertion, No Wheezing, No Hemoptysis, No Pleuritic Pain, No Sputum, No Other Gastrointestinal: Nausea, Vomiting, Abdominal Pain; No Diarrhea, No Constipation, No Melena, No Hematochezia, No Other Genitourinary: No Dysuria, No Frequency, No Incontinence, No Hematuria, No Retention, No Other Musculoskeletal: No other, No neck pain, No shoulder pain, No arm pain; back pain (right flank pain); No hand pain, No leg pain, No foot pain Skin: No Rash, No Lesions, No Jaundice, No Bruising, No Other Objective Vitals Vital Signs Date Time Temp Pulse Resp B/P (MAP) Pulse Ox O2 Delivery O2 Flow Rate FiO2 10/28/24 09:00 96.8 74 18 110/70 (83) 97 96.8 10/27/24 23:04 Room Air* 0 21 Intake/Output Intake and Output 10/28/24 07:00 Intake Total 2050 ml Balance 2050 ml Intake Oral 0 ml IV Total 2050 ml Medications Current Medications Medications Dose Ordered Sig/Miguel Route Start Time Stop Time Status Last Admin Dose Admin Ondansetron HCl 4 mg Q4HP PRN IV 10/27/24 13:15 Docusate Sodium 100 mg BIDPRN PRN PO 10/27/24 13:15 Acetaminophen 650 mg Q6HP PRN PO 10/27/24 13:15 Ketorolac Tromethamine 15 mg Q6HPRN PRN IV 10/27/24 13:15 11/01/24 13:14 10/28/24 08:43 15 MG Tamsulosin HCl 0.4 mg QPM PO 10/27/24 18:00 10/27/24 18:00 0.4 MG Methocarbamol 500 mg Q8H PO 10/27/24 13:15 10/28/24 13:11 500 MG Pantoprazole Sodium 40 mg DAILY PO 10/28/24 10:00 10/28/24 08:46 40 MG Ceftriaxone Sodium 50 ml @ 100 mls/hr DAILY@09 IV 10/28/24 09:00 10/28/24 08:47 100 MLS/HR Laboratory Results Laboratory Tests 10/28/24 05:57 Chemistry Test 10/28/24 05:57 Albumin 3.6 g/dL (3.2-4.8) Calcium Level 9.0 mg/dL (8.7-10.4) Total Protein 6.5 g/dL (5.7-8.2) LFT Test 10/28/24 05:57 Alanine Aminotransferase (ALT) < 9 U/L (7-40) Alkaline Phosphatase 98 U/L (46-116) Aspartate Amino Transferase (AST) 19 U/L (13-40) Total Bilirubin 0.4 mg/dL (0.2-1.0) Urinalysis Test 10/27/24 04:05 Urine Color Light-orange (Yellow) Urine Clarity Turbid (Clear) H Urine pH 6.0 (5.0-9.0) Urine Specific [place] 1.028 (1.001-1.035) Urine Protein Trace (Negative) H Urine Ketones Negative (Negative) Urine Blood 3+ /uL (Negative) H Urine Nitrite Negative (Negative) Urine Bilirubin Negative (Negative) Urine Urobilinogen Normal mg/dL (Negative) Urine Leukocyte Esterase 3+ /uL (Negative) Urine RBC 1326 /hpf (0 - 4) Urine Microscopic WBC 63 /HPF (0-5) H Urine Squamous Epithelial Cells Few /hpf (<5) Urine Bacteria Few /hpf (None Seen) H Urine Mucus Few (None Seen) Urine Glucose Normal mg/dL (Normal) Labs and/or images reviewed: Labs reviewed by me, Image(s) reviewed by me Assessment/Plan Assessment/Plan Acute right flank pain secondary to 5 mm right proximal ureteral stone: IV fluids Flomax consult for Urology Dr. Brown Acute right hydronephrosis UTI: Blood cultures urine cultures Rocephin History of kidney stones history of diverticulitis Time spent 50 minutes Advanced care planning time 20 minutes Patient is full code Plan discussed with: Patient My Orders Orders - JING SMART MD Procedure Category Date Status Time * Urology Consult CONS 10/28/24 Transmitted 13:35 Blood Culture NEREYDA 10/28/24 Verified 13:37 Urine Bacterial NEREYDA 10/28/24 Verified Culture 13:37 Date of Service: Oct 28, 2024 Billing Provider: JING SMART MD Common Visit Codes: [id number] INP/OBS CARE(HIGH) Secondary Visit Codes: [id number] CARE PLAN 30 MINUTES JING SMART MD Oct 28, 2024 13:39
[2024-10-28] MEDS: SODIUM CHLORIDE 0.9% 1,000 ML IV SCH (15:57)
[2024-10-28 17:00] VITALS: BP 109/85; PULSE 79; RESP 18; TEMP 98.3; O2SAT 97
[2024-10-28] MEDS: MUPIROCIN 2% OINT 15gm or 22gm TOP SCH (17:09)
[2024-10-28] MEDS: HYDROCORTISONE 2.5% TOPICAL CREAM 30GM TUBE TOP SCH (17:09)
[2024-10-28] MEDS: FUROSEMIDE 20 MG TAB PO SCH (17:10)
[2024-10-28] MEDS: POTASSIUM CHL 10 Meq TABLET PO SCH (17:10)
[2024-10-28] MEDS: DOCUSATE SOD 100 MG CAP PO PRN (17:49)
[2024-10-28 21:00] VITALS: BP 126/84; PULSE 83; RESP 18; TEMP 97.5; O2SAT 97
[2024-10-29 01:00] VITALS: BP 128/78; PULSE 77; RESP 17; TEMP 97.5; O2SAT 98
[2024-10-29 05:00] VITALS: BP 131/80; PULSE 66; RESP 17; TEMP 97.5; O2SAT 95
[2024-10-29 09:00] VITALS: BP 140/78; PULSE 90; RESP 17; TEMP 97.2; O2SAT 98
--- NOTE | 2024-10-29 10:21 | DVHINCON2 ---
Date of service: Oct 29, 2024 Referring Physician hospitalist Reason for Consultation obstructive uropathy History of Present Illness History Source: Patient, MD Notes Exam Limitations: No limitations HPI 64-year-old female with past medical history of arthritis, GERD, and diverticulitis, who came to the hospital for abdominal pain and right flank pain. Patient states she was recently seen by her urologist and told she has 2 kidney stones in her right side and a left kidney cyst. She states she came to the hospital today due to the pain increasing. She states EMS had to be called due to the increase in pain with associated nausea, vomiting, dizziness, and near syncope due to pain. Home Meds Active Scripts Pantoprazole Sodium Sesquihydr (Protonix) 40 Mg Tab, 40 MG PO DAILY, #60 TAB Prov:NISH CARIAS MD 09/29/24 Docusate Sodium (Docusate Sodium) 100 Mg Cap, 100 MG PO BIDPRN PRN for 30 Days, #60 CAP Prov:AMY CRENSHAW RESIDENT 03/25/24 Reported Medications Hydrocortone (Hydrocortisone 2.5%) 1 Applic Ap, 1 APPLIC TOP BIDP, #30 GRAMS 09/25/24 Mupirocin Calcium (Topical) (MUPIROCIN) 2 % Cre, 2 % EX, CRE 09/25/24 Acetaminophen (Tylenol) 325 Mg Tb, 325 MG PO, TAB 09/25/24 Sxelkju-Tdghzbknbwakj-Wmhaazlq (Excedrin Migraine) Migraine Tab, 1 OR, TAB 09/25/24 Lidocaine (LIDODERM 5% TOPICAL PATCH) 1 Patch Ph, 1 PATCH TOP DAILY, #30 PATCH 1 Refill 09/25/24 Diphenhydramine Hcl (Benadryl Allergy) 25 Mg Cap, 1 CAP PO QPM, #30 CAP 1 Refill 09/25/24 Hydroxyzine Hcl (Hydroxyzine Hcl) 25 Mg Tab, 1 TAB PO TID 03/23/24 Methocarbamol (Methocarbamol) 500 Mg Tab, 1 TAB PO Q8H 03/23/24 Tamsulosin Hcl (Tamsulosin Hcl) 0.4 Mg Cap, 1 CAP PO DAILY 03/23/24 Discontinued Scripts Docusate Sodium (Colace) 100 Mg Cap, 1 CAP PO BID PRN, #60 CAP Prov:NISH CARIAS MD 09/29/24 Amoxicillin & Pot Clavulanate (AUGMENTIN TABLET) 875 Mg Tb, 875 MG PO BID for 5 Days, #10 TAB Prov:NISH CARIAS MD 09/27/24 Past Medical History Patient Family History: Cardiovascular disease Grandfather Diabetes mellitus G8 FATHER FH: cancer G8 MOTHER, Hypertension Kidney stones G8 MOTHER, Review of Systems Constitutional: No symptom reported Ears, Nose, & Throat: No symptom reported Eyes: No symptom reported Pulmonary/Respiratory: No symptom reported Cardiovascular: No symptom reported Gastrointestinal: No symptom reported Genitourinary: No symptom reported Musculoskeletal: No symptom reported Skin: No symptom reported Psychiatric: No symptom reported Endocrine: No symptom reported Hemotologic/Lymphatic: No symptom reported H&P Exam Vital Signs Vital Signs Date Time Temp Pulse Resp B/P (MAP) Pulse Ox O2 Delivery O2 Flow Rate FiO2 10/29/24 09:18 131/80 10/29/24 05:00 97.5 66 17 95 97.5 10/28/24 20:00 Room Air* 0 21 Labs/Xrays [place] [address] Ph: [phone] DIAGNOSTIC IMAGING Diagnostic Imaging Report : [id number] Signed PATIENT: DANIELA TS DACCT: [id number] UNIT: [id number] : 1960 LOC: ER ROOM / BED: / AGE / SEX: 64 / F ADM STATUS: REG ER SERVICE [id number] ORDERING PHYSICIAN: BALJIT LEZAMA MD PROCEDURE(s): ABPL - CT AB PEL WO CON-NO ORAL OR IV REASON: Right flank pain history of kidney stone ORDER NUMBER(s): [id number], ACCESSION NUMBER(s): [id number] Exam: CT CT AB PEL WO CON-NO ORAL OR IV History: Right flank pain history of kidney stone Comparison Study: CT CT AB PEL WO CON-NO ORAL OR IV on DOS: 09/24/24 Technique: Multidetector spiral CT of the abdomen and pelvis was performed from lung bases to pubic symphysis. Imaging was performed without intravenous contrast. Coronal and sagittal multiplanar reformats were obtained from the axial data set by the technologist. Radiation Dose : 1. Abdomen/Pelvis: CTDIvol 9.12 mGy, DLP 471.6 mGy*cm. Findings: Evaluation of vasculature and solid organs is limited due to lack of intravenous contrast use. Lung Bases: Lung bases are clear. Visualized portions of the heart and pericardium are unremarkable. Liver: The liver is normal in size. No focal lesions. Gallbladder and Biliary Tree: The gallbladder is unremarkable. No intrahepatic or extrahepatic biliary ductal dilatation. Spleen: Unremarkable Pancreas: The pancreas is grossly unremarkable. Adrenal Glands: Unremarkable Kidneys: There is mild right hydronephrosis due to 5 mm proximal ureteral calculus. Additional nonobstructive calculus in the lower pole of the right kidney measures 3 mm. The left kidney is unremarkable. GI tract: The stomach is grossly normal in appearance. No evidence of small bowel wall thickening or abnormal dilatation to suggest bowel obstruction. There is colonic diverticulosis without acute diverticulitis. No evidence of acute appendicitis. Peritoneum/mesentery/retroperitoneum. No evidence of free intraperitoneal air. No ascites. No evidence of suspicious lymphadenopathy. Abdominal Wall: Unremarkable. Vasculature: The visualized abdominal aorta is normal in size and caliber. Evaluation of abdominal and pelvic vessels is limited due to lack of intravenous contrast. Urinary Bladder: Grossly unremarkable for degree of distention. Pelvic Organs: Unremarkable Musculoskeletal: No aggressive focal bony lesions, acute fractures or dislocation. IMPRESSION: 1. Mild right hydronephrosis due to 5 mm proximal ureteral calculus. 2. Additional nonobstructive calculus in the lower pole of the right kidney measures 3 mm. 3. Colonic diverticulosis without acute diverticulitis. ATED BY: ANETTE MELENDEZ MD DICTATED DATE/TIME: 10/27/24 0413 SIGNED BY: ANETTE MELENDEZ MD SIGNED DATE/TIME: 10/27/24 0413 CC: Labs Test 10/28/24 05:57 10/27/24 04:05 Range/Units White Blood Count 6.5 4.4-10.8 10^3/uL Red Blood Count 4.05 4.0-5.20 10^6/uL Hemoglobin 11.2 L 12.2-16.2 g/dL Hematocrit 34.1 #L 36.0-46.0 % Mean Corpuscular Volume 84.1 80.0-100.0 fL Mean Corpuscular Hemoglobin 27.8 L 28.0-32.0 pg Mean Corpuscular Hemoglobin Concent 33.0 32.0-36.0 g/dL Red Cell Distribution Width 15.2 H 11.8-14.3 % Platelet Count 231 140-450 10^3/uL Mean Platelet Volume 8.8 6.9-10.8 fL Neutrophils (%) (Auto) 67.1 37.0-80.0 % Lymphocytes (%) (Auto) 22.0 10.0-50.0 % Monocytes (%) (Auto) 6.8 0.0-12.0 % Eosinophils (%) (Auto) 3.5 0.0-7.0 % Basophils (%) (Auto) 0.6 0.0-2.0 % Neutrophils # (Auto) 4.4 1.6-8.6 10 ^3/uL Lymphocytes # (Auto) 1.4 0.4-5.4 10 ^3/uL Monocytes # (Auto) 0.4 0-1.3 10 ^3/uL Eosinophils # (Auto) 0.2 0-0.8 10 ^3/uL Basophils # (Auto) 0 0-0.2 10 ^3/uL Nucleated Red Blood Cells 0.0 % Sodium Level 142 136-145 mmol/L Potassium Level 3.8 3.5-5.1 mmol/L Chloride Level 107 98-107 mmol/L Carbon Dioxide Level 26 20-31 mmol/L Anion Gap 9 5-15 Blood Urea Nitrogen 10 9-23 mg/dL Creatinine 0.59 0.550-1.02 mg/dL Glomerular Filtration Rate Calc 102 >90 mL/min BUN/Creatinine Ratio 16.9 10.0-20.0 Serum Glucose 92 74-106 mg/dL Calcium Level 9.0 8.7-10.4 mg/dL Total Bilirubin 0.4 0.2-1.0 mg/dL Aspartate Amino Transferase (AST) 19 13-40 U/L Alanine Aminotransferase (ALT) < 9 7-40 U/L Alkaline Phosphatase 98 46-116 U/L Total Protein 6.5 5.7-8.2 g/dL Albumin 3.6 3.2-4.8 g/dL Urine Color Light-orange Yellow Urine Clarity Turbid H Clear Urine pH 6.0 5.0-9.0 Urine Specific [place] 1.028 1.001-1.035 Urine Protein Trace H Negative Urine Ketones Negative Negative Urine Blood 3+ H Negative /uL Urine Nitrite Negative Negative Urine Bilirubin Negative Negative Urine Urobilinogen Normal Negative mg/dL Urine Leukocyte Esterase 3+ Negative /uL Urine RBC 1326 0 - 4 /hpf Urine Microscopic WBC 63 H 0-5 /HPF Urine Squamous Epithelial Cells Few <5 /hpf Urine Bacteria Few H None Seen /hpf Urine Mucus Few None Seen Urine Glucose Normal Normal mg/dL Assessment/Plan Problem List: (1) Hydronephrosis (2) Right nephrolithiasis Plan expulsive measures pain meds prn Plan discussed with: Patient, Other DARON MEDINA HISTORY [employer] MEMBER Oct 29, 2024 10:21
--- NOTE | 2024-10-29 11:05 | DVHPN2 ---
Reviewed: Care Plan, H&P, Labs, Medications, Previous Orders, Radiology Changes from previous H/P or p: No Changes Eyes: No Pain, No Vision change, No Conjunctivae inflammation, No Eyelid inflammation, No Other, No Redness ENT: No Ear pain, No Ear discharge, No Nose pain, No Nose discharge, No Nose congestion, No Mouth pain, No Mouth swelling, No Throat pain, No Throat swelling, No Other Cardiovascular: No Chest Pain, No Palpitations, No Orthopnea, No Paroxysmal Noc. Dyspnea, No Edema, No Lt Headedness, No Other Respiratory: No Cough, No Dry, No Shortness of breath, No SOB with excertion, No Wheezing, No Hemoptysis, No Pleuritic Pain, No Sputum, No Other Gastrointestinal: Nausea, Vomiting, Abdominal Pain; No Diarrhea, No Constipation, No Melena, No Hematochezia, No Other Genitourinary: No Dysuria, No Frequency, No Incontinence, No Hematuria, No Retention, No Other Musculoskeletal: No other, No neck pain, No shoulder pain, No arm pain; back pain (right flank pain); No hand pain, No leg pain, No foot pain Skin: No Rash, No Lesions, No Jaundice, No Bruising, No Other Objective Vitals Vital Signs Date Time Temp Pulse Resp B/P (MAP) Pulse Ox O2 Delivery O2 Flow Rate FiO2 10/29/24 09:18 131/80 10/29/24 09:00 97.2 90 17 98 97.2 10/28/24 20:00 Room Air* 0 21 Intake/Output Intake and Output 10/29/24 07:00 Intake Total 2965 ml Balance 2965 ml Intake Oral 1315 ml IV Total 1650 ml # Voids 5 # Bowel Movements 2 Medications Current Medications Medications Dose Ordered Sig/Miguel Route Start Time Stop Time Status Last Admin Dose Admin Ondansetron HCl 4 mg Q4HP PRN IV 10/27/24 13:15 Docusate Sodium 100 mg BIDPRN PRN PO 10/27/24 13:15 10/29/24 09:28 100 MG Acetaminophen 650 mg Q6HP PRN PO 10/27/24 13:15 Ketorolac Tromethamine 15 mg Q6HPRN PRN IV 10/27/24 13:15 11/01/24 13:14 10/28/24 08:43 15 MG Tamsulosin HCl 0.4 mg QPM PO 10/27/24 18:00 10/28/24 17:49 0.4 MG Methocarbamol 500 mg Q8H PO 10/27/24 13:15 10/28/24 13:11 500 MG Pantoprazole Sodium 40 mg DAILY PO 10/28/24 10:00 10/29/24 09:18 40 MG Ceftriaxone Sodium 50 ml @ 100 mls/hr DAILY@09 IV 10/28/24 09:00 10/29/24 09:16 100 MLS/HR Sodium Chloride 1,000 ml @ 150 mls/hr Q6H40M IV 10/28/24 14:15 10/29/24 05:19 150 MLS/HR Diphenhydramine HCl 25 mg Q6HP PRN PO 10/28/24 14:15 10/29/24 09:28 25 MG Mupirocin 1 applic BID TOP 10/28/24 14:15 10/29/24 09:19 1 APPLIC Hydrocortisone 1 applic BID TOP 10/28/24 14:15 10/29/24 09:19 1 APPLIC Furosemide 20 mg DAILY PO 10/28/24 16:00 10/29/24 09:18 20 MG Potassium Chloride 10 meq DAILY PO 10/28/24 16:00 10/29/24 09:17 10 MEQ Laboratory Results Laboratory Tests 10/28/24 05:57 Urinalysis Test 10/27/24 04:05 Urine Color Light-orange (Yellow) Urine Clarity Turbid (Clear) H Urine pH 6.0 (5.0-9.0) Urine Specific [place] 1.028 (1.001-1.035) Urine Protein Trace (Negative) H Urine Ketones Negative (Negative) Urine Blood 3+ /uL (Negative) H Urine Nitrite Negative (Negative) Urine Bilirubin Negative (Negative) Urine Urobilinogen Normal mg/dL (Negative) Urine Leukocyte Esterase 3+ /uL (Negative) Urine RBC 1326 /hpf (0 - 4) Urine Microscopic WBC 63 /HPF (0-5) H Urine Squamous Epithelial Cells Few /hpf (<5) Urine Bacteria Few /hpf (None Seen) H Urine Mucus Few (None Seen) Urine Glucose Normal mg/dL (Normal) Microbiology Microbiology Date/Time Source Procedure Growth Status 10/27/24 04:50 Voided Urine Urine Culture - Preliminary Resulted Labs and/or images reviewed: Labs reviewed by me, Image(s) reviewed by me Assessment/Plan Assessment/Plan Acute right flank pain secondary to 5 mm right proximal ureteral stone: IV fluids Flomax consult for Urology Dr. Brown appreciated Acute right hydronephrosis UTI: Blood cultures, urine cultures negative continue Rocephin History of kidney stones history of diverticulitis Time spent 50 minutes Advanced care planning time 20 minutes Patient is full code Plan discussed with: Patient My Orders Orders - JING SMART MD Procedure Category Date Status Time * Urology Consult CONS 10/28/24 Transmitted 13:35 Blood Culture NEREYDA 10/28/24 In Process 13:37 Urine Bacterial NEREYDA 10/28/24 In Process Culture 13:37 Sodium Chloride 0.9% PHA 10/28/24 In Process 14:15 Diphenhdramine PHA 10/28/24 In Process Capsule (Benadryl 14:15 Mupirocin 2% Ointment PHA 10/28/24 In Process (Bactroban 2% Oint 14:15 Hydrocortone 2.5% PHA 10/28/24 In Process Topical Crm (Hydrocort 14:15 Furosemide Tablet PHA 10/28/24 In Process (Lasix Tablet) 16:00 Potassium Er Tablet PHA 10/28/24 In Process (Klor-Con Tablet) 16:00 Date of Service: Oct 29, 2024 Billing Provider: JING SMART MD Common Visit Codes: [id number] INP/OBS CARE(HIGH) JING SMART MD Oct 29, 2024 11:05
--- NOTE | 2024-10-29 12:16 | DVH ---
INDICATION: hydronephrosis TECHNIQUE: Multiple real-time sonographic images of the kidneys and bladder were obtained. COMPARISON: XY KUB ABDOMEN SINGLE VIEW on DOS: 10/29/24, CT CT AB PEL WO CON-NO ORAL OR IV on DOS: 10/11 09/03, CT CT AB PEL WO CON-NO ORAL OR IV on DOS: 09/24/24, CT CT AB PEL WO CON-NO ORAL OR IV on DOS: 12/04, CT CT AB PEL WO CON-NO ORAL OR IV on DOS: 01/06/24 FINDINGS: The right kidney measures 11 cm in length, which is normal in size. There is normal echogen icity of the right kidney. Mild right hydronephrosis. The left kidney measures 11 cm in length, which is normal in size. There is normal echogenicity of th e left kidney. No hydronephrosis. 1 cm left renal cyst. No large intraluminal masses are seen in the bladder. Prior to voiding the bladder volume measures vo lume 151 cc. IMPRESSION: Mild right hydronephrosis.
--- NOTE | 2024-10-29 12:17 | DVH ---
Date: 10/29/2024 10:45 AM Examination: XY KUB ABDOMEN SINGLE VIEW History: stone Comparison: US KIDNEY on DOS: 10/29/24, CT CT AB PEL WO CON-NO ORAL OR IV on DOS: 10/27/24, CT CT AB PE L WO CON-NO ORAL OR IV on DOS: 09/24/24, MRI ABDOMEN WITH CONTRAST on DOS: 03/24/24, CT CT AB PEL WO CO N-NO ORAL OR IV on DOS: 03/22/24 TECHNIQUE: Frontal views of the abdomen was obtained. FINDINGS: Bowel gas pattern is unremarkable. The lung bases are unremarkable. No acute osseous abnormality identified. IMPRESSION: There is a 11 mm radiopaque density overlying the left renal shadow.
[2024-10-29 13:00] VITALS: BP 146/95; PULSE 73; RESP 19; TEMP 98.2; O2SAT 100
[2024-10-29 17:00] VITALS: BP 140/92; PULSE 97; RESP 18; TEMP 98.9; O2SAT 97
[2024-10-29] MEDS: ACETAMINOPHEN 325 MG TAB PO PRN (18:34)
[2024-10-29 21:00] VITALS: BP 136/87; PULSE 81; RESP 18; TEMP 98.5; O2SAT 97
[2024-10-30 05:00] VITALS: BP 119/83; PULSE 66; RESP 17; TEMP 97.8; O2SAT 96
[2024-10-30 08:53] VITALS: BP 128/85; PULSE 76; RESP 17; TEMP 97.6; O2SAT 98
--- NOTE | 2024-10-30 09:51 | DVHPN2 ---
Reviewed: Care Plan, H&P, Labs, Medications, Previous Orders, Radiology Changes from previous H/P or p: No Changes Eyes: No Pain, No Vision change, No Conjunctivae inflammation, No Eyelid inflammation, No Other, No Redness ENT: No Ear pain, No Ear discharge, No Nose pain, No Nose discharge, No Nose congestion, No Mouth pain, No Mouth swelling, No Throat pain, No Throat swelling, No Other Cardiovascular: No Chest Pain, No Palpitations, No Orthopnea, No Paroxysmal Noc. Dyspnea, No Edema, No Lt Headedness, No Other Respiratory: No Cough, No Dry, No Shortness of breath, No SOB with excertion, No Wheezing, No Hemoptysis, No Pleuritic Pain, No Sputum, No Other Gastrointestinal: Nausea, Vomiting, Abdominal Pain; No Diarrhea, No Constipation, No Melena, No Hematochezia, No Other Genitourinary: No Dysuria, No Frequency, No Incontinence, No Hematuria, No Retention, No Other Musculoskeletal: No other, No neck pain, No shoulder pain, No arm pain; back pain (right flank pain); No hand pain, No leg pain, No foot pain Skin: No Rash, No Lesions, No Jaundice, No Bruising, No Other Objective Vitals Vital Signs Date Time Temp Pulse Resp B/P (MAP) Pulse Ox O2 Delivery O2 Flow Rate FiO2 10/30/24 09:09 128/82 10/30/24 08:53 97.6 76 17 98 97.6 10/29/24 20:00 Room Air* 0 21 Intake/Output Intake and Output 10/30/24 07:00 Intake Total 3570 ml Balance 3570 ml Intake Oral 1570 ml IV Total 2000 ml # Voids 9 # Bowel Movements 2 Medications Current Medications Medications Dose Ordered Sig/Miguel Route Start Time Stop Time Status Last Admin Dose Admin Ondansetron HCl 4 mg Q4HP PRN IV 10/27/24 13:15 Docusate Sodium 100 mg BIDPRN PRN PO 10/27/24 13:15 10/30/24 09:17 100 MG Acetaminophen 650 mg Q6HP PRN PO 10/27/24 13:15 10/29/24 18:34 650 MG Ketorolac Tromethamine 15 mg Q6HPRN PRN IV 10/27/24 13:15 11/01/24 13:14 10/30/24 06:14 15 MG Tamsulosin HCl 0.4 mg QPM PO 10/27/24 18:00 10/29/24 16:58 0.4 MG Methocarbamol 500 mg Q8H PO 10/27/24 13:15 10/30/24 06:12 500 MG Pantoprazole Sodium 40 mg DAILY PO 10/28/24 10:00 10/30/24 09:09 40 MG Ceftriaxone Sodium 50 ml @ 100 mls/hr DAILY@09 IV 10/28/24 09:00 10/30/24 09:08 100 MLS/HR Sodium Chloride 1,000 ml @ 150 mls/hr Q6H40M IV 10/28/24 14:15 10/30/24 01:18 150 MLS/HR Diphenhydramine HCl 25 mg Q6HP PRN PO 10/28/24 14:15 10/30/24 09:17 25 MG Mupirocin 1 applic BID TOP 10/28/24 14:15 10/30/24 09:10 1 APPLIC Hydrocortisone 1 applic BID TOP 10/28/24 14:15 10/30/24 09:11 1 APPLIC Furosemide 20 mg DAILY PO 10/28/24 16:00 10/30/24 09:09 20 MG Potassium Chloride 10 meq DAILY PO 10/28/24 16:00 10/30/24 09:08 10 MEQ Laboratory Results Laboratory Tests 10/28/24 05:57 Urinalysis Test 10/27/24 04:05 Urine Color Light-orange (Yellow) Urine Clarity Turbid (Clear) H Urine pH 6.0 (5.0-9.0) Urine Specific [place] 1.028 (1.001-1.035) Urine Protein Trace (Negative) H Urine Ketones Negative (Negative) Urine Blood 3+ /uL (Negative) H Urine Nitrite Negative (Negative) Urine Bilirubin Negative (Negative) Urine Urobilinogen Normal mg/dL (Negative) Urine Leukocyte Esterase 3+ /uL (Negative) Urine RBC 1326 /hpf (0 - 4) Urine Microscopic WBC 63 /HPF (0-5) H Urine Squamous Epithelial Cells Few /hpf (<5) Urine Bacteria Few /hpf (None Seen) H Urine Mucus Few (None Seen) Urine Glucose Normal mg/dL (Normal) Microbiology Microbiology Date/Time Source Procedure Growth Status 10/28/24 14:10 Blood Blood Culture - Preliminary NO GROWTH AFTER 24 HOURS OF INCUBATION. Resulted 10/27/24 04:50 Voided Urine Urine Culture - Preliminary Resulted Labs and/or images reviewed: Labs reviewed by me, Image(s) reviewed by me Assessment/Plan Assessment/Plan Acute right flank pain secondary to 5 mm right proximal ureteral stone: IV fluids Flomax consult for Urology Dr. Brown appreciated Acute right hydronephrosis UTI: Blood cultures negative, urine cultures negative continue Rocephin History of kidney stones history of diverticulitis Time spent 50 minutes Advanced care planning time 20 minutes Patient is full code Pt Still complaining of pain and does not want to be discharged today Plan discussed with: Patient Date of Service: Oct 30, 2024 Billing Provider: JING SMART MD Common Visit Codes: [id number] INP/OBS CARE(HIGH) JING SMART MD Oct 30, 2024 09:51
[2024-10-30 13:16] VITALS: BP 122/78; PULSE 70; RESP 14; TEMP 98.6; O2SAT 100
[2024-10-30] MEDS: POLYETHYLENE GLYCOL 17 GM PWDR PO PRN (14:22)
[2024-10-30 18:24] VITALS: BP 124/81; PULSE 78; RESP 18; TEMP 98; O2SAT 95
[2024-10-30 21:00] VITALS: BP 124/80; PULSE 90; RESP 18; TEMP 97.7; O2SAT 97
[2024-10-31 05:00] VITALS: BP 115/68; PULSE 78; RESP 17; TEMP 98.3; O2SAT 96
--- NOTE | 2024-10-31 08:41 | DVHPN2 ---
Reviewed: Care Plan, H&P, Labs, Medications, Previous Orders, Radiology Changes from previous H/P or p: No Changes Eyes: No Pain, No Vision change, No Conjunctivae inflammation, No Eyelid inflammation, No Other, No Redness ENT: No Ear pain, No Ear discharge, No Nose pain, No Nose discharge, No Nose congestion, No Mouth pain, No Mouth swelling, No Throat pain, No Throat swelling, No Other Cardiovascular: No Chest Pain, No Palpitations, No Orthopnea, No Paroxysmal Noc. Dyspnea, No Edema, No Lt Headedness, No Other Respiratory: No Cough, No Dry, No Shortness of breath, No SOB with excertion, No Wheezing, No Hemoptysis, No Pleuritic Pain, No Sputum, No Other Gastrointestinal: Nausea, Vomiting, Abdominal Pain; No Diarrhea, No Constipation, No Melena, No Hematochezia, No Other Genitourinary: No Dysuria, No Frequency, No Incontinence, No Hematuria, No Retention, No Other Musculoskeletal: No other, No neck pain, No shoulder pain, No arm pain; back pain (right flank pain); No hand pain, No leg pain, No foot pain Skin: No Rash, No Lesions, No Jaundice, No Bruising, No Other Objective Vitals Vital Signs Date Time Temp Pulse Resp B/P (MAP) Pulse Ox O2 Delivery O2 Flow Rate FiO2 10/31/24 05:00 98.3 78 17 115/68 (84) 96 98.3 10/31/24 02:31 Room Air* 0 21 Intake/Output Intake and Output 10/31/24 07:00 Intake Total 2850 ml Output Total 900 ml Balance 1950 ml Intake Oral 400 ml IV Total 2450 ml Output Urine Total 900 ml # Voids 1 # Bowel Movements 1 Medications Current Medications Medications Dose Ordered Sig/Miguel Route Start Time Stop Time Status Last Admin Dose Admin Ondansetron HCl 4 mg Q4HP PRN IV 10/27/24 13:15 Docusate Sodium 100 mg BIDPRN PRN PO 10/27/24 13:15 10/30/24 09:17 100 MG Acetaminophen 650 mg Q6HP PRN PO 10/27/24 13:15 10/29/24 18:34 650 MG Ketorolac Tromethamine 15 mg Q6HPRN PRN IV 10/27/24 13:15 11/01/24 13:14 10/31/24 06:57 15 MG Tamsulosin HCl 0.4 mg QPM PO 10/27/24 18:00 10/30/24 18:11 0.4 MG Methocarbamol 500 mg Q8H PO 10/27/24 13:15 10/31/24 06:49 500 MG Pantoprazole Sodium 40 mg DAILY PO 10/28/24 10:00 10/30/24 09:09 40 MG Ceftriaxone Sodium 50 ml @ 100 mls/hr DAILY@09 IV 10/28/24 09:00 10/30/24 09:08 100 MLS/HR Sodium Chloride 1,000 ml @ 150 mls/hr Q6H40M IV 10/28/24 14:15 10/31/24 06:42 150 MLS/HR Diphenhydramine HCl 25 mg Q6HP PRN PO 10/28/24 14:15 10/30/24 22:07 25 MG Mupirocin 1 applic BID TOP 10/28/24 14:15 10/30/24 22:00 1 APPLIC Hydrocortisone 1 applic BID TOP 10/28/24 14:15 10/30/24 22:00 1 APPLIC Furosemide 20 mg DAILY PO 10/28/24 16:00 10/30/24 09:09 20 MG Potassium Chloride 10 meq DAILY PO 10/28/24 16:00 10/30/24 09:08 10 MEQ Polyethylene Glycol 17 gm DAILYPRN PRN PO 10/30/24 14:15 10/30/24 14:22 17 GM Laboratory Results Laboratory Tests 10/28/24 05:57 Urinalysis Test 10/27/24 04:05 Urine Color Light-orange (Yellow) Urine Clarity Turbid (Clear) H Urine pH 6.0 (5.0-9.0) Urine Specific [place] 1.028 (1.001-1.035) Urine Protein Trace (Negative) H Urine Ketones Negative (Negative) Urine Blood 3+ /uL (Negative) H Urine Nitrite Negative (Negative) Urine Bilirubin Negative (Negative) Urine Urobilinogen Normal mg/dL (Negative) Urine Leukocyte Esterase 3+ /uL (Negative) Urine RBC 1326 /hpf (0 - 4) Urine Microscopic WBC 63 /HPF (0-5) H Urine Squamous Epithelial Cells Few /hpf (<5) Urine Bacteria Few /hpf (None Seen) H Urine Mucus Few (None Seen) Urine Glucose Normal mg/dL (Normal) Microbiology Microbiology Date/Time Source Procedure Growth Status 10/28/24 14:10 Blood Blood Culture - Preliminary NO GROWTH AFTER 48 HOURS OF INCUBATION. Resulted 10/27/24 04:50 Voided Urine Urine Culture - Final Complete Labs and/or images reviewed: Labs reviewed by me, Image(s) reviewed by me Assessment/Plan Assessment/Plan Acute right flank pain secondary to 5 mm right proximal ureteral stone: IV fluids Flomax consult for Urology Dr. Brown appreciated advised outpatient ESWL Acute right hydronephrosis UTI: Blood cultures negative, urine cultures growing yeast in the urine, add Diflucan tablets, continue Rocephin History of kidney stones history of diverticulitis Time spent 50 minutes Advanced care planning time 20 minutes Patient is full code Pt Still complaining of pain and does not want to be discharged today Patient has been following with her urologist Dr Suazo in [place] Plan discussed with: Patient My Orders Orders - JING SMART MD Procedure Category Date Status Time Polyethylene Glycol PHA 10/30/24 In Process 17g Powder (Miralax 14:15 Date of Service: Oct 31, 2024 Billing Provider: JING SMART MD Common Visit Codes: [id number] INP/OBS CARE(HIGH) JING SMART MD Oct 31, 2024 08:41
[2024-10-31] MEDS ORDERED: CIPR-173 PO (08:43)
[2024-10-31] MEDS ORDERED: TRAM-626 PO (08:43)
[2024-10-31] MEDS ORDERED: FLUC200T PO (08:43)
--- NOTE | 2024-10-31 08:48 | DVHDS2 ---
Discharge Summary Date of Admission Oct 27, 2024 at 13:13 Date of Discharge: Oct 31, 2024 Admitting Diagnosis Right flank pain Wounds: None Labs/Diagnostic Data: Laboratory Results Test 10/28/24 05:57 10/27/24 04:05 White Blood Count 6.5 10^3/uL (4.4-10.8) Red Blood Count 4.05 10^6/uL (4.0-5.20) Hemoglobin 11.2 g/dL (12.2-16.2) Hematocrit 34.1 % (36.0-46.0) Mean Corpuscular Volume 84.1 fL (80.0-100.0) Mean Corpuscular Hemoglobin 27.8 pg (28.0-32.0) Mean Corpuscular Hemoglobin Concent 33.0 g/dL (32.0-36.0) Red Cell Distribution Width 15.2 % (11.8-14.3) Platelet Count 231 10^3/uL (140-450) Mean Platelet Volume 8.8 fL (6.9-10.8) Neutrophils (%) (Auto) 67.1 % (37.0-80.0) Lymphocytes (%) (Auto) 22.0 % (10.0-50.0) Monocytes (%) (Auto) 6.8 % (0.0-12.0) Eosinophils (%) (Auto) 3.5 % (0.0-7.0) Basophils (%) (Auto) 0.6 % (0.0-2.0) Neutrophils # (Auto) 4.4 10 ^3/uL (1.6-8.6) Lymphocytes # (Auto) 1.4 10 ^3/uL (0.4-5.4) Monocytes # (Auto) 0.4 10 ^3/uL (0-1.3) Eosinophils # (Auto) 0.2 10 ^3/uL (0-0.8) Basophils # (Auto) 0 10 ^3/uL (0-0.2) Nucleated Red Blood Cells 0.0 % Sodium Level 142 mmol/L (136-145) Potassium Level 3.8 mmol/L (3.5-5.1) Chloride Level 107 mmol/L (98-107) Carbon Dioxide Level 26 mmol/L (20-31) Anion Gap 9 (5-15) Blood Urea Nitrogen 10 mg/dL (9-23) Creatinine 0.59 mg/dL (0.550-1.02) Glomerular Filtration Rate Calc 102 mL/min (>90) BUN/Creatinine Ratio 16.9 (10.0-20.0) Serum Glucose 92 mg/dL (74-106) Calcium Level 9.0 mg/dL (8.7-10.4) Total Bilirubin 0.4 mg/dL (0.2-1.0) Aspartate Amino Transferase (AST) 19 U/L (13-40) Alanine Aminotransferase (ALT) < 9 U/L (7-40) Alkaline Phosphatase 98 U/L (46-116) Total Protein 6.5 g/dL (5.7-8.2) Albumin 3.6 g/dL (3.2-4.8) Urine Color Light-orange (Yellow) Urine Clarity Turbid (Clear) Urine pH 6.0 (5.0-9.0) Urine Specific [place] 1.028 (1.001-1.035) Urine Protein Trace (Negative) Urine Ketones Negative (Negative) Urine Blood 3+ /uL (Negative) Urine Nitrite Negative (Negative) Urine Bilirubin Negative (Negative) Urine Urobilinogen Normal mg/dL (Negative) Urine Leukocyte Esterase 3+ /uL (Negative) Urine RBC 1326 /hpf (0 - 4) Urine Microscopic WBC 63 /HPF (0-5) Urine Squamous Epithelial Cells Few /hpf (<5) Urine Bacteria Few /hpf (None Seen) Urine Mucus Few (None Seen) Urine Glucose Normal mg/dL (Normal) Other Laboratory Tests 10/28/24 05:57 Brief Hx & Hospital Course: 64-year-old female with a history of kidney stones came in for right flank pain found to have 5 mm right proximal ureteral stone given Flomax IV fluids and pain medications seen by Urology Dr. Villalta who advised outpatient ESWL patient has mild UTI T blood cultures negative urine cultures growing yeast . Started on Diflucan treated with Rocephin for UTI. Patient has a history of diverticulitis. She is being discharged on tramadol Cipro and Diflucan. She was advised to keep her appointment with the her urologist Dr. Brown in [place] for ESWL Consults/Reason for consult Urology Dr. Brown Operations or Procedures CT abdomen pelvis without contrast Condition at Discharge: Fair Final Diagnosis/Problems List Acute right flank pain secondary to 5 mm right proximal ureteral stone: IV fluids Flomax consult for Urology Dr. Brown appreciated advised outpatient ESWL Acute right hydronephrosis UTI: Blood cultures negative, urine cultures growing yeast in the urine, add Diflucan tablets, continue Rocephin History of kidney stones history of diverticulitis Time spent 50 minutes Advanced care planning time 20 minutes Patient is full code Pt Still complaining of pain and does not want to be discharged today Patient has been following with her urologist Dr Suazo in [place] Discharge Disposition: Home Discharge Instruct/Medications Diet: Regular Activity: Light activity Follow Up/Referral: Follow up with your urologist Dr. Barber as an outpatient for ESWL Continue all your medications including Flomax Medications: Diflucan Cipro Tramadol Transmitted to [facility] Scheduled Ciprofloxacin Hcl (Cipro), 1 TAB PO BID Diphenhydramine Hcl (Benadryl Allergy), 1 CAP PO QPM, (Reported) Fluconazole (Diflucan), 1 TAB PO DAILY Hydrocortone (Hydrocortisone 2.5%), 1 APPLIC TOP BIDP, (Reported) Hydroxyzine Hcl (Hydroxyzine Hcl), 1 TAB PO TID, (Reported) Lidocaine (Lidoderm 5% Topical Patch), 1 PATCH TOP DAILY, (Reported) Methocarbamol (Methocarbamol), 1 TAB PO Q8H, (Reported) Pantoprazole Sodium Sesquihydr (Protonix), 40 MG PO DAILY Tamsulosin Hcl (Tamsulosin Hcl), 1 CAP PO DAILY, (Reported) Scheduled PRN Docusate Sodium (Docusate Sodium), 100 MG PO BIDPRN PRN Tramadol HCl (Tramadol HCl), 50 MG PO QID PRN Miscellaneous Medications Acetaminophen (Tylenol), 325 MG PO, (Reported) Yviecic-Iiixnwsufjhar-Msffgrue (Excedrin Migraine), 1 OR, (Reported) Mupirocin Calcium (Topical) (Mupirocin), 2 % EX, (Reported) Discontinued Medications Amoxicillin & Pot Clavulanate (Augmentin Tablet), 875 MG PO BID Docusate Sodium (Colace), 1 CAP PO BID PRN 39 (Time taken for discharge summary 39 minutes) Discharge Statement: "Patient was advised to return to the ER or call 911 if any headaches, dizziness, shortness of breath, chest pain, abdominal pain, bleeding, fevers, or worsening of medical condition. Patient was counseled about treatment plan, medications, possible side effects, patientverbalized understanding. All questions were answered to the best of my ability. This discharge took greater then 30 minutes in planning, reviewing documentation, counseling the patient, and discussing with other team members." ASSESSMENT ASSESSMENT Hospital Course Improved Assessment Acute right flank pain secondary to 5 mm right proximal ureteral stone: IV fluids Flomax consult for Urology Dr. Brown appreciated advised outpatient ESWL Acute right hydronephrosis UTI: Blood cultures negative, urine cultures growing yeast in the urine, add Diflucan tablets, continue Rocephin History of kidney stones history of diverticulitis Time spent 50 minutes Advanced care planning time 20 minutes Patient is full code Pt Still complaining of pain and does not want to be discharged today Patient has been following with her urologist Dr Suazo in [place] Date of Service: Oct 31, 2024 Billing Provider: JING SMART MD Common Visit Codes: [id number] DISCH DAY >30min JING SMART MD Oct 31, 2024 08:48
[2024-10-31 09:00] VITALS: BP 132/90; PULSE 67; RESP 15; TEMP 98; O2SAT 97
[2024-10-31] MEDS: MAALOX PLUS or MAALOX 30 ML PO ONE (09:35)
[2024-10-31] MEDS: FLUCONAZOLE 100 MG TAB PO SCH (09:36)
[2024-10-31 12:52] VITALS: BP 125/65; PULSE 67; RESP 15; TEMP 97.9; O2SAT 97
[2024-10-31 16:59] VITALS: BP 109/67; PULSE 83; RESP 18; TEMP 97.9; O2SAT 97
[2024-10-31 21:00] VITALS: BP 121/62; PULSE 76; RESP 15; TEMP 98.3; O2SAT 97
[2024-11-01 01:00] VITALS: BP 106/54; PULSE 78; RESP 15; TEMP 97.6; O2SAT 95
[2024-11-01 05:00] VITALS: BP 140/74; PULSE 62; RESP 16; TEMP 97.8; O2SAT 97
[2024-11-01 07:50] VITALS: PULSE 89; RESP 18; O2SAT 98
[2024-11-01 08:30] VITALS: BP 137/80; PULSE 76; RESP 18; TEMP 98; O2SAT 98
[2024-11-01 12:34] VITALS: BP 126/85; PULSE 85; RESP 18; TEMP 98.5; O2SAT 97
[2024-11-01 13:19] VITALS: BP 126/85; PULSE 85; RESP 18; TEMP 98.3; O2SAT 97
== END 2024-11-01 16:45 | disposition home health service (06) | DRG 463 ==
LOC: ER 03:16 → OVERFLOW 13:13 → CENTRAL 22:20
PROVIDERS: ADMIT Family Medicine; ATTEND Family Medicine
DX: N13.6 Pyonephrosis (principal); E11.9 Type 2 diabetes mellitus without complications; N28.1 Cyst of kidney, acquired; K57.32 Diverticulitis of large intestine without perforation or abscess without bleeding; N20.2 Calculus of kidney with calculus of ureter; K21.9 Gastro-esophageal reflux disease without esophagitis; Z79.899 Other long term (current) drug therapy; Z88.1 Allergy status to other antibiotic agents; Z79.82 Long term (current) use of aspirin; Z79.2 Long term (current) use of antibiotics; Z98.891 History of uterine scar from previous surgery; Z82.49 Family history of ischemic heart disease and other diseases of the circulatory system
CPT/HCPCS: 36415; 74018; 74176; 76775; 80048; 80053; 81001; 85025; 87040; 87086; 93005; 96372; G0378; J1885

== ENCOUNTER 2024-12-18 18:42 | Emergency (ER) | payer MEDICAID ==
[~2024-12-18] VITALS: Ht 157.5 cm; Wt 97.2 kg
[~2024-12-18 18:42] MED LIST changes: -AUG875T PO; +CIPR-173 PO; -DOCU-94 PO; +FLUC200T PO; +TRAM-626 PO
[2024-12-18 18:45] VITALS: TEMP 98.1
--- NOTE | 2024-12-18 19:30 | ED.PDOC ---
History of Present Illness(SKN HPI Comments HPI: 64-year-old female who came to ER if any insect bites. Patient states she was in in a yesterday, when she suspects she got bitten by a spider, at her left leg 4 times. Denies any other acute symptoms. Patient is also here requesting Lasix that she has been using in the past for nonspecific bilateral lower extremity intermittent pitting edema she is also requesting a Toradol shot. Past Medical History: Kidney stones, diverticulitis, irritable bowel syndrome, chronic back pain, multiple injuries and contusions in the past, Surgical History: cspine surgery, carpal tunnel surgery Family History:Denies Personal and Social History: Denies HPI: Poor Historian. REVIEW OF SYSTEMS: CONSTITUTIONAL: Denies acute: fever, diaphoresis, chills, generalized weakness. HEAD: Denies acute: headache, photophobia Eyes: Denies acute: Double vision, vision loss, eye pain, eye discharge. EARS: Denies acute: tinnitus, hearing loss, ear discharge, ear pain, THROAT: Denies acute: sore throat, swelling, difficulty swallowing , pain with swallo wing, change in voice. NECK: Denies acute: neck pain, neck swelling, stiff neck. HEART: Denies acute : chest pain, palpitations, LUNGS: Denies acute: SOB, wheezing, cough, hemoptysis ABDOMEN: Denies acute: abdominal pain, Nausea, Vomiting, diarrhea, melena , hematemesis, hematochezia SKIN: Denies acute: EXTREMITIES: Denies acute: calf pain, numbness, tingling, weakness, denies pain in extremity. Denies acute: Low back pain. Neuro: Denies acute: focal neurological deficit, motor or sensory focal neurological deficit, tremors, seizure like activity, confusion, dizziness, change in mental status, loss of bowel or bladder function, cauda equina like symptoms. : Denies acute: dysuria, hematuria, flank pain, increase in urinary frequency. PSYCH: Denies acute: hallucination, suicidal ideation, homicidal ideation. FEMALE: Denies acute: abnormal vaginal bleeding, foul odor, unusual discharge. PHYSICAL EXAM: General: ----no----acute distress, awake and alert. Head: normocephalic, atraumatic. No raccoon's eyes, no franco sign. Neck: supple, trachea is midline, no swelling. Throat: Normal phonation. Eyes:, no erythema, no purulent discharge, no proptosis, no icterus. Heart: regular rate, regular rhythm, no significant murmur appreciated. Lungs: no apparent respiratory distress, Able to speak in full sentences. No wheezing, no rhonchi, no crackles. No stridors Clear to auscultation bilaterally. Abdomen: non tender to palpation, non distended, soft, no guarding, no rebound, + bowel sounds. Neuro: Awake, Alert, oriented to name, self, situation, follows commands GCS=15. Speech is normal. Skin: no petechia, no purpura, no cyanosis, non-pale, not jaundice. Lower extremities: --trace b/l - Pitting edema no deformity, no focal swelling, no calf TTP. Makes eye contact. moves all four extremities. Face: no apparent facial droop. Evaluation of the area of complaintL left lower extremity minimal three spots of redness non elevated non pustules nonblanching non vesicular. Ambulating in the ED independently. ED COURSE: DISCLAIMER: This medical document was created using an electronic medical record system with voice recognition software and computerized dictation system. Although this document has been carefully reviewed, there might still be some phonetic and typographical errors. Occasional wrong-word or "sound-alike" substitutions may have occurred due to the inherent limitations of voice recognition software. Th keily areas are purely typographical due to imperfections of the software programs and do not reflect any compromise in the patient's medical care. Please read the chart carefully and recognize, using context, where these substitutions have occurred. Chief Complaint: Insect Bite Time Seen by MD: 19:30 Primary Care Provider: LAINE MONTEZ History of Present Illness: Nurses Notes, Allergies Allergies: Coded Allergies: Erythromycin (Verified Allergy, Unknown, 05/23/20) Tetracycline (Unverified Allergy, Unknown, 04/20/24) Tetracyclines & Related (Verified Allergy, Unknown, 05/23/20) SKIN RASH Home Meds Active Scripts Cephalexin Monohydrate (Cephalexin) 500 Mg Cap, 500 MG PO Q8HP PRN for 7 Days, #28 CAP Prov:LUIZ,GENNY Pawan THOMAS 12/18/24 Ciprofloxacin Hcl (Cipro) 500 Mg Tab, 1 TAB PO BID, #14 TAB Prov:JING SMART MD 10/31/24 Tramadol HCl (Tramadol HCl) 50 Mg Tab, 50 MG PO QID PRN, #30 TAB Prov:JING SMART MD 10/31/24 Fluconazole (Diflucan) 200 Mg Tab, 1 TAB PO DAILY, #7 TAB Prov:JING SMART MD 10/31/24 Pantoprazole Sodium Sesquihydr (Protonix) 40 Mg Tab, 40 MG PO DAILY, #60 TAB Prov:NISH CARIAS MD 09/29/24 Docusate Sodium (Docusate Sodium) 100 Mg Cap, 100 MG PO BIDPRN PRN for 30 Days, #60 CAP Prov:AMY CRENSHAW RESIDENT 03/25/24 Reported Medications Hydrocortone (Hydrocortisone 2.5%) 1 Applic Ap, 1 APPLIC TOP BIDP, #30 GRAMS 09/25/24 Mupirocin Calcium (Topical) (MUPIROCIN) 2 % Cre, 2 % EX, CRE 09/25/24 Acetaminophen (Tylenol) 325 Mg Tb, 325 MG PO, TAB 09/25/24 Ifsgyvx-Dadtbdmwamqzg-Fqefkqmo (Excedrin Migraine) Migraine Tab, 1 OR, TAB 09/25/24 Lidocaine (LIDODERM 5% TOPICAL PATCH) 1 Patch Ph, 1 PATCH TOP DAILY, #30 PATCH 1 Refill 09/25/24 Diphenhydramine Hcl (Benadryl Allergy) 25 Mg Cap, 1 CAP PO QPM, #30 CAP 1 Refill 09/25/24 Hydroxyzine Hcl (Hydroxyzine Hcl) 25 Mg Tab, 1 TAB PO TID 03/23/24 Methocarbamol (Methocarbamol) 500 Mg Tab, 1 TAB PO Q8H 03/23/24 Tamsulosin Hcl (Tamsulosin Hcl) 0.4 Mg Cap, 1 CAP PO DAILY 03/23/24 Information Source: Patient Mode of Arrival: Ambulatory Past Medical History PAST MEDICAL HISTORY: Kidney Stones, UTI'S Surgical History: Denies all surgeries DISTRICT PLANT ENGINEER History: No Pertinent DISTRICT PLANT ENGINEER History Family History Family History: Reviewed,noncontributory to illness Social History Smoker: Non-Smoker Alcohol: Denies ETOH Use Drugs: Denies Drug Use Lives In: Home Was a procedure done? Was a procedure done?: No X-Ray, Labs, Meds, VS Vital Signs Date Time Temp Pulse Resp B/P (MAP) Pulse Ox O2 Delivery O2 Flow Rate FiO2 12/18/24 18:45 98.1 99 18 112/80 99 98.1 Lab Test 12/18/24 19:42 Range/Units White Blood Count 8.5 4.4-10.8 10^3/uL Red Blood Count 4.21 4.0-5.20 10^6/uL Hemoglobin 11.4 L 12.2-16.2 g/dL Hematocrit 35.7 L 36.0-46.0 % Mean Corpuscular Volume 84.6 80.0-100.0 fL Mean Corpuscular Hemoglobin 27.1 L 28.0-32.0 pg Mean Corpuscular Hemoglobin Concent 32.0 32.0-36.0 g/dL Red Cell Distribution Width 15.7 H 11.8-14.3 % Platelet Count 272 140-450 10^3/uL Mean Platelet Volume 8.4 6.9-10.8 fL Neutrophils (%) (Auto) 70.5 37.0-80.0 % Lymphocytes (%) (Auto) 20.2 10.0-50.0 % Monocytes (%) (Auto) 6.7 0.0-12.0 % Eosinophils (%) (Auto) 2.0 0.0-7.0 % Basophils (%) (Auto) 0.6 0.0-2.0 % Neutrophils # (Auto) 6.0 1.6-8.6 10 ^3/uL Lymphocytes # (Auto) 1.7 0.4-5.4 10 ^3/uL Monocytes # (Auto) 0.6 0-1.3 10 ^3/uL Eosinophils # (Auto) 0.2 0-0.8 10 ^3/uL Basophils # (Auto) 0.1 0-0.2 10 ^3/uL Nucleated Red Blood Cells 0.0 % Sodium Level 141 136-145 mmol/L Potassium Level 4.0 3.5-5.1 mmol/L Chloride Level 109 H 98-107 mmol/L Carbon Dioxide Level 28 20-31 mmol/L Anion Gap 4 L 5-15 Blood Urea Nitrogen 10 9-23 mg/dL Creatinine 0.83 0.550-1.02 mg/dL Glomerular Filtration Rate Calc 80 >90 mL/min BUN/Creatinine Ratio 12.0 10.0-20.0 Serum Glucose 72 L 74-106 mg/dL Lactic Acid Level 0.9 0.4-2.0 mmol/L Calcium Level 9.7 8.7-10.4 mg/dL Total Bilirubin 0.2 0.2-1.0 mg/dL Aspartate Amino Transferase (AST) 22 13-40 U/L Alanine Aminotransferase (ALT) < 9 7-40 U/L Alkaline Phosphatase 155 H 46-116 U/L C-Reactive Protein High Sensitivity 1.56 H <1.0 mg/dL B-Type Natriuretic Peptide 5.86 0-100 pg/mL Total Protein 7.6 5.7-8.2 g/dL Albumin 4.2 3.2-4.8 g/dL Time of 1ST Reevaluation: 19:28 Reevaluation 1ST: Unchanged Patient Education/Counseling: Diagnosis, Treatment Family Education/Counseling: No Family Present SEPSIS Sepsis Screen Date sepsis recognized/suspect: Dec 18, 2024 Time Sepsis recognized/suspect: 1847 Recent Procedure: No On Antibiotic Therapy: No Respiratory Rate >20: No Heart Rate >90: Yes Temp<36 C (96.8 F) or >38.3 C: No SBP <90 or MAP <65 mmHG: No New Acute Mental Status Change: No Is the patient on CPAP, BIPAP,: No Vital Signs Date Time Temp Pulse Resp B/P (MAP) Pulse Ox O2 Delivery O2 Flow Rate FiO2 12/18/24 18:45 98.1 99 18 112/80 99 98.1 Laboratory Tests Test 12/18/24 19:42 Lactic Acid Level 0.9 mmol/L (0.4-2.0) White Blood Count 8.5 10^3/uL (4.4-10.8) Departure 1 Departure Time of Disposition: 20:44 Impression: Primary Impression: Insect bite Additional Impression: Medication refill Disposition: HOME / SELF CARE / HOMELESS Condition: Stable Additional Instructions: Additional instructions: Please read all instructions provided in this packet carefully. You MUST follow-up with your primary care/family doctor in 1 to 2 days. If you are unable to see your primary care/family doctor, please return to our emergency room for re-assessment and re-evaluation in 1 to 2 days. Return to the emergency room here in our facility or to the nearest ER [facility] if your symptoms change or worsen. CONSULTATIONS: you MUST Follow-up for consultation as soon as possible with: -cardiology and Nephrology and Urology as needed. Please call for appointment. You MUST call the consultants office yourself to make an appointment. You may need to arrange that through your insurance and/or your primary/family doctor. If you are unable to see the career consultant in 1 to 2 days, you must return to our emergency room (or any other ER of your choice) for re-assessment and re- evaluation. Adequate fluid hydration. Although you have been discharged from the Emergency Department, this does not mean that you have a "clean bill of health". No definitive diagnosis for your symptoms has been made today. It is possible that you are in the process of developing a serious illness. This is why you must return to the ED without fail if any new or worsening symptoms develop. Leg elevation, salt restriction, wear compression stockings. e-Prescriptions Furosemide (Lasix) 20 Mg Tb 1 TAB PO DAILY for 3 Days, #3 TAB 0 Refills Prov: GENNY DEE DO 12/18/24 Cephalexin Monohydrate (Cephalexin) 500 Mg Cap 500 MG PO Q8HP PRN for 7 Days, #28 CAP Prov: GENNY DEE DO 12/18/24 Discharged With: Self Critical Care Note Critical Care Time?: No I personally scribed for GENNY DEE DO ([email or web address]) on 12/18/24 at 19:30. Electronically submitted by Herson Quick ([email or web address]). GENNY DEE DO Dec 18, 2024 19:30
[2024-12-18 19:52] LABS: Hematocrit 35.7 % (36.0-46.0); Hemoglobin 11.4 g/dL (12.2-16.2); Mean Corpuscular Hemoglobin 27.1 pg (28.0-32.0); Mean Corpuscular Volume 84.6 fL (80.0-100.0); Nucleated Red Blood Cells % 0.0 %
[2024-12-18] MEDS ORDERED: CEPH500C PO (19:54)
[2024-12-18 20:13] LABS: Albumin 4.2 g/dL (3.2-4.8); Anion Gap 4 (5-15); BUN/Creatinine Ratio 12.0 (10.0-20.0); Blood Urea Nitrogen 10 mg/dL (9-23); Calcium 9.7 mg/dL (8.7-10.4); Carbon Dioxide 28 mmol/L (20-31); Potassium 4.0 mmol/L (3.5-5.1); Sodium 141 mmol/L (136-145); Total Protein 7.6 g/dL (5.7-8.2)
[2024-12-18 20:19] LABS: Alanine Aminotransferase < 9 U/L (7-40); Alkaline Phosphatase 155 U/L (46-116); Bilirubin, Total 0.2 mg/dL (0.2-1.0); Chloride 109 mmol/L (98-107); Glucose 72 mg/dL (74-106)
[2024-12-18] MEDS ORDERED: FURO1TAB33 PO (20:44)
[2024-12-19 04:15] VITALS: BP 115/67; PULSE 84; RESP 18; O2SAT 99
[2024-12-19] MEDS: KETOROLAC TROMETH 30 MG/ML 1ML VIAL IM ONE (04:22)
[2024-12-19] MEDS: FUROSEMIDE 20 MG TAB PO ONE (04:29)
== END 2024-12-19 04:35 | disposition home or self-care (01) ==
LOC: ER 18:42
DX: T63.301A Toxic effect of unspecified spider venom, accidental (unintentional), initial encounter (principal); Z79.899 Other long term (current) drug therapy; Z88.1 Allergy status to other antibiotic agents; Z87.442 Personal history of urinary calculi; Z87.440 Personal history of urinary (tract) infections; Z76.0 Encounter for issue of repeat prescription; Y92.89 Other specified places as the place of occurrence of the external cause
CPT/HCPCS: 36415; 80053; 83605; 83880; 85025; 86141; 96372; 99283; J1885

== ENCOUNTER 2024-12-26 04:35 | Emergency (ER) | payer MEDICAID ==
[~2024-12-26] VITALS: Ht 157.5 cm; Wt 95.6 kg
[~2024-12-26 04:35] MED LIST changes: +CEPH500C PO; +FURO1TAB33 PO
--- NOTE | 2024-12-26 05:17 | ED.PDOC ---
[facility] HPI Comments 64-YEAR-OLD FEMALE THE ED WITH CC OF CRAMPING, ABNORMAL BLEEDING X3 DAYS. PT STATES THAT SHE HAS BEEN CRAMPING AND SPOTTING AND HAS NOT HAD A PERIOD IN 3 YEARS. PT DENIES SEXUAL ACTIVITY. PT IS A&OX4, AMBULATORY, RR EVEN AND REGULAR. DENIES CHEST PAIN, SHORTNESS OF BREATH, NAUSEA, VOMITING, DIARRHEA, FEVER OR CHILLS. Chief Complaint: Vaginal Bleed Time Seen by MD: 05:11 Reviewed Notes: Nurses Notes, Medications, Allergies Allergies: Coded Allergies: Erythromycin (Verified Allergy, Unknown, 05/23/20) Tetracycline (Unverified Allergy, Unknown, 04/20/24) Tetracyclines & Related (Verified Allergy, Unknown, 05/23/20) SKIN RASH Home Meds Active Scripts Tranexamic Acid (TRANEXAMIC ACID) 650 Mg Tab, 1300 MG OR TID for 5 Days, #30 TAB Prov:NIKOLAS TOPETE MD 12/26/24 Doxycycline Hyclate (DOXYCYCLINE HYCLATE) 100 Mg Tab, 1 TAB PO BID for 7 Days, #14 TAB Prov:NIKOLAS TOPETE MD 12/26/24 Furosemide (Lasix) 20 Mg Tb, 1 TAB PO DAILY for 3 Days, #3 TAB 0 Refills Prov:GENNY DEE DO 12/18/24 Cephalexin Monohydrate (Cephalexin) 500 Mg Cap, 500 MG PO Q8HP PRN for 7 Days, #28 CAP Prov:GENNY DEE DO 12/18/24 Ciprofloxacin Hcl (Cipro) 500 Mg Tab, 1 TAB PO BID, #14 TAB Prov:JING SMART MD 10/31/24 Tramadol HCl (Tramadol HCl) 50 Mg Tab, 50 MG PO QID PRN, #30 TAB Prov:JING SMART MD 10/31/24 Fluconazole (Diflucan) 200 Mg Tab, 1 TAB PO DAILY, #7 TAB Prov:JING SMART MD 10/31/24 Pantoprazole Sodium Sesquihydr (Protonix) 40 Mg Tab, 40 MG PO DAILY, #60 TAB Prov:NISH CARIAS MD 09/29/24 Docusate Sodium (Docusate Sodium) 100 Mg Cap, 100 MG PO BIDPRN PRN for 30 Days, #60 CAP Prov:AMY CRENSHAW RESIDENT 03/25/24 Reported Medications Hydrocortone (Hydrocortisone 2.5%) 1 Applic Ap, 1 APPLIC TOP BIDP, #30 GRAMS 09/25/24 Mupirocin Calcium (Topical) (MUPIROCIN) 2 % Cre, 2 % EX, CRE 09/25/24 Acetaminophen (Tylenol) 325 Mg Tb, 325 MG PO, TAB 09/25/24 Frdoqrf-Vcrrdgonutjod-Rewisehn (Excedrin Migraine) Migraine Tab, 1 OR, TAB 09/25/24 Lidocaine (LIDODERM 5% TOPICAL PATCH) 1 Patch Ph, 1 PATCH TOP DAILY, #30 PATCH 1 Refill 09/25/24 Diphenhydramine Hcl (Benadryl Allergy) 25 Mg Cap, 1 CAP PO QPM, #30 CAP 1 Refill 09/25/24 Hydroxyzine Hcl (Hydroxyzine Hcl) 25 Mg Tab, 1 TAB PO TID 03/23/24 Methocarbamol (Methocarbamol) 500 Mg Tab, 1 TAB PO Q8H 03/23/24 Tamsulosin Hcl (Tamsulosin Hcl) 0.4 Mg Cap, 1 CAP PO DAILY 03/23/24 Information Source: Patient Past Medical History PAST MEDICAL HISTORY: Kidney Stones, UTI'S Surgical History: Denies all surgeries MID LEVEL DEVELOPER History: No Pertinent MID LEVEL DEVELOPER History Family History Family History: Reviewed,noncontributory to illness Social History Smoker: Non-Smoker Alcohol: Denies ETOH Use Drugs: Denies Drug Use Lives In: Home All Other Systems: Reviewed and Negative (SEE HPI) Physical Exam General Appearance: No Apparent Distress, Normal HEENT: Pharynx Normal Neck: Full Range of Motion, Non-Tender Respiratory: Lungs Clear, No Respiratory Distress, Normal Breath Sounds Cardiovascular: No Edema, No JVD, No Murmur, No Gallop, Normal Peripheral Pulses, Regular Rate/Rhythm Breast Exam: Deferred Gastrointestinal: Diffuse (TENDERNESS ON PALPATION), Distended, No Organomegaly, No Pulsatile Mass, Normal Bowel Sounds, Soft Genitalia: Deferred Pelvic: Deferred Rectal: Deferred Extremities: Normal range of motion, No pedal edema Musculoskeletal : Apperance: Normal Neurologic: Alert, No Motor Deficits, Normal Affect, Normal Mood, No Sensory Deficits Cerebellar Function: Normal Reflexes: NOT DONE Skin: Dry, Normal Color, Warm Lymphatic: No Adenopathy Was a procedure done? Was a procedure done?: No Differential Diagnosis (MID LEVEL DEVELOPER) Vaginal Bleeding: Cervicitis, PID, UTI, Vaginitis Vaginal Discharge: Vaginitis - Atrophic, Vaginitis - Bacterial, Vaginitis - Candidal X-Ray, Labs, Meds, VS Vital Signs Date Time Temp Pulse Resp B/P (MAP) Pulse Ox O2 Delivery O2 Flow Rate FiO2 12/26/24 07:45 82 18 98 Room Air 12/26/24 07:45 98.2 82 18 105/72 (83) 98 98.2 12/26/24 04:39 98.0 79 18 134/85 99 98.0 Lab Test 12/26/24 06:55 12/26/24 05:27 Range/Units Urine Color Light-brown Yellow Urine Clarity Turbid H Clear Urine pH 5.5 5.0-9.0 Urine Specific [place] 1.024 1.001-1.035 Urine Protein 1+ H Negative Urine Ketones Trace Negative Urine Blood 3+ H Negative /uL Urine Nitrite Negative Negative Urine Bilirubin Negative Negative Urine Urobilinogen Normal Negative mg/dL Urine Leukocyte Esterase 1+ Negative /uL Urine RBC 2747 0 - 4 /hpf Urine Microscopic WBC 6 H 0-5 /HPF Urine Squamous Epithelial Cells Mod <5 /hpf Urine Bacteria None seen None Seen /hpf Urine Mucus Few None Seen Urine Glucose Normal Normal mg/dL White Blood Count 7.6 4.4-10.8 10^3/uL Red Blood Count 4.32 4.0-5.20 10^6/uL Hemoglobin 11.7 L 12.2-16.2 g/dL Hematocrit 36.5 36.0-46.0 % Mean Corpuscular Volume 84.6 80.0-100.0 fL Mean Corpuscular Hemoglobin 27.1 L 28.0-32.0 pg Mean Corpuscular Hemoglobin Concent 32.0 32.0-36.0 g/dL Red Cell Distribution Width 15.5 H 11.8-14.3 % Platelet Count 287 140-450 10^3/uL Mean Platelet Volume 8.5 6.9-10.8 fL Neutrophils (%) (Auto) 70.1 37.0-80.0 % Lymphocytes (%) (Auto) 20.0 10.0-50.0 % Monocytes (%) (Auto) 7.2 0.0-12.0 % Eosinophils (%) (Auto) 2.0 0.0-7.0 % Basophils (%) (Auto) 0.7 0.0-2.0 % Neutrophils # (Auto) 5.3 1.6-8.6 10 ^3/uL Lymphocytes # (Auto) 1.5 0.4-5.4 10 ^3/uL Monocytes # (Auto) 0.6 0-1.3 10 ^3/uL Eosinophils # (Auto) 0.2 0-0.8 10 ^3/uL Basophils # (Auto) 0.1 0-0.2 10 ^3/uL Nucleated Red Blood Cells 0.0 % Sodium Level 142 136-145 mmol/L Potassium Level 4.0 3.5-5.1 mmol/L Chloride Level 105 98-107 mmol/L Carbon Dioxide Level 28 20-31 mmol/L Anion Gap 9 5-15 Blood Urea Nitrogen 8 L 9-23 mg/dL Creatinine 0.73 0.550-1.02 mg/dL Glomerular Filtration Rate Calc 93 >90 mL/min BUN/Creatinine Ratio 11.0 10.0-20.0 Serum Glucose 96 74-106 mg/dL Calcium Level 9.9 8.7-10.4 mg/dL Total Bilirubin 0.3 0.2-1.0 mg/dL Aspartate Amino Transferase (AST) 23 13-40 U/L Alanine Aminotransferase (ALT) 9 7-40 U/L Alkaline Phosphatase 138 H 46-116 U/L Total Protein 7.7 5.7-8.2 g/dL Albumin 4.3 3.2-4.8 g/dL Current Medications Medications (Trade) Dose Ordered Sig/Miguel Route Start Time Stop Time Status Last Admin Ondansetron HCl (Zofran Po) 4 mg ONCE ONCE PO 12/26/24 08:00 12/26/24 08:04 DC 12/26/24 08:24 Ketorolac Tromethamine (Toradol Injection) 30 mg ONCE ONCE IM 12/26/24 08:15 12/26/24 08:16 DC 12/26/24 08:34 X-Ray, Labs, Meds, VS Comment Pending labs: CBC was ordered to exclude anemia, blood loss, or infection. CMP was ordered to exclude electrolyte abnormalities, renal failure, dehydration, hyperglycemia and/or liver enzyme abnormalities. Urinalysis was ordered to rule out UTI or hematuria Imaging pending: Pelvic ultrasound IMPRESSION: 1. Endometrial tissue appears somewhat thickening and heterogeneous. 2. Right ovary not visualized 10/27/2024 CT abdomen pelvis IMPRESSION: 1. Mild right hydronephrosis due to 5 mm proximal ureteral calculus. 2. Additional nonobstructive calculus in the lower pole of the right kidney measures 3 mm. 3. Colonic diverticulosis without acute diverticulitis. Time of 1ST Reevaluation: 05:11 Reevaluation 1ST: Unchanged Patient Education/Counseling: Diagnosis, Treatment, Need For Follow Up Family Education/Counseling: No Family Present Departure 1 Departure Time of Disposition: 07:56 (Patient workup is nonacute. We will cover patient empirically with antibiotics and discharge patient with OB follow up.) Impression: Primary Impression: Abnormal uterine bleeding Additional Impression: Abdominal cramping Disposition: HOME / SELF CARE / HOMELESS Condition: Stable Referrals: FREDERICK MAGALLON DO Additional Instructions: You were prescribed antibiotics and medication for bleeding. You were referred to [facility]. Please call for an appointment. For pain you can take the followinam: Ibuprofen 400mg with food Noon: Acetaminophen 1000mg 4pm: Ibuprofen 400mg with food 8pm: Acetaminophen 1000mg You should follow up with your regular doctor within one week to ensure you are doing better. If your symptoms worsen or you have any other concerns then please return to the ER. e-Prescriptions Tranexamic Acid (TRANEXAMIC ACID) 650 Mg Tab 1300 MG OR TID for 5 Days, #30 TAB Prov: NIKOLAS TOPETE MD 12/26/24 Doxycycline Hyclate (DOXYCYCLINE HYCLATE) 100 Mg Tab 1 TAB PO BID for 7 Days, #14 TAB Prov: NIKOLAS TOPETE MD 12/26/24 Discharged With: Self Critical Care Note Critical Care Time?: No Stability Stability form required: CLARE Tee Dec 26, 2024 05:16 NIKOLAS TOPETE MD Dec 26, 2024 07:59
[2024-12-26 05:45] LABS: Hematocrit 36.5 % (36.0-46.0); Hemoglobin 11.7 g/dL (12.2-16.2); Mean Corpuscular Hemoglobin 27.1 pg (28.0-32.0); Mean Corpuscular Volume 84.6 fL (80.0-100.0); Nucleated Red Blood Cells % 0.0 %
[2024-12-26 05:57] LABS: Albumin 4.3 g/dL (3.2-4.8); Anion Gap 9 (5-15); BUN/Creatinine Ratio 11.0 (10.0-20.0); Bilirubin, Total 0.3 mg/dL (0.2-1.0); Calcium 9.9 mg/dL (8.7-10.4); Carbon Dioxide 28 mmol/L (20-31); Chloride 105 mmol/L (98-107); Glucose 96 mg/dL (74-106); Potassium 4.0 mmol/L (3.5-5.1); Sodium 142 mmol/L (136-145); Total Protein 7.7 g/dL (5.7-8.2)
[2024-12-26 06:03] LABS: Alanine Aminotransferase 9 U/L (7-40); Alkaline Phosphatase 138 U/L (46-116); Blood Urea Nitrogen 8 mg/dL (9-23)
--- NOTE | 2024-12-26 06:42 | DVH ---
MEDICAL RECORDS NUMBER: [id number] PROCEDURE: US PELVIC Date: 12/26/2024 06:02 AM HISTORY: Abnormal bleeding and cramping COMPARISONS: None TECHNIQUE:Transabdominal scanning is utilized. FINDINGS: Uterus: The uterus measures 9.3 cm by 3.2 cm by 4.6 cm. The endometrial stripe measures 11 mm. Endometrial tissue appears somewhat heterogeneous Right Ovary: The right ovary is not visualized Left Ovary: The left ovary appears unremarkable.Arterial and venous vascular color and waveforms are with Doppler imaging. Adnexa: No adnexal masses are seen. No free fluid is seen. IMPRESSION: 1. Endometrial tissue appears somewhat thickening and heterogeneous. 2. Right ovary not visualized.
[2024-12-26 07:19] LABS: Urine Protein, UAD 1+ (Negative)
[2024-12-26 07:45] VITALS: BP 105/72; PULSE 82; RESP 18; TEMP 98.2; O2SAT 98
[2024-12-26] MEDS ORDERED: DOXY-286 PO (07:58)
[2024-12-26] MEDS ORDERED: TRAN650T5 OR (07:58)
[2024-12-26] MEDS: HYDROcodone-ACET 5/325MG TAB PO ONE (08:17)
[2024-12-26] MEDS: ONDANSETRON ODT 4 MG TAB PO ONE (08:24)
[2024-12-26] MEDS: KETOROLAC TROMETH 60MG/2ML VIAL IM ONE (08:34)
[2024-12-27] MEDS ORDERED: PERCOT PO (21:53)
[2024-12-27] MEDS ORDERED: METH100035 IJ (21:53)
[2024-12-27] MEDS ORDERED: SULF400T11 PO (21:53)
[2024-12-27] MEDS ORDERED: CEPH500C PO (21:53)
[2024-12-27] MEDS ORDERED: DOCU-94 PO (21:53)
[2024-12-27] MEDS ORDERED: POTA-215 PO (21:53)
== END 2024-12-26 09:13 | disposition home or self-care (01) ==
LOC: ER 04:35
DX: N93.9 Abnormal uterine and vaginal bleeding, unspecified (principal); R10.9 Unspecified abdominal pain; Z88.1 Allergy status to other antibiotic agents; Z79.899 Other long term (current) drug therapy
CPT/HCPCS: 36415; 76856; 80053; 81001; 85025; 96372; 99285; J1885; Q0162

== ENCOUNTER 2024-12-27 08:49 | Inpatient (IN) | payer MEDICAID ==
[~2024-12-27] VITALS: Ht 157.5 cm; Wt 103.5 kg
[~2024-12-27 08:49] MED LIST changes: +DOXY-286 PO; +TRAN650T5 OR
[2024-12-27 10:45] LABS: Urine Protein, UAD TRACE (Negative)
--- NOTE | 2024-12-27 11:53 | ED.PDOC ---
General HPI Comments 64 year old female presents to the ED with a chief complaint of RT flank pain onset 5 days. Patient states she has been experiencing RT flank pain for the past 5 days, as well as headache for the past month, vaginal bleeding for the past 3 days. Patient is a poor historian. She was seen in this ED 12/26/24 for abnormal bleeding, states symptoms have not improved. Denies fever, chills, dysuria, abdominal pain, nausea, vomiting, diarrhea. No other symptoms or modifying factors present at this time. Chief Complaint: Flank Pain Time Seen by MD: 11:40 Primary Care Provider: LAINE MONTEZ Reviewed notes: Medications, Allergies Allergies: Coded Allergies: Erythromycin (Verified Allergy, Unknown, 05/23/20) Tetracycline (Unverified Allergy, Unknown, 04/20/24) Tetracyclines & Related (Verified Allergy, Unknown, 05/23/20) SKIN RASH Home Meds Active Scripts Tranexamic Acid (TRANEXAMIC ACID) 650 Mg Tab, 1300 MG OR TID for 5 Days, #30 TAB Prov:NIKOLAS TOPETE MD 12/26/24 Doxycycline Hyclate (DOXYCYCLINE HYCLATE) 100 Mg Tab, 1 TAB PO BID for 7 Days, #14 TAB Prov:NIKOLAS TOPETE MD 12/26/24 Furosemide (Lasix) 20 Mg Tb, 1 TAB PO DAILY for 3 Days, #3 TAB 0 Refills Prov:GENNY DEE DO 12/18/24 Cephalexin Monohydrate (Cephalexin) 500 Mg Cap, 500 MG PO Q8HP PRN for 7 Days, #28 CAP Prov:GENNY DEE DO 12/18/24 Ciprofloxacin Hcl (Cipro) 500 Mg Tab, 1 TAB PO BID, #14 TAB Prov:JING SMART MD 10/31/24 Tramadol HCl (Tramadol HCl) 50 Mg Tab, 50 MG PO QID PRN, #30 TAB Prov:JING SMART MD 10/31/24 Fluconazole (Diflucan) 200 Mg Tab, 1 TAB PO DAILY, #7 TAB Prov:JING SMART MD 10/31/24 Pantoprazole Sodium Sesquihydr (Protonix) 40 Mg Tab, 40 MG PO DAILY, #60 TAB Prov:NISH CARIAS MD 09/29/24 Docusate Sodium (Docusate Sodium) 100 Mg Cap, 100 MG PO BIDPRN PRN for 30 Days, #60 CAP Prov:HERNAN CRENSHAWISA RESIDENT 03/25/24 Reported Medications Hydrocortone (Hydrocortisone 2.5%) 1 Applic Ap, 1 APPLIC TOP BIDP, #30 GRAMS 09/25/24 Mupirocin Calcium (Topical) (MUPIROCIN) 2 % Cre, 2 % EX, CRE 09/25/24 Acetaminophen (Tylenol) 325 Mg Tb, 325 MG PO, TAB 09/25/24 Uljdldd-Lelqtfsehtlmj-Auimegtk (Excedrin Migraine) Migraine Tab, 1 OR, TAB 09/25/24 Lidocaine (LIDODERM 5% TOPICAL PATCH) 1 Patch Ph, 1 PATCH TOP DAILY, #30 PATCH 1 Refill 09/25/24 Diphenhydramine Hcl (Benadryl Allergy) 25 Mg Cap, 1 CAP PO QPM, #30 CAP 1 Refill 09/25/24 Hydroxyzine Hcl (Hydroxyzine Hcl) 25 Mg Tab, 1 TAB PO TID 03/23/24 Methocarbamol (Methocarbamol) 500 Mg Tab, 1 TAB PO Q8H 03/23/24 Tamsulosin Hcl (Tamsulosin Hcl) 0.4 Mg Cap, 1 CAP PO DAILY 03/23/24 Information Source: Patient Mode of Arrival: Ambulatory Severity: Moderate Timing: Days Duration: Since onset Prehospital treatment: None Onset: Spontaneous Symptoms: Hematuria History of: Kidney stone Location: (R) Flank Modifying factors: None associated signs and symptoms: Flank Pain Past Medical History PAST MEDICAL HISTORY: Kidney Stones, UTI'S Surgical History: Denies all surgeries MARKET INVESTIGATOR History: No Pertinent MARKET INVESTIGATOR History Family History Family History: Reviewed,noncontributory to illness Social History Smoker: Non-Smoker Alcohol: Denies ETOH Use Drugs: Denies Drug Use Lives In: Home Constitutional: denies: chills, diaphoresis, fatigue, fever, malaise, sweats, weakness, others EENTM: denies: blurred vision, double vision, ear bleeding, ear discharge, ear drainage, ear pain, ear ringing, eye pain, eye redness, hearing loss, mouth pain, mouth swelling, nasal discharge, nose bleeding, nose congestion, nose pain, photophobia, tearing, throat pain, throat swelling, voice changes, others Respiratory: denies: cough, hemoptysis, orthopnea, SOB at rest, shortness of breath, SOB with excertion, stridor, wheezing, others Cardiovascular: denies: chest pain, dizzy spells, diaphoresis, Dyspnea on exer tion, edema, irregular heart beat, left arm pain, lightheadedness, palpitations, PND, syncope, others Gastrointestinal: denies: abdomen distended, abdominal pain, blood streaked bowels, constipated, diarrhea, dysphagia, difficulty swallowing, hematemesis, melena, nausea, poor appetite, poor fluid intake, rectal bleeding, rectal pain, vomiting, others Genitourinary: reports: flank pain, hematuria; denies: abnormal vagina bl eeding, burning, dyspareunia, dysuria, frequency, incontinence, pain, , vagina discharge, urgency, others Neurological: reports: headache; denies: dizziness, fainting, left sided numbness, left sided weakness, numbness, paresthesia, pre-existing deficit, right sided numbness, right sided weakness, seizure, speech problems, tingling, tremors, weakness, others Musculoskeletal: denies: back pain, gout, joint pain, joint swelling, muscle p ain, muscle stiffness, neck pain, others Integumetry: denies: bruises, change in color, change in hair/nails, dryness, laceration, lesions, lumps, rash, wounds, others Allergic/Immunocompromised: denies: Difficulty Healing, Frequent Infections, Hives, Itching, others Hematologic/Lymphatic: denies: anemia, blood clots, easy bleeding, easy bruising, swollen glands, others Endocrine: denies: excessive hunger, excessive sweating, excessive thirst, excessive urination, flushing, intolerance to cold, intolerance to heat, unexplained weight gain, unexplained weight loss, others Psychiatric: denies: anxiety, bipolar disorder, depression, hopeless, panic disorder, schizophrenia, sleepless, suicidal, others All Other Systems: Reviewed and Negative Physical Exam General Appearance: Normal HEENT: Normal ENT Inspection, Pharynx Normal, TMs Normal Neck: Full Range of Motion, Non-Tender, Normal, Normal Inspection Respiratory: Chest Non-Tender, Lungs Clear, No Accessory Muscle Use, No Respiratory Distress, Normal Breath Sounds Cardiovascular: No Edema, No JVD, No Murmur, No Gallop, Normal Peripheral Pulses, Regular Rate/Rhythm Breast Exam: Deferred Gastrointestinal: No Organomegaly, Non Tender, No Pulsatile Mass, Normal Bowel Sounds, Soft Genitalia: Deferred Pelvic: Deferred Rectal: Deferred Extremities: No calf tenderness, Normal capillary refill, Normal inspection, Normal range of motion, Non-tender, No pedal edema Musculoskeletal : Apperance: Normal Neurologic: Alert, distributor advertising material II-XII nml as Tested, No Motor Deficits, Normal Affect, Normal Mood, No Sensory Deficits Cerebellar Function: Normal Reflexes: Normal Skin: Dry, Normal Color, Warm Lymphatic: No Adenopathy Was a procedure done? Was a procedure done?: No Differential Diagnosis Kidney stone (Female): N/A Kidney stone (Male): Pancreatitis, Pyelonephritis, Renal failure Urinary Problem (Male): Renal Failure Urinary Problem (Female): PID, Pyelonephritis, Urinary retention X-Ray, Labs, Meds, VS Vital Signs Date Time Temp Pulse Resp B/P (MAP) Pulse Ox O2 Delivery O2 Flow Rate FiO2 12/27/24 08:53 97.7 90 18 111/70 96 97.7 Lab Test 12/27/24 11:43 12/27/24 10:22 Range/Units White Blood Count 7.6 4.4-10.8 10^3/uL Red Blood Count 4.17 4.0-5.20 10^6/uL Hemoglobin 11.3 L 12.2-16.2 g/dL Hematocrit 35.4 L 36.0-46.0 % Mean Corpuscular Volume 84.8 80.0-100.0 fL Mean Corpuscular Hemoglobin 27.1 L 28.0-32.0 pg Mean Corpuscular Hemoglobin Concent 32.0 32.0-36.0 g/dL Red Cell Distribution Width 15.3 H 11.8-14.3 % Platelet Count 261 140-450 10^3/uL Mean Platelet Volume 8.7 6.9-10.8 fL Neutrophils (%) (Auto) 77.6 37.0-80.0 % Lymphocytes (%) (Auto) 15.9 10.0-50.0 % Monocytes (%) (Auto) 4.9 0.0-12.0 % Eosinophils (%) (Auto) 1.2 0.0-7.0 % Basophils (%) (Auto) 0.4 0.0-2.0 % Neutrophils # (Auto) 5.9 1.6-8.6 10 ^3/uL Lymphocytes # (Auto) 1.2 0.4-5.4 10 ^3/uL Monocytes # (Auto) 0.4 0-1.3 10 ^3/uL Eosinophils # (Auto) 0.1 0-0.8 10 ^3/uL Basophils # (Auto) 0 0-0.2 10 ^3/uL Nucleated Red Blood Cells 0.0 % Sodium Level 142 136-145 mmol/L Potassium Level 3.8 3.5-5.1 mmol/L Chloride Level 104 98-107 mmol/L Carbon Dioxide Level 29 20-31 mmol/L Anion Gap 9 5-15 Blood Urea Nitrogen 11 9-23 mg/dL Creatinine 0.79 0.550-1.02 mg/dL Glomerular Filtration Rate Calc 85 >90 mL/min BUN/Creatinine Ratio 13.9 10.0-20.0 Serum Glucose 91 74-106 mg/dL Calcium Level 9.6 8.7-10.4 mg/dL Urine Color Light-brown Yellow Urine Clarity Cloudy H Clear Urine pH 5.5 5.0-9.0 Urine Specific [place] 1.017 1.001-1.035 Urine Protein Trace H Negative Urine Ketones Negative Negative Urine Blood 3+ H Negative /uL Urine Nitrite Negative Negative Urine Bilirubin Negative Negative Urine Urobilinogen Normal Negative mg/dL Urine Leukocyte Esterase Trace Negative /uL Urine RBC 4933 0 - 4 /hpf Urine Microscopic WBC 12 H 0-5 /HPF Urine Squamous Epithelial Cells Few <5 /hpf Urine Bacteria Few H None Seen /hpf Urine Glucose Normal Normal mg/dL Time of 1ST Reevaluation: 12:10 Reevaluation 1ST: Unchanged Patient Education/Counseling: Diagnosis, Treatment, Prognosis Family Education/Counseling: No Family Present SEPSIS Sepsis Screen Date sepsis recognized/suspect: Dec 27, 2024 Time Sepsis recognized/suspect: 0857 Recent Procedure: No On Antibiotic Therapy: No Respiratory Rate >20: No Heart Rate >90: No Temp<36 C (96.8 F) or >38.3 C: No SBP <90 or MAP <65 mmHG: No New Acute Mental Status Change: No Is the patient on CPAP, BIPAP,: No Physician Orders Ct Ab Pel Wo Con-No Oral Or Iv (12/27/24 14:00) Vital Signs Date Time Temp Pulse Resp B/P (MAP) Pulse Ox O2 Delivery O2 Flow Rate FiO2 12/27/24 08:53 97.7 90 18 111/70 96 97.7 Laboratory Tests Test 12/27/24 11:43 White Blood Count 7.6 10^3/uL (4.4-10.8) Departure 1 Departure Time of Disposition: 15:31 (Patient presented with abdominal pain that was concerning for possible appendicits, gastritis, cholecystitis, colitis, gastroenteritis, sbo, or orther possible surgical emergency. Data: 1. I ordered and reviewed the result of at least 3 labs including a CBC, BMP, and Urinalysis. 2. I independently interpreted the following tests: CT Abdomen and Pelvis is concerning for intractable abdominal pain .Risk:This patient has a high risk of morbidity due to further diagnostic testing or treatment and may suffer from an acute abdominal process disorder. Workup reveals intractable abdominal pain and hematuria and patient should be admitted for further workup. and possible expert consultation. ) Impression: Primary Impression: Intractable abdominal pain Additional Impression: Hematuria Disposition: ADMITTED INPATIENT Admit to: Med Surg Condition: Guarded Critical Care Note Critical Care Time?: Yes Critical care comment: Intractable abdominal pain Authorized and Performed by: Nikolas Topete MD Total critical care time: Approximately 39 minutes Due to a high probability of clinically significant, life threatening deterioration, the patient required my highest level of preparedness to intervene emergently and I personally spent this critical care time directly and personally managing the patient. This critical care time included obtaining a history; examining the patient; pulse oximetry; ordering and review of studies; arranging urgent treatment with development of a management plan; evaluation of patient's response to treatment; frequent reassessment; and, discussions with other providers. This critical care time was performed to assess and manage the high probability of imminent, life-threatening deterioration that could result in multi-organ failure. It was exclusive of separately billable procedures and treating other patients and teaching time. Please see my other sections and the rest of the note for further information on patient assessment and treatment. Stability Stability form required: No Heart Score Heart Score: Heart Score Response (Comments) Value History N/A 0 EKG N/A 0 Age N/A 0 Risk Factors N/A 0 Troponin N/A 0 Total 0 I personally scribed for NIKOLAS TOPETE MD ([email or web address]) on 12/27/24 at 11:53. Electronically submitted by Sultana Villela ([email or web address]). NIKOLAS TOPETE MD Dec 27, 2024 11:53
[2024-12-27 12:09] LABS: Hemoglobin 11.3 g/dL (12.2-16.2)
[2024-12-27 12:11] LABS: Hematocrit 35.4 % (36.0-46.0); Mean Corpuscular Hemoglobin 27.1 pg (28.0-32.0); Mean Corpuscular Volume 84.8 fL (80.0-100.0); Nucleated Red Blood Cells % 0.0 %
[2024-12-27 12:21] LABS: Chloride 104 mmol/L (98-107); Potassium 3.8 mmol/L (3.5-5.1); Sodium 142 mmol/L (136-145)
[2024-12-27 12:22] LABS: Anion Gap 9 (5-15); Carbon Dioxide 29 mmol/L (20-31)
[2024-12-27 12:23] LABS: Calcium 9.6 mg/dL (8.7-10.4)
[2024-12-27 12:27] LABS: Glucose 91 mg/dL (74-106)
[2024-12-27 12:28] LABS: BUN/Creatinine Ratio 13.9 (10.0-20.0); Blood Urea Nitrogen 11 mg/dL (9-23)
--- NOTE | 2024-12-27 15:23 | DVH ---
Indication: right flank pain Technique: CT axial images of the abdomen and pelvis are obtained without contrast. Coronal and sagittal reformats were obtained. Radiation Dose Information: CTDI volume is 22.83 mGy. Dose-length product is 1165.37 mGy*cm Comparison: CT CT AB PEL WO CON-NO ORAL OR IV on DOS: 10/27/24 FINDINGS: There is limited interpretation of the abdomen and pelvis without administration of intravenous contrast. Lung bases demonstrate atelectasis. The adrenal glands, spleen, pancreas are unremarkable in shape. Liver unremarkable in shape. No CT evidence for cholelithiasis. There is no hydronephrosis, nephrolithiasis. Stomach is partially distended. Small bowel loops are normal in caliber. Colonic diverticula. Moderate volume stool in the colon. Normal appendix. Bladder relatively nondistended. No free pelvic fluid. No inguinal lymphadenopathy. Paraumbilical hernia containing fat measuring 3.6 x 3.3 cm. Bzqs-he-nfecfsvc bilateral sacroiliac degenerative joint disease. Yvju-if-qtytitwp thoracolumbar degenerative disc disease. L3 vertebral body hemangioma measuring 1.7 cm. T12 hemangioma measuring 14 mm. IMPRESSION: Limited evaluation without contrast. No hydronephrosis / nephrolithiasis. Paraumbilical hernia containing fat measuring 3.6 x 3.3 cm. Colonic diverticular disease. Other findings as described.
[2024-12-27] MEDS: SODIUM CHLORIDE 0.9% 1,000 ML IV ONE ×2 (15:45→23:29)
--- NOTE | 2024-12-27 16:38 | DVHHP2 ---
History of Present Illness Reason for Visit: Flank pain History of Present Illness Shanell Sue is a 64-year-old female with past medical history of GERD, chronic back pain, and renal calculi, who came to the hospital for flank pain. Patient states she has been experiencing vaginal bleeding for 3 days that has now transition to blood in her urine. She was seen here in the ER yesterday for the vaginal bleeding, and sent home. Today she states she is having flank pain. and blood in her urine that is caused from kidney stones. CT of abdomen/pelvis completed today does not show a kidney stone, previous CT completed here in October did show renal calculi. Past Surgical History: Other (Right carpal tunnel ) Smoke: No ALCOHOL: none Lives: with Family Domestic Violence: Neg Review of Systems Constitutional: No: Fever, Chills, Sweats, Weakness, Malaise, Other Eyes: No: Pain, Vision change, Conjunctivae inflammation, Eyelid inflammation, Other, Redness ENT: No: Ear pain, Ear discharge, Nose pain, Nose discharge, Nose congestion, Mouth pain, Mouth swelling, Throat pain, Throat swelling, Other Respiratory: No: Cough, Dry, Shortness of breath, SOB with excertion, Wheezing, Hemoptysis, Pleuritic Pain, Sputum, Wheezing, Other Cardiovascular: No: Chest Pain, Palpitations, Orthopnea, Paroxysmal Noc. Dyspnea, Edema, Lt Headedness, Other Gastrointestinal: Abdominal Pain (pelvic); No: Nausea, Vomiting, Diarrhea, Constipation, Melena, Hematochezia, Other Genitourinary: No Dysuria, No Frequency, No Incontinence; Hematuria; No Retention, No Other Musculoskeletal: back pain (right flank pain); No: other, neck pain, shoulder pain, arm pain, hand pain, leg pain, foot pain Skin: No: Rash, Lesions, Jaundice, Bruising, Other Neurological: No: Weakness, Numbness, Incoordination, Change in speech, Confusion, Seizures, Other Allergies: Coded Allergies: Erythromycin (Verified Allergy, Unknown, 05/23/20) Tetracycline (Unverified Allergy, Unknown, 04/20/24) Tetracyclines & Related (Verified Allergy, Unknown, 05/23/20) SKIN RASH Exam Vital Signs Vital Signs Date Time Temp Pulse Resp B/P (MAP) Pulse Ox O2 Delivery O2 Flow Rate FiO2 12/27/24 08:53 97.7 90 18 111/70 96 97.7 General Appearance: Alert, Oriented X3, Cooperative, No acute distress HEENT: Atraumatic, PERRLA Respiratory: Clear to auscultation, Normal air movement Cardiovascular: Regular rate, Normal S1, Normal S2, No murmurs Abdominal: Normal bowel sounds, Soft, No tenderness, No hepatospenomegaly Extremities: No clubbing, No cyanosis, No edema, Normal pulses Skin: No rashes, No breakdown, No significant lesion Neuro: Normal gait, Normal speech, Strength at 5/5 X4 ext, Normal tone Psych/Mental Status: Mental status NL, Mood NL Labs/Xrays Labs Test 12/27/24 11:43 12/27/24 10:22 Range/Units White Blood Count 7.6 4.4-10.8 10^3/uL Red Blood Count 4.17 4.0-5.20 10^6/uL Hemoglobin 11.3 L 12.2-16.2 g/dL Hematocrit 35.4 L 36.0-46.0 % Mean Corpuscular Volume 84.8 80.0-100.0 fL Mean Corpuscular Hemoglobin 27.1 L 28.0-32.0 pg Mean Corpuscular Hemoglobin Concent 32.0 32.0-36.0 g/dL Red Cell Distribution Width 15.3 H 11.8-14.3 % Platelet Count 261 140-450 10^3/uL Mean Platelet Volume 8.7 6.9-10.8 fL Neutrophils (%) (Auto) 77.6 37.0-80.0 % Lymphocytes (%) (Auto) 15.9 10.0-50.0 % Monocytes (%) (Auto) 4.9 0.0-12.0 % Eosinophils (%) (Auto) 1.2 0.0-7.0 % Basophils (%) (Auto) 0.4 0.0-2.0 % Neutrophils # (Auto) 5.9 1.6-8.6 10 ^3/uL Lymphocytes # (Auto) 1.2 0.4-5.4 10 ^3/uL Monocytes # (Auto) 0.4 0-1.3 10 ^3/uL Eosinophils # (Auto) 0.1 0-0.8 10 ^3/uL Basophils # (Auto) 0 0-0.2 10 ^3/uL Nucleated Red Blood Cells 0.0 % Sodium Level 142 136-145 mmol/L Potassium Level 3.8 3.5-5.1 mmol/L Chloride Level 104 98-107 mmol/L Carbon Dioxide Level 29 20-31 mmol/L Anion Gap 9 5-15 Blood Urea Nitrogen 11 9-23 mg/dL Creatinine 0.79 0.550-1.02 mg/dL Glomerular Filtration Rate Calc 85 >90 mL/min BUN/Creatinine Ratio 13.9 10.0-20.0 Serum Glucose 91 74-106 mg/dL Calcium Level 9.6 8.7-10.4 mg/dL Urine Color Light-brown Yellow Urine Clarity Cloudy H Clear Urine pH 5.5 5.0-9.0 Urine Specific [place] 1.017 1.001-1.035 Urine Protein Trace H Negative Urine Ketones Negative Negative Urine Blood 3+ H Negative /uL Urine Nitrite Negative Negative Urine Bilirubin Negative Negative Urine Urobilinogen Normal Negative mg/dL Urine Leukocyte Esterase Trace Negative /uL Urine RBC 4933 0 - 4 /hpf Urine Microscopic WBC 12 H 0-5 /HPF Urine Squamous Epithelial Cells Few <5 /hpf Urine Bacteria Few H None Seen /hpf Urine Glucose Normal Normal mg/dL Technique: CT axial images of the abdomen and pelvis are obtained without contrast. FINDINGS: There is limited interpretation of the abdomen and pelvis without administration of intravenous contrast. Lung bases demonstrate atelectasis. The adrenal glands, spleen, pancreas are unremarkable in shape. Liver unremarkable in shape. No CT evidence for cholelithiasis. There is no hydronephrosis, nephrolithiasis. Stomach is partially distended. Small bowel loops are normal in caliber. Colonic diverticula. Moderate volume stool in the colon. Normal appendix. Bladder relatively nondistended. No free pelvic fluid. No inguinal lymphadenopathy. Paraumbilical hernia containing fat measuring 3.6 x 3.3 cm. Cngw-wv-kykbnxvw bilateral sacroiliac degenerative joint disease. Fuwr-fu-eplfge te thoracolumbar degenerative disc disease. L3 vertebral body hemangioma measuring 1.7 cm. T12 hemangioma measuring 14 mm. IMPRESSION: Limited evaluation without contrast. No hydronephrosis / nephrolithiasis. Paraumbilical hernia containing fat measuring 3.6 x 3.3 cm. Colonic diverticular disease. Other findings as described. SEPSIS Sepsis Screen Date sepsis recognized/suspect: Dec 27, 2024 Time Sepsis recognized/suspect: 0857 Recent Procedure: No On Antibiotic Therapy: No Respiratory Rate >20: No Heart Rate >90: No Temp<36 C (96.8 F) or >38.3 C: No SBP <90 or MAP <65 mmHG: No New Acute Mental Status Change: No Is the patient on CPAP, BIPAP,: No Physician Orders Ct Ab Pel Wo Con-No Oral Or Iv (12/27/24 14:00) Sodium Chloride 0.9% (12/27/24 15:45) Admit (12/27/24 16:14) Code Status (12/27/24 16:14) Hydrocodone-Acet 5/325mg Tab ([place] 5/32 (12/27/24 16:15) Ondansetron Hcl (Zofran) (12/27/24 16:15) Complete Blood Count (12/28/24 04:00) Comprehensive Metabolic Panel (12/28/24 04:00) Condition: Serious (12/27/24 16:14) Acetaminophen Tablet (Tylenol Tablet) (12/27/24 16:15) Docusate Sodium Capsule (Colace Capsule) (12/27/24 22:00) Ceftriaxone Ivpb Rocephin (12/28/24 09:00) Methocarbamol (Robaxin) (12/27/24 16:15) Pantoprazole Tablet (Protonix Tablet) (12/28/24 10:00) Tamsulosin Hydrochloride (Flomax) (12/27/24 22:00) Vital Signs Date Time Temp Pulse Resp B/P (MAP) Pulse Ox O2 Delivery O2 Flow Rate FiO2 12/27/24 08:53 97.7 90 18 111/70 96 97.7 Laboratory Tests Test 12/27/24 11:43 White Blood Count 7.6 10^3/uL (4.4-10.8) Assessment/Plan Assessment/Plan Assessment: Hematuria, Complicated UTI, Possible pyelonephritis, Hernia, Vaginal bleeding, Plan: Admit to Med-Surg, IV antibiotics, IV hydration, Consider DIGITAL MUSIC INSTRUCTOR consult, Pain management, Home medications reconciled, Plan discussed with: Patient My Orders Orders - HELLEN BARTON Procedure Category Date Status Time Admit ADMIT 12/27/24 Transmitted 16:14 Code Status CODE 12/27/24 Transmitted 16:14 Hydrocodone-Acet PHA 12/27/24 Transmitted 5/325mg Tab ([place] 16:15 Ondansetron Hcl PHA 12/27/24 Transmitted (Zofran) 16:15 Complete Blood Count LAB 12/28/24 Verified 04:00 Comprehensive LAB 12/28/24 Verified Metabolic Panel 04:00 Condition: Serious LOIS 12/27/24 Transmitted 16:14 Acetaminophen Tablet PHA 12/27/24 Transmitted (Tylenol Tablet) 16:15 Docusate Sodium PHA 12/27/24 Transmitted Capsule (Colace 22:00 Ceftriaxone Ivpb PHA 12/28/24 Transmitted Rocephin 09:00 Methocarbamol PHA 12/27/24 Transmitted (Robaxin) 16:15 Pantoprazole Tablet PHA 12/28/24 Transmitted (Protonix Tablet) 10:00 Tamsulosin PHA 12/27/24 Transmitted Hydrochloride (Flomax) 22:00 Date of Service: Dec 27, 2024 Billing Provider: HELLEN BARTON Common Visit Codes: [id number] INP/OBS CARE (MOD) HELLEN BARTON Dec 27, 2024 16:38
[2024-12-27 18:27] VITALS: PULSE 78; RESP 18; O2SAT 98
[2024-12-27] MEDS ORDERED: DOCU-94 PO (21:53)
[2024-12-27] MEDS ORDERED: CEPH500C PO (21:53)
[2024-12-27] MEDS ORDERED: SULF400T11 PO (21:53)
[2024-12-27] MEDS ORDERED: POTA-215 PO (21:53)
[2024-12-27] MEDS ORDERED: PERCOT PO (21:53)
[2024-12-27] MEDS ORDERED: METH100035 IJ (21:53)
[2024-12-27] MEDS: TAMSULOSIN HYDROCHLORIDE 0.4 MG CAP PO SCH (23:15)
[2024-12-27] MEDS: DOCUSATE SOD 100 MG CAP PO SCH (23:15)
[2024-12-27] MEDS: METHOCARBAMOL 500 MG TAB PO SCH (23:15)
[2024-12-27] MEDS: HYDROcodone-ACET 5/325MG TAB PO PRN (23:47)
[2024-12-27] MEDS: ONDANSETRON HCL 4 MG/2 ML VIAL IV ONE (23:48)
[2024-12-28 05:00] VITALS: BP 117/61; PULSE 69; RESP 18; TEMP 97.4; O2SAT 97
[2024-12-28 07:16] LABS: Hematocrit 33.8 % (36.0-46.0); Hemoglobin 10.8 g/dL (12.2-16.2); Mean Corpuscular Hemoglobin 27.1 pg (28.0-32.0); Mean Corpuscular Volume 85.0 fL (80.0-100.0); Nucleated Red Blood Cells % 0.1 %
[2024-12-28 07:54] LABS: Alkaline Phosphatase 115 U/L (46-116); Anion Gap 9 (5-15); BUN/Creatinine Ratio 13.6 (10.0-20.0); Blood Urea Nitrogen 11 mg/dL (9-23); Calcium 9.3 mg/dL (8.7-10.4); Carbon Dioxide 28 mmol/L (20-31); Glucose 78 mg/dL (74-106); Potassium 4.2 mmol/L (3.5-5.1); Sodium 144 mmol/L (136-145)
[2024-12-28 07:55] LABS: Alanine Aminotransferase < 9 U/L (7-40); Chloride 107 mmol/L (98-107); Total Protein 6.8 g/dL (5.7-8.2)
[2024-12-28 07:56] LABS: Albumin 3.8 g/dL (3.2-4.8)
[2024-12-28 07:59] LABS: Bilirubin, Total 0.3 mg/dL (0.2-1.0)
[2024-12-28] MEDS: PANTOPRAZOLE 40 MG TAB PO SCH (08:50)
[2024-12-28 09:00] VITALS: BP 119/72; PULSE 72; RESP 18; TEMP 98.1; O2SAT 98
[2024-12-28 13:00] VITALS: BP 129/83; PULSE 70; RESP 18; TEMP 97.9; O2SAT 96
--- NOTE | 2024-12-28 13:14 | DVH ---
CLINICAL HISTORY: HISTORY OF KIDNEY STONE, HYDRONEPHROSIS TECHNIQUE: Complete ultrasound exam of the kidneys and bladder was performed. COMPARISON: US KIDNEY on DOS: 10/29/24, US KIDNEY on DOS: 11/21/23 FINDINGS: The right kidney has normal echogenicity and measures 12 cm. There is no focal parenchymal abnormality or evidence for stone. There is no hydronephrosis. The left kidney has normal echogenicity and measures 11.6 cm. There is no focal parenchymal abnormality or evidence for stone. There is no hydronephrosis. The bladder is grossly unremarkable. IMPRESSION: NO SIGNIFICANT SONOGRAPHIC ABNORMALITY OF THE KIDNEYS.
--- NOTE | 2024-12-28 13:56 | DVHPNRES ---
Progress Note Date Seen: Dec 28, 2024 Resident Creating Document: BRII NGUYEN RESIDENT Medical Necessity Reason Pt with a Central, PICC or Fol: No Subjective Review of Systems Shanell Sue is a 64-year-old female with past medical history of GERD, chronic back pain, and renal calculi, who came to the hospital for flank pain. Patient states she has been experiencing vaginal bleeding for 3 days that has now transition to blood in her urine. She was seen here in the ER yesterday for the vaginal bleeding, and sent home. Today she states she is having flank pain. and blood in her urine that is caused from kidney stones. CT of abdomen/pelvis completed today does not show a kidney stone, previous CT completed here in October did show renal calculi. Patient is admitted at [facility] in October with a right flank pain found to have 5 mm right proximal ureteral stone given Flomax IV fluids and pain medications seen by Urology Dr. Brown who advised outpatient ESWL. Lab workup revealed hemoglobin 11.3, no leukocytosis, serum creatinine, sodium/potassium/serum creatinine within normal limit. CT scan of the abdomen revealed- No hydronephrosis / nephrolithiasis. Paraumbilical hernia containing fat measuring 3.6 x 3.3 cm. Colonic diverticular disease. Ultrasound of the kidney revealed no significant sonographic abnormality of the kidney. PMH-GERD, renal stone, chronic back pain PSH- denies surgery Allergy- azithromycin, tetracycline, tetanus secondary related drugs Personal History/ Social History- ROS Cardiovascular- deny acute chest pain or shortness of breath or cough or palpitation Respiratory denies cough or short of breath or wheezing Gastrointestinal- denies any rectal bleeding, nausea or vomiting Musculoskeletal-denies acute joint swelling or tenderness or redness Neurological- denies acute dysarthria, dysphagia, change in vision Psychiatry- denies depression or SI or HI Skin- denies acute rash or purpura Patient was seen today at bedside, labs and chart reviewed. Vitals stable. CT scan of the abdomen revealed- No hydronephrosis / nephrolithiasis. Paraumbilical hernia containing fat measuring 3.6 x 3.3 cm. Colonic diverticular disease. Ultrasound of the kidney revealed no significant sonographic abnormality of the kidney. Ordered Gynecology and trencher driver consult for vaginal bleeding and endometrial thickness. Objective vital signs Vital Sign Date Time Temp Pulse Resp B/P (MAP) Pulse Ox O2 Delivery O2 Flow Rate FiO2 12/28/24 13:00 97.9 70 18 129/83 (98) 96 97.9 12/27/24 21:54 Room Air* 0 21 Total Intake and Output 12/27/24 12/27/24 12/28/24 15:00 23:00 07:00 Intake Total 50 ml Balance 50 ml medications Current Medications Medications Dose Ordered Sig/Miguel Route Start Time Stop Time Status Last Admin Dose Admin Acetaminophen/ Hydrocodone Bitart 1 tab Q4HP PRN PO 12/27/24 16:15 12/27/24 23:47 1 TAB Ondansetron HCl 4 mg Q4HP PRN IV 12/27/24 16:15 Acetaminophen 650 mg Q6HP PRN PO 12/27/24 16:15 Docusate Sodium 100 mg BID PO 12/27/24 22:00 12/28/24 08:49 100 MG Ceftriaxone Sodium 50 ml @ 100 mls/hr DAILY@09 IV 12/28/24 09:00 12/28/24 08:48 100 MLS/HR Methocarbamol 500 mg Q8H PO 12/27/24 16:15 12/28/24 08:51 500 MG Pantoprazole Sodium 40 mg DAILY PO 12/28/24 10:00 12/28/24 08:50 40 MG Tamsulosin HCl 0.4 mg HS PO 12/27/24 22:00 12/27/24 23:15 0.4 MG Examination General examination- awake, alert, oriented HEENT- PEERLA, no acute nasal discharge Cardiovascular- S1-S2 audible, rate and rhythm regular, no murmur Respiratory- CTAB, no wheeze or rhonchi Gastrointestinal-nontender, bowel sound+. Nondistended Renal system-no renal angle tenderness or costovertebral angle tenderness Musculoskeletal-no acute joint swelling or tenderness or redness Lower extremity- no leg edema Neurological- cranial nerves intact, no acute dysarthria or dysphagia Psychiatry- denies depression or SI or HI Skin- no acute rash or purpura laboratory and microbiology Laboratory Tests 12/28/24 04:47 Test 12/28/24 04:47 Range/Units Serum Glucose 78 74-106 mg/dL Problem List/Assessment/Plan Problem List/Assessment/Plan Assessment and plan # intractable right flank pain # hematuria # history of renal stone # acute complicated UTI -urinalysis revealed-blood 3+, negative for nitrite, leukocyte esterase trace, WBC 12, bacteria few -pending urine culture -continue ceftriaxone 1 g IV daily -Lab workup revealed hemoglobin 11.3, no leukocytosis, serum creatinine, sodium/potassium/serum creatinine within normal limit. -CT scan of the abdomen revealed- No hydronephrosis / nephrolithiasis. Paraumbilical hernia containing fat measuring 3.6 x 3.3 cm. Colonic diverticular disease. -Ultrasound of the kidney revealed no significant sonographic abnormality of the kidney. # postmenopausal vaginal bleeding # endometrial hyperplasia -hemoglobin 11.3 -pelvic ultrasound on 12/26/2024- Endometrial tissue appears somewhat thickening and heterogeneous. -ordered Gynecology and Obstetrics consult -postmenopausal bleeding endometrial hyperplasia - Patient was seen by frame wirer and trencher driver-recommend pap smear and endometrial biopsy , follow up with Gynecology and oxygen ROX after DC home,patient was is given off his appointment. # GERD -pantoprazole as prescribed # Diverticulosis - Avoid dehydration and constipation Diet regular diet PCP Dr. De Jesus Goals of care, Code status full code ; discussed with >15 minutes PUD prophylaxis: Pantoprazole DVT prophylaxis: No acute indication Plan discussed with Dr. De Jesus , nursing staff, Total time spent on patient evaluation, chart review, assessment and plan, discussion discussion >35 minutes Plan discussed with: Patient, Other (RN) My Orders My Orders Orders - BRII NGUYEN Procedure Category Date Status Time Urine Bacterial NEREYDA 12/28/24 In Process Culture 08:12 Regular Diet DIET 12/28/24 Transmitted Lunch Kidney US 12/28/24 Resulted 11:54 * Diamond Die Maker Consultation CONS 12/28/24 Transmitted 11:55 Date of Service: Dec 28, 2024 Billing Provider: DARCI DE JESUS DO Common Visit Codes: [id number] INP/OBS CARE(HIGH) BRII NGUYEN RESIDENT Dec 28, 2024 13:56 LAINE KIMBLE RESIDENT Dec 31, 2024 14:04 DARCI DE JESUS DO Jan 01, 2025 23:39
--- NOTE | 2024-12-28 16:14 | DVHINCON2 ---
Date of service: Dec 28, 2024 Referring Physician hospitalist Reason for Consultation vag bleeding History of Present Illness pt is admitted for flank pain/hx of kidney stones but complained of vag bleeding for three days .pt is postmenopausal and her last pap was 2023.her pelvic sono reveals endometrial thickness of 9mm Past Medical History gerd,back pain,kidney stones Past Surgical History csx1 ,carpal tunnel surgery,spine fusion Family History na Social History one cs,,3 sab Patient Family History: Cardiovascular disease Grandfather Diabetes mellitus G8 FATHER FH: cancer G8 MOTHER, Hypertension Kidney stones G8 MOTHER, Allergies: Coded Allergies: Erythromycin (Verified Allergy, Unknown, 05/23/20) Tetracycline (Unverified Allergy, Unknown, 04/20/24) Tetracyclines & Related (Verified Allergy, Unknown, 05/23/20) SKIN RASH Home Meds Active Scripts Tranexamic Acid (TRANEXAMIC ACID) 650 Mg Tab, 1300 MG OR TID for 5 Days, #30 TAB Prov:NIKOLAS TOPETE MD 12/26/24 Doxycycline Hyclate (DOXYCYCLINE HYCLATE) 100 Mg Tab, 1 TAB PO BID for 7 Days, #14 TAB Prov:NIKOLAS TOPETE MD 12/26/24 Furosemide (Lasix) 20 Mg Tb, 1 TAB PO DAILY for 3 Days, #3 TAB 0 Refills Prov:GENNY DEE DO 12/18/24 Tramadol HCl (Tramadol HCl) 50 Mg Tab, 50 MG PO QID PRN, #30 TAB Prov:JING SMART MD 10/31/24 Pantoprazole Sodium Sesquihydr (Protonix) 40 Mg Tab, 40 MG PO DAILY, #60 TAB Prov:NISH CARIAS MD 09/29/24 Docusate Sodium (Docusate Sodium) 100 Mg Cap, 100 MG PO BIDPRN PRN for 30 Days, #60 CAP Prov:AMY CRENSHAW RESIDENT 03/25/24 Reported Medications Cephalexin Monohydrate (Cephalexin) 500 Mg Cap, 1 CAP PO QID, #40 CAP 12/27/24 Sulfamethoxazole-Trimethoprim (Bactrim) 1 Tab Tab, 1 TAB PO BID, #20 TAB 12/27/24 Potassium Chloride (Klor-Con M10) 10 Meq Tab, 1 TAB PO DAILY, #30 TAB 5 Refills 12/27/24 Docusate Sodium (Colace) 100 Mg Cap, 100 MG PO, CAP 12/27/24 Methocarbamol (Robaxin) 1,000 Mg/10 Ml Inj, 1000 MG IJ, INJ 12/27/24 Oxycodone W/ Acetaminophen (Percocet 5/325MG) 1 Tab Tb, 1 TAB PO BID, #60 TAB 12/27/24 Hydrocortone (Hydrocortisone 2.5%) 1 Applic Ap, 1 APPLIC TOP BIDP, #30 GRAMS 09/25/24 Mupirocin Calcium (Topical) (MUPIROCIN) 2 % Cre, 2 % EX, CRE 09/25/24 Acetaminophen (Tylenol) 325 Mg Tb, 325 MG PO, TAB 09/25/24 Nweteem-Mvqcjhjacarfn-Tkskmdjt (Excedrin Migraine) Migraine Tab, 1 OR, TAB 09/25/24 Lidocaine (LIDODERM 5% TOPICAL PATCH) 1 Patch Ph, 1 PATCH TOP DAILY, #30 PATCH 1 Refill 09/25/24 Diphenhydramine Hcl (Benadryl Allergy) 25 Mg Cap, 1 CAP PO QPM, #30 CAP 1 Refill 09/25/24 Hydroxyzine Hcl (Hydroxyzine Hcl) 25 Mg Tab, 1 TAB PO TID 03/23/24 Methocarbamol (Methocarbamol) 500 Mg Tab, 1 TAB PO Q8H 03/23/24 Tamsulosin Hcl (Tamsulosin Hcl) 0.4 Mg Cap, 1 CAP PO DAILY 03/23/24 Discontinued Scripts Cephalexin Monohydrate (Cephalexin) 500 Mg Cap, 500 MG PO Q8HP PRN for 7 Days, #28 CAP Prov:GENNY DEE DO 12/18/24 Ciprofloxacin Hcl (Cipro) 500 Mg Tab, 1 TAB PO BID, #14 TAB Prov:JING SMART MD 10/31/24 Fluconazole (Diflucan) 200 Mg Tab, 1 TAB PO DAILY, #7 TAB Prov:JING SMART MD 10/31/24 Current Medications Current Medications Medications (Trade) Dose Ordered Sig/Miguel Route PRN Reason Start Time Stop Time Status Last Admin Acetaminophen/ Hydrocodone Bitart (Cyclone 5/325MG Tab) 1 tab Q4HP PRN PO MODERATE PAIN (4-6 PAIN SCALE) 12/27/24 16:15 12/28/24 15:20 Ondansetron HCl (Zofran) 4 mg Q4HP PRN IV NAUSEA / VOMITING 12/27/24 16:15 Acetaminophen (Tylenol Tablet) 650 mg Q6HP PRN PO PAIN SCALE 1-3 OR TEMP>100.4 12/27/24 16:15 Docusate Sodium (Colace Capsule) 100 mg BID PO 12/27/24 22:00 12/28/24 08:49 Ceftriaxone Sodium 50 ml @ 100 mls/hr DAILY@09 IV 12/28/24 09:00 12/28/24 08:48 Methocarbamol (Robaxin) 500 mg Q8H PO 12/27/24 16:15 12/28/24 08:51 Pantoprazole Sodium (Protonix Tablet) 40 mg DAILY PO 12/28/24 10:00 12/28/24 08:50 Tamsulosin HCl (Flomax) 0.4 mg HS PO 12/27/24 22:00 12/28/24 13:55 DC 12/27/24 23:15 Review of Systems Constitutional: no fever, chill, weight loss HEENT: no eye pain, no hearing loss, no oral lesion, no scleral icterus Heart: no chest pain, no chest pressure Lung: no cough, no dyspnea with exertion Abdomen: see HPI : pos for vag bleeding and kidney pain Musculoskeletal: no joint pain, no muscle pain Neurological: no seizure, no loss of sensation, no weakness in extremities Pysch: no depression, no anxiety Derm: no rash, no jaundice Vital Signs Vital Signs Date Time Temp Pulse Resp B/P (MAP) Pulse Ox O2 Delivery O2 Flow Rate FiO2 12/28/24 13:00 97.9 70 18 129/83 (98) 96 97.9 12/27/24 21:54 Room Air* 0 21 Physical Exam SKIN:nl HEENT: nl NECK: nl CARDIAC: rrr PULMONARY: cta ABDOMEN: soft,nt MUSCULOSKELETAL:flank pain bilat pelvic-ext gent wl,vag scant spotting noted,cx nl,uterus 9wks size ,adenxa nl ext-no cce Labs/Diagnostic Data Labs Test 12/28/24 04:47 12/27/24 10:22 Range/Units White Blood Count 6.2 4.4-10.8 10^3/uL Red Blood Count 3.98 L 4.0-5.20 10^6/uL Hemoglobin 10.8 L 12.2-16.2 g/dL Hematocrit 33.8 L 36.0-46.0 % Mean Corpuscular Volume 85.0 80.0-100.0 fL Mean Corpuscular Hemoglobin 27.1 L 28.0-32.0 pg Mean Corpuscular Hemoglobin Concent 31.9 L 32.0-36.0 g/dL Red Cell Distribution Width 15.6 H 11.8-14.3 % Platelet Count 246 140-450 10^3/uL Mean Platelet Volume 9.0 6.9-10.8 fL Neutrophils (%) (Auto) 65.1 37.0-80.0 % Lymphocytes (%) (Auto) 24.9 10.0-50.0 % Monocytes (%) (Auto) 7.7 0.0-12.0 % Eosinophils (%) (Auto) 1.8 0.0-7.0 % Basophils (%) (Auto) 0.5 0.0-2.0 % Neutrophils # (Auto) 4.0 1.6-8.6 10 ^3/uL Lymphocytes # (Auto) 1.5 0.4-5.4 10 ^3/uL Monocytes # (Auto) 0.5 0-1.3 10 ^3/uL Eosinophils # (Auto) 0.1 0-0.8 10 ^3/uL Basophils # (Auto) 0 0-0.2 10 ^3/uL Nucleated Red Blood Cells 0.1 % Sodium Level 144 136-145 mmol/L Potassium Level 4.2 3.5-5.1 mmol/L Chloride Level 107 98-107 mmol/L Carbon Dioxide Level 28 20-31 mmol/L Anion Gap 9 5-15 Blood Urea Nitrogen 11 9-23 mg/dL Creatinine 0.81 0.550-1.02 mg/dL Glomerular Filtration Rate Calc 82 >90 mL/min BUN/Creatinine Ratio 13.6 10.0-20.0 Serum Glucose 78 74-106 mg/dL Calcium Level 9.3 8.7-10.4 mg/dL Total Bilirubin 0.3 0.2-1.0 mg/dL Aspartate Amino Transferase (AST) 20 13-40 U/L Alanine Aminotransferase (ALT) < 9 7-40 U/L Alkaline Phosphatase 115 46-116 U/L Total Protein 6.8 5.7-8.2 g/dL Albumin 3.8 3.2-4.8 g/dL Urine Color Light-brown Yellow Urine Clarity Cloudy H Clear Urine pH 5.5 5.0-9.0 Urine Specific [place] 1.017 1.001-1.035 Urine Protein Trace H Negative Urine Ketones Negative Negative Urine Blood 3+ H Negative /uL Urine Nitrite Negative Negative Urine Bilirubin Negative Negative Urine Urobilinogen Normal Negative mg/dL Urine Leukocyte Esterase Trace Negative /uL Urine RBC 4933 0 - 4 /hpf Urine Microscopic WBC 12 H 0-5 /HPF Urine Squamous Epithelial Cells Few <5 /hpf Urine Bacteria Few H None Seen /hpf Urine Glucose Normal Normal mg/dL Primary Diagnosis postmenopausal bleeding endometrial hyperplasia Plan recommend pap smear and endometrial biopsy fu with explosive ordnance specialist ellyn after dc home,pt is given apt for our office will sign off thank you for this consultation Plan discussed with: Patient Visit Coding OBGYN Date of Service: Dec 28, 2024 Billing Provider: FREDERICK MAGALLON DO GENERAL FARM MANAGER Common Visit Codes: [id number] INP/OBS CARE (HIGH) GENERAL FARM MANAGER Consultation Codes: [id number] CONSULT <110MIN FREDERICK MAGALLON DO Dec 28, 2024 16:14
[2024-12-28 16:57] VITALS: BP 111/71; PULSE 75; RESP 18; TEMP 97.9; O2SAT 98
[2024-12-28 21:00] VITALS: BP 140/91; PULSE 74; RESP 17; TEMP 98; O2SAT 96
--- NOTE | 2024-12-28 21:41 | DVH ---
CHEST RADIOGRAPH Indication: leg edema Technique: Single frontal view of the chest was obtained. Comparison: XY CHEST PORTABLE on DOS: 09/24/24 Findings: Mild pulmonary vascular congestion. No significant pleural effusion. No pneumothorax. Stable cardiomediastinal silhouette. IMPRESSION: Mild pulmonary vascular congestion.
[2024-12-29] VITALS (8 sets, daily range): BP systolic 112–130; BP diastolic 57–83; PULSE 67–88; RESP 1–18; TEMP 97.5–98.6; O2SAT 95–99
[2024-12-29 06:09] LABS: Hematocrit 33.4 % (36.0-46.0); Hemoglobin 11.0 g/dL (12.2-16.2); Mean Corpuscular Hemoglobin 27.6 pg (28.0-32.0); Mean Corpuscular Volume 83.7 fL (80.0-100.0); Nucleated Red Blood Cells % 0.1 %
[2024-12-29 06:16] LABS: Calcium 10.0 mg/dL (8.7-10.4); Chloride 106 mmol/L (98-107); Potassium 4.0 mmol/L (3.5-5.1); Sodium 142 mmol/L (136-145)
[2024-12-29 06:17] LABS: Anion Gap 9 (5-15); Carbon Dioxide 27 mmol/L (20-31)
[2024-12-29 06:22] LABS: Glucose 90 mg/dL (74-106)
[2024-12-29 06:42] LABS: BUN/Creatinine Ratio 12.3 (10.0-20.0); Blood Urea Nitrogen 9 mg/dL (9-23)
[2024-12-29] MEDS: FUROSEMIDE 20 MG TAB PO SCH (09:01)
--- NOTE | 2024-12-29 10:17 | DVHDSRES ---
Discharge Summary Date of Admission Resident Creating Document: BRII NGUYEN RESIDENT Dec 27, 2024 at 16:14 Labs/Diagnostic Data: Laboratory Results Test 12/29/24 01:45 12/28/24 04:47 12/27/24 10:22 White Blood Count 6.1 10^3/uL (4.4-10.8) Red Blood Count 3.99 10^6/uL (4.0-5.20) Hemoglobin 11.0 g/dL (12.2-16.2) Hematocrit 33.4 % (36.0-46.0) Mean Corpuscular Volume 83.7 fL (80.0-100.0) Mean Corpuscular Hemoglobin 27.6 pg (28.0-32.0) Mean Corpuscular Hemoglobin Concent 33.0 g/dL (32.0-36.0) Red Cell Distribution Width 15.8 % (11.8-14.3) Platelet Count 247 10^3/uL (140-450) Mean Platelet Volume 9.1 fL (6.9-10.8) Neutrophils (%) (Auto) 69.1 % (37.0-80.0) Lymphocytes (%) (Auto) 19.9 % (10.0-50.0) Monocytes (%) (Auto) 8.2 % (0.0-12.0) Eosinophils (%) (Auto) 2.3 % (0.0-7.0) Basophils (%) (Auto) 0.5 % (0.0-2.0) Neutrophils # (Auto) 4.2 10 ^3/uL (1.6-8.6) Lymphocytes # (Auto) 1.2 10 ^3/uL (0.4-5.4) Monocytes # (Auto) 0.5 10 ^3/uL (0-1.3) Eosinophils # (Auto) 0.1 10 ^3/uL (0-0.8) Basophils # (Auto) 0 10 ^3/uL (0-0.2) Nucleated Red Blood Cells 0.1 % Sodium Level 142 mmol/L (136-145) Potassium Level 4.0 mmol/L (3.5-5.1) Chloride Level 106 mmol/L (98-107) Carbon Dioxide Level 27 mmol/L (20-31) Anion Gap 9 (5-15) Blood Urea Nitrogen 9 mg/dL (9-23) Creatinine 0.73 mg/dL (0.550-1.02) Glomerular Filtration Rate Calc 93 mL/min (>90) BUN/Creatinine Ratio 12.3 (10.0-20.0) Serum Glucose 90 mg/dL (74-106) Calcium Level 10.0 mg/dL (8.7-10.4) Total Bilirubin 0.3 mg/dL (0.2-1.0) Aspartate Amino Transferase (AST) 20 U/L (13-40) Alanine Aminotransferase (ALT) < 9 U/L (7-40) Alkaline Phosphatase 115 U/L (46-116) B-Type Natriuretic Peptide 33.78 pg/mL (0-100) Total Protein 6.8 g/dL (5.7-8.2) Albumin 3.8 g/dL (3.2-4.8) Urine Color Light-brown (Yellow) Urine Clarity Cloudy (Clear) Urine pH 5.5 (5.0-9.0) Urine Specific [place] 1.017 (1.001-1.035) Urine Protein Trace (Negative) Urine Ketones Negative (Negative) Urine Blood 3+ /uL (Negative) Urine Nitrite Negative (Negative) Urine Bilirubin Negative (Negative) Urine Urobilinogen Normal mg/dL (Negative) Urine Leukocyte Esterase Trace /uL (Negative) Urine RBC 4933 /hpf (0 - 4) Urine Microscopic WBC 12 /HPF (0-5) Urine Squamous Epithelial Cells Few /hpf (<5) Urine Bacteria Few /hpf (None Seen) Urine Glucose Normal mg/dL (Normal) Other Laboratory Tests 12/29/24 01:45 Discharge Instruct/Medications Scheduled Cephalexin Monohydrate (Cephalexin), 1 CAP PO QID, (Reported) Diphenhydramine Hcl (Benadryl Allergy), 1 CAP PO QPM, (Reported) Doxycycline Hyclate (Doxycycline Hyclate), 1 TAB PO BID Furosemide (Lasix), 1 TAB PO DAILY Hydrocortone (Hydrocortisone 2.5%), 1 APPLIC TOP BIDP, (Reported) Hydroxyzine Hcl (Hydroxyzine Hcl), 1 TAB PO TID, (Reported) Lidocaine (Lidoderm 5% Topical Patch), 1 PATCH TOP DAILY, (Reported) Methocarbamol (Methocarbamol), 1 TAB PO Q8H, (Reported) Oxycodone W/ Acetaminophen (Percocet 5/325MG), 1 TAB PO BID, (Reported) Pantoprazole Sodium Sesquihydr (Protonix), 40 MG PO DAILY Potassium Chloride (Klor-Con M10), 1 TAB PO DAILY, (Reported) Sulfamethoxazole-Trimethoprim (Bactrim), 1 TAB PO BID, (Reported) Tamsulosin Hcl (Tamsulosin Hcl), 1 CAP PO DAILY, (Reported) Tranexamic Acid (Tranexamic Acid), 1,300 MG OR TID Scheduled PRN Docusate Sodium (Docusate Sodium), 100 MG PO BIDPRN PRN Tramadol HCl (Tramadol HCl), 50 MG PO QID PRN Miscellaneous Medications Acetaminophen (Tylenol), 325 MG PO, (Reported) Rbzizou-Nbbynvbcplagi-Lclcdoti (Excedrin Migraine), 1 OR, (Reported) Docusate Sodium (Colace), 100 MG PO, (Reported) Methocarbamol (Robaxin), 1,000 MG IJ, (Reported) Mupirocin Calcium (Topical) (Mupirocin), 2 % EX, (Reported) Discontinued Medications Cephalexin Monohydrate (Cephalexin), 500 MG PO Q8HP PRN Ciprofloxacin Hcl (Cipro), 1 TAB PO BID Fluconazole (Diflucan), 1 TAB PO DAILY Discharge Statement: "Patient was advised to return to the ER or call 911 if any headaches, dizziness, shortness of breath, chest pain, abdominal pain, bleeding, fevers, or worsening of medical condition. Patient was counseled about treatment plan, medications, possible side effects, patientverbalized understanding. All questions were answered to the best of my ability. This discharge took greater then 30 minutes in planning, reviewing documentation, counseling the patient, and discussing with other team members." ASSESSMENT ASSESSMENT Assessment LAINE KIMBLE RESIDENT Dec 29, 2024 10:17
--- NOTE | 2024-12-29 15:25 | DVHPNRES ---
Progress Note Date Seen: Dec 29, 2024 Resident Creating Document: LAINE KIMBLE RESIDENT Medical Necessity Reason Pt with a Central, PICC or Fol: No Subjective Review of Systems Shanell Sue is a 64-year-old female with past medical history of GERD, chronic back pain, and renal calculi, who came to the hospital for flank pain. Patient states she has been experiencing vaginal bleeding for 3 days that has now transition to blood in her urine. She was seen here in the ER yesterday for the vaginal bleeding, and sent home. Today she states she is having flank pain. and blood in her urine that is caused from kidney stones. CT of abdomen/pelvis completed today does not show a kidney stone, previous CT completed here in October did show renal calculi. Patient is admitted at [facility] in October with a right flank pain found to have 5 mm right proximal ureteral stone given Flomax IV fluids and pain medications seen by Urology Dr. Brown who advised outpatient ESWL. Lab workup revealed hemoglobin 11.3, no leukocytosis, serum creatinine, sodium/potassium/serum creatinine within normal limit. CT scan of the abdomen revealed- No hydronephrosis / nephrolithiasis. Paraumbilical hernia containing fat measuring 3.6 x 3.3 cm. Colonic diverticular disease. Ultrasound of the kidney revealed no significant sonographic abnormality of the kidney. PMH-GERD, renal stone, chronic back pain PSH- denies surgery Allergy- azithromycin, tetracycline, tetanus secondary related drugs 12/29/24: Patient was seen today at bedside, labs and chart reviewed. Vitals stable. CT scan of the abdomen revealed- No hydronephrosis / nephrolithiasis. Paraumbilical hernia containing fat measuring 3.6 x 3.3 cm. Colonic diverticular disease. Ultrasound of the kidney revealed no significant sonographic abnormality of the kidney. Gynecology and enologist consult for vaginal bleeding and endometrial thickness: fu as outpatient for further work up, also today 1+ pitting edema and x ray showed pulmonary congestion, echo ordered to rule out CHF, BNP negative Objective vital signs Vital Sign Date Time Temp Pulse Resp B/P (MAP) Pulse Ox O2 Delivery O2 Flow Rate FiO2 12/29/24 13:00 98.3 88 18 121/80 (94) 99 98.3 12/29/24 08:00 Room Air* 0 21 Total Intake and Output 12/28/24 12/28/2412/29/25 15:00 23:00 07:00 Intake Total 50 ml 600 ml 1100 ml Output Total 1000 ml Balance 50 ml 600 ml 100 ml medications Current Medications Medications Dose Ordered Sig/Miguel Route Start Time Stop Time Status Last Admin Dose Admin Acetaminophen/ Hydrocodone Bitart 1 tab Q4HP PRN PO 12/27/24 16:15 12/28/24 15:20 1 TAB Ondansetron HCl 4 mg Q4HP PRN IV 12/27/24 16:15 Acetaminophen 650 mg Q6HP PRN PO 12/27/24 16:15 Docusate Sodium 100 mg BID PO 12/27/24 22:00 12/29/24 08:59 100 MG Ceftriaxone Sodium 50 ml @ 100 mls/hr DAILY@09 IV 12/28/24 09:00 12/29/24 08:59 100 MLS/HR Methocarbamol 500 mg Q8H PO 12/27/24 16:15 12/29/24 09:02 500 MG Pantoprazole Sodium 40 mg DAILY PO 12/28/24 10:00 12/29/24 09:03 40 MG Furosemide 20 mg DAILY PO 12/29/24 10:00 12/29/24 09:01 20 MG Tamsulosin HCl 0.4 mg QPM PO 12/29/24 18:00 Examination General examination- awake, alert, oriented HEENT- PEERLA, no acute nasal discharge Cardiovascular- S1-S2 audible, rate and rhythm regular, no murmur Respiratory- CTAB, no wheeze or rhonchi Gastrointestinal-nontender, bowel sound+. Nondistended Renal system-no renal angle tenderness or costovertebral angle tenderness Musculoskeletal-no acute joint swelling or tenderness or redness Lower extremity- no leg edema Neurological- cranial nerves intact, no acute dysarthria or dysphagia Psychiatry- denies depression or SI or HI Skin- no acute rash or purpura laboratory and microbiology Laboratory Tests 12/29/24 01:45 Test 12/29/24 01:45 Range/Units Serum Glucose 90 74-106 mg/dL Microbiology Date/Time Source Procedure Growth Status 12/28/24 11:20 Voided Urine Urine Culture - Preliminary No growth Resulted Problem List/Assessment/Plan Problem List/Assessment/Plan # intractable right flank pain # hematuria # history of renal stone # acute complicated UTI -urinalysis revealed-blood 3+, negative for nitrite, leukocyte esterase trace, WBC 12, bacteria few -urine culture: prelim negative -continue ceftriaxone 1 g IV daily -Lab workup revealed hemoglobin 11.3, no leukocytosis, serum creatinine, sodium/potassium/serum creatinine within normal limit. -CT scan of the abdomen revealed- No hydronephrosis / nephrolithiasis. Paraumbilical hernia containing fat measuring 3.6 x 3.3 cm. Colonic diverticular disease. -Ultrasound of the kidney revealed no significant sonographic abnormality of the kidney. #Possible CHF pitting edema and vascular congestion BNP neg Pending ECHO # postmenopausal vaginal bleeding # endometrial hyperplasia -hemoglobin stable -pelvic ultrasound on 12/26/2024- Endometrial tissue appears somewhat thickening and heterogeneous. -ordered Gynecology and Obstetrics consult -postmenopausal bleeding endometrial hyperplasia - Patient was seen by adult services librarian and enologist-recommend pap smear and endometrial biopsy , follow up with Gynecology and oxygen ROX after DC home,patient was is given off his appointment. # GERD -pantoprazole as prescribed # Diverticulosis - Avoid dehydration and constipation Goals of care, Code status full code ; discussed with >15 minutes PUD prophylaxis: Pantoprazole DVT prophylaxis: No acute indication Plan discussed with Dr. Castillo and nursing staff, Total time spent on patient evaluation, chart review, assessment and plan, discussion discussion >35 minutes Plan discussed with: Patient, Other (rn) My Orders My Orders Orders - LAINE KIMBLE RESIDENT Procedure Category Date Status Time Echo 2d Mode Cardiac US 12/29/24 Logged DOP 13:31 Date of Service: Dec 29, 2024 Billing Provider: DARCI DE JESUS DO Common Visit Codes: [id number] INP/OBS CARE(HIGH) LAINE KIMBLE Dec 29, 2024 15:25 DARCI DE JESUS DO Jan 02, 2025 00:14 BHARATHI CASTILLO MD Jan 09, 2025 20:35
[2024-12-29] MEDS: TAMSULOSIN HYDROCHLORIDE 0.4 MG CAP PO SCH (18:00)
[2024-12-30] VITALS (8 sets, daily range): BP systolic 100–130; BP diastolic 65–86; PULSE 70–84; RESP 16–19; TEMP 97.5–98.5; O2SAT 95–98
[2024-12-30] MEDS ORDERED: POLYETHYLENE GLYCOL 17 GM PWDR PO PRN (08:00)
[2024-12-30] MEDS: MORPHINE SULFATE 4 MG/ML SYR/VIAL IV ONE (08:23)
[2024-12-30 08:36] LABS: Hematocrit 37.1 % (36.0-46.0); Hemoglobin 11.9 g/dL (12.2-16.2); Mean Corpuscular Hemoglobin 26.9 pg (28.0-32.0); Mean Corpuscular Volume 83.5 fL (80.0-100.0); Nucleated Red Blood Cells % 0.0 %
[2024-12-30 09:20] LABS: Alkaline Phosphatase 114 U/L (46-116); Anion Gap 9 (5-15); Calcium 10.0 mg/dL (8.7-10.4); Carbon Dioxide 29 mmol/L (20-31); Chloride 105 mmol/L (98-107); Potassium 4.1 mmol/L (3.5-5.1); Sodium 143 mmol/L (136-145)
[2024-12-30 09:21] LABS: Glucose 81 mg/dL (74-106)
[2024-12-30 09:22] LABS: Albumin 4.1 g/dL (3.2-4.8); BUN/Creatinine Ratio 17.9 (10.0-20.0); Blood Urea Nitrogen 12 mg/dL (9-23); Total Protein 7.4 g/dL (5.7-8.2)
[2024-12-30 09:23] LABS: Bilirubin, Total 0.4 mg/dL (0.2-1.0)
[2024-12-30 09:26] LABS: Alanine Aminotransferase < 9 U/L (7-40)
[2024-12-30] MEDS: LACTULOSE 20Gm/30ML SOLN PO ONE (12:04)
[2024-12-30] MEDS ORDERED: CEPH250C PO (15:15)
--- NOTE | 2024-12-30 15:20 | DVHDSRES ---
Discharge Summary Date of Admission Resident Creating Document: LAINE KIMBLE RESIDENT Dec 27, 2024 at 16:14 Date of Discharge: Dec 30, 2024 Admitting Diagnosis Acute complicated UTI with the hematuria Labs/Diagnostic Data: Laboratory Results Test 12/30/24 07:54 12/28/24 04:47 12/27/24 10:22 White Blood Count 7.2 10^3/uL (4.4-10.8) Red Blood Count 4.44 10^6/uL (4.0-5.20) Hemoglobin 11.9 g/dL (12.2-16.2) Hematocrit 37.1 % (36.0-46.0) Mean Corpuscular Volume 83.5 fL (80.0-100.0) Mean Corpuscular Hemoglobin 26.9 pg (28.0-32.0) Mean Corpuscular Hemoglobin Concent 32.2 g/dL (32.0-36.0) Red Cell Distribution Width 15.5 % (11.8-14.3) Platelet Count 274 10^3/uL (140-450) Mean Platelet Volume 8.9 fL (6.9-10.8) Neutrophils (%) (Auto) 70.3 % (37.0-80.0) Lymphocytes (%) (Auto) 20.5 % (10.0-50.0) Monocytes (%) (Auto) 7.2 % (0.0-12.0) Eosinophils (%) (Auto) 1.5 % (0.0-7.0) Basophils (%) (Auto) 0.5 % (0.0-2.0) Neutrophils # (Auto) 5.1 10 ^3/uL (1.6-8.6) Lymphocytes # (Auto) 1.5 10 ^3/uL (0.4-5.4) Monocytes # (Auto) 0.5 10 ^3/uL (0-1.3) Eosinophils # (Auto) 0.1 10 ^3/uL (0-0.8) Basophils # (Auto) 0 10 ^3/uL (0-0.2) Nucleated Red Blood Cells 0.0 % Sodium Level 143 mmol/L (136-145) Potassium Level 4.1 mmol/L (3.5-5.1) Chloride Level 105 mmol/L (98-107) Carbon Dioxide Level 29 mmol/L (20-31) Anion Gap 9 (5-15) Blood Urea Nitrogen 12 mg/dL (9-23) Creatinine 0.67 mg/dL (0.550-1.02) Glomerular Filtration Rate Calc 99 mL/min (>90) BUN/Creatinine Ratio 17.9 (10.0-20.0) Serum Glucose 81 mg/dL (74-106) Calcium Level 10.0 mg/dL (8.7-10.4) Total Bilirubin 0.4 mg/dL (0.2-1.0) Aspartate Amino Transferase (AST) 18 U/L (13-40) Alanine Aminotransferase (ALT) < 9 U/L (7-40) Alkaline Phosphatase 114 U/L (46-116) Total Protein 7.4 g/dL (5.7-8.2) Albumin 4.1 g/dL (3.2-4.8) Vitamin B12 Level 400 pg/mL (211-911) Vitamin D 25-Hydroxy 37.1 ng/mL (30.0-100) Folic Acid 10.71 ng/mL (>5.38) Thyroid Stimulating Hormone (TSH) 1.37 uIU/mL (0.55-4.78) B-Type Natriuretic Peptide 33.78 pg/mL (0-100) Urine Color Light-brown (Yellow) Urine Clarity Cloudy (Clear) Urine pH 5.5 (5.0-9.0) Urine Specific [place] 1.017 (1.001-1.035) Urine Protein Trace (Negative) Urine Ketones Negative (Negative) Urine Blood 3+ /uL (Negative) Urine Nitrite Negative (Negative) Urine Bilirubin Negative (Negative) Urine Urobilinogen Normal mg/dL (Negative) Urine Leukocyte Esterase Trace /uL (Negative) Urine RBC 4933 /hpf (0 - 4) Urine Microscopic WBC 12 /HPF (0-5) Urine Squamous Epithelial Cells Few /hpf (<5) Urine Bacteria Few /hpf (None Seen) Urine Glucose Normal mg/dL (Normal) Other Laboratory Tests 12/30/24 07:54 Brief Hx & Hospital Course: Daniela St is a 64-year-old female with past medical history of GERD, chronic back pain, and renal calculi, who came to the hospital for flank pain. Patient states she has been experiencing vaginal bleeding for 3 days that has now transition to blood in her urine. She was seen here in the ER yesterday for the vaginal bleeding, and sent home. Today she states she is having flank pain. and blood in her urine that is caused from kidney stones. CT of abdomen/pelvis completed today does not show a kidney stone, previous CT completed here in October did show renal calculi. Patient is admitted at [facility] in October with a right flank pain found to have 5 mm right proximal ureteral stone given Flomax IV fluids and pain medications seen by Urology Dr. Brown who advised outpatient ESWL. Lab workup revealed hemoglobin 11.3, no leukocytosis, serum creatinine, sodium/potassium/serum creatinine within normal limit. CT scan of the abdomen revealed- No hydronephrosis / nephrolithiasis. Paraumbilical hernia containing fat measuring 3.6 x 3.3 cm. Colonic diverticular disease. Ultrasound of the kidney revealed no significant sonographic abnormality of the kidney. Urine culture negative for any growth. Patient was seen by Gynecology and washer cutter and advised for outpatient endometrial biopsy for further evaluation and care of vaginal bleeding. Echo 2D revealed LVEF 60%. Patient is being discharged home with Macrobid. Patient was advised to follow up with the PCP, discharge clinic and Gynecology and washer cutter. Patient was hemodynamically stable on discharge. General examination- awake, alert, oriented HEENT- PEERLA, no acute nasal discharge Cardiovascular- S1-S2 audible, rate and rhythm regular, no murmur Respiratory- CTAB, no wheeze or rhonchi Gastrointestinal-nontender, bowel sound+. Nondistended Renal system-no renal angle tenderness or costovertebral angle tenderness Musculoskeletal-no acute joint swelling or tenderness or redness Lower extremity- no leg edema Neurological- cranial nerves intact, no acute dysarthria or dysphagia, no acute change in vision Psychiatry- denies depression or SI or HI Skin- no acute rash or purpura Case discussed with Dr Castillo Operations or Procedures [facility] [id number] [place] [id number] Ph: [phone] DIAGNOSTIC IMAGING Diagnostic Imaging Report : [id number] Signed PATIENT: DANIELA ST DACCT: [id number] UNIT: [id number] : 1960 LOC: ER ROOM / BED: / AGE / SEX: 64 / F ADM STATUS: REG ER SERVICE 1400 ORDERING PHYSICIAN: NIKOLAS TOPETE MD PROCEDURE(s): ABPL - CT AB PEL WO CON-NO ORAL OR IV REASON: right flank pain ORDER NUMBER(s): [id number], ACCESSION NUMBER(s): [id number] Indication: right flank pain Technique: CT axial images of the abdomen and pelvis are obtained without contrast. Coronal and sagittal reformats were obtained. Radiation Dose Information: CTDI volume is 22.83 mGy. Dose-length product is 1165.37 mGy*cm Comparison: CT CT AB PEL WO CON-NO ORAL OR IV on DOS: 10/27/24 FINDINGS: There is limited interpretation of the abdomen and pelvis without administration of intravenous contrast. Lung bases demonstrate atelectasis. The adrenal glands, spleen, pancreas are unremarkable in shape. Liver unremarkable in shape. No CT evidence for cholelithiasis. There is no hydronephrosis, nephrolithiasis. Stomach is partially distended. Small bowel loops are normal in caliber. Colonic diverticula. Moderate volume stool in the colon. Normal appendix. Bladder relatively nondistended. No free pelvic fluid. No inguinal lymphadenopathy. Paraumbilical hernia containing fat measuring 3.6 x 3.3 cm. Qwnv-tp-ljcakbqo bilateral sacroiliac degenerative joint disease. Weqz-fu-hzgbdnpm thoracolumbar degenerative disc disease. L3 vertebral body hemangioma measuring 1.7 cm. T12 hemangioma measuring 14 mm. IMPRESSION: Limited evaluation without contrast. No hydronephrosis / nephrolithiasis. Paraumbilical hernia containing fat measuring 3.6 x 3.3 cm. Colonic diverticular disease. Other findings as described. ATED BY: CHANNING JOVEL MD DICTATED DATE/TIME: 12/27/24 1525 SIGNED BY: CHANNING JOVEL MD SIGNED DATE/TIME: 12/27/24 1525 CC: [place] [address] Ph: [phone] DIAGNOSTIC IMAGING Diagnostic Imaging Report : [id number] Signed PATIENT: DANIELA ST DACCT: [id number] UNIT: [id number] : 1960 LOC: CENTRAL ROOM / BED: 0215 / A AGE / SEX: 64 / F ADM STATUS: ADM IN SERVICE 1154 ORDERING PHYSICIAN: BRII NGUYEN PROCEDURE(s): KIDUS - KIDNEY REASON: HISTORY OF KIDNEY STONE, HYDRONEPHROSIS ORDER NUMBER(s): [id number], ACCESSION NUMBER(s): [id number] CLINICAL HISTORY: HISTORY OF KIDNEY STONE, HYDRONEPHROSIS TECHNIQUE: Complete ultrasound exam of the kidneys and bladder was performed. COMPARISON: US KIDNEY on DOS: 10/29/24, US KIDNEY on DOS: 11/21/23 FINDINGS: The right kidney has normal echogenicity and measures 12 cm. There is no focal parenchymal abnormality or evidence for stone. There is no hydronephrosis. The left kidney has normal echogenicity and measures 11.6 cm. There is no focal parenchymal abnormality or evidence for stone. There is no hydronephrosis. The bladder is grossly unremarkable. IMPRESSION: NO SIGNIFICANT SONOGRAPHIC ABNORMALITY OF THE KIDNEYS. ATED BY: ANKUR ATKINSON MD DICTATED DATE/TIME: 12/28/24 1311 SIGNED BY: ANKUR ATKINSON MD SIGNED DATE/TIME: 12/28/24 1311 CC: [place] [address] Ph: [phone] DIAGNOSTIC IMAGING Diagnostic Imaging Report : [id number] Signed PATIENT: DANIELA ST DACCT: [id number] UNIT: [id number] : 1960 LOC: CENTRAL ROOM / BED: [facility] / A AGE / SEX: 64 / F ADM STATUS: ADM IN SERVICE 44 ORDERING PHYSICIAN: KODAK SNYDER PROCEDURE(s): CXRP - CHEST PORTABLE REASON: leg edema ORDER NUMBER(s): [id number], ACCESSION NUMBER(s): [id number] CHEST RADIOGRAPH Indication: leg edema Technique: Single frontal view of the chest was obtained. Comparison: XY CHEST PORTABLE on DOS: 09/24/24 Findings: Mild pulmonary vascular congestion. No significant pleural effusion. No pneumothorax. Stable cardiomediastinal silhouette. IMPRESSION: Mild pulmonary vascular congestion. ATED BY: RHIANNA MILLER MD DICTATED DATE/TIME: 12/28/242137 SIGNED BY: RHIANNA MILLER MD SIGNED DATE/TIME: 12/28/242137 CC: Condition at Discharge: Stable Final Diagnosis/Problems List # intractable right flank pain # hematuria # history of renal stone # postmenopausal bleeding # endometrial hyperplasia # acute complicated UTI # postmenopausal vaginal bleeding # endometrial hyperplasia # GERD # Diverticulosis Discharge Disposition: Home Discharge Instruct/Medications Diet: Regular Activity: No Restrictions, As Tolerated Follow Up/Referral: PCP [facility] clinic Gynecology and washer cutter Medications: See prescription Scheduled Cephalexin Monohydrate (Cephalexin), 1 CAP PO QID, (Reported) Diphenhydramine Hcl (Benadryl Allergy), 1 CAP PO QPM, (Reported) Doxycycline Hyclate (Doxycycline Hyclate), 1 TAB PO BID Furosemide (Lasix), 1 TAB PO DAILY Hydrocortone (Hydrocortisone 2.5%), 1 APPLIC TOP BIDP, (Reported) Hydroxyzine Hcl (Hydroxyzine Hcl), 1 TAB PO TID, (Reported) Lidocaine (Lidoderm 5% Topical Patch), 1 PATCH TOP DAILY, (Reported) Methocarbamol (Methocarbamol), 1 TAB PO Q8H, (Reported) Nitrofurantoin Monohydrate Mac (Macrobid), 100 MG PO BID Oxycodone W/ Acetaminophen (Percocet 5/325MG), 1 TAB PO BID, (Reported) Pantoprazole Sodium Sesquihydr (Protonix), 40 MG PO DAILY Potassium Chloride (Klor-Con M10), 1 TAB PO DAILY, (Reported) Sulfamethoxazole-Trimethoprim (Bactrim), 1 TAB PO BID, (Reported) Tamsulosin Hcl (Tamsulosin Hcl), 1 CAP PO DAILY, (Reported) Tranexamic Acid (Tranexamic Acid), 1,300 MG OR TID Scheduled PRN Docusate Sodium (Docusate Sodium), 100 MG PO BIDPRN PRN Tramadol HCl (Tramadol HCl), 50 MG PO QID PRN Miscellaneous Medications Acetaminophen (Tylenol), 325 MG PO, (Reported) Zruzqry-Mumbtgwnfeslj-Cdiaipwi (Excedrin Migraine), 1 OR, (Reported) Docusate Sodium (Colace), 100 MG PO, (Reported) Methocarbamol (Robaxin), 1,000 MG IJ, (Reported) Mupirocin Calcium (Topical) (Mupirocin), 2 % EX, (Reported) Discharge Statement: "Patient was advised to return to the ER or call 911 if any headaches, dizziness, shortness of breath, chest pain, abdominal pain, bleeding, fevers, or worsening of medical condition. Patient was counseled about treatment plan, medications, possible side effects, patientverbalized understanding. All questions were answered to the best of my ability. This discharge took greater then 30 minutes in planning, reviewing documentation, counseling the patient, and discussing with other team members." ASSESSMENT ASSESSMENT Assessment Date of Service: Dec 30, 2024 Billing Provider: BHARATHI CASTILLO MD Common Visit Codes: [id number] DISCH DAY >30min BRII NGUYEN RESIDENT Dec 30, 2024 15:20 LAINE KIMBLE RESIDENT Dec 31, 2024 14:06 BHARATHI CASTILLO MD Jan 09, 2025 20:36
[2024-12-30] MEDS: CALCIUM CARB 500 MG CHEW TAB PO PRN (15:54)
[2024-12-30] MEDS: ONDANSETRON HCL 4 MG/2 ML VIAL IV PRN (16:22)
--- NOTE | 2024-12-30 16:54 | DVHSR ---
APPROVED REPORT EXAM: Two-dimensional and M-mode echocardiogram with Doppler and color Doppler. Blood Pressure: 124/82 mmHg INDICATION Rule out CHF RISK FACTORS Height: 5'2, Weight: 158 DIMENSIONS LVDd 4.4 (3.8-5.7cm) LA (2D) 2.8 (1.9-4.0cm) Aortic Root 2.9 (2.0-3.7cm) LVDs 3.2 (2.5-4.0cm) LA (MM) (1.9-4.0cm) Aortic Cusp Exc 1.7 (1.5-2.0cm) EF (%) 55.0 (55-70%) Rt. Atrium 3.0 (1.9-4.0cm) Asc. Aorta 2.5 cm IVSd 0.9 (0.7-1.1cm) RV (D) (1.8-2.4cm) PWd 0.8 (0.7-1.1cm) Mitral Valve Mitral Mitral Stenosis E wave 0.55m/s MV Mean GR. mmHg A wave 0.89m/s MV Peak GR. mmHg E/A ratio 0.6 2D MVA cm2 DECEL Time 185ms PRESS 1/2 Time ms Aortic Valve Aortic Valve Aortic Stenosis V1 1.36m/s AO Mean GR. 6mmHg V2 1.66m/s AO Peak GR. 11mmHg LVOT Diameter 1.8 (1.8-2.4cm) Doppler CEZAR 2.08cm2 Pulmonic Valve V2 0.99m/s Conclusion Technically good study. Sinus rhythm. Normal chamber sizes. Valves are normal. EF of 60% with normal RV function. Dopplers unremarkable. Mild TR. No pericardial effusion masses or vegetations.
[2024-12-30] MEDS: ACETAMINOPHEN 325 MG TAB PO PRN (21:36)
[2024-12-31 00:52] VITALS: BP 102/69; PULSE 81; RESP 19; TEMP 97.2; O2SAT 94
[2024-12-31 05:00] VITALS: BP 109/70; PULSE 64; RESP 19; TEMP 97.9; O2SAT 97
[2024-12-31 09:00] VITALS: BP 126/71; PULSE 72; RESP 18; TEMP 98.3; O2SAT 96
[2024-12-31 12:37] VITALS: BP 126/71
[2024-12-31 13:00] VITALS: BP 110/78; PULSE 76; RESP 18; TEMP 98; O2SAT 96
[2024-12-31] MEDS ORDERED: NITR-87 PO (14:08)
--- NOTE | 2024-12-31 14:38 | DVHPNRES ---
Progress Note Date Seen: Dec 31, 2024 Resident Creating Document: BRII NGUYEN RESIDENT Medical Necessity Reason Pt with a Central, PICC or Fol: No Subjective Review of Systems Patient is seen today at bedside, no acute complaint. Patient reported her family is going to pick her up in the afternoon. Social service consult for resume home health for vitals and nursing in place. Objective vital signs Vital Sign Date Time Temp Pulse Resp B/P (MAP) Pulse Ox O2 Delivery O2 Flow Rate FiO2 12/31/24 09:49 126/71 12/31/24 09:00 98.3 72 18 96 98.3 12/31/24 08:10 Room Air* 0 21 Total Intake and Output 12/30/24 12/30/24 12/31/24 15:00 23:00 07:00 Intake Total 50 ml 1100 ml 200 ml Output Total 1600 ml Balance 50 ml -500 ml 200 ml medications Current Medications Medications Dose Ordered Sig/Miguel Route Start Time Stop Time Status Last Admin Dose Admin Acetaminophen/ Hydrocodone Bitart 1 tab Q4HP PRN PO 12/27/24 16:15 12/31/24 02:52 1 TAB Ondansetron HCl 4 mg Q4HP PRN IV 12/27/24 16:15 12/30/24 16:22 4 MG Acetaminophen 650 mg Q6HP PRN PO 12/27/24 16:15 12/30/24 21:36 650 MG Docusate Sodium 100 mg BID PO 12/27/24 22:00 12/31/24 09:48 100 MG Ceftriaxone Sodium 50 ml @ 100 mls/hr DAILY@09 IV 12/28/24 09:00 12/31/24 09:48 100 MLS/HR Methocarbamol 500 mg Q8H PO 12/27/24 16:15 12/31/24 09:48 500 MG Pantoprazole Sodium 40 mg DAILY PO 12/28/24 10:00 12/31/24 09:49 40 MG Furosemide 20 mg DAILY PO 12/29/24 10:00 12/31/24 09:49 20 MG Tamsulosin HCl 0.4 mg QPM PO 12/29/24 18:00 12/30/24 17:10 0.4 MG Polyethylene Glycol 17 gm DAILYPRN PRN PO 12/30/24 08:00 Calcium Carbonate 500 mg TIDWM PRN PO 12/30/24 07:00 12/30/24 15:54 500 MG Examination General examination- awake, alert, oriented HEENT- PEERLA, no acute nasal discharge Cardiovascular- S1-S2 audible, rate and rhythm regular, no murmur Respiratory- CTAB, no wheeze or rhonchi Gastrointestinal-nontender, bowel sound+. Nondistended Renal system-no renal angle tenderness or costovertebral angle tenderness Musculoskeletal-no acute joint swelling or tenderness or redness Lower extremity- no leg edema Neurological- cranial nerves intact, no acute dysarthria or dysphagia, no acute neurological deficit Psychiatry- denies depression or SI or HI Skin- no acute rash or purpura laboratory and microbiology Laboratory Tests 12/30/24 07:54 Test 12/30/24 07:54 Range/Units Serum Glucose 81 74-106 mg/dL Microbiology Date/Time Source Procedure Growth Status 12/28/24 11:20 Voided Urine Urine Culture - Final Complete Problem List/Assessment/Plan Problem List/Assessment/Plan Assessment and plan # intractable right flank pain # hematuria # history of renal stone # acute complicated UTI -urinalysis revealed-blood 3+, negative for nitrite, leukocyte esterase trace, WBC 12, bacteria few --urine culture negative -continue ceftriaxone 1 g IV daily -Lab workup revealed hemoglobin 11.3, no leukocytosis, serum creatinine, sodium/potassium/serum creatinine within normal limit. -CT scan of the abdomen revealed- No hydronephrosis / nephrolithiasis. Paraumbilical hernia containing fat measuring 3.6 x 3.3 cm. Colonic diverticular disease. -Ultrasound of the kidney revealed no significant sonographic abnormality of the kidney. # postmenopausal vaginal bleeding # endometrial hyperplasia -hemoglobin 11.3 -pelvic ultrasound on 12/26/2024- Endometrial tissue appears somewhat thickening and heterogeneous. - Patient was seen by cigarette and filter chief inspector and painting machine operator-recommend pap smear and endometrial biopsy , follow up with Gynecology and oxygen ROX after DC home,patient was is given off his appointment. # GERD -pantoprazole as prescribed # Diverticulosis - Avoid dehydration and constipation Diet regular diet PCP Dr. Story Goals of care, Code status full code ; discussed with >15 minutes PUD prophylaxis: Pantoprazole DVT prophylaxis: No acute indication Plan discussed with Dr. Castillo, nursing staff, Patient Total time spent on patient evaluation, chart review, assessment and plan, discussion discussion >35 minutes Plan discussed with: Patient, Other (RN) My Orders My Orders Orders - BRII NGUYEN Procedure Category Date Status Time Discharge DISCHARGE 12/30/24 Transmitted 16:55 Schedule For Dc LOIS 12/30/24 In Process Clinic F/U 16:56 * [employer] Operator CONS 12/30/24 Transmitted Consult * [employer] Operator CONS 12/31/24 Transmitted Consult 10:33 Date of Service: Dec 31, 2024 Billing Provider: BHARATHI CASTILLO MD Common Visit Codes: [id number] INP/OBS CARE(HIGH) BRII NGUYEN Dec 31, 2024 14:38 BHARATHI CASTILLO MD Jan 09, 2025 20:36
== END 2024-12-31 16:40 | disposition home health service (06) | DRG 463 ==
LOC: ER 08:49 → OVERFLOW 16:14 → CENTRAL 21:30
PROVIDERS: ADMIT Internal Medicine Geriatric Medicine; ATTEND Internal Medicine Geriatric Medicine
DX: N30.01 Acute cystitis with hematuria (principal); G89.29 Other chronic pain; K21.9 Gastro-esophageal reflux disease without esophagitis; N85.00 Endometrial hyperplasia, unspecified; N95.9 Unspecified menopausal and perimenopausal disorder; K46.9 Unspecified abdominal hernia without obstruction or gangrene; K57.30 Diverticulosis of large intestine without perforation or abscess without bleeding; Z88.1 Allergy status to other antibiotic agents; Z87.442 Personal history of urinary calculi; Z82.49 Family history of ischemic heart disease and other diseases of the circulatory system; Z83.3 Family history of diabetes mellitus; Z80.9 Family history of malignant neoplasm, unspecified
CPT/HCPCS: 36415; 71045; 74176; 76775; 80048; 80053; 81001; 82306; 82607; 82746; 83880; 84443; 85025; 87086; 93306; 96360; 99291; G0378; J2405

== ENCOUNTER 2025-01-07 01:31 | Emergency (ER) | payer MEDICAID ==
[~2025-01-07] VITALS: Ht 157.5 cm; Wt 93.1 kg
[~2025-01-07 01:31] MED LIST changes: -CIPR-173 PO; +DOCU-94 PO; -FLUC200T PO; +METH100035 IJ; +NITR-87 PO; +PERCOT PO; +POTA-215 PO; +SULF400T11 PO
[2025-01-07 02:15] LABS: Urine Protein, UAD Negative (Negative)
--- NOTE | 2025-01-07 02:16 | ED.PDOC ---
PATIENT FINANCIAL REPRESENTATIVE HPI Comments 64-year-old female who came to ER for vaginal bleeding. Patient was discharged here last December 31, similar complains. Was seen by OB Gynecology, diagnosed with postmenopausal bleeding, endometrial hyperplasia, UTI, and kidney stones. Last night patient started having vaginal bleeding again, associated cramping abdominal pain. Patient currently being treated with Macrobid for her UTI. 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 Chief Complaint: Vaginal Bleed Time Seen by MD: 02:16 Reviewed Notes: Nurses Notes Allergies: Coded Allergies: Erythromycin (Verified Allergy, Unknown, 05/23/20) Tetracycline (Unverified Allergy, Unknown, 04/20/24) Tetracyclines & Related (Verified Allergy, Unknown, 05/23/20) [facility] Home Meds Active Scripts Nitrofurantoin Monohydrate Mac (Macrobid) 100 Mg Cap, 100 MG PO BID for 5 Days, #10 CAP Prov:BRII NGUYEN RESIDENT 12/31/24 Tranexamic Acid (TRANEXAMIC ACID) 650 Mg Tab, 1300 MG OR TID for 5 Days, #30 TAB Prov:NIKOLAS TOPETE MD 12/26/24 Doxycycline Hyclate (DOXYCYCLINE HYCLATE) 100 Mg Tab, 1 TAB PO BID for 7 Days, #14 TAB Prov:NIKOLAS TOPETE MD 12/26/24 Furosemide (Lasix) 20 Mg Tb, 1 TAB PO DAILY for 3 Days, #3 TAB 0 Refills Prov:GENNY DEE DO 12/18/24 Tramadol HCl (Tramadol HCl) 50 Mg Tab, 50 MG PO QID PRN, #30 TAB Prov:JING SMART MD 10/31/24 Pantoprazole Sodium Sesquihydr (Protonix) 40 Mg Tab, 40 MG PO DAILY, #60 TAB Prov:NISH CARIAS MD 09/29/24 Docusate Sodium (Docusate Sodium) 100 Mg Cap, 100 MG PO BIDPRN PRN for 30 Days, #60 CAP Prov:AMY CRENSHAW RESIDENT 03/25/24 Reported Medications Cephalexin Monohydrate (Cephalexin) 500 Mg Cap, 1 CAP PO QID, #40 CAP 12/27/24 Sulfamethoxazole-Trimethoprim (Bactrim) 1 Tab Tab, 1 TAB PO BID, #20 TAB 12/27/24 Potassium Chloride (Klor-Con M10) 10 Meq Tab, 1 TAB PO DAILY, #30 TAB 5 Refills 12/27/24 Docusate Sodium (Colace) 100 Mg Cap, 100 MG PO, CAP 12/27/24 Methocarbamol (Robaxin) 1,000 Mg/10 Ml Inj, 1000 MG IJ, INJ 12/27/24 Oxycodone W/ Acetaminophen (Percocet 5/325MG) 1 Tab Tb, 1 TAB PO BID, #60 TAB 12/27/24 Hydrocortone (Hydrocortisone 2.5%) 1 Applic Ap, 1 APPLIC TOP BIDP, #30 GRAMS 09/25/24 Mupirocin Calcium (Topical) (MUPIROCIN) 2 % Cre, 2 % EX, CRE 09/25/24 Acetaminophen (Tylenol) 325 Mg Tb, 325 MG PO, TAB 09/25/24 Dgiecly-Txzogjyuoziha-Hrcbmeoc (Excedrin Migraine) Migraine Tab, 1 OR, TAB 09/25/24 Lidocaine (LIDODERM 5% TOPICAL PATCH) 1 Patch Ph, 1 PATCH TOP DAILY, #30 PATCH 1 Refill 09/25/24 Diphenhydramine Hcl (Benadryl Allergy) 25 Mg Cap, 1 CAP PO QPM, #30 CAP 1 Refill 09/25/24 Hydroxyzine Hcl (Hydroxyzine Hcl) 25 Mg Tab, 1 TAB PO TID 03/23/24 Methocarbamol (Methocarbamol) 500 Mg Tab, 1 TAB PO Q8H 03/23/24 Tamsulosin Hcl (Tamsulosin Hcl) 0.4 Mg Cap, 1 CAP PO DAILY 03/23/24 Information Source: Patient Past Medical History PAST MEDICAL HISTORY: Kidney Stones, UTI'S Surgical History: Denies all surgeries GUEST RELATIONS ASSOCIATE History: No Pertinent GUEST RELATIONS ASSOCIATE History Family History Family History: Reviewed,noncontributory to illness Social History Smoker: Non-Smoker Alcohol: Denies ETOH Use Drugs: Denies Drug Use Lives In: Home Constitutional: denies: chills, diaphoresis, fatigue, fever, malaise, sweats, weakness, others EENTM: denies: blurred vision, double vision, ear bleeding, ear discharge, ear drainage, ear pain, ear ringing, eye pain, eye redness, hearing loss, mouth pain, mouth swelling, nasal discharge, nose bleeding, nose congestion, nose pain, photophobia, tearing, throat pain, throat swelling, voice changes, others Respiratory: denies: cough, hemoptysis, orthopnea, SOB at rest, shortness of breath, SOB with excertion, stridor, wheezing, others Cardiovascular: denies: chest pain, dizzy spells, diaphoresis, Dyspnea on exertion, edema, irregular heart beat, left arm pain, lightheadedness, palpitat ions, PND, syncope, others Gastrointestinal: reports: abdominal pain; denies: abdomen distended, blood streaked bowels, constipated, diarrhea, dysphagia, difficulty swallowing, hematemesis, melena, nausea, poor appetite, poor fluid intake, rectal bleeding, rectal pain, vomiting, others Genitourinary: reports: abnormal vagina bleeding; denies: burning, dyspareunia, dysuria, flank pain, frequency, hematuria, incontinence, pain, , vagina discharge, urgency, others Neurological: denies: dizziness, fainting, headache, left sided numbness, left sided weakness, numbness, paresthesia, pre-existing deficit, right sided numbness, right sided weakness, seizure, speech problems, tingling, tremors, weakness, others Musculoskeletal: denies: back pain, gout, joint pain, joint swelling, muscle pain, muscle stiffness, neck pain, others Integumetry: denies: bruises, change in color, change in hair/nails, dryness, laceration, lesions, lumps, rash, wounds, others Allergic/Immunocompromised: denies: Difficulty Healing, Frequent Infections, Hives, Itching, others Hematologic/Lymphatic: denies: anemia, blood clots, easy bleeding, easy bruising, swollen glands, others Endocrine: denies: excessive hunger, excessive sweating, excessive thirst, excessive urination, flushing, intolerance to cold, intolerance to heat, unexplained weight gain, unexplained weight loss, others Psychiatric: denies: anxiety, bipolar disorder, depression, hopeless, panic disorder, schizophrenia, sleepless, suicidal, others Physical Exam General Appearance: No Apparent Distress, Normal HEENT: Normal ENT Inspection, Pharynx Normal, TMs Normal Neck: Full Range of Motion, Non-Tender, Normal, Normal Inspection Respiratory: Chest Non-Tender, Lungs Clear, No Accessory Muscle Use, No Respiratory Distress, Normal Breath Sounds Cardiovascular: No Edema, No JVD, No Murmur, No Gallop, Normal Peripheral Pulses, Regular Rate/Rhythm Breast Exam: Deferred Gastrointestinal: No Organomegaly, Non Tender, No Pulsatile Mass, Normal Bowel Sounds, Soft Genitalia: Deferred Pelvic: Deferred Rectal: Deferred Extremities: No calf tenderness, Normal capillary refill, Normal inspection, Normal range of motion, Non-tender, No pedal edema Musculoskeletal : Apperance: Normal Neurologic: Alert, mixed signal design engineer II-XII nml as Tested, No Motor Deficits, Normal Affect, Normal Mood, No Sensory Deficits Cerebellar Function: Normal Reflexes: Normal Skin: Dry, Normal Color, Warm Lymphatic: No Adenopathy Was a procedure done? Was a procedure done?: No Differential Diagnosis (GUEST RELATIONS ASSOCIATE) Vaginal Bleeding: Blood Loss Anemia, Hormonal, UTI X-Ray, Labs, Meds, VS Vital Signs Date Time Temp Pulse Resp B/P (MAP) Pulse Ox O2 Delivery O2 Flow Rate FiO2 01/07/25 06:13 98.6 80 18 112/79 (90) 96 98.6 01/07/25 01:34 97.7 94 18 123/59 97 97.7 Lab Test 01/07/25 02:25 01/07/25 02:06 Range/Units White Blood Count 7.9 4.4-10.8 10^3/uL Red Blood Count 4.28 4.0-5.20 10^6/uL Hemoglobin 11.6 L 12.2-16.2 g/dL Hematocrit 36.2 36.0-46.0 % Mean Corpuscular Volume 84.5 80.0-100.0 fL Mean Corpuscular Hemoglobin 27.2 L 28.0-32.0 pg Mean Corpuscular Hemoglobin Concent 32.2 32.0-36.0 g/dL Red Cell Distribution Width 15.8 H 11.8-14.3 % Platelet Count 269 140-450 10^3/uL Mean Platelet Volume 9.2 6.9-10.8 fL Neutrophils (%) (Auto) 68.7 37.0-80.0 % Lymphocytes (%) (Auto) 21.8 10.0-50.0 % Monocytes (%) (Auto) 7.3 0.0-12.0 % Eosinophils (%) (Auto) 1.8 0.0-7.0 % Basophils (%) (Auto) 0.4 0.0-2.0 % Neutrophils # (Auto) 5.4 1.6-8.6 10 ^3/uL Lymphocytes # (Auto) 1.7 0.4-5.4 10 ^3/uL Monocytes # (Auto) 0.6 0-1.3 10 ^3/uL Eosinophils # (Auto) 0.1 0-0.8 10 ^3/uL Basophils # (Auto) 0 0-0.2 10 ^3/uL Nucleated Red Blood Cells 0.0 % Prothrombin Time 10.4 9.3-11.8 sec Prothrombin Time INR 0.98 0.9-1.15 Activated Partial Thromboplast Time 32.3 24.5-34.5 SEC Sodium Level 144 136-145 mmol/L Potassium Level 4.2 3.5-5.1 mmol/L Chloride Level 106 98-107 mmol/L Carbon Dioxide Level 30 20-31 mmol/L Anion Gap 8 5-15 Blood Urea Nitrogen 13 9-23 mg/dL Creatinine 0.78 0.550-1.02 mg/dL Glomerular Filtration Rate Calc 86 >90 mL/min BUN/Creatinine Ratio 16.7 10.0-20.0 Serum Glucose 89 74-106 mg/dL Calcium Level 10.3 8.7-10.4 mg/dL Total Bilirubin 0.4 0.2-1.0 mg/dL Aspartate Amino Transferase (AST) 20 13-40 U/L Alanine Aminotransferase (ALT) < 9 7-40 U/L Alkaline Phosphatase 136 H 46-116 U/L Total Protein 7.8 5.7-8.2 g/dL Albumin 4.6 3.2-4.8 g/dL Urine Color Light-yellow Yellow Urine Clarity Clear Clear Urine pH 6.5 5.0-9.0 Urine Specific [place] 1.020 1.001-1.035 Urine Protein Negative Negative Urine Ketones Negative Negative Urine Blood 2+ H Negative /uL Urine Nitrite Negative Negative Urine Bilirubin Negative Negative Urine Urobilinogen Normal Negative mg/dL Urine Leukocyte Esterase Trace Negative /uL Urine RBC 501 0 - 4 /hpf Urine Microscopic WBC 3 0-5 /HPF Urine Squamous Epithelial Cells Few <5 /hpf Urine Bacteria None seen None Seen /hpf Urine Mucus Few None Seen Urine Glucose Normal Normal mg/dL Current Medications Medications (Trade) Dose Ordered Sig/Miguel Route Start Time Stop Time Status Last Admin Acetaminophen/ Hydrocodone Bitart ([place] 5/325MG Tab) 2 tab ONCE ONCE PO 11/28/25 02:15 01/07/25 02:16 DC 01/07/25 02:56 Oxycodone HCl 10 mg ONCE STAT PO 01/07/25 05:54 01/07/25 05:56 DC 01/07/25 06:55 Time of 1ST Reevaluation: 02:12 Reevaluation 1ST: Unchanged Patient Education/Counseling: Diagnosis, Treatment Family Education/Counseling: No Family Present Departure 1 Departure Time of Disposition: 04:00 Impression: Primary Impression: Post-menopausal bleeding Disposition: 01 HOME / SELF CARE / HOMELESS Condition: Stable Discharged With: Self Critical Care Note Critical Care Time?: No Stability Stability form required: No Heart Score Heart Score: Heart Score Response (Comments) Value History N/A 0 EKG N/A 0 Age N/A 0 Risk Factors N/A 0 Troponin N/A 0 Total 0 I personally scribed for BLANCA CARRERA MD ([email or web address]) on 01/07/25 at 02:16. Electronically submitted by Herson Quick ([email or web address]). BLANCA CARRERA MD Jan 07, 2025 02:16
[2025-01-07] MEDS: HYDROcodone-ACET 5/325MG TAB PO ONE (02:56)
[2025-01-07 03:25] LABS: Hematocrit 36.2 % (36.0-46.0); Hemoglobin 11.6 g/dL (12.2-16.2); Mean Corpuscular Hemoglobin 27.2 pg (28.0-32.0); Mean Corpuscular Volume 84.5 fL (80.0-100.0); Nucleated Red Blood Cells % 0.0 %
[2025-01-07 03:33] LABS: Alanine Aminotransferase < 9 U/L (7-40); Albumin 4.6 g/dL (3.2-4.8); Alkaline Phosphatase 136 U/L (46-116); Anion Gap 8 (5-15); BUN/Creatinine Ratio 16.7 (10.0-20.0); Bilirubin, Total 0.4 mg/dL (0.2-1.0); Blood Urea Nitrogen 13 mg/dL (9-23); Calcium 10.3 mg/dL (8.7-10.4); Carbon Dioxide 30 mmol/L (20-31); Chloride 106 mmol/L (98-107); Glucose 89 mg/dL (74-106); Potassium 4.2 mmol/L (3.5-5.1); Sodium 144 mmol/L (136-145); Total Protein 7.8 g/dL (5.7-8.2)
[2025-01-07 03:41] LABS: INR 0.98 (0.9-1.15); Partial Thromboplastin Time 32.3 SEC (24.5-34.5); Prothrombin Time 10.4 sec (9.3-11.8)
[2025-01-07 06:13] VITALS: BP 112/79; PULSE 80; RESP 18; TEMP 98.6; O2SAT 96
== END 2025-01-07 07:48 | disposition home or self-care (01) ==
LOC: ER 01:31
DX: N95.0 Postmenopausal bleeding (principal); Z79.891 Long term (current) use of opiate analgesic; Z79.899 Other long term (current) drug therapy; Z87.440 Personal history of urinary (tract) infections; Z87.442 Personal history of urinary calculi; Z88.1 Allergy status to other antibiotic agents
CPT/HCPCS: 36415; 80053; 81001; 85025; 85610; 85730